=== PATIENT | male | born 1960 | race Caucasian/White ===

== ENCOUNTER 2017-09-08 21:47 | Observation (INO) | payer SELFPAY ==
[2017-09-08] VITALS (8 sets, daily range): BP systolic 134–162; BP diastolic 78–105; PULSE 106–124; RESP 16–23; TEMP 36.8; O2SAT 94–98; BMI 39.9
--- NOTE | 2017-09-08 21:49 | NURSING ---
CALLED FOR EKG PER RN REQUEST, PULLED OLD EKG'S FOR
--- NOTE | 2017-09-08 21:54 | RAD_ITS ---
STUDY: X-RAY CHEST REASON FOR EXAM: Male, 56 years old. Chest pain TECHNIQUE: Frontal view of the chest COMPARISON: 11/24/2016 FINDINGS: The lungs are clear. There are no pleural effusions. There is no pneumothorax. The heart is normal in size. The visualized osseous structures are within normal limits. RAD/Chest 1 View (Portable) IMPRESSION: No acute thoracic pathology. Electronically Signed: Daniel Lauren, at 22:28 EST Tel , Service support ,
--- NOTE | 2017-09-08 21:54 | EKG12_ITS ---
Test Reason : CP Blood Pressure : / mmHG Vent. Rate : 107 BPM Atrial Rate : 107 BPM P-R Int : 182 ms QRS Dur : 092 ms QT Int : 334 ms P-R-T Axes : 032 -37 061 degrees QTc Int : 445 ms Sinus tachycardia Left axis deviation Abnormal ECG Confirmed by CAMRYN DWYER, GÉNESIS ([id number]), makeup editor JULIUS ADAMS ([id number] on 09/11/2017 1:47:52 PM Referred By: BEKAH LEIJA Confirmed By:GÉNESIS COWAN MD
--- NOTE | 2017-09-08 21:57 | ED.DCSUM_ITS ---
- ER Visit Summary Date of Service: 09/08/17 Chief Complaint: Chest pain History of Present Illness: The patient is a 56 M with history of diabetes, hypertension, hypercholesterolemia who presents for chest pain onset 30 minutes prior to presentation. Patient was in bed and suddenly felt like someone was sitting on his chest. He has associated shortness of breath. states he has been having some flulike symptoms for 2 days, including a fever and a cough with headache, which resolved last night. Patient denies any cardiac history. He took 2 baby aspirin at home. Physical Examination: Vital signs: afebrile, hemodynamically stable, no hypoxia on room air General: well nourished, well developed, obese, nontoxic appearing but appears uncomfortable Skin: warm, dry, no rash, no pallor, no diaphoresis HEENT: normocephalic and atraumatic; PERRL, EOMI, moist mucous membranes Cardiovascular: Tachycardic rate and rhythm without murmurs, no peripheral edema , 2+ pulses all distal extremities Respiratory: No increased work of breathing, lungs are clear to auscultation bilaterally, no rales, rhonchi or wheezing Abdominal: Abdomen is soft, nontender with normoactive bowel sounds, no guarding or rebound, no masses MSK: Moves all extremities, no deformities, normal strength Neuro: Awake and alert, oriented ?4. No facial droop, sensation and motor function intact and symmetric Test Results: Abnormal Lab Results 09/08/17 09/08/17 09/08/17 21:50 21:50 21:50 WBC 4.3 L RBC 5.39 Hgb 16.5 Hct 48.6 MCV 90.2 MCH 30.6 MCHC 34.0 RDW 14.9 H RDW Differential 48.6 H Plt Count 148 L MPV 10.1 Immature Gran % (Auto) 0.200 Neut % (Auto) 61.7 Lymph % (Auto) 25.8 [place] % (Auto) 9.3 Eos % (Auto) 2.8 Baso % (Auto) 0.2 Absolute Neuts (auto) 2.7 Absolute Lymphs (auto) 1.11 Total Counted Not Reportable PT 13.5 INR 1.1 APTT 29.6 Sodium Potassium Chloride Carbon Dioxide Anion Gap BUN Creatinine Estim Creat Clear Calc Est GFR (MDRD) Af Amer Est GFR (MDRD) Non-Af BUN/Creatinine Ratio Glucose Calcium Total Bilirubin AST ALT Alkaline Phosphatase Troponin I < 0.02 B-Natriuretic Peptide Total Protein Albumin Globulin Albumin/Globulin Ratio Lipase TSH 1.06 09/08/17 09/08/17 21:50 21:50 WBC RBC Hgb Hct MCV MCH MCHC RDW RDW Differential Plt Count MPV Immature Gran % (Auto) Neut % (Auto) Lymph % (Auto) [place] % (Auto) Eos % (Auto) Baso % (Auto) Absolute Neuts (auto) Absolute Lymphs (auto) Total Counted PT INR APTT Sodium 134 L Potassium 3.8 Chloride 99 Carbon Dioxide 26.0 Anion Gap 9 BUN 16 Creatinine 1.17 Estim Creat Clear Calc 66.58 Est GFR (MDRD) Af Amer 82 Est GFR (MDRD) Non-Af 68 BUN/Creatinine Ratio 13.7 Glucose 322 H Calcium 8.9 Total Bilirubin 1.00 AST 35 ALT 107 H Alkaline Phosphatase 92 Troponin I B-Natriuretic Peptide 8.6 Total Protein 7.5 Albumin 3.8 Globulin 3.7 Albumin/Globulin Ratio 1.0 Lipase 241 TSH Emergency Department Course and Treatment: Patient was given an additional 2x81 mg aspirins and nitroglycerin. No improvement in his chest pain after 3 nitro. Patient was complaining of the chest tightness and an indigestion-like sensation and this was given a GI cocktail. He had mild improvement. EKG showed a sinus tachycardia with no ischemic changes. Chest x-ray showed no infiltrate. No leukocytosis on CBC. Glucose elevated but otherwise BMP unremarkable. Hepatic function unremarkable. BNP within normal limits. Troponin negative. Thyroid function normal. Flu negative. Because patient is persistently tachycardic and looks mildly short of breath and other causes have been ruled out, a CTA was performed to evaluate for possible pulmonary embolism. Patient was offered and declined any further pain medication, although I told him I wanted him to be pain-free. Repeat EKG was performed since patient is still having chest heaviness and was unchanged from prior, except improvement in rate now to 90. Pt remains 92% on 2lpm NC. He was ordered morphine 3 doses of nitro did not cause improvement. The CTA was inconclusive due to a suboptimal bolus, thus patient was given a treatment dose of Lovenox. Will require admission for further workup of his persistent chest heaviness with significant medical comorbidities and concern for possible pulmonary embolism after nondiagnostic CTA. Pt discussed with Dr. Wiggins. Treatment Plan: [] Disposition: [] Impression: Chest heaviness history of diabetes, hypertension and hypercholesterolemia This note was generated with [employer] dictation software. It may contain incorrect words, spelling, and punctuation that were not noted in review of the chart prior to signing ED Disposition - Plan for ED Patient: Chief Complaint: Chest Pain Referrals: Awais Browning III, MD [Primary Care Provider] -
[2017-09-08] MEDS: Aspirin 81 MG TAB.CHEW 162 MG PO (22:01)
[2017-09-08] MEDS: 0.9% Normal Saline 1,000 ML 1000 ML IV (22:06)
[2017-09-08 22:21] LABS: Absolute Lymphocyte Count 1.11 X10^3/ul (0.83-4.51); Absolute Neutrophil Count 2.7 X10^3/uL (2.0-7.7); Basophil# 0.01 X10^3/uL; Basophil% 0.2 % (0-1); Eosinophil# 0.12 X10^3/uL; Eosinophils% 2.8 % (0-5); Hematocrit 48.6 % (40-54); Hemoglobin 16.5 g/dl (13.0-16.5); Lymphocyte # 1.11 X10^3/ul (4.0); Lymphocyte % 25.8 % (19-41); Mean Corpuscular Hgb 30.6 pg (27.0-32.0); Mean Corpuscular Volume 90.2 fL (80-94); Mean Platelet Vol. 10.1 fl (6.2-12.0); Monocyte% 9.3 % (0-10); Neutrophil # 2.66 X10^3/uL (2.7-7.7); Neutrophil % 61.7 % (47-70); POSITIVE COUNT NO; POSITIVE DIFFERENTIAL NO; POSITIVE MORPHOLOGY NO; Platelet Count 148 K/mm3 (150-450); RBC Distribution Width CV 14.9 % (11.6-14.6); RBC Distribution Width SD 48.6 fl (35.1-43.9); Red Blood Count 5.39 M/mm3 (4.6-6.2); White Blood Count 4.3 K/mm3 (4.4-11.0)
[2017-09-08 22:25] LABS: International Normalized Ratio 1.1; Prothrombin Time (Protime)PT. 13.5 SECONDS (11.7-14.9)
[2017-09-08 22:26] LABS: Partial Thromboplast Time 29.6 Seconds (24.1-36.2)
[2017-09-08] MEDS: Ondansetron 4 MG/2 ML Vial IV (22:39)
[2017-09-08 22:48] LABS: BNP,B-Type NATRIURETIC PEPTIDE 8.6 pg/mL (0-100)
[2017-09-08 22:51] LABS: Thyroid Stim Hormone (TSH) 1.06 uIU/mL (0.358-3.74)
[2017-09-08 23:05] LABS: AST(SGOT) 35 U/L (15-37); Alanine Aminotransfer ALT/SGPT 107 U/L (16-61); Albumin, Serum 3.8 g/dL (3.2-5.0); Alkaline Phosphatase 92 U/L (45-117); Anion Gap 9 (5-15); BUN 16 mg/dL (7-18); BUN/Creat Ratio 13.7 RATIO (10-20); Calcium,Total 8.9 mg/dL (8.5-10.1); Chloride 99 mmol/L (98-107); Creatinine, Serum 1.17 mg/dL (0.70-1.30); EST Glomerular Filtration Rate 68 mL/min (>60); Est Glom Filt Rate - Afr Amer 82 mL/min (>60); Estimated Creatinine Clearance 66.58 ml/min; Globulin 3.7 g/dL (2.2-4.2); Glucose 322 mg/dL (74-106); Lipase 241 U/L (73-393); Potassium 3.8 mmol/L (3.5-5.1); Protein, Total 7.5 g/dL (6.4-8.2); Sodium Level 134 mmol/L (136-145)
--- NOTE | 2017-09-08 23:09 | CT_ITS ---
STUDY: CTA CHEST REASON FOR EXAM: Male, 56 years old. Sternal chest pain and shortness of breath. RADIATION DOSAGE (If Supplied By Facility): CTDIvol = ( 16.73 ) mGy, DLP = ( 1577.89 ) mGycm TECHNIQUE: The examination was performed with the intravenous administration of 200ml ml of Isovue 370 contrast material. Post-processing of the angiographic images was performed, with multiplanar reformation. Individualized dose optimization techniques were used for this CT. COMPARISON: None. FINDINGS: There is limited enhancement of the main pulmonary artery and right and left pulmonary arteries. There is limited enhancement of the bilateral peripheral pulmonary arteries. There is no demonstrated definite central pulmonary embolism. The peripheral branches are difficult to evaluate. There is atherosclerotic tortuosity of the aortic arch and descending thoracic aorta. There is no demonstrated aortic dissection. Normal heart and pericardium. Normal mediastinum. Normal hilar regions. There is a small nondependent left lobe of the thyroid gland better evaluated by ultrasound. Normal visualized trachea and bronchi. The lungs are well expanded. There are no pulmonary infiltrates. There are no pleural effusions. Normal chest wall structures. There are degenerative changes of thoracic spine. The visualized portions of the upper abdomen demonstrate splenomegaly. CT/CTA Chest W/WO Contrast IMPRESSION: Limited examination due to suboptimal enhancement of the central and peripheral branches of pulmonary arteries. No infiltrate is seen. Splenomegaly Small nodule in the left lobe of the thyroid gland. Electronically Signed: Rivas Tsai MD at 0:27 EST Tel , Service support ,
--- NOTE | 2017-09-08 23:59 | NURSING ---
HOLD METFORMIN FOR 48 HOURS DUE TO CTA. PAPER ATTATCHED TO THE PAPER CHART FOR HE GETS ADMITTED.
[2017-09-09] VITALS (11 sets, daily range): BP systolic 123–148; BP diastolic 72–88; PULSE 77–112; RESP 15–23; TEMP 36.8–37.2; O2SAT 92–94; BMI 40.0; BMI 40.9
--- NOTE | 2017-09-09 00:41 | EKG12_ITS ---
Test Reason : REPEAT Blood Pressure : / mmHG Vent. Rate : 090 BPM Atrial Rate : 090 BPM P-R Int : 196 ms QRS Dur : 094 ms QT Int : 348 ms P-R-T Axes : 014 -29 044 degrees QTc Int : 425 ms Normal sinus rhythm Left ventricular hypertrophy Abnormal ECG Confirmed by CAMRYN DWYER, GÉNESIS ([id number]), digital editor JULIUS ADAMS ([id number]) on 09/11/2017 1:48:08 PM Referred By: BEKAH Confirmed By:GÉNESIS COWAN MD
[2017-09-09 00:50] LABS: D-Dimer Quantitative (DVT/PE) < 0.27 FEU/ug/m (0.27-0.49)
[2017-09-09] MEDS: Enoxaparin 100 MG/ML Syringe 120 MG SC (00:50)
--- NOTE | 2017-09-09 01:11 | PCM.HP.STD ---
Problem List (1) Chest pain Status: Acute (2) Morbid obesity with BMI of 40.0-44.9, adult Status: Chronic (3) Diabetes mellitus type II Status: Chronic (4) Hyperlipidemia Status: Chronic (5) Hypertension Status: Chronic History of Present Illness Date of Admission: 09/09/17 Chief Complaint: chest pain The patient is a 56 year old M experienced Left sided chest pain at 2130 on 09/08. Midsternal and migrated up his chest. Never had chest pain like this before. No SOB, no diaphoresis, no N/V. Pt had an incomplete CTA chest and rec'd 120mg Lovenox (despite a normal D-Dimer. He also rec'd ASA, morphine, nitro, zofran. Pt still with chest pain despite that cocktail. [] Past Medical History Past Medical History (Chronic Problems): Chronic Problems Morbid obesity with BMI of 40.0-44.9, adult (Chronic) Hyperlipidemia (Chronic) Hypertension (Chronic) Diabetes mellitus type II (Chronic) Allergies No Known Allergies Allergy (Verified 09/08/17 21:50) Home Medications: Ambulatory Orders Medication Instructions Recorded Lisinopril [Zestril] 40 mg PO DAILY 12/10/14 Metformin HCl [Glucophage] 1,000 mg PO BIDCM 12/10/14 Aspirin [Aspirin, Baby] 81 mg PO DAILY@0800 06/09/16 Atenolol [Tenormin (Beta Kat)] 25 mg PO DAILY 06/09/16 Atorvastatin Calcium [Lipitor] 40 mg PO QHS 06/09/16 Fluoxetine [Prozac] 40 mg PO DAILY 06/09/16 Multivitamin [Daily Multiple 1 each PO DAILY 06/09/16 Vitamin] Glimepiride [Amaryl] 4 mg PO DAILY 09/08/17 Surgical History: - - Hernia repair, tonsillectomy, bilateral arthroscopic knee surgeries Smoking Status: Never smoker Tobacco Use: Chew Alcohol: Occasional Drugs: None - *Family History Maternal History Items: Heart Disease, No pertinent history Paternal History Items: Heart Disease, - - History of congestive heart failure, history of aneurysm unsure which ones Review of Systems Constitutional: Reports: Night Sweats - chronic. Denies: Chills, Fever, Weight Change Eyes: Denies: Blurred vision, Double vision HEENT: Denies: Head Aches, Sinus Congestion, Sinus Drainage Cardiovascular: Reports: Chest Pain. Denies: Edema Respiratory: Denies: Cough, Shortness of breath at rest, Sputum production Gastrointestinal: Denies: Abdominal Pain, Nausea, Vomiting Genitourinary: Denies: Dysuria Musculoskeletal: Denies: Joint Pain, Joint Tenderness Skin: Denies: Rash, Wounds Neurological: Denies: Numbness, Tingling, Focal weakness Psychiatric: Denies: Anxiety, Depression Endocrine: Denies: Change in Body Habitus, Heat/ Cold Intolerance Hematologic/ Lymphatic: Denies: Easy Bruising, Easy Bleeding, Hx of blood clot VTE Information - Inpt Only VTE Present on Admission: No VTE Mechan Device Prophylaxis: None VTE Pharm Prophylaxis ordered?: No Reason prophylaxis not ordered:: Medical Contraindication Patient Problems: Active and Suspected Problems Chest pain (Acute) - Physical Exam General: Alert, Cooperative, No apparent distress HEENT: Atraumatic, Normocephalic Neck: No Nodes, Thyroid Normal Size and Texture Lungs: Clear to auscultation, Normal air movement, No rhonchi, No wheeze Cardiovascular: Regular rate, Regular Rhythm, Normal S1, Normal S2 Abdomen: Bowel Sounds Present, Soft, Non Tender, Non-Distended, No Hepato-splenomegaly Extremities: No edema, No Calf Tenderness Skin: No rashes, No breakdown Neurological: Neuro grossly intact, Muscle tone normal, Coordination normal Psych/Mental Status: Normal Affect, Appropriate Vital Signs Temp Pulse Resp BP Pulse Ox 36.8 C 91 23 H 145/87 H 94 09/08/17 21:48 09/09/17 00:17 09/08/17 23:12 09/09/17 00:17 09/09/17 00:17 Oxygen Flow Rate 2 Oxygen Delivery Method Nasal Cannula Weight: 119.2 kg Body Mass Index (BMI) 39.9 Microbiology Past 72 Hours 09/08/17 22:40 Influenza Types A,B Direct FA (ADRIEN) - Final Mucosa - Nose Laboratory Tests Past 24 Hrs 09/08/17 09/08/17 09/08/17 21:50 21:50 21:50 WBC 4.3 L RBC 5.39 Hgb 16.5 Hct 48.6 MCV 90.2 MCH 30.6 MCHC 34.0 RDW 14.9 H RDW Differential 48.6 H Plt Count 148 L MPV 10.1 Immature Gran % (Auto) 0.200 Neut % (Auto) 61.7 Lymph % (Auto) 25.8 [place] % (Auto) 9.3 Eos % (Auto) 2.8 Baso % (Auto) 0.2 Absolute Neuts (auto) 2.7 Absolute Lymphs (auto) 1.11 Total Counted Not Reportable PT 13.5 INR 1.1 APTT 29.6 D-Dimer Quant (PE/DVT) Sodium Potassium Chloride Carbon Dioxide Anion Gap BUN Creatinine Estim Creat Clear Calc Est GFR (MDRD) Af Amer Est GFR (MDRD) Non-Af BUN/Creatinine Ratio Glucose Calcium Total Bilirubin AST ALT Alkaline Phosphatase Troponin I < 0.02 B-Natriuretic Peptide Total Protein Albumin Globulin Albumin/Globulin Ratio Lipase TSH 1.06 09/08/17 09/08/17 09/08/17 21:50 21:50 21:50 WBC RBC Hgb Hct MCV MCH MCHC RDW RDW Differential Plt Count MPV Immature Gran % (Auto) Neut % (Auto) Lymph % (Auto) [place] % (Auto) Eos % (Auto) Baso % (Auto) Absolute Neuts (auto) Absolute Lymphs (auto) Total Counted PT INR APTT D-Dimer Quant (PE/DVT) < 0.27 L Sodium 134 L Potassium 3.8 Chloride 99 Carbon Dioxide 26.0 Anion Gap 9 BUN 16 Creatinine 1.17 Estim Creat Clear Calc 66.58 Est GFR (MDRD) Af Amer 82 Est GFR (MDRD) Non-Af 68 BUN/Creatinine Ratio 13.7 Glucose 322 H Calcium 8.9 Total Bilirubin 1.00 AST 35 ALT 107 H Alkaline Phosphatase 92 Troponin I B-Natriuretic Peptide 8.6 Total Protein 7.5 Albumin 3.8 Globulin 3.7 Albumin/Globulin Ratio 1.0 Lipase 241 TSH EKG reviewed: NSR w/o any acute changes. Assessment/Plan Active and Suspected Problems Chest pain (Acute) 1. Chest pain: PE ruled out w normal D-Dimer. R/O cardiac w stress test. If negative, discharge home. Cycle troponins 2. DM2, uncontrolled on glyburide and metformin BGT here was 322 I suspect that he is poorly controlled at home, but he doesn't check his blood sugars regularly Hold metformin until 09/13 d/t the IV contrast Pt declined SSI while he was here, stating he does not want any insulin. I told him that hospitalized patients often have elevated blood sugars, that may require coverage. he stated that he'll think about it. check A1c Code Visit OBSV E&M: 35323 Initial observation care L2
--- NOTE | 2017-09-09 01:21 | HP.PCM_ITS ---
Problem List (1) Chest pain Status: Acute (2) Morbid obesity with BMI of 40.0-44.9, adult Status: Chronic (3) Diabetes mellitus type II Status: Chronic (4) Hyperlipidemia Status: Chronic (5) Hypertension Status: Chronic History of Present Illness Date of Admission: 09/09/17 Chief Complaint: chest pain The patient is a 56 year old M experienced Left sided chest pain at 2130 on 09/08. Midsternal and migrated up his chest. Never had chest pain like this before. No SOB, no diaphoresis, no N/V. Pt had an incomplete CTA chest and rec'd 120mg Lovenox (despite a normal D-Dimer. He also rec'd ASA, morphine, nitro, zofran. Pt still with chest pain despite that cocktail. [] Past Medical History Past Medical History (Chronic Problems): Chronic Problems Morbid obesity with BMI of 40.0-44.9, adult (Chronic) Hyperlipidemia (Chronic) Hypertension (Chronic) Diabetes mellitus type II (Chronic) Allergies No Known Allergies Allergy (Verified 09/08/17 21:50) Home Medications: Ambulatory Orders Medication Instructions Recorded Lisinopril [Zestril] 40 mg PO DAILY 12/10/14 Metformin HCl [Glucophage] 1,000 mg PO BIDCM 12/10/14 Aspirin [Aspirin, Baby] 81 mg PO DAILY@0800 06/09/16 Atenolol [Tenormin (Beta Kat)] 25 mg PO DAILY 06/09/16 Atorvastatin Calcium [Lipitor] 40 mg PO QHS 06/09/16 Fluoxetine [Prozac] 40 mg PO DAILY 06/09/16 Multivitamin [Daily Multiple 1 each PO DAILY 06/09/16 Vitamin] Glimepiride [Amaryl] 4 mg PO DAILY 09/08/17 Surgical History: - - Hernia repair, tonsillectomy, bilateral arthroscopic knee surgeries Smoking Status: Never smoker Tobacco Use: Chew Alcohol: Occasional Drugs: None - *Family History Maternal History Items: Heart Disease, No pertinent history Paternal History Items: Heart Disease, - - History of congestive heart failure, history of aneurysm unsure which ones Review of Systems Constitutional: Reports: Night Sweats - chronic. Denies: Chills, Fever, Weight Change Eyes: Denies: Blurred vision, Double vision HEENT: Denies: Head Aches, Sinus Congestion, Sinus Drainage Cardiovascular: Reports: Chest Pain. Denies: Edema Respiratory: Denies: Cough, Shortness of breath at rest, Sputum production Gastrointestinal: Denies: Abdominal Pain, Nausea, Vomiting Genitourinary: Denies: Dysuria Musculoskeletal: Denies: Joint Pain, Joint Tenderness Skin: Denies: Rash, Wounds Neurological: Denies: Numbness, Tingling, Focal weakness Psychiatric: Denies: Anxiety, Depression Endocrine: Denies: Change in Body Habitus, Heat/ Cold Intolerance Hematologic/ Lymphatic: Denies: Easy Bruising, Easy Bleeding, Hx of blood clot VTE Information - Inpt Only VTE Present on Admission: No VTE Mechan Device Prophylaxis: None VTE Pharm Prophylaxis ordered?: No Reason prophylaxis not ordered:: Medical Contraindication Patient Problems: Active and Suspected Problems Chest pain (Acute) - Physical Exam General: Alert, Cooperative, No apparent distress HEENT: Atraumatic, Normocephalic Neck: No Nodes, Thyroid Normal Size and Texture Lungs: Clear to auscultation, Normal air movement, No rhonchi, No wheeze Cardiovascular: Regular rate, Regular Rhythm, Normal S1, Normal S2 Abdomen: Bowel Sounds Present, Soft, Non Tender, Non-Distended, No Hepato- splenomegaly Extremities: No edema, No Calf Tenderness Skin: No rashes, No breakdown Neurological: Neuro grossly intact, Muscle tone normal, Coordination normal Psych/Mental Status: Normal Affect, Appropriate Vital Signs Temp Pulse Resp BP Pulse Ox 36.8 C 91 23 H 145/87 H 94 09/08/17 21:48 09/09/17 00:17 09/08/17 23:12 09/09/17 00:17 09/09/17 00:17 Oxygen Flow Rate 2 Oxygen Delivery Method Nasal Cannula Weight: 119.2 kg Body Mass Index (BMI) 39.9 Microbiology Past 72 Hours 09/08/17 22:40 Influenza Types A,B Direct FA (ADRIEN) - Final Mucosa - Nose Laboratory Tests Past 24 Hrs 09/08/17 09/08/17 09/08/17 21:50 21:50 21:50 WBC 4.3 L RBC 5.39 Hgb 16.5 Hct 48.6 MCV 90.2 MCH 30.6 MCHC 34.0 RDW 14.9 H RDW Differential 48.6 H Plt Count 148 L MPV 10.1 Immature Gran % (Auto) 0.200 Neut % (Auto) 61.7 Lymph % (Auto) 25.8 [place] % (Auto) 9.3 Eos % (Auto) 2.8 Baso % (Auto) 0.2 Absolute Neuts (auto) 2.7 Absolute Lymphs (auto) 1.11 Total Counted Not Reportable PT 13.5 INR 1.1 APTT 29.6 D-Dimer Quant (PE/DVT) Sodium Potassium Chloride Carbon Dioxide Anion Gap BUN Creatinine Estim Creat Clear Calc Est GFR (MDRD) Af Amer Est GFR (MDRD) Non-Af BUN/Creatinine Ratio Glucose Calcium Total Bilirubin AST ALT Alkaline Phosphatase Troponin I < 0.02 B-Natriuretic Peptide Total Protein Albumin Globulin Albumin/Globulin Ratio Lipase TSH 1.06 09/08/17 09/08/17 09/08/17 21:50 21:50 21:50 WBC RBC Hgb Hct MCV MCH MCHC RDW RDW Differential Plt Count MPV Immature Gran % (Auto) Neut % (Auto) Lymph % (Auto) [place] % (Auto) Eos % (Auto) Baso % (Auto) Absolute Neuts (auto) Absolute Lymphs (auto) Total Counted PT INR APTT D-Dimer Quant (PE/DVT) < 0.27 L Sodium 134 L Potassium 3.8 Chloride 99 Carbon Dioxide 26.0 Anion Gap 9 BUN 16 Creatinine 1.17 Estim Creat Clear Calc 66.58 Est GFR (MDRD) Af Amer 82 Est GFR (MDRD) Non-Af 68 BUN/Creatinine Ratio 13.7 Glucose 322 H Calcium 8.9 Total Bilirubin 1.00 AST 35 ALT 107 H Alkaline Phosphatase 92 Troponin I B-Natriuretic Peptide 8.6 Total Protein 7.5 Albumin 3.8 Globulin 3.7 Albumin/Globulin Ratio 1.0 Lipase 241 TSH EKG reviewed: NSR w/o any acute changes. Assessment/Plan Active and Suspected Problems Chest pain (Acute) 1. Chest pain: * PE ruled out w normal D-Dimer. * R/O cardiac w stress test. If negative, discharge home. * Cycle troponins 2. DM2, uncontrolled * on glyburide and metformin * BGT here was 322 * I suspect that he is poorly controlled at home, but he doesn't check his blood sugars regularly * Hold metformin until 09/13 d/t the IV contrast * Pt declined SSI while he was here, stating he does not want any insulin. I told him that hospitalized patients often have elevated blood sugars, that may require coverage. he stated that he'll think about it. * check A1c Code Visit OBSV E&M: [id number] Initial observation care L2
--- NOTE | 2017-09-09 05:55 | EKG12_ITS ---
Test Reason : MORNING EKG Blood Pressure : / mmHG Vent. Rate : 098 BPM Atrial Rate : 098 BPM P-R Int : 186 ms QRS Dur : 098 ms QT Int : 362 ms P-R-T Axes : 022 -27 051 degrees QTc Int : 462 ms Normal sinus rhythm R/S >1.0 in V1: consider lead placement, normal variant, early transition, posterior CA-age undetermi gerald Confirmed by CAMRYN DWYER, GÉNESIS ([id number]), editor continuity and script JULIUS ADAMS ([id number]) on 09/14/2017 2:00:38 PM Referred By: Confirmed By:GÉNESIS COWAN MD
--- NOTE | 2017-09-09 05:55 | STEWCON_ITS ---
Reason For Study: CHEST PAIN Stress Results Protocol: Yuri Protocol Maximum Predicted HR: 162 bpm Target HR: 138 bpm% Max imum Predicted HR: 97 % DurationHeart Rate Stage (mm:ss) (bpm) BPCom ment BASELINE 88 126/88 .2 ML DEFINITY STAGE 1 3:00 12 9 162/88 STAGE 2 2:15 15 7 222/86.2 ML DEFINITY RECOVERY 113 124/7 8.2 ML DEFINITY Stress Duration: 5:15 mm:ss Maximum Stress HR: 157 bpm Baseline Echocardiogram Findings The estimated ejection fraction is 65 %. Stress Echo Wall motion Data Resting WMIntermediate WMStress WM Resting Wall Motion Wall Motion Stress No regional wall motion No regional wall motion abnormalities noted. abnormalities noted. EKG Data Normal intervals are noted. The patient exercised according to the regular Yuri protocol for a total duration of 5:16. The maximum heart rate attained was 155 beats per minute. This was 95% of maximum predicted heart rate. The patient exercised into stage 2 of the Yuri protocol. During stress, there were no ST or T wave changes noted to suggest ischemia. Interpretation Summary The estimated ejection fraction is 65 %. Normal adequate treadmill echocardiogram. Negative for ischemia by EKG and echocardiographic criteria. No anginal symptoms noted. No arrhythmias noted. Hypertensive blood pressure response to exercise. Below average exercise capacity for age. Test terminated due to dyspnea, leg discomfort and achieving a target heart rate. Final LVEF is 75%. Decreased sensitivity due to difficult echo windows requiring Definity contrast agent. Ordering Physician: Alvin Wiggins Performed By: Florina Oliveira, JAKE, RVT
[2017-09-09 06:01] LABS: Absolute Lymphocyte Count 1.22 X10^3/ul (0.83-4.51); Absolute Neutrophil Count 2.4 X10^3/uL (2.0-7.7); Basophil# 0.01 X10^3/uL; Basophil% 0.2 % (0-1); Eosinophil# 0.15 X10^3/uL; Eosinophils% 3.4 % (0-5); Hematocrit 45.6 % (40-54); Hemoglobin 15.3 g/dl (13.0-16.5); Lymphocyte # 1.22 X10^3/ul (4.0); Lymphocyte % 27.3 % (19-41); Mean Corp Hgb Conc 33.6 g/gl (32-36); Mean Corpuscular Hgb 30.1 pg (27.0-32.0); Mean Corpuscular Volume 89.6 fL (80-94); Mean Platelet Vol. 9.8 fl (6.2-12.0); Monocyte# 0.67 X10^3/uL; Neutrophil # 2.41 X10^3/uL (2.7-7.7); Neutrophil % 53.9 % (47-70); Platelet Count 137 K/mm3 (150-450); RBC Distribution Width CV 14.8 % (11.6-14.6); RBC Distribution Width SD 48.2 fl (35.1-43.9); Red Blood Count 5.09 M/mm3 (4.6-6.2); White Blood Count 4.5 K/mm3 (4.4-11.0)
[2017-09-09 06:17] LABS: International Normalized Ratio 1.2; POSITIVE COUNT NO; POSITIVE DIFFERENTIAL NO; POSITIVE MORPHOLOGY NO; Prothrombin Time (Protime)PT. 14.7 SECONDS (11.7-14.9)
[2017-09-09 06:18] LABS: Partial Thromboplast Time 35.7 Seconds (24.1-36.2)
[2017-09-09 06:25] LABS: Anion Gap 10 (5-15); BUN 14 mg/dL (7-18); BUN/Creat Ratio 16.2 RATIO (10-20); Calcium,Total 8.7 mg/dL (8.5-10.1); Chloride 103 mmol/L (98-107); Cholesterol 118 mg/dL (200); Creatinine, Serum 0.87 mg/dL (0.70-1.30); EST Glomerular Filtration Rate 96 mL/min (>60); Est Glom Filt Rate - Afr Amer 116 mL/min (>60); Estimated Creatinine Clearance 89.54 ml/min; Glucose 134 mg/dL (74-106); High Density Lipoprotein 21 mg/dL; Potassium 3.6 mmol/L (3.5-5.1); Sodium Level 134 mmol/L (136-145); Triglycerides 279 mg/dL; Very Low Density Lipoprotein 56 mg/dL (5-40)
[2017-09-09 06:51] LABS: Bedside Glucose 145 mg/dL (70-110)
[2017-09-09 08:12] LABS: Hemoglobin A1c 6.9 % (4.2-6.3)
[2017-09-09] MEDS: Lisinopril 40 MG Tablet PO (08:19)
[2017-09-09] MEDS: Aspirin E.C. 81 MG Tablet PO (08:19)
--- NOTE | 2017-09-09 08:38 | NURSING ---
taken down to stress test
[2017-09-09] MEDS: FLUoxetine 20 MG Capsule 40 MG PO (11:07)
[2017-09-09] MEDS: Atenolol 25 MG Tablet PO (11:08)
[2017-09-09] MEDS: Multivitamins,Therapeutic Tablet 1 TABLET PO (11:08)
[2017-09-09] MEDS: Glimepiride 4 MG Tablet PO (11:08)
--- NOTE | 2017-09-09 11:29 | PCM.DC ---
- Discharge Diagnoses Current Active Problems: Current Active and Chronic Problems Chest pain (Acute) You will use the following diet at home:: Calorie/Carbohydrate Controlled (specify 1200, 1400, etc), Cardiac Discharge Activity: Return to Normal Activity Call your doctor if you observe: Fever of 101 or Higher, Shortness of breath, Dizziness, Fainting spells, Chest pain, Increased palpitations (irregular heartbeat) Allergies/Adverse Reactions: Allergies No Known Allergies Allergy (Verified 09/09/17 01:40) Medications to take at Discharge Lisinopril [Zestril] 40 mg PO DAILY 12/10/14 Metformin HCl [Glucophage] 1,000 mg PO BIDCM 12/10/14 Aspirin [Aspirin, Baby] 81 mg PO DAILY@0800 06/09/16 Atenolol [Tenormin (beta althea)] 25 mg PO DAILY 06/09/16 Atorvastatin Calcium [Lipitor] 40 mg PO QHS 06/09/16 Fluoxetine [Prozac] 40 mg PO DAILY 06/09/16 Multivitamin [Daily Multiple Vitamin] 1 each PO DAILY 06/09/16 Glimepiride [Amaryl] 4 mg PO DAILY 09/08/17 Primary Care Physician: Awais Browning III, MD [Primary Care Provider] - Please follow up with your Primary Care Physician in: 1-2 Weeks Please Follow Up With: Yuri Bailey MD - Or Dr. Olmedo, May see STUDENT SERVICES REPRESENTATIVE When: 1-2 Weeks Proposed Discharge Date: 09/09/17
--- NOTE | 2017-09-09 11:32 | PCM.DC.SUM ---
<Monserrat Ramos - Last Filed: 09/09/17 14:06> Discharge Date and Diagnosis Date of Admission: 09/09/17 Date of Discharge: 09/09/17 - Primary Discharge Diagnosis Active and Suspected Problems 1. Chest pain (Acute)- ACS ruled out 2. Untreated GIULIA - Secondary Discharge Diagnosis Chronic Problems Morbid obesity with BMI of 40.0-44.9, adult (Chronic) Hyperlipidemia (Chronic) Hypertension (Chronic) Diabetes mellitus type II (Chronic) Hospital Course and Treatment Imaging Results: Diagnostic Data Chest X-Ray 09/08/17 21:54 IMPRESSION: No acute thoracic pathology. Electronically Signed: Daniel Lauren at 22:28 EST Tel , Service support , Chest CTA 09/08/17 23:09 IMPRESSION: Limited examination due to suboptimal enhancement of the central and peripheral branches of pulmonary arteries. No infiltrate is seen. Splenomegaly Small nodule in the left lobe of the thyroid gland. Electronically Signed: Rivas Tsai MD at 0:27 EST Tel , Service support , Operations: None Procedures: Stress test Summary of Care Provided: The patient is a 56 year old M admitted 09/09/17 due to chest pain. Patient states he was watching a basketball game and became angry on the chest pain occurred. No shortness of breath, diaphoresis or other associated symptoms. D-dimer normal. Chest CTA unremarkable with the exception of a small nodule in the left lobe of the thyroid gland. Chest x-ray unremarkable. No evidence of PE. Troponin negative. Patient underwent nuclear stress test which was negative for ischemia. She denies further chest discomfort. Patient underwent polysomnogram 03/18/2016 which showed obstructive sleep apnea. This was completed through Dr. Funez. Patient was recommended to be treated with positive airway pressure therapy. He did not follow-up after that time. He states he is not opposed to wearing CPAP if this is recommended. Recommend patient follow-up with pulmonary medicine of [place] for further evaluation and repeat polysomnogram with titration. Patient has a past medical history of hypertension, hyperlipidemia, morbid obesity and type 2 diabetes mellitus, history of tobacco use. Hemoglobin A1c 6.9%. Other chronic medical conditions are stable at this time. Patient was seen and examined prior to discharge. Heart rate regular rate and rhythm. Lungs clear, diminished. Abdomen soft, nontender. Neuro grossly intact. Vital signs stable. Patient is stable for discharge home with recommendations as noted above. This patient was seen by MILAD Mejia under the supervision of Dr. Rob. Discharge Diet: Low fat/ Low Cholesterol, Carb Control Diet Discharge Activity: Return to Normal Activity Call your doctor if you observe: Fever of 101 or Higher, Shortness of breath, Dizziness, Fainting spells, Chest pain, Increased palpitations (irregular heartbeat) Home Medications: Medications to take at Discharge Lisinopril [Zestril] 40 mg PO DAILY 12/10/14 Metformin HCl [Glucophage] 1,000 mg PO BIDCM 12/10/14 Aspirin [Aspirin, Baby] 81 mg PO DAILY@0800 06/09/16 Atenolol [Tenormin (beta althea)] 25 mg PO DAILY 06/09/16 Atorvastatin Calcium [Lipitor] 40 mg PO QHS 06/09/16 Fluoxetine [Prozac] 40 mg PO DAILY 06/09/16 Multivitamin [Daily Multiple Vitamin] 1 each PO DAILY 06/09/16 Glimepiride [Amaryl] 4 mg PO DAILY 09/08/17 Primary Care Physician: Awais Browning III, MD [Primary Care Provider] - Please follow up with your Primary Care Physician in: 1-2 Weeks Please Follow Up With: Yuri Bailey MD - Or Dr. Olmedo, May see CASE MANAGER When: 1-2 Weeks Disposition: Home Minutes spent on discharge:: 35 Patient Condition:: Stable Meaningful Use Info Meaningful Use Diagnoses (Choose all that apply): None applicable <Sebastien Rob - Last Filed: 09/10/17 10:58> Discharge Date and Diagnosis - Secondary Discharge Diagnosis Chronic Problems Morbid obesity with BMI of 40.0-44.9, adult (Chronic) Hyperlipidemia (Chronic) Hypertension (Chronic) Diabetes mellitus type II (Chronic) Hospital Course and Treatment Summary of Care Provided: Hospitalist note: Discharge summary above reviewed and I agree with above discharge plan. Patient was admitted because of chest pain. His workup was unremarkable and acute coronary syndrome ruled out. Chest x-ray showed no acute findings. EKG revealed no evidence of acute ischemic changes. Troponin was negative ?4. D-dimer was normal. CTA chest showed no evidence of PE or dissection, no pneumonia. It revealed small left thyroid lobe nodule. TSH was normal. Patient underwent stress echocardiogram that was negative for stress-induced myocardial ischemia. His vital signs were stable. His routine blood work was unremarkable. Patient discharged home in a stable medical condition, discharged on his same medication without any changes, recommended to follow-up with PCP in 1-2 weeks. Minutes spent on discharge:: 26 Code Visit OBSV E&M: 42293 Observ/hosp same date L1
--- NOTE | 2017-09-09 11:44 | DS.PCM_ITS ---
<Monserrat Ramos - Last Filed: 09/09/17 14:06> Discharge Date and Diagnosis Date of Admission: 09/09/17 Date of Discharge: 09/09/17 - Primary Discharge Diagnosis Active and Suspected Problems 1. Chest pain (Acute)- ACS ruled out 2. Untreated GIULIA - Secondary Discharge Diagnosis Chronic Problems Morbid obesity with BMI of 40.0-44.9, adult (Chronic) Hyperlipidemia (Chronic) Hypertension (Chronic) Diabetes mellitus type II (Chronic) Hospital Course and Treatment Imaging Results: Diagnostic Data Chest X-Ray 09/08/17 21:54 IMPRESSION: No acute thoracic pathology. Electronically Signed: Daniel Lauren at 22:28 EST Tel , Service support , Chest CTA 09/08/17 23:09 IMPRESSION: Limited examination due to suboptimal enhancement of the central and peripheral branches of pulmonary arteries. No infiltrate is seen. Splenomegaly Small nodule in the left lobe of the thyroid gland. Electronically Signed: Rivas Tsai MD at 0:27 EST Tel , Service support , Operations: None Procedures: Stress test Summary of Care Provided: The patient is a 56 year old M admitted 09/09/17 due to chest pain. Patient states he was watching a basketball game and became angry on the chest pain occurred. No shortness of breath, diaphoresis or other associated symptoms. D- dimer normal. Chest CTA unremarkable with the exception of a small nodule in the left lobe of the thyroid gland. Chest x-ray unremarkable. No evidence of PE. Troponin negative. Patient underwent nuclear stress test which was negative for ischemia. She denies further chest discomfort. Patient underwent polysomnogram 03/18/2016 which showed obstructive sleep apnea. This was completed through Dr. Funez. Patient was recommended to be treated with positive airway pressure therapy. He did not follow-up after that time. He states he is not opposed to wearing CPAP if this is recommended. Recommend patient follow-up with pulmonary medicine of [place] for further evaluation and repeat polysomnogram with titration. Patient has a past medical history of hypertension, hyperlipidemia, morbid obesity and type 2 diabetes mellitus, history of tobacco use. Hemoglobin A1c 6.9%. Other chronic medical conditions are stable at this time. Patient was seen and examined prior to discharge. Heart rate regular rate and rhythm. Lungs clear, diminished. Abdomen soft, nontender. Neuro grossly intact. Vital signs stable. Patient is stable for discharge home with recommendations as noted above. This patient was seen by MILAD Mejia under the supervision of Dr. Rob. Discharge Diet: Low fat/ Low Cholesterol, Carb Control Diet Discharge Activity: Return to Normal Activity Call your doctor if you observe: Fever of 101 or Higher, Shortness of breath, Dizziness, Fainting spells, Chest pain, Increased palpitations (irregular heartbeat) Home Medications: Medications to take at Discharge Lisinopril [Zestril] 40 mg PO DAILY 12/10/14 Metformin HCl [Glucophage] 1,000 mg PO BIDCM 12/10/14 Aspirin [Aspirin, Baby] 81 mg PO DAILY@0800 06/09/16 Atenolol [Tenormin (beta althea)] 25 mg PO DAILY 06/09/16 Atorvastatin Calcium [Lipitor] 40 mg PO QHS 06/09/16 Fluoxetine [Prozac] 40 mg PO DAILY 06/09/16 Multivitamin [Daily Multiple Vitamin] 1 each PO DAILY 06/09/16 Glimepiride [Amaryl] 4 mg PO DAILY 09/08/17 Primary Care Physician: Awais Brownnig III, MD [Primary Care Provider] - Please follow up with your Primary Care Physician in: 1-2 Weeks Please Follow Up With: Yuri Bailey MD - Or Dr. Olmedo, May see MORTGAGE LOAN ASSISTANT When: 1-2 Weeks Disposition: Home Minutes spent on discharge:: 35 Patient Condition:: Stable Meaningful Use Info Meaningful Use Diagnoses (Choose all that apply): None applicable <Sebastien Rob - Last Filed: 09/10/17 10:58> Discharge Date and Diagnosis - Secondary Discharge Diagnosis Chronic Problems Morbid obesity with BMI of 40.0-44.9, adult (Chronic) Hyperlipidemia (Chronic) Hypertension (Chronic) Diabetes mellitus type II (Chronic) Hospital Course and Treatment Summary of Care Provided: Hospitalist note: Discharge summary above reviewed and I agree with above discharge plan. Patient was admitted because of chest pain. His workup was unremarkable and acute coronary syndrome ruled out. Chest x-ray showed no acute findings. EKG revealed no evidence of acute ischemic changes. Troponin was negative ?4. D- dimer was normal. CTA chest showed no evidence of PE or dissection, no pneumonia. It revealed small left thyroid lobe nodule. TSH was normal. Patient underwent stress echocardiogram that was negative for stress-induced myocardial ischemia. His vital signs were stable. His routine blood work was unremarkable. Patient discharged home in a stable medical condition, discharged on his same medication without any changes, recommended to follow-up with PCP in 1-2 weeks. Minutes spent on discharge:: 26 Code Visit OBSV E&M: 19304 Observ/hosp same date L1
[2017-09-09 11:55] LABS: Bedside Glucose 254 mg/dL (70-110)
--- NOTE | 2017-09-09 13:59 | CASEMGMT ---
Per Pt financial services, pt states has [facility] benefits. Message left with [facility] transfer line to notify them of pt and also to notify them that pt is up for discharge at this time. Ledy DAVIDSON CM
== END 2017-09-09 16:03 | disposition home or self-care (01) ==
LOC: ED 23:06 → PCU 09-09 01:11
PROVIDERS: Emergency Provider Emergency Medicine; Family Provider Family Medicine; PCP Family Medicine; Visit Provider Hospitalist
DX: R07.89 Other chest pain (principal); G47.33 Obstructive sleep apnea (adult) (pediatric); E66.01 Morbid (severe) obesity due to excess calories; E78.5 Hyperlipidemia, unspecified; I10 Essential (primary) hypertension; E04.1 Nontoxic single thyroid nodule; F17.220 Nicotine dependence, chewing tobacco, uncomplicated; R06.02 Shortness of breath; E11.65 Type 2 diabetes mellitus with hyperglycemia; Z79.899 Other long term (current) drug therapy; Z68.41 Body mass index [BMI] 40.0-44.9, adult; Z71.3 Dietary counseling and surveillance; Z79.84 Long term (current) use of oral hypoglycemic drugs; Z79.82 Long term (current) use of aspirin
CPT/HCPCS: 36415; 71045; 71275; 80048; 80053; 80061; 82962; 83036; 83690; 83880; 84443; 84484; 85025; 85379; 85610; 85730; 87804; 93005; 93017; 93350; 96361; 96372; 96374; 99218; 99285; J7030; Q9957; Q9967; A4216; C8928; G0378; J2405

== ENCOUNTER 2018-10-20 20:28 | Emergency (ER) | payer SELFPAY ==
[2017-09-09 01:37] VITALS: BMI 40.9
[2018-10-20 20:29] VITALS: BP 121/67; PULSE 132; RESP 20; TEMP 36.6; O2SAT 92; BMI 39.1
[2018-10-20 21:06] LABS: Bedside Glucose 293 mg/dL (70-110)
[2018-10-20 21:30] VITALS: BP 124/77; PULSE 90; RESP 16; TEMP 36.6; O2SAT 98
--- NOTE | 2018-10-20 21:44 | ED.VISSUMM ---
- ER Visit Summary Date of Service: 10/20/18 Chief Complaint: Diarrhea and feels dehydrated History of Present Illness: The patient is a [address] of noncemented diabetes hypertension. Patient is have been ill last several days. He states that he has had diarrhea and subjective fever and chills but no documented temperature. No vomiting. States his has been vomiting. She says blood sugar was elevated at 302 is noticed some blurry vision. He has had this happen before in the past. He denies ever being in DKA. He denies any headache. Denies any trouble moving his arms or legs. Denies any abdominal or chest pain or shortness of breath. Physical Examination: Middle-aged male no acute distress vital signs are stable he is afebrile. His heart rate is 132. His pulse ox is 92% on room air no hypoxia. H EENT exam mild dry mucous membranes. Neck nontender. Lungs clear to auscultation bilaterally. Heart tachycardic no murmur. Abdomen soft and nontender. Normal bowel sounds no peritoneal signs. Remedies moves all 4. Calves nontender no edema. Neurologically is awake and alert with no focal motor or sensory deficits. Equal symmetrical machining engineer strength. Dorsi plantar flexion intact. Finger to nose within normal limits. Normal speech. NIH score is 0. Back nontender. Skin unremarkable. Test Results: EKG sinus tachycardia rate of 117 no acute signs of ischemia. White count of 5. Hemoglobin 17. Electrolytes sodium 131. Gap of 8 glucose 314. Creatinine 1.6 previously 0.8. I discussed that with the patient and he will have that followed up and recheck. Serum ketones negative. Emergency Department Course and Treatment: Patient treated with IV fluids. Treatment Plan: Repeat exam patient is doing well at 2358. We went over all his test results. He is currently discharged home and follow-up as an outpatient. Plenty of fluids and rest. Imodium for the diarrhea. Follow-up if the diarrhea is not improving. Disposition: Discharge Impression: Acute diarrhea secondary to viral syndrome Acute dehydration Acute hyperglycemia history of pal-[id number] diabetes This note was generated with [employer].comation software. It may contain incorrect words, spelling, and punctuation that were not noted in review of the chart prior to signing ED Disposition - Plan for ED Patient: [facility] [[facility] -
--- NOTE | 2018-10-20 21:47 | EKG12_ITS ---
Test Reason : HYPERGLYCEMIA Blood Pressure : / mmHG Vent. Rate : 117 BPM Atrial Rate : 117 BPM P-R Int : 184 ms QRS Dur : 092 ms QT Int : 314 ms P-R-T Axes : 025 -25 022 degrees QTc Int : 438 ms Sinus tachycardia Possible Left atrial enlargement Borderline ECG Confirmed by HIRAL DWYER, LION ([id number]), commercial production editor AYLIN CARBAJAL ([id number]) on 10/25/2018 11:29:50 AM Referred By: DOMINIC Confirmed By:LION BLACKMAN MD
[2018-10-20] MEDS: 0.9% Normal Saline 1,000 ML 1000 ML IV (21:49)
[2018-10-20 21:50] LABS: Absolute Lymphocyte Count 0.67 X10^3/ul (0.83-4.51); Absolute Neutrophil Count 4.5 X10^3/uL (2.0-7.7); Basophil# 0.01 X10^3/uL; Basophil% 0.2 % (0-1); Eosinophil# 0.03 X10^3/uL; Eosinophils% 0.5 % (0-5); Hematocrit 50.5 % (40-54); Hemoglobin 17.4 g/dl (13.0-16.5); Lymphocyte # 0.67 X10^3/ul (4.0); Mean Corp Hgb Conc 34.5 g/gl (32-36); Mean Corpuscular Hgb 29.6 pg (27.0-32.0); Mean Corpuscular Volume 85.9 fL (80-94); Mean Platelet Vol. 10.4 fl (6.2-12.0); Monocyte# 0.36 X10^3/uL; Monocyte% 6.4 % (0-10); Neutrophil # 4.51 X10^3/uL (2.7-7.7); Neutrophil % 80.5 % (47-70); Platelet Count 159 K/mm3 (150-450); RBC Distribution Width CV 14.8 % (11.6-14.6); RBC Distribution Width SD 45.9 fl (35.1-43.9); Red Blood Count 5.88 M/mm3 (4.6-6.2); White Blood Count 5.6 K/mm3 (4.4-11.0)
[2018-10-20 21:53] LABS: POSITIVE COUNT NO; POSITIVE DIFFERENTIAL NO; POSITIVE MORPHOLOGY NO
[2018-10-20 21:58] LABS: Anion Gap 8 (5-15); BUN 21 mg/dL (7-18); BUN/Creat Ratio 12.7 RATIO (10-20); Calcium,Total 8.3 mg/dL (8.5-10.1); Chloride 101 mmol/L (98-107); Creatinine, Serum 1.66 mg/dL (0.70-1.30); EST Glomerular Filtration Rate 45 mL/min (>60); Est Glom Filt Rate - Afr Amer 55 mL/min (>60); Estimated Creatinine Clearance 46.36 ml/min; Glucose 314 mg/dL (74-106); Potassium 3.7 mmol/L (3.5-5.1); Sodium Level 131 mmol/L (136-145)
[2018-10-20 23:49] VITALS: BP 132/80; PULSE 66; RESP 16; O2SAT 95
--- NOTE | 2018-10-20 23:59 | ED.DEP ---
ED Disposition - Plan for ED Patient: Disposition: Home or Assisted Living Instructions: ED Hyperglycemia Diabetic, ED Diarrhea Viral [facility]errals[facility] [[facility] - 1 Week Additional Instructions: Plenty of fluids and rest. Imodium for your diarrhea. If the diarrhea is not improving you need to follow-up your stool cultures. Watch blood sugars closely. Follow-up of your kidney function rechecked your creatinine today was 1.6.
--- NOTE | 2018-10-21 00:05 | DCINST.ED_ITS ---
ED Disposition - Plan for ED Patient: Disposition: Home or Assisted Living Instructions: ED Hyperglycemia Diabetic, ED Diarrhea Viral [facility]errals[facility] [[facility] - 1 Week Additional Instructions: Plenty of fluids and rest. Imodium for your diarrhea. If the diarrhea is not improving you need to follow- up your stool cultures. Watch blood sugars closely. Follow-up of your kidney function rechecked your creatinine today was 1.6.
[2018-10-21 00:12] VITALS: BP 132/80; PULSE 66; RESP 16; O2SAT 95
== END 2018-10-21 00:13 | disposition home or self-care (01) ==
PROVIDERS: Emergency Provider Emergency Medicine
DX: A08.4 Viral intestinal infection, unspecified (principal); E86.0 Dehydration; E11.65 Type 2 diabetes mellitus with hyperglycemia; Z79.84 Long term (current) use of oral hypoglycemic drugs
CPT/HCPCS: 80048; 82009; 82962; 85025; 93005; 96360; 96361; 99283; J7030

== ENCOUNTER 2019-06-18 07:47 | Emergency (ER) | payer OTHER, SELFPAY ==
[2019-06-18 07:48] VITALS: BP 131/90; PULSE 66; RESP 16; TEMP 36.6; O2SAT 96; BMI 39.6
[2019-06-18 07:51] VITALS: RESP 16
--- NOTE | 2019-06-18 07:55 | RAD_ITS ---
STUDY: X-RAY CHEST REASON FOR EXAM: Male, 58 years old. Shortness of breath. TECHNIQUE: Single AP portable view of the chest. COMPARISON: 09/08/2017. FINDINGS: The lungs are clear and expanded. There is no demonstrated pleural abnormality. Normal size heart. Normal mediastinum and flako. Normal visualized pulmonary arteries. Normal visualized aortic arch and descending thoracic aorta. The thoracic spine is obscured by the mediastinum. Normal visualized ribs, clavicles, and shoulders. There is no demonstrated abnormality of the visualized soft tissue structures of the upper abdomen. RAD/Chest 1 View (Portable) IMPRESSION: No active pulmonary disease. Electronically Signed: Rivas Tsai MD at 8:48 EST Tel , Service support ,
--- NOTE | 2019-06-18 07:55 | EKG12_ITS ---
Test Reason : DIZZINESS Blood Pressure : / mmHG Vent. Rate : 067 BPM Atrial Rate : 067 BPM P-R Int : 222 ms QRS Dur : 092 ms QT Int : 392 ms P-R-T Axes : 015 -21 032 degrees QTc Int : 414 ms Sinus rhythm with 1st degree A-V block Otherwise normal ECG Confirmed by HIRAL DWYER, LION ([id number]), social media editor JULIUS ADAMS ([id number] on 06/21/2019 11:33:19 AM Referred By: ALIDA Confirmed By:LION BLACKMAN MD
--- NOTE | 2019-06-18 07:56 | ED.VIS.GEN ---
History of Present Illness Chief Complaint: Dizziness Informant: Patient Onset: Today Context: Sudden Onset Timing: - Maximum Severity: Moderate - Currently resolved Narrative: Patient presents with dizziness and near syncope. Patient states he got up this morning and started walking to the bathroom. [place] there he started to get very lightheaded. He states that time he bit to the restroom he was very flushed and slightly diaphoretic. He thought he was going to pass out and yelled for his . He denies chest pain or palpitations during the episode. He states that this time he feels completely back to his normal baseline. He does have a history of diabetes and his checked his blood sugar. It was noted to be over 200. Patient has felt well recently has had no illness. He has been tolerating normal diet. - Past Medical History (1) Diabetes mellitus type II Status: Chronic (2) Hyperlipidemia Status: Chronic (3) Hypertension Status: Chronic Past Medical History - Allergies and Home Meds Allergies/Adverse Reactions: Allergies No Known Allergies Allergy (Verified 06/18/19 07:51) [facility] [place]] - Doctors: Dr. Browning Prior records reviewed: Yes Surgical History: - - Hernia repair, tonsillectomy, bilateral arthroscopic knee surgeries Lives: Spouse/ Significant Other Smoking Status: Former smoker - Family History Maternal Family History: Reports: Heart Disease, No pertinent history Paternal Family History: Reports: Heart Disease, - - History of congestive heart failure, history of aneurysm unsure which ones Review of Systems General: Denies: Chills, Fever Eyes: Denies: Visual changes - bilaterally ENT: Denies: Bilateral ear pain Cardiovascular: Denies: Chest pain, Palpitations Respiratory: Denies: Dyspnea, Cough Gastrointestinal: Denies: Abdominal pain, Nausea, Vomiting, Diarrhea Musculoskeletal: Denies: Neck pain, Back pain Skin: Denies: Rash Neurological: Denies: Headache, Weakness, Parasthesia Hematologic: Denies: Easy bruising Allergy: Denies: Uticaria Physical Exam Vital Signs/Narrative: Vital Signs Temp Pulse Resp BP Pulse Ox 06/18/19 07:51 16 06/18/19 07:48 98 F 66 16 131/90 H 96 Inital Vital Signs reviewed: Yes General: Well nourished, Well developed Head: Normocephalic ENT: Moist mucous membranes Neck: Supple Cardiovascular: Regular rate, Regular rhythm Respiratory: No distress, CTA bilaterally Abdomen: Soft, Nontender, Nondistended, Hypoactive bowel sounds Extremities: Nontender Skin: Normal color Neurological: Alert, Oriented x3, Normal Strength, Normal Sensation Psychological: Normal affect Diagnostic/Tx/Re-eval Impressions Chest X-Ray 06/18/19 07:55 IMPRESSION: No active pulmonary disease. Electronically Signed: Rivas Tsai MD at 8:48 EST Tel , Service support , 06/18/19 07:55 Chest 1 View (Portable) [RAD] Stat Laboratory Results 06/18/19 06/18/19 06/18/19 08:00 08:00 08:50 WBC 4.2 L RBC 5.54 Hgb 16.7 H Hct 48.8 MCV 88.1 MCH 30.1 MCHC 34.2 RDW Std Deviation 44.8 H RDW Coeff of Payam 13.9 Plt Count 163 MPV 9.6 Immature Gran % (Auto) 0.500 Neut % (Auto) 50.1 Lymph % (Auto) 35.5 Scurry % (Auto) 9.2 Eos % (Auto) 4.0 Baso % (Auto) 0.7 Absolute Neuts (auto) 2.1 Absolute Lymphs (auto) 1.50 Nucleated RBC % 0 Sodium 138 Potassium 4.0 Chloride 103 Carbon Dioxide 26.0 Anion Gap 9 BUN 19 H Creatinine 1.43 H Estim Creat Clear Calc 53.15 Est GFR (MDRD) Af Amer 65 Est GFR (MDRD) Non-Af 54 L BUN/Creatinine Ratio 13.3 Glucose 267 H Calcium 9.1 Troponin I < 0.015 Urine Color Yellow Urine Clarity Sl. Cloudy Urine pH 6.0 Ur Specific [place] 1.015 Urine Protein 100 H Urine Glucose (UA) 250 H Urine Ketones Negative Urine Occult Blood Negative Urine Nitrite Negative Urine Bilirubin Negative Urine Urobilinogen Normal Ur Leukocyte Esterase Negative Urine RBC 0 SEEN Urine WBC 0 SEEN Ur Squamous Epith Cells 0 SEEN Urine Bacteria 0 SEEN Urine Mucus 0 SEEN - EKG Initial EKG Interpretation: Sinus Rhythm - Sinus at 67 with no acute ischemia. - Medical Decision Making She was given IV fluids here. On repeat evaluation he had no further symptoms. Patient does appear to be slightly dehydrated. He will increase fluids of the next several days. He will return for any worsening symptoms. ED Disposition - Plan for ED Patient: Disposition: Home or Assisted Living Diagnosis: Near syncope Instructions: NEAR SYNCOPE, Vasovagal, DEHYDRATION (4y-Adult) [facility]errals: [facility] [Primary Care Provider] - Awais Browning III, MD [STAFF PHYSICIAN] -
[2019-06-18] MEDS: 0.9% Normal Saline 1,000 ML 150 ML IV (08:05)
[2019-06-18 08:14] LABS: Absolute Neutrophil Count 2.1 X10^3/uL (2.0-7.7); Basophil# 0.03 X10^3/uL; Basophil% 0.7 % (0-1); Eosinophil# 0.17 X10^3/uL; Hematocrit 48.8 % (40-54); Hemoglobin 16.7 g/dL (13.0-16.5); Lymphocyte % 35.5 % (19-41); Mean Corp Hgb Conc 34.2 g/dL (32-36); Mean Corpuscular Hgb 30.1 pg (27.0-32.0); Mean Corpuscular Volume 88.1 fL (80-94); Mean Platelet Vol. 9.6 fl (6.2-12.0); Monocyte# 0.39 X10^3/uL; Monocyte% 9.2 % (0-10); NRBC Flagged by Analyzer 0 % (0-5); Neutrophil # 2.11 X10^3/uL (2.7-7.7); Neutrophil % 50.1 % (47-70); Platelet Count 163 K/mm3 (150-450); RBC Distribution Width CV 13.9 % (11.6-14.6); RBC Distribution Width SD 44.8 fl (35.1-43.9); Red Blood Count 5.54 M/mm3 (4.6-6.2); White Blood Count 4.2 K/mm3 (4.4-11.0)
[2019-06-18 08:28] LABS: Anion Gap 9 (5-15); BUN 19 mg/dL (7-18); BUN/Creat Ratio 13.3 RATIO (10-20); Calcium,Total 9.1 mg/dL (8.5-10.1); Chloride 103 mmol/L (98-107); Creatinine, Serum 1.43 mg/dL (0.70-1.30); EST Glomerular Filtration Rate 54 mL/min (>60); Est Glom Filt Rate - Afr Amer 65 mL/min (>60); Estimated Creatinine Clearance 53.15 ml/min; Glucose 267 mg/dL (74-106); Sodium Level 138 mmol/L (136-145)
[2019-06-18 08:55] LABS: Bacteria 0 SEEN /hpf (None Seen); Mucous, Urine 0 SEEN /hpf (<or=2+); Red Blood Cells-Urine 0 SEEN /hpf (0-5); Squamous Epithelial Cells - UA 0 SEEN /hpf (0-5); White Blood Cells 0 SEEN /hpf (0-5)
[2019-06-18 08:59] LABS: Color, Urine Yellow (Yellow); Glucose, Dipstick 250 mg/dl (Normal); Ketone-Dipstick Negative (Negative); Leukocyte Esterase-Dipstick Negative /ul (Negative); Nitrite-Dipstick Negative (Negative); Occult Blood-Urine Negative /ul (Negative); Protein-Dipstick 100 mg/dl (Negative); Specific Gravity, Urine 1.015 (1.002-1.030); Urine Bilirubin Dipstick Negative (Negative); Urine Clarity Sl. Cloudy (Clear); Urine Urobilinogen Normal (Normal)
[2019-06-18 10:02] VITALS: BP 115/81; PULSE 68; RESP 14; O2SAT 94
== END 2019-06-18 10:03 | disposition home or self-care (01) ==
PROVIDERS: Emergency Provider Emergency Medicine
DX: R55 Syncope and collapse (principal); E11.9 Type 2 diabetes mellitus without complications; I10 Essential (primary) hypertension; Z87.891 Personal history of nicotine dependence
CPT/HCPCS: 71045; 80048; 81001; 84484; 85025; 93005; 96360; 96361; 99285; J7030; A4216

== ENCOUNTER 2019-12-25 21:17 | Emergency (ER) | payer SELFPAY ==
[2019-12-25 21:17] VITALS: BP 149/87; PULSE 81; RESP 18; TEMP 36.2; O2SAT 95; BMI 38.1
--- NOTE | 2019-12-25 22:12 | ED.DCSUM_ITS ---
- ER Visit Summary Date of Service: 12/25/19 Chief Complaint: Elevated blood sugar History of Present Illness: The patient is a 59 M 3 of [place] diabetes and prior renal cancer for which he had a partial renal resection. States he has had diarrhea for last 3 or 4 days. Not elevated blood sugars today. His blood sugars are running 3 50-400. He denies any nausea or vomiting. Denies any melena. Denies any fever. Denies any abdominal pain. Physical Examination: Older male no acute distress vital signs stable afebrile. HEENT exam unremarkable. Neck nontender. Lungs clear to auscultation bilaterally. Heart regular rhythm no murmur. Abdomen soft nontender normal bowel sounds no peritoneal signs. Patient is moving all 4 extremities. Nontender. No edema. Neurologically is awake and alert with no focal motor deficits. Test Results: Remarkable white count of 5. Hemoglobin 16. Thank you your lites unremarkable glucose of 278. BUN of 27 creatinine 1.36 which is his baseline. Gap is 6. Ketones negative. Emergency Department Course and Treatment: Patient will be evaluated for hyperglycemia. Rule out DKA which clinically I do not think he is in DKA he looks well. We treated with a liter of normal saline. Screening labs will be obtained. Treatment Plan: Repeat exam patient is doing well at 20 3:18 PM. No signs of DKA. Be discharged home. Watch his blood sugars closely. Follow-up. Disposition: Discharge Impression: Acute hyperglycemia Acute diarrhea History of leg-noujxqg-uvwgxujtd diabetes This note was generated with [employer] dictation software. It may contain incorrect words, spelling, and punctuation that were not noted in review of the chart prior to signing ED Disposition - Plan for ED Patient: [facility] -
[2019-12-25] MEDS: 0.9% Normal Saline 1,000 ML 1000 ML IV (22:31)
[2019-12-25 22:46] LABS: Absolute Lymphocyte Count 1.89 X10^3/uL (0.83-4.51); Absolute Neutrophil Count 3.3 X10^3/uL (2.0-7.7); Basophil# 0.03 X10^3/uL; Basophil% 0.5 % (0-1); Eosinophil# 0.15 X10^3/uL; Eosinophils% 2.5 % (0-5); Hematocrit 50.7 % (40-54); Hemoglobin 16.9 g/dL (13.0-16.5); Lymphocyte # 1.89 X10^3/ul (4.0); Lymphocyte % 31.8 % (19-41); Mean Corp Hgb Conc 33.3 g/dL (32-36); Mean Corpuscular Volume 90.1 fL (80-94); Mean Platelet Vol. 10.3 fl (6.2-12.0); Monocyte# 0.57 X10^3/uL; Monocyte% 9.6 % (0-10); NRBC Flagged by Analyzer 0 % (0-5); Neutrophil # 3.27 X10^3/uL (2.7-7.7); Neutrophil % 55.1 % (47-70); Platelet Count 183 K/mm3 (150-450); RBC Distribution Width CV 14.8 % (11.6-14.6); RBC Distribution Width SD 47.4 fl (35.1-43.9); Red Blood Count 5.63 M/mm3 (4.6-6.2); White Blood Count 5.9 K/mm3 (4.4-11.0)
[2019-12-25 22:55] LABS: Bedside Glucose 243 mg/dL (70-110)
[2019-12-25 22:56] LABS: Anion Gap 6 (5-15); BUN 27 mg/dL (7-18); BUN/Creat Ratio 19.9 RATIO (10-20); Calcium,Total 9.4 mg/dL (8.5-10.1); Chloride 103 mmol/L (98-107); Creatinine, Serum 1.36 mg/dL (0.70-1.30); EST Glomerular Filtration Rate 57 mL/min (>60); Est Glom Filt Rate - Afr Amer 69 mL/min (>60); Estimated Creatinine Clearance 55.18 ml/min; Glucose 278 mg/dL (74-106); Sodium Level 135 mmol/L (136-145)
--- NOTE | 2019-12-25 23:19 | ED.DEP ---
ED Disposition - Plan for ED Patient: Disposition: Home or Assisted Living Instructions: ED Diabetic Hyperglycemia [facility]errals[facility] - 1 Week Additional Instructions: Fluids and rest. Watch her blood sugars closely. Follow-up with your doctor.
[2019-12-25 23:30] VITALS: BP 135/82; PULSE 82; RESP 18; TEMP 37.1
== END 2019-12-25 23:42 | disposition home or self-care (01) ==
PROVIDERS: Emergency Provider Emergency Medicine
DX: E11.65 Type 2 diabetes mellitus with hyperglycemia (principal); R19.7 Diarrhea, unspecified; Z79.899 Other long term (current) drug therapy; Z79.84 Long term (current) use of oral hypoglycemic drugs; I10 Essential (primary) hypertension; C64.9 Malignant neoplasm of unspecified kidney, except renal pelvis; Z79.82 Long term (current) use of aspirin
CPT/HCPCS: 80048; 82009; 82962; 85025; 96360; 99283; J7030; A4216

== ENCOUNTER 2020-11-24 07:42 | Emergency (ER) | payer OTHER, SELFPAY ==
[2020-11-24 07:43] VITALS: BP 137/89; PULSE 105; RESP 14; TEMP 36.6; O2SAT 99; BMI 39.9
--- NOTE | 2020-11-24 07:51 | ED.DCSUM_ITS ---
History of Present Illness Chief Complaint: Lower Extremity Injury Informant: Patient Onset: Yesterday Context: Sudden Onset Timing: Continuous Quality: Discomfort Location: Third right toe Current Severity: - - None Maximum Severity: Severe - With height palpation Worsened by: Walking and applying pressure Relieved by: Elevation Associated Symptoms: No Narrative: Patient is an elderly male with history of diabetes who presents because of in jury to his right third fourth and possibly fifth toe due to blunt trauma. Patient states he dropped a shelf onto his foot yesterday. He presents because he believes he may have a fracture. He denies history of diabetic neuropathy. He denies paresthesia, anesthesia motors. He does not recall last tetanus booster. Prior similar symptoms: No Recent Illness/Hospitalization: No - Past Medical History (1) Diabetes mellitus type II Status: Chronic (2) Hyperlipidemia Status: Chronic (3) Hypertension Status: Chronic (4) Morbid obesity with BMI of 40.0-44.9, adult Status: Chronic Past Medical History - Allergies and Home Meds Allergies/Adverse Reactions: Allergies No Known Allergies Allergy (Verified 11/24/20 07:43) Primary Care Physician: [place] [Primary Care Provider] - Prior records reviewed: Yes Surgical History: - - Hernia repair, tonsillectomy, bilateral arthroscopic knee surgeries Lives: Spouse/ Significant Other Smoking Status: Former smoker Alcohol: None Drugs: None - Family History Maternal Family History: Reports: Heart Disease, No pertinent history Paternal Family History: Reports: Heart Disease, - - History of congestive heart failure, history of aneurysm unsure which ones Review of Systems General: Denies: Chills, Fever, Malaise, Subjective, Sweats Musculoskeletal: Reports: Swelling, Extremity Pain. Denies: Myalgias, Arthralgias, Neck pain, Back pain Skin: Reports: Wounds - Right fourth toe. Denies: Rash Neurological: Denies: Weakness, Parasthesia, Numbness Hematologic: Denies: Easy bruising, Easy bleeding Physical Exam Vital Signs/Narrative: Vital Signs Temp Pulse Resp BP Pulse Ox 11/24/20 07:43 98 F 105 H 14 137/89 H 99 Inital Vital Signs reviewed: Yes General: Well nourished, Well developed, No Acute Distress Head: Normocephalic, Atraumatic Eyes: Perrl, EOMI. Negative for: Pale conjunctiva, Scleral icterus Cardiovascular: Regular rate, Regular rhythm Respiratory: No distress Extremities: No edema, Tenderness - Exquisite pain middle phalanx right third toe and mild discomfort fourth toe, - - DP and PT pulse are palpable. There is a 0.5 cm laceration dorsal surface fourth right toe without evidence of infection. Negative for: Nontender, Edema Skin: Trauma - Right fourth toe. Negative for: Normal color, No rash Neurological: Alert, Oriented x3, Cranial nerves II-XII grossly intact, Normal Strength, Normal Sensation Psychological: Normal affect Diagnostic/Tx/Re-eval Chest X-Ray - ED: Read by ED Physician - Three-view x-ray of the right foot was obtained. There is a nondisplaced fracture of the distal phalanx right third toe. There is no foreign body noted. No fracture noted the right fourth or fifth toe. - Medical Decision Making Tetanus was updated and x-ray was obtained to evaluate for fracture. Differential is contusion versus fracture and laceration that is greater than 20 hours that will not be sutured. X-ray does reveal a fracture. Treatment is junior tape third toe to the second toe since there is a wound on the fourth toe. ED Disposition - Plan for ED Patient: Disposition: Home or Assisted Living Diagnosis: Fracture of distal phalanx of lesser toe of right foot, Laceration of fourth toe, right Instructions: ED Fracture, Toe, Closed, ED Laceration, Old: Not Sutured Referrals: [facility] [Primary Care Provider] - 2 Days for wound check Hussein Mane DO [STAFF PHYSICIAN] - 3-5 Days Additional Instructions: 1. If your fourth toe becomes red and there is drainage or red streak noted return to the emergency department or see your doctor immediately. 2. Junior tape third toe to second toe. You may retape every 1 to 2 days.
[2020-11-24] MEDS: Diphth,Pertuss(Acell),Tet Vac 0.5 ML Vial IM (07:56)
--- NOTE | 2020-11-24 08:07 | RAD_ITS ---
STUDY: X-RAY - RIGHT FOOT CLINICAL: Male, 59 years old. Injury/Pain -- Attention third, fourth and possibly fifth toe TECHNIQUE: 3 view(s) of the foot. COMPARISON: None. FINDINGS: Normal talus, calcaneus, and tarsal bones. Normal visualized subtalar, talonavicular, calcaneocuboid, tarsal and tarsometatarsal articulations. Normal metatarsi. Normal metatarsophalangeal joint of the great toe. Normal tibial and fibular sesamoid bones. Normal interphalangeal joint of the great toe. Normal phalanges of the great toe. Normal second through fifth metatarsophalangeal joints. Acute nondisplaced oblique fracture of the tuft of the third distal phalanx. The soft tissue structures are unremarkable. RAD/Foot min 3 Views IMPRESSION: Acute nondisplaced oblique fracture the tuft of the third distal phalanx. Electronically Signed: Duran Jason MD at 8:32 EDT Tel , Service support ,
[2020-11-24 08:29] VITALS: RESP 16
== END 2020-11-24 08:30 | disposition home or self-care (01) ==
LOC: ED 08:22
PROVIDERS: Emergency Provider Emergency Medicine
DX: S92.534A Nondisplaced fracture of distal phalanx of right lesser toe(s), initial encounter for closed fracture (principal); S91.114A Laceration without foreign body of right lesser toe(s) without damage to nail, initial encounter; E11.9 Type 2 diabetes mellitus without complications; E78.5 Hyperlipidemia, unspecified; I10 Essential (primary) hypertension; E66.01 Morbid (severe) obesity due to excess calories; Z68.41 Body mass index [BMI] 40.0-44.9, adult; Z87.891 Personal history of nicotine dependence; Z23 Encounter for immunization; W26.8XXA Contact with other sharp object(s), not elsewhere classified, initial encounter; Y93.89 Activity, other specified; Y92.89 Other specified places as the place of occurrence of the external cause; Y99.8 Other external cause status
CPT/HCPCS: 73630; 90471; 90715; 99282

== ENCOUNTER 2021-11-13 02:35 | Emergency (ER) | payer OTHER, SELFPAY ==
[2021-11-13 02:36] VITALS: BP 143/88; PULSE 104; RESP 16; TEMP 36.8; BMI 40.0
--- NOTE | 2021-11-13 02:49 | EDS_ITS ---
HPI History of Present Illness Chief Complaint: Chest Pain Informant: patient Onset/Context/Timing Onset: Today and Hours (1) Activity at onset: sudden Timing: Continuous Quality: Positive for Heaviness and Pressure Location: Substernal Worsened By: Nothing Relieved By: Nothing Associated Symptoms: Positive for Diaphoresis and Lightheadedness; Negative for Nausea, Vomiting, Dyspnea, Cough, Fever, Acid Reflux and Palpitations Narrative Narrative: Patient presents with chest pain that began approximate 1 hour prior to arrival. Patient states it began rather suddenly. Patient describes it as a heaviness. Patient states it is over the substernal area. Patient denies any radiation. Patient states nothing makes it worse and nothing makes it better. Patient admits to some diaphoresis with the pain. Patient also admits to some lightheadedness. Patient denies any nausea or vomiting. Patient denies any shortness of breath or cough. CVD Risk Factors: Positive for Hypertension, Diabetes and Hypercholesterolemia; Negative for Family History 1' </=55 and Smoking PE Risk Factors: Positive for Cancer; Negative for Recent Travel/Surgery, Recent Immobilization, Prior DVT or PE and OCP + Smoking + >/=35 PFSH PFSH Home Medications lisinopril 40 mg PO DAILY 12/10/14 [History Last Taken 09/08/17] metformin 500 mg PO BIDCM 12/10/14 [History Last Taken 09/08/17] aspirin 81 mg PO DAILY@0800 06/09/16 [History Last Taken 09/08/17] atenolol 25 mg PO DAILY 06/09/16 [History Last Taken 09/08/17] atorvastatin 40 mg PO QHS 06/09/16 [History Last Taken 09/08/17] fluoxetine 40 mg PO DAILY 06/09/16 [History Last Taken 09/08/17] multivitamin [Daily Multiple] 1 ea PO DAILY 06/09/16 [History Last Taken 09/08/17] glimepiride 4 mg PO DAILY 09/08/17 [History Last Taken 09/08/17] Allergy/AdvReac Type Severity Reaction Status Date / Time No Known Allergies Allergy Verified 11/24/20 07:43 Surgical History (Updated 11/13/21 @ 02:[address] Alvin Aguero DO) History of nephrectomy Hx of arthroscopic knee surgery Social History Smoking Status: Never smoker ROS ROS ED Constitutional Constitutional ED: Denies chills or fever(s) Eyes Eyes: Denies blurry vision or change in vision ENT ENT ED: Denies rhinorrhea or sore throat Cardiovascular Cardiovascular: Reports chest pain; Denies palpitations Respiratory/Chest Respiratory/Chest: Denies cough or dyspnea Gastrointestinal Gastrointestinal: Denies abdominal pain, nausea or vomiting Genitourinary Genitourinary ED: Denies dysuria or hematuria Musculoskeletal Musculoskeletal: Denies back pain or neck pain Integumentary Denies abscess or rash Neurologic Neurologic: Denies headache(s) or weakness Allergic/Immunologic Allergic/Immunologic ED: Denies mouth swelling or urticaria EXAM Physical Exam Const Vital Signs: 11/13/21 02:36 11/13/21 02:58 Temperature 98.3 F Temperature Source Oral Pulse Rate 104 H Respiratory Rate 16 Blood Pressure 143/88 H Blood Pressure Mean 106 Oxygen Delivery Method Room Air Positive well nourished, well developed and obese General Appearance ED: well developed and NAD Nutritional Appearance: obese HEENT normocephalic and atraumatic Eyes PERRL and EOMs intact bilaterally Neck supple and no JVD Chest Wall palpation of chest normal Resp normal respiratory effort and clear to auscultation bilaterally Effort and Inspection: Negative for respiratory distress Cardio regular rate, regular rhythm and no murmurs GI normal to inspection, nondistended, normoactive bowel sounds, soft to palpation, non-tender and non-distended Extremity normal to inspection General Extremety ED: Negative for edema or tenderness General Extremity: Negative for edema Neuro oriented x3, CN's II-XII intact bilaterally and no sensory deficits noted Sensorium / Orientation: awake and alert Motor Exam: strength 5/5 throughout Psych mental status grossly normal Heart Score History: Slightly/Non-Suspicious ECG: Normal Age: >45 - <65 years Risk Factors: >/= 3 Risk Factors or History of CAD Troponin: </= Normal Limit Score: 3 MDM MDM MDM Narrative Medical decision making narrative: Patient was given aspirin here. EKG was obtained. On my interpretation, it shows a sinus tachycardia with a first- degree AV block with a rate of 101. [place] interval was slightly prolonged at 212 ms. QRS interval was 144 ms. QTc interval was 464 ms. [place] was -48. There is a right bundle branch block pattern. There is left anterior fascicular block noted. There are no acute ST or T wave changes noted. CBC was within normal limits. D-dimer was normal. Basic metabolic profile showed a BUN of 24 and creatinine of 1.49. These are consistent with prior results. Glucose was slightly elevated at 193. Initial high-sensitivity troponin was normal at 9. 2-hour repeat high-sensitivity troponin was 10. Portable 1 view chest x-ray was obtained. On my interpretation, lung hudson are clear. There is normal cardiac silhouette. Bony thorax is normal. There is no acute process noted. Radiologist also interpreted the x-ray and agrees. Patient has a HEART score of 3. Patient wants to go home. Patient was advised of his findings. Patient is low risk for acute cardiac event. Patient was instructed to follow-up with his primary care physician in 3 to 5 days for further evaluation. Patient understood and was agreeable with the plan. All questions were answered. Lab Data Attestation: I reviewed the patient's lab results. Labs: Laboratory Results - last 24 hr 11/13/21 11/13/21 11/13/21 02:40 02:40 02:40 WBC 4.9 RBC 5.51 Hgb 16.4 Hct 48.7 MCV 88.4 MCH 29.8 MCHC 33.7 RDW Std Deviation 47.6 H RDW Coeff of Payam 14.6 Plt Count 168 MPV 9.7 Immature Gran % (Auto) 0.400 Neut % (Auto) 59.0 Lymph % (Auto) 29.3 [place] % (Auto) 9.3 Eos % (Auto) 1.6 Baso % (Auto) 0.4 Absolute Neuts (auto) 2.9 Absolute Lymphs (auto) 1.44 Nucleated RBC % 0 D-Dimer Quant (PE/DVT) 0.38 Sodium 138 Potassium 3.8 Chloride 105 Carbon Dioxide 28.0 Anion Gap 5 BUN 24 H Creatinine 1.49 H Estim Creat Clear Calc 49.73 Est GFR (MDRD) Af Amer 62 Est GFR (MDRD) Non-Af 51 L BUN/Creatinine Ratio 16.1 Glucose 193 H Calcium 8.9 Troponin I High Sens 9 11/13/21 05:00 WBC RBC Hgb Hct MCV MCH MCHC RDW Std Deviation RDW Coeff of Payam Plt Count MPV Immature Gran % (Auto) Neut % (Auto) Lymph % (Auto) [place] % (Auto) Eos % (Auto) Baso % (Auto) Absolute Neuts (auto) Absolute Lymphs (auto) Nucleated RBC % D-Dimer Quant (PE/DVT) Sodium Potassium Chloride Carbon Dioxide Anion Gap BUN Creatinine Estim Creat Clear Calc Est GFR (MDRD) Af Amer Est GFR (MDRD) Non-Af BUN/Creatinine Ratio Glucose Calcium Troponin I High Sens 10 Radiography Chest X-Ray - ED: 1 View, Read by ED Physician, Read by Radiologist and No Acute Disease Diagnostic Testing: Clinical Impression(s) from Imaging Studies Chest X-Ray 11/13/21 02:55 IMPRESSION: Stable exam. No significant infiltrates or effusions. Similar heart and mediastinal contours. Electronically Signed: Francine Licona MD at 4:15 EDT , EKG Initial EKG: Attestation: I personally reviewed and interpreted this EKG as follows: Interpretation: Sinus Rhythm (101), RBBB and LAFB Discharge Plan Triage Chief Complaint: Chest Pain ED Provider: Alvin Aguero Dx/Rx/DC Orders Clinical Impression: Chest pain, Diabetes mellitus type II, Hypertension, Morbid obesity with BMI of 40.0-44.9, adult Instructions: ED Chest Pain, Uncertain Cause Prescriptions: No Action metformin 1,000 MG tablet 500 mg PO BIDCM RF: 0 lisinopril 40 MG tablet 40 mg PO DAILY RF: 0 multivitamin [Daily Multiple] 1 EACH tablet 1 ea PO DAILY RF: 0 atorvastatin 40 MG tablet 40 mg PO QHS RF: 0 aspirin 81 MG tablet,chewable 81 mg PO DAILY@0800 RF: 0 fluoxetine 20 MG capsule 40 mg PO DAILY RF: 0 atenolol 50 MG tablet 25 mg PO DAILY RF: 0 glimepiride 4 MG tablet 4 mg PO DAILY RF: 0 [facility] [Primary [facility] Provider] - 3-5 Days Disposition Disposition: Home, Self Care
--- NOTE | 2021-11-13 02:55 | RAD_ITS ---
EXAM: XR CHEST, 1 VIEW CLINICAL INDICATION: CHEST PAIN TECHNIQUE: Frontal view of the chest. This report was created using [employer] report generation technology. COMPARISON: June 18, 2019. And shorer exam from chest CT September 08, 2017. FINDINGS: LUNGS AND PLEURAL SPACES: Mild increased linear markings in the medial lung bases may be due to mild bronchopulmonary cuffing. No confluent infiltrate. No consolidation or edema. No pneumothorax. No effusion. HEART: Unremarkable. Cardiac silhouette not enlarged. MEDIASTINUM: Central airways and mediastinal contour are unremarkable. Mildly prominent descending thoracic aorta margin appears similar to prior exams back to the shorer exam for the CTA chest in 2018. There was no marium aneurysm on the CTA. BONES/JOINTS: Unremarkable. SOFT TISSUES: Unremarkable. RAD/Chest 1 View (Portable) IMPRESSION: Stable exam. No significant infiltrates or effusions. Similar heart and mediastinal contours. Electronically Signed: Francine Licona MD at 4:15 EDT ,
[2021-11-13 04:50] LABS: D-Dimer Quantitative (DVT/PE) 0.38 FEU/ug/m (0.27-0.49)
[2021-11-13 04:51] LABS: Absolute Lymphocyte Count 1.44 X10^3/uL (0.83-4.51); Absolute Neutrophil Count 2.9 X10^3/uL (2.0-7.7); Basophil# 0.02 X10^3/uL; Basophil% 0.4 % (0-1); Eosinophil# 0.08 X10^3/uL; Eosinophils% 1.6 % (0-5); Hematocrit 48.7 % (40-54); Hemoglobin 16.4 g/dL (13.0-16.5); Lymphocyte # 1.44 X10^3/ul (0.83-4.51); Lymphocyte % 29.3 % (19-41); Mean Corp Hgb Conc 33.7 g/dL (32-36); Mean Corpuscular Hgb 29.8 pg (27.0-32.0); Mean Corpuscular Volume 88.4 fL (80-94); Mean Platelet Vol. 9.7 fl (6.2-12.0); Monocyte# 0.46 X10^3/uL; Monocyte% 9.3 % (0-10); NRBC Flagged by Analyzer 0 % (0-5); Platelet Count 168 K/mm3 (150-450); RBC Distribution Width CV 14.6 % (11.6-14.6); RBC Distribution Width SD 47.6 fl (35.1-43.9); Red Blood Count 5.51 M/mm3 (4.6-6.2); White Blood Count 4.9 K/mm3 (4.4-11.0)
[2021-11-13 04:52] LABS: BUN 24 mg/dL (7-18); Glucose 193 mg/dL (74-106)
[2021-11-13 04:53] LABS: Anion Gap 5 (5-15); BUN/Creat Ratio 16.1 RATIO (10-20); Calcium,Total 8.9 mg/dL (8.5-10.1); Chloride 105 mmol/L (98-107); Creatinine, Serum 1.49 mg/dL (0.70-1.30); EST Glomerular Filtration Rate 51 mL/min (>60); Est Glom Filt Rate - Afr Amer 62 mL/min (>60); Estimated Creatinine Clearance 49.73 ml/min; Potassium 3.8 mmol/L (3.5-5.1); Sodium Level 138 mmol/L (136-145); Troponin-I HS 9 pg/mL (3.0-78.0)
[2021-11-13 05:37] LABS: Troponin-I HS (w/2H Reflex) 10 pg/mL (3.0-78.0)
[2021-11-13 06:04] VITALS: BP 139/81; PULSE 98; RESP 18; O2SAT 95
[2021-11-13 07:22] LABS: Reflex Troponin-HS? (from REC) Y
== END 2021-11-13 06:08 | disposition home or self-care (01) ==
PROVIDERS: Emergency Provider Emergency Medicine; Visit Provider Emergency Medicine
DX: R07.9 Chest pain, unspecified (principal); E11.65 Type 2 diabetes mellitus with hyperglycemia; E66.01 Morbid (severe) obesity due to excess calories; Z68.41 Body mass index [BMI] 40.0-44.9, adult; I10 Essential (primary) hypertension; I44.0 Atrioventricular block, first degree; E78.00 Pure hypercholesterolemia, unspecified; I45.2 Bifascicular block; Z79.899 Other long term (current) drug therapy; Z79.84 Long term (current) use of oral hypoglycemic drugs; Z79.82 Long term (current) use of aspirin
CPT/HCPCS: 71045; 80048; 84484; 85025; 85379; 93005; 99285; A4216

== ENCOUNTER 2022-09-23 19:49 | Emergency (ER) | payer OTHER, SELFPAY ==
[2022-09-23 19:50] VITALS: BP 156/84; PULSE 85; RESP 16; TEMP 36.6; O2SAT 98; BMI 39.3
--- NOTE | 2022-09-23 20:16 | ED.VIS.GI ---
HPI HPI - GI History of Present Illness Chief Complaint: Abd Pain Narrative Narrative: 61-year-old male past medical history of hypertension, diabetes type 2, hyperlipidemia, presents with epigastric abdominal pain that has resolved. About an hour ago, he began having epigastric pain and discomfort, almost like gas. He had just eaten 2 single hamburgers from [employer]. He states that the pain in his epigastrium brought him to his knees. This lasted about 10 minutes, while his called EMS and brought him here, his symptoms have resolved. He felt nauseated but did not vomit. He is currently pain-free. However, he is concerned that maybe his pancreas is inflamed PFSH PFS Home Medications lisinopril 40 mg tablet 40 mg PO DAILY 12/10/14 [History Last Taken 09/08/17] metformin 1,000 mg tablet 500 mg PO BIDCM 12/10/14 [History Last Taken 09/08/17] aspirin 81 mg chewable tablet 81 mg PO DAILY@0800 06/09/16 [History Last Taken 09/08/17] atenolol 50 mg tablet 25 mg PO DAILY 06/09/16 [History Last Taken 09/08/17] atorvastatin 40 mg tablet 40 mg PO QHS 06/09/16 [History Last Taken 09/08/17] fluoxetine 20 mg capsule 40 mg PO DAILY 06/09/16 [History Last Taken 09/08/17] multivitamin (Daily Multiple tablet) 1 ea PO DAILY 06/09/16 [History Last Taken 09/08/17] glimepiride 4 mg tablet 4 mg PO DAILY 09/08/17 [History Last Taken 09/08/17] Allergy/AdvReac Type Severity Reaction Status Date / Time No Known Allergies Allergy Verified 09/23/22 19:53 Surgical History History of nephrectomy Hx of arthroscopic knee surgery Social History Smoking Status: Never smoker ROS ROS ED ROS Narrative Constitutional: No fever, no chills. HEENT: No sore throat. No neck pain. No loss of vision. No rhinorrhea. Cardiovascular: No chest pain. No palpitations. No pedal edema. Respiratory: No cough, no shortness of breath. Abdominal: Positive epigastric abdominal pain-resolved. Mild nausea. No vomiting. Genitourinary: No dysuria. No hematuria. Musculoskeletal: No myalgias. No arthralgias. Neurologic: No headaches. No dizziness. No lightheadedness. Skin: No rash. No change in color. Psychiatric: No depression. No anxiety. EXAM Physical Exam Narrative Exam Narrative: Afebrile. Vital signs noted. HEENT: Normocephalic. Atraumatic. PERRL, EOMI. Neck soft and supple. No point tenderness or step off. Cardiovascular: Regular rate and rhythm. No murmurs, rubs, or gallops appreciated. Respiratory: No tachypnea. Lungs clear to auscultation bilaterally. Gastrointestinal: Abdomen soft, obese, nontender, with normoactive bowel sounds. No rebound or guarding. Neurological: Awake. Alert. Nonfocal, nonlateralizing. Skin: No rash. Normal color. No pallor. Musculoskeletal: No pedal edema. Full range of motion extremities. Const Vital Signs: 09/23/22 19:50 Temperature 97.8 F Temperature Source Temporal Pulse Rate 85 Respiratory Rate 16 Blood Pressure 156/84 H Blood Pressure Mean 108 Pulse Ox 98 Oxygen Delivery Method Room Air MDM MDM MDM Narrative Medical decision making narrative: In the differential diagnosis is pancreatitis versus indigestion versus transient gastric distention. Laboratory work will be obtained to rule out pancreatitis including CBC, CMP, and lipase. X-rays of the abdomen were obtained to rule out obstruction. X-rays interpreted by myself showed nonspecific gas pattern, and a large amount of stool retained in the colon, but no evidence of obstruction. I reviewed the radiology report which confirms my interpretation. I reviewed his laboratory work he has a normal white count of 5.3, platelet count normal at 182, hemoglobin normal at 15.5. CMP does show creatinine slightly elevated at 1.57 with a BUN of 25, there was slight delay secondary to the patient's blood reported to be life hemic by laboratory. His AST is slightly elevated at 47 with an ALT of 59, normal alk phos of 65. Lipase is elevated at 7692. Upon repeat examination, he states he remains free of pain and would like to go home. However, given his elevated lipase, I did discuss with him the need to admit him for acute pancreatitis. He would like to sign out AGAINST MEDICAL ADVICE. I do feel he has capacity to make this decision. He was warned of the risk of sudden , permanent disability, intra-abdominal sepsis, pseudocyst of the pancreas, among other digestive problems. He acknowledges an understanding and would still like to sign out AGAINST MEDICAL ADVICE. He will follow-up with his primary care physician/provider. Return instructions to the emergency department were reviewed. He was told if he changes his mind at any time that he should return. Disposition is signed out AGAINST MEDICAL ADVICE. Patient is in stable condition. Lab Data Attestation: I reviewed the patient's lab results. Labs: Laboratory Results - last 24 hr 09/23/22 09/23/22 20:20 20:20 WBC 5.3 RBC 5.05 Hgb 15.5 Hct 44.7 MCV 88.5 MCH 30.7 MCHC 34.7 RDW Std Deviation 47.4 H RDW Coeff of Payam 14.6 Plt Count 182 MPV 9.3 Immature Gran % (Auto) 0.600 Neut % (Auto) 66.9 Lymph % (Auto) 22.4 [place] % (Auto) 7.0 Eos % (Auto) 2.5 Baso % (Auto) 0.6 Absolute Neuts (auto) 3.5 Absolute Lymphs (auto) 1.18 Nucleated RBC % 0 Sodium 137 Potassium 4.0 Chloride 102 Carbon Dioxide 25.0 Anion Gap 10 BUN 25 H Creatinine 1.57 H Estim Creat Clear Calc 46.59 Est GFR (MDRD) Af Amer 58 L Est GFR (MDRD) Non-Af 48 L BUN/Creatinine Ratio 15.9 Glucose 394 H Calcium 9.3 Total Bilirubin 0.70 AST 47 H ALT 59 Alkaline Phosphatase 65 Total Protein 6.9 Albumin 3.4 Globulin 3.5 Albumin/Globulin Ratio 1.0 Lipase 7692 H Radiography Diagnostic Testing: Clinical Impression(s) from Imaging Studies Acute Abdomen Series 09/23/22 20:40 IMPRESSION: No acute abnormalities. Large amount retained stool in the colon. Electronically Signed: Luan Walter MD at 21:25 EST , Discharge Plan Triage Chief Complaint: Abd Pain ED Provider: [facility] Turcios Dx/Rx/DC Orders Clinical Impression: Epigastric abdominal pain, Indigestion, Pancreatitis, Left against medical advice Instructions: ED Pancreatitis Prescriptions: No Action metformin 1,000 MG tablet 500 mg PO BIDCM lisinopril 40 MG tablet 40 mg PO DAILY multivitamin [Daily Multiple] 1 EACH tablet 1 ea PO DAILY atorvastatin 40 MG tablet 40 mg PO QHS aspirin 81 MG tablet,chewable 81 mg PO DAILY@0800 fluoxetine 20 MG capsule 40 mg PO DAILY atenolol 50 MG tablet 25 mg PO DAILY glimepiride 4 MG tablet 4 mg PO DAILY Label Comments: Take 1 tablet by mouth daily with breakfast. Primary Care Provider: YASMINE RAIN Referrals: YASMINE RAIN CRNP [Primary Care Provider] - 1-2 Days if not improving Activity Restrictions/Additional Instructions: You have signed out AGAINST MEDICAL ADVICE. Your lipase is elevated above 7000 indicating that you have acute pancreatitis. Should you change your mind, return to the emergency department for admission. Return with increasing pain, nausea, vomiting, new or worsening symptoms. Start a clear liquid diet. Disposition Disposition: Against Medical Advice Discharge Date/Time: 09/23/22 22:47 Capacity Capacity Assessment Tool Can the patient make a choice & communicate that choice?: Yes Can the patient understand benefits, risks and alternatives?: Yes Can the patient make a logical, rational choice?: Yes Is the choice the patient makes consistent w/ their values?: Yes Is there an impending, emergent risk to the patient?: No Does the patient have an Advance Directive?: No Is there a Surrogate Available?: No i.e. HCPOA: No i.e. close relative (spouse, child, parent, sibling)?: Comment (Aunt and cousin)
--- NOTE | 2022-09-23 20:40 | RAD_ITS ---
INDICATION: Pain EXAMINATION/TECHNIQUE: X-RAY - XR Abdomen Series W/ Chest 1 View COMPARISON: 11/13/2021 FINDINGS: --Chest: LINES/DEVICES: None. LUNGS: No consolidation, edema or effusion. No pneumothorax. MEDIASTINUM AND CARDIOVASCULAR STRUCTURES: Cardiac silhouette not enlarged. Central airways and mediastinal contour are unremarkable. BONES AND SOFT TISSUES: No acute findings. --Abdomen: BOWEL GAS PATTERN: Non-obstructive. No bowel or stomach distention. Large amount retained stool in the colon. FREE AIR: None visualized. ORGANOMEGALY: Not seen. CALCIFICATIONS: No abnormal calcifications observed. BONES AND SOFT TISSUES: No acute findings. RAD/Acute Abdomen Inc Chest IMPRESSION: No acute abnormalities. Large amount retained stool in the colon. Electronically Signed: Luan Walter MD at 21:25 EST ,
[2022-09-23 20:41] LABS: Absolute Lymphocyte Count 1.18 X10^3/uL (0.83-4.51); Absolute Neutrophil Count 3.5 X10^3/uL (2.0-7.7); Basophil# 0.03 X10^3/uL; Basophil% 0.6 % (0-1); Eosinophil# 0.13 X10^3/uL; Eosinophils% 2.5 % (0-5); Hematocrit 44.7 % (40-54); Hemoglobin 15.5 g/dL (13.0-16.5); Lymphocyte # 1.18 X10^3/ul (0.83-4.51); Lymphocyte % 22.4 % (19-41); Mean Corp Hgb Conc 34.7 g/dL (32-36); Mean Corpuscular Hgb 30.7 pg (27.0-32.0); Mean Corpuscular Volume 88.5 fL (80-94); Mean Platelet Vol. 9.3 fl (6.2-12.0); Monocyte# 0.37 X10^3/uL; NRBC Flagged by Analyzer 0 % (0-5); Neutrophil # 3.53 X10^3/uL (2.7-7.7); Neutrophil % 66.9 % (47-70); Platelet Count 182 K/mm3 (150-450); RBC Distribution Width CV 14.6 % (11.6-14.6); RBC Distribution Width SD 47.4 fl (35.1-43.9); Red Blood Count 5.05 M/mm3 (4.6-6.2); White Blood Count 5.3 K/mm3 (4.4-11.0)
[2022-09-23 22:06] LABS: BUN 25 mg/dL (7-18); Glucose 394 mg/dL (74-106)
[2022-09-23 22:07] LABS: BUN/Creat Ratio 15.9 RATIO (10-20); Creatinine, Serum 1.57 mg/dL (0.70-1.30); Estimated Creatinine Clearance 46.59 ml/min; Protein, Total 6.9 g/dL (6.4-8.2)
[2022-09-23 22:08] LABS: Albumin, Serum 3.4 g/dL (3.2-5.0); Calcium,Total 9.3 mg/dL (8.5-10.1); Globulin 3.5 g/dL (2.2-4.2)
[2022-09-23 22:09] LABS: AST(SGOT) 47 U/L (15-37); Anion Gap 10 (5-15); Chloride 102 mmol/L (98-107); Sodium Level 137 mmol/L (136-145)
[2022-09-23 22:20] LABS: Alkaline Phosphatase 65 U/L (45-117)
[2022-09-23 22:24] LABS: Lipase 7692 U/L (73-393)
[2022-09-24 01:12] LABS: Alanine Aminotransfer ALT/SGPT 60 U/L (16-61)
[2022-10-01 00:10] LABS: EST Glomerular Filtration Rate 48 mL/min (>60); Est Glom Filt Rate - Afr Amer 58 mL/min (>60)
== END 2022-09-23 22:47 | disposition left against medical advice (07) ==
PROVIDERS: Emergency Provider Emergency Medicine; PCP Nurse Practitioner Family; Visit Provider Emergency Medicine
DX: K85.90 Acute pancreatitis without necrosis or infection, unspecified (principal); E11.9 Type 2 diabetes mellitus without complications; Z53.29 Procedure and treatment not carried out because of patient's decision for other reasons; I10 Essential (primary) hypertension; E78.5 Hyperlipidemia, unspecified
CPT/HCPCS: 74022; 80053; 83690; 85025; 99285; A4216

== ENCOUNTER 2023-12-29 15:00 | Outpatient (RCR) | payer OTHER, SELFPAY ==
--- NOTE | 2023-10-26 17:06 | HP.PTEVAL_ITS ---
Patient's Visit Information Visit Information Visit Information: GUTIERREZ WILKINSON is a 62 year old M referred to Physical Therapy by PATTI LARA with a diagnosis of PAIN IN UNSPECIFIED KNEE. Date of Evaluation: 10/26/23 Physical Therapist: Endy Ware PT, Cert MDT, OCS Visit Plan Frequency: 2x /Week Duration: 7WEEKS Plan: PT INTERVENTIONS AQUATIC PT ROM ,FLEXABILITY ,STRENGTHENING QUADS/HAMS/HIP AND FUNCTIONAL STRENGTHENING Subjective Subjective: This 62 y/o male presents to physical therapy with bilateral knee pain . 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 Patient has had knee surgery both knee in paat and states has bone on bone. Seen Dr wants to try Aquatic therapy. Patient located global > medial knee. Described as constant ache. Aggravating walking/standing 15 mins ,unable to squat or kneeling. Stairs one step at time. Alleviating factors rest. Sleeping okay at night. Denies paresthesia/tingling-. Patient condition affects QOL and function and housework tasks. Patient goals to decrease pain. 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 Pain Right Knee: Pain Intensity (Out of 10): 8 Pain Intensity Range: 10 Left Knee: Pain Intensity (Out of 10): 8 Pain Intensity Range: 10 Objective Objective: POSTURE: mild forward posture NEURO: denies paresthesia/tingling EDEMA: absent PALAPTION: medial/lateral joint line GAIT: ambulates with reciprocal pattern AROM: supine knee flexion 0-130 degrees bilateral MMT: ( peak force) quads right 19.2 ,left 33.7 ,hamstrings right 18.4 ,left 27.5 ,hip flexion right 13.5 ,left 25.9 ,hip abduction right 14.7 , left 17.8 ankle DF STAIRS: one step at time one step at time Special Tests R Knee Valgus - MCL: Negative R Knee Varus - LCL: Negative R Knee Patellar Apprehension - PFS: Negative R Knee Patellar Grind - PFS: Negative L Knee Valgus - MCL: Negative L Knee Varus - LCL: Negative L Knee Patellar Apprehension - PFS: Negative L Knee Patellar Grind - PFS: Negative Balance/Special Test Scores Lower Extremity Functional Score: 15 Goals Goal 1:: Patient to be I with HEP with Bilateral knees Goal Time Frame: 4-6 Weeks Goal 2:: Patient to demonstrate 50% improvement with improved function and less pain Goal Time Frame: 6-8 Weeks Goal 3:: Patient to improve peak force quads/ham/hip by 10# strength to improve function Goal Time Frame: 4-6 Weeks Goal 4:: Patient to improve LFES score by 5 points or> to improve QOL and function Goal Time Frame: 4-6 Weeks Goal 5:: Patient be able to walk and stand > 20mins to enhance ADLS and housework tasks Goal Time Frame: 4-6 Weeks Rehabilitation Potential Physical Therapy Diagnosis: This patient has bilateral knee pain due to DJD worse right > left with decrease ROM ,weakness impairs function walking/standing /stairs affect housework and ADLS thus benefit from skilled PT Rehabilitation Potential: Good Anticipated Interventions Patient/Client Instruction: Educate patient on: Condition and Plan of Care For the Purpose of:: To decrease pain, To increase ROM, To improve muscle performance and motor function, To improve ability to perform ADL's, To increase tolerance to activity/condition/position, To improve ability of physical actions for home/community/work/leisure, To improve health of tissue, To decrease soft tissue restriction, To increase flexibility/ROM and To improve endurance Therapeutic Exercise to Include: Strength training, Flexibilty training, In an aquatic setting and Active ROM Comment: QUADS/HAMS/HIP For the Purpose of:: To decrease pain, To increase ROM, To improve muscle performance and motor function, To improve ability to perform ADL's, To increase tolerance to activity/condition/position, To improve ability of physical actions for home/community/work/leisure, To improve gait and locomotor functions, To decrease soft tissue restriction, To increase flexibility/ROM, To improve endurance and To improve balance Text: Thank you for the opportunity to evaluate your patient. For Medicare and Medicare HMO plans, please review the plan of care and approve it. It will need to be FAXED BACK to us at [phone] for Medicare purposes. For Medicare only, by signing this I certify the plan of care. Please let me know if there are questions or concerns regarding this plan of care. Physician Signat ure: Date:
--- NOTE | 2023-12-29 15:26 | HP.PTDCSUM ---
Discharge Summary D/C summary: It has been my pleasure to treat GUTIERREZ WILKINSON referred by PATTI LARA, with the diagnosis of PAIN IN UNSPECIFIED KNEE for a total of 12 visit(s). Discharge Date: Please see the following information for a summary of their discharge status. Subjective Subjective: Doing great no pain Pain Right Knee: Pain Intensity (Out of 10): 0 Left Knee: Pain Intensity (Out of 10): 0 Overall Improvement % Improvement: 100 Objective Objective/Function: POSTURE: mild forward posture NEURO: denies paresthesia/tingling EDEMA: absent PALAPTION: ABSENT GAIT: ambulates with reciprocal pattern AROM: supine knee flexion 0-130 degrees bilateral MMT: ( peak force) quads right 52.1 ,left 59.7 ,hamstrings right 62.5,left 59.6 ,hip flexion right 33.5 ,left 28.9 ,hip abduction right 24.7 , left 27.8 ankle DF Goals Goal 1:: Patient to be I with HEP with Bilateral knees Goal Progress: Goal Met Goal 2:: Patient to demonstrate 50% improvement with improved function and less pain Goal Progress: Goal Met Goal 3:: Patient to improve peak force quads/ham/hip by 10# strength to improve function Goal Progress: Goal Met Goal 4:: Patient to improve LFES score by 5 points or> to improve QOL and function Goal Progress: Goal Met Goal 5:: Patient be able to walk and stand > 20mins to enhance ADLS and housework tasks Goal Progress: Goal Met Plan Plan: D/C D/C Information d/c sentence: If there are questions or concerns regarding this patient's physical therapy, please feel free to call me at [phone]. Thank you for the referral of this patient. Sincerely, Endy Ware, PT, Cert MDT, OCS Balance/Gait/Functional tests Balance/Special Test Scores Lower Extremity Functional Score: 65 Improvement % Improvement: 100
== END 2023-12-29 19:00 | disposition home or self-care (01) ==
LOC: PT 15:00
PROVIDERS: Referring Provider Nurse Practitioner Family; Visit Provider Nurse Practitioner Family
DX: M25.561 Pain in right knee (principal); M25.562 Pain in left knee; I10 Essential (primary) hypertension; E11.9 Type 2 diabetes mellitus without complications; E78.5 Hyperlipidemia, unspecified
CPT/HCPCS: 97110; 97113; 97162; 97530

== ENCOUNTER 2025-01-12 02:06 | Emergency (ER) | payer OTHER, SELFPAY ==
[2025-01-12 02:07] VITALS: BP 128/68; PULSE 89; RESP 19; TEMP 36.6; O2SAT 98; BMI 36.6
--- NOTE | 2025-01-12 02:15 | EX.ED.DYSGE1 ---
HPI History of Present Illness Chief Complaint: Nosebleed Narrative Narrative: 64-year-old male presents with nosebleed out of his left nares that started about 30 minutes ago. He states he was watching TV and had spontaneous epistaxis out of his left nares only. He denies any chest pain, shortness of breath or lightheadedness. No other bleeding diathesis. He had a recent knee surgery at [facility] in [facility] by Dr. Carlos. He was told to take baby aspirin but has been taking 325 mg daily for the last 5 days. He denies any black stool. He presents because he has been unable to get the bleeding to stop. PFSH PFS Home Medications ?Medication ?Instructions ?Recorded ?Last Taken ?Type lisinopril 40 mg tablet 40 mg PO DAILY 12/10/14 09/08/17 History metformin 1,000 mg tablet 500 mg PO BIDCM 12/10/14 09/08/17 History aspirin 81 mg chewable tablet 81 mg PO DAILY@0800 06/09/16 09/08/17 History atenolol 50 mg tablet 25 mg PO DAILY 06/09/16 09/08/17 History atorvastatin 40 mg tablet 40 mg PO QHS 06/09/16 09/08/17 History fluoxetine 20 mg capsule 40 mg PO DAILY 06/09/16 09/08/17 History multivitamin (Daily Multiple 1 ea PO DAILY 06/09/16 09/08/17 History tablet) glimepiride 4 mg tablet 4 mg PO DAILY 09/08/17 09/08/17 History Allergy/AdvReac Type Severity Reaction Status Date / Time No Known Allergies Allergy Verified 01/12/25 02:11 Surgical History History of nephrectomy Hx of arthroscopic knee surgery Social History Smoking Status: Never smoker ROS ROS ED ROS Narrative Review of systems positive for epistaxis from the left nares only. No swallowing of blood, denies other bleeding diathesis. No chest pain, shortness of breath, or lightheadedness. No exacerbating or alleviating factors. EXAM Physical Exam Narrative Exam Narrative: Afebrile. Vital signs noted. Nontoxic-appearing. Cardiovascular examination reveals a regular rate and rhythm. Lungs are clear to auscultation bilaterally. Abdomen is soft nontender with positive bowel sounds. Inspection of the left nares shows that there is a Kleenex hanging out but is not saturated no active bleeding. No posterior pharynx bleeding. Const Vital Signs: 01/12/25 02:07 Temperature 97.9 F Temperature Source Oral Pulse Rate 89 Respiratory Rate 19 H Blood Pressure 128/68 H Blood Pressure Mean 88 Pulse Ox 98 Oxygen Delivery Method Room Air MDM MDM MDM Narrative Medical decision making narrative: Differential diagnosis includes but not limited to anterior epistaxis versus posterior epistaxis of the left nares. The Kleenex will be removed and nasal clamp applied. Afterwards, on visual inspection, there is no area anteriorly that can be cauterized. The left nares was packed with a cotton ball saturated in Afrin and lidocaine 4%. After 15 minutes, this was removed. There is no evidence of posterior pharynx bleeding or epistaxis. In discussion with the patient, he was warned of the risk of rebleed, and I discussed the possibility of packing with him, but he declined. He ambulated around the ED and there was no evidence of rebleed. At this point in time, he does not want nasal packing. He will decrease his aspirin to a baby aspirin and follow-up with ENT. He was given the nasal clamp to apply pressure should he experience a rebleed at home. Return instructions to the emergency department were reviewed. Disposition is discharged home in stable condition. History & Record Review Discussion w/independent historian: Patient and Family Discharge Plan Triage Chief Complaint: Nosebleed ED Provider: [facility]ios Dx/Rx/DC Orders Prescriptions: No Action metformin 1,000 MG tablet 500 mg PO BIDCM lisinopril 40 MG tablet 40 mg PO DAILY multivitamin [Daily Multiple] 1 EACH tablet 1 ea PO DAILY atorvastatin 40 MG tablet 40 mg PO QHS aspirin 81 MG tablet,chewable 81 mg PO DAILY@0800 fluoxetine 20 MG capsule 40 mg PO DAILY atenolol 50 MG tablet 25 mg PO DAILY glimepiride 4 MG tablet 4 mg PO DAILY Patient Comments: Take 1 tablet by mouth daily with breakfast. [facility]errals: [facility] [Primary Care Provider] - Print Language: Indonesian
[2025-01-12] MEDS: Lidocaine 4% 50 ML Bottle TOPICAL (02:21)
[2025-01-12] MEDS: Oxymetazoline 0.05% 1 SPRAY SPRAY.BTL 2 SPRAY NASAL (02:21)
--- OUTSIDE RECORDS SUMMARY | 2025-01-12 02:47 | XMS RPT_ITS | CCD ---
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 Name Role Phone Unavailable Primary Care Provider UnavailYobani Patel MD Primary Care Provider Haagen DRUM WORKER.Katlyn HEATH Unavailable [phone] Miguel Angel DRUM WORKER.Loly HEATH Unavailable Supptyler DRUM WORKER.Loly HEATH Unavailable Graham Gamez PA-C Unavailable Law Robin Unavailable Unavailable PROVIDER, UNKNOWN Admitting Unavailable PROVIDER, UNKNOWN Attending Unavailable YOBANI CHAMPAGNE Primary Care Unavailable JUAN J BARROW Consulting Unavailable PROVIDER, UNKNOWN Referring Unavailable YOBANI CHAMPAGNE Primary Care Unavailable KACIE MONTELONGO Referring Unavailable MAHI, YOBANI Barnhart Primary Care Unavailable YOBANI CHAMPAGNE Attending Unavailable MAHI, YOBANI Barnhart Primary Care Unavailable KACIE MONTELONGO Referring Unavailable MAHI, YOBANI Barnhart Primary Care Unavailable KACIE MONTELONGO Referring Unavailable MAHI, YOBANI Barnhart Primary Care Unavailable ROBERT EDGAR Referring Unavailable MAHI, YOBANI Barnhart Primary Care Unavailable ROBERT EDGAR Referring Unavailable MAHI, YOBANI Barnhart Primary Care Unavailable YOBANI CHAMPAGNE Primary Care Unavailable ROBERT EDGAR Attending Unavailable MAHI, YOBANI Barnhart Primary Care Unavailable KACIE MONTELONGO Referring Unavailable MAHI, YOBANI Barnhart Primary Care Unavailable ROBERT EDGAR Attending Unavailable ROBERT EDGAR Referring Unavailable MAHI, YOBANI Barnhart Primary Care Unavailable ROBERT EDGAR Referring Unavailable YOBANI CHAMPAGNE Primary Care Unavailable [place] Primary Care Unavailable Robert Edgar Referring Unavailable Robert Edgar Attending Unavailable Medications Current Medications Medication Drug Class(es) Dates Sig (Normalized) Sig (Original) acetaminophen 500 mg oral tablet (3 sources) Start: 12-24-2024 End: 03-24-2025 take 2 tablets by mouth every six hours as needed acetaminophen (TYLENOL EXTRA STRENGTH) 500 mg tablet Take 2 tablets by mouth every 6 hours as needed for pain. 90 tablet 12/24/2024 03/24/2025 Active aspirin 81 mg chewable tablet (9 sources) Platelet Aggregation Inhibitor, Nonsteroidal Anti-inflammatory Drug Start: 12-24-2024 End: 02-04-2025 take 1 tablet by mouth twice daily aspirin 81 mg chewable tablet Take 1 tablet by mouth two times a day. 60 tablet 1 12/24/2024 02/04/2025 Active Start: 06-09-2016 take 81 mg by mouth once daily Aspirin Active 81 MG PO DAILY@0800 June 09, 2016 12:00am Start: 06-25-2005 End: 08-19-2024 ASPIRIN 81 MG TAB Take one(1 ) tablet daily. 0 06/25/2005 08/19/2024 Discontinued Comment on above: Take one(1) tablet d aily. atenolol 50 mg oral tablet (1 source) beta-Adrenergic Kat Start: 06-09-2016 take 25 mg by mouth once daily Atenolol Active 25 MG PO DAILY June 09, 2016 12:00am carvedilol 25 mg oral tablet (18 sources) alpha-Adrenergic Kat, beta-Adrenergic Kat Start: 08-24-2024 End: 08-24-2025 take 2 tablets by mouth twice daily carvedilol (COREG) 25 mg tablet Take 2 tablets by mouth two times a day. 360 tablet 3 08/24/2024 08/24/2025 Active Start: 08-23-2024 End: 08-23-2025 take 1 tablet by mouth twice daily carvedilol (COREG) 25 mg tablet Take 1 tablet by mouth two times a day. 08/23/2024 08/24/2024 Discontinued docusate sodium 100 mg oral capsule (3 sources) Start: 12-24-2024 take 1 capsule by mouth twice daily docusate sodium (COLACE) 100 mg capsule Take 1 capsule by mouth two times a day. 60 capsule 12/24/2024 Active doxycycline hyclate 100 mg oral tablet (1 source) Tetracycline-class Drug Start: 06-07-2024 End: 06-12-2024 take 1 tablet by mouth twice daily doxycycline (VIBRA-TABS) 100 mg tablet Take 1 tablet by mouth two times a day for 5 days. 10 tablet 06/07/2024 06/12/2024 Active empagliflozin 25 mg oral tablet (19 sources) Sodium-Glucose Cotransporter 2 Inhibitor Start: 08-09-2024 take 1 tablet by mouth once daily empagliflozin (JARDIANCE) 25 mg tablet Take 1 tablet by mouth once daily. 08/09/2024 Active End: 08-23-2024 take 1 tablet by mouth once daily at breakfast empagliflozin (JARDIANCE) 10 mg tablet Take 10 mg by mouth daily with breakfast. 08/23/2024 Discontinued Comment on above: Take 10 mg by mouth daily with breakfast. ergocalciferol 1.25 mg oral capsule (20 sources) Provitamin D2 Compound Start: 08-23-19 End: 08-24-19 take 1 capsule by mouth every other week ergocalciferol 50,000 unit capsule (VITAMIN D2, DRISDOL) Take 1 capsule by mouth every 2 weeks. Use as directed. 6 capsule 3 08/24/2024 Active Start: 08-19-2024 End: 08-23-2024 take 1 capsule by mouth every week ergocalciferol 50,000 unit capsule (VITAMIN D2, DRISDOL) Take 1 capsule by mouth one time a week. Use as directed. 08/19/2024 08/23/2024 Discontinued famotidine 20 mg oral tablet (18 sources) Histamine-2 Receptor Antagonist Start: 08-23-2024 End: 08-24-2025 take 1 tablet by mouth once daily famotidine (PEPCID) 20 mg tablet Take 1 tablet by mouth once daily. 90 tablet 3 08/24/2024 08/24/2025 Active fluticasone propionate 0.05 mg/actuat metered dose nasal spray (1 source) Corticosteroid Start: 06-07-2024 End: 07-07-2024 take 2 spray(s) by mouth once daily fluticasone (FLONASE) 50 mcg/actuation nasal spray Use 2 Sprays in each nostril once daily. Rinse mouth after use. 11.1 mL 06/07/2024 07/07/2024 Active lisinopril 20 mg oral tablet (20 sources) Angiotensin Converting Enzyme Inhibitor Start: 08-23-2024 End: 08-24-2024 take 1 tablet by mouth once daily lisinopril (ZESTRIL) 20 mg tablet Take 1 tablet by mouth once daily. 30 tablet 5 08/24/2024 Active Start: 12-10-2014 End: 08-23-2024 take 1 tablet by mouth once daily lisinopril (ZESTRIL, PRINIVIL) 40 mg tablet Take 1 tablet by mouth once daily. 90 tablet 3 09/04/2017 08/23/2024 Discontinued Comment on above: Take 1 tablet by mitchell th once daily. meloxicam 15 mg oral tablet (3 sources) Nonsteroidal Anti-inflammatory Drug Start: 5 take 1 tablet by mouth once daily meloxicam (MOBIC) 15 mg tablet Take 1 tablet by mouth once daily. 15 tablet 12/24/2024 Active metFORMIN hydrochloride 1000 mg oral tablet (20 sources) Biguanide Start: End: take 1 tablet by mouth twice daily metFORMIN (GLUCOPHAGE) 1,000 mg tablet Take 1 tablet by mouth two times a day. 180 tablet 3 08/24/2024 Active Start: 07-31-2017 take 1 tablet by mitchell th twice daily metFORMIN (GLUCOPHAGE) 1,000 mg tablet Take 1 tablet by mouth twice daily. 180 tablet 3 07/31/2017 Active Start: 12-10-2014 take 500 mg by mouth twice daily at mealtime Metformin Active 500 MG PO TWICE DAILY WITH MEALS December 09, 2014 11:00pm Comment on above: Take 1 tablet by mitchell th twice daily. mirtazapine 15 mg oral tablet (18 sources) Start: End: take 1 tablet by mouth once daily at bedtime mirtazapine (REMERON) 15 mg tablet Take 1 tablet by mouth daily at bedtime. 90 tablet 3 08/24/2024 08/24/2025 Active Multivitamin (Daily Multiple) 1 EACH tablet (1 source) Start: 016 take 1 tablet by mouth once daily Multivitamin (Daily Multiple) 1 EACH tablet Active 1 EACH PO DAILY June 09, 2016 12:00am mupirocin 0.02 mg/mg topical ointment (6 sources) RNA Synthetase Inhibitor Antibacterial Start: 025 End: mupirocin (BACTROBAN) 2 % ointment Apply 0.5 inch with cotton swab (Q-tip) to each nostril in the morning and evening for 5 days prior to and including day of surgery. 22 g 12/01/2024 12/17/2024 Active naloxone 4 mg/actuation nasal spray (NARCAN) (3 sources) Start: naloxone 4 mg/actuation nasal spray (NARCAN) Use 1 spray in one nostril as needed for overdose. May repeat every 2 to 3 min in alternating nostrils until medical assistance is available 1 each 12/24/2024 Active oxyCODONE hydrochloride 5 mg oral tablet (2 sources) Opioid Agonist Start: End: take 1 tablet by mouth every four hours as needed oxyCODONE IR (ROXICODONE) 5 mg immediate release tablet Indications: Primary osteoarthritis of right knee Take 1-2 tablets by mouth every 4 hours as needed for pain for up to 7 days. 42 tablet 12/24/2024 12/31/2024 Active rosuvastatin calcium 40 mg oral tablet (18 sources) HMG-CoA Reductase Inhibitor Start: End: take 1 tablet by mouth once daily at bedtime rosuvastatin (CRESTOR) 40 mg tablet Take 1 tablet by mouth daily at bedtime. 90 tablet 3 08/24/2024 08/24/2025 Active semaglutide (OZEMPIC) 1 mg/dose (4 mg/3 mL) pen (18 sources) Start: End: inject 1 mg by subcutaneous injection every week semaglutide (OZEMPIC) 1 mg/dose (4 mg/3 mL) pen Inject 1 mg subcutaneously one time a week. 9 mL 3 08/24/2024 08/24/2025 Active Start: 08-23-2024 End: 08-24-2024 inject 1 mg by subcutaneous injection every week semaglutide (OZEMPIC) 1 mg/dose (4 mg/3 mL) pen Inject 1 mg subcutaneously one time a week. 9 mL 3 08/23/2024 08/24/2024 Discontinued Start: 08-23-2024 End: 08-23-2025 inject 1 mg by subcutaneous injection every week semaglutide (OZEMPIC) 1 mg/dose (4 mg/3 mL) pen Inject 1 mg subcutaneously one time a week. 9 mL 3 08/23/2024 08/23/2025 Active tamsulosin hydrochloride 0.4 mg oral capsule (18 sources) alpha-Adrenergic Kat Start: 08-23-2024 End: 08-24-2025 take 2 capsules by mouth once daily tamsulosin (FLOMAX) 0.4 mg Take 2 capsules by mouth once daily. 180 capsule 3 08/24/2024 08/24/2025 Active Completed/Discontinued Medications Medication Drug Class(es) Dates Sig (Normalized) Sig (Original) alogliptin 25 mg oral tablet (5 sources) Start: 05-13-2017 End: 08-19-2024 take 1 tablet by mouth once daily alogliptin (NESINA) 25 mg tab Indications: Type 2 diabetes mellitus with microalbuminuria, without long-term current use of insulin (HCC) Take 25 mg by mouth once daily. 30 tablet 11 05/13/2017 08/19/2024 Discontinued Comment on above: Take 25 mg by mouth once daily. amLODIPine 5 mg oral tablet (5 sources) Dihydropyridine Calcium Channel Kat Start: 05-24-2016 End: 08-19-2024 take 1 tablet by mouth once daily amLODIPine (NORVASC) 5 mg tablet Take 1 tablet by mouth once daily. 90 tablet 3 05/24/2016 08/19/2024 Discontinued Comment on above: Take 1 tablet by mitchell th once daily. atorvastatin 40 mg oral tablet (7 sources) HMG-CoA Reductase Inhibitor Start: 06-09-2016 End: 08-23-2024 take 1 tablet by mouth once daily at bedtime for hyperlipidemia atorvastatin (LIPITOR) 40 mg tablet Take 1 tablet by mouth daily at bedtime. For cholesterol. 90 tablet 3 12/12/2016 08/23/2024 Discontinued Comment on above: Take 1 tablet by mitchell th daily at bedtime. For cholesterol. Blood-Glucose Meter (FREESTYLE LITE METER) monitoring kit (5 sources) Start: 03-28-2016 End: 08-19-2024 Blood-Glucose Meter (FREESTYLE LITE METER) monitoring kit 1 Each as needed. 1 Each 0 03/28/2016 08/19/2024 Discontinued Start: 03-28-2016 Blood-Glucose Meter (FREESTYLE LITE METER) monitoring kit 1 Each as needed. 1 Each 0 03/28/2016 Active Comment on above: 1 Each as needed. FISH OIL CAP (6 sources) Start: 06-25-2005 End: 08-23-2024 FISH OIL CAP Take one(1) tablet daily. 0 06/25/2005 08/23/2024 Discontinued Start: 06-25-2005 FISH OIL CAP T joe one(1) tablet daily. 0 06/25/2005 Active Comment on above: Take one(1) tablet d aily. FLUoxetine 40 mg oral capsule (6 sources) Serotonin Reuptake Inhibitor Start: 7 End: take 1 capsule by mouth once daily FLUoxetine HCl (PROZAC) 40 mg capsule Take 1 capsule by mouth once daily. 90 capsule 3 12/15/2016 08/19/2024 Discontinued Start: 06-09-2016 take 40 mg by mouth once daily Fluoxetine Active 40 MG PO DAILY June 09, 2016 12:00am Comment on above: Take 1 capsule by mo uth once daily. glimepiride 4 mg oral tablet (7 sources) Sulfonylurea Start : 07-31 End: 08-23 take 1 tablet by mouth once daily at breakfast glimepiride (AMARYL) 4 mg tablet Indications: Uncontrolled type 2 diabetes mellitus without complication, without long-term current use of insulin Take 1 tablet by mouth daily with breakfast. 30 tablet 11 07/31/2017 08/23/2024 Discontinued Comment on above: Take 1 tablet by mitchell th daily with breakfast. hydroCHLOROthiazide 12.5 mg oral capsule (5 sources) Thiazide Diuretic Start : 07-31 End: 08-19 take 1 capsule by mouth once daily Hydrochlorothiazide 12.5 mg capsule Take 1 capsule by mouth once daily. 30 capsule 12 07/31/2017 08/19/2024 Discontinued Comment on above: Take 1 capsule by mo uth once daily. Insulin Lispro (5 sources) Insulin Analog End: 08-19 insulin lispro (HUMALOG U-100 INSULIN SUBCUTANEOUS) Inject subcutaneously. 08/19/2024 Discontinued insulin lispro ( HUMALOG U-100 INSULIN SUBCUTANEOUS) Inject subcutaneously. Active insulin lispro ( HUMALOG U-100 INSULIN SUBCUTANEOUS) Inject subcutaneously. 0 Active Comment on above: Inject subcutaneousl y. metoprolol tartrate 25 mg oral tablet (5 sources) beta-Adrenergic Kat Start: 019 End: take 2 tablets by mouth twice daily metoprolol tartrate, short acting, (LOPRESSOR) 25 mg tablet Take 2 tablets by mouth twice daily. 360 tablet 3 10/15/2018 08/19/2024 Discontinued Comment on above: Take 2 tablets by mo uth twice daily. naproxen 500 mg oral tablet (5 sources) Nonsteroidal Anti-inflammatory Drug Start: 014 End: take 1 tablet by mouth every twelve hours as needed naproxen (NAPROSYN) 500 mg tablet Take 1 tablet by mouth twice daily as needed. 90 tablet 3 08/18/2013 08/19/2024 Discontinued Comment on above: Take 1 tablet by mitchell twice daily as needed. omeprazole 20 mg delayed release oral capsule (5 sources) Proton Pump Inhibitor Start: 017 End: take 1 capsule by mouth once daily before breakfast omeprazole (PRILOSEC) 20 mg capsule Indications: Gastroesophageal reflux disease, esophagitis presence not specified Take 1 capsule by mouth daily before breakfast. 1/2 hr before meal. 30 capsule 11 12/10/2016 08/19/2024 Discontinued Comment on above: Take 1 capsule by mo [facility] daily before breakfast. 1/2 hr before meal. therapeutic multivitamin (THERA VITAMIN) tablet (6 sources) Start: 017 End: take 1 tablet by mouth once daily therapeutic multivitamin (THERA VITAMIN) tablet Take 1 tablet by mouth once daily. 100 tablet 3 03/17/2017 08/23/2024 Discontinued Start: 03-17-2017 take 1 tablet by mitchell th once daily therapeutic multivitamin (THERA VITAMIN) tablet Take 1 tablet by mouth once daily. 100 tablet 3 03/17/2017 Active Comment on above: Take 1 tablet by mitchell once daily. Problems Active Problems Problem Classification Problem Date Documented Date Episodic/Chronic Abdominal pain (1 source) Epigastric pain; Translations: [Epigastric pain] 09-23-2022 Episodic Adjustment disorders (20 sources) Reactive depression (situational); Translations: [Adjustment disorder with depressed mood] Onset: 11-09-2015 11-09-2015 Chronic Asthma (1 source) Asthmatic bronchitis; Translations: [Unspecified asthma, uncomplicated] 09-09-2017 Chronic Cancer of kidney and renal pelvis (9 sources) History of malignant neoplasm of retroperitoneum; Translations: [Personal history of other malignant neoplasm of kidney] Onset: 12-06-2024 12-06-2024 Episodic Chronic kidney disease (9 sources) Chronic kidney disease; Translations: [Chronic kidney disease, unspecified] Onset: 12-06-2024 12-06-2024 Chronic Conduction disorders (9 sources) First degree atrioventricular block; Translations: [Atrioventricular block, first degree] Onset: 12-06-2024 12-06-2024 Chronic Diabetes mellitus with complications (20 sources) Type 2 diabetes mellitus; Translations: [Type 2 diabetes mellitus with other diabetic kidney complication] Onset: 10-03-2016 10-03-2016 Chronic Disorders of lipid metabolism (20 sources) Hyperlipidemia; Translations: [Hyperlipidemia, unspecified] Onset: 07-10-2006 08-24-2015 Chronic Esophageal disorders (9 sources) Gastroesophageal reflux disease; Translations: [Gastro-esophageal reflux disease without esophagitis] Onset: 12-06-2024 12-06-2024 Chronic Essential hypertension (20 sources) Essential hypertension; Translations: [Essential (primary) hypertension] Onset: 03-13-2008 08-24-2015 Chronic Fracture of lower limb (1 source) Fracture of phalanx of foot; Translations: [Displaced fracture of distal phalanx of right lesser toe(s), initial encounter for closed fracture] 11-25-2020 Episodic Headache; including migraine (20 sources) Muscular headache ; Translations: [Tension-type headache, unspecified, not intractable] Onset: 10-23-2015 10-23-2015 Chronic Headache; including migraine (1 source) Headache; including migraine; Translations: [Chronic nonintractable headache, unspecified headache type] Onset: 03-24-2017 Hyperplasia of prostate (9 sources) Benign prostatic hyperplasia; Translations: [Benign prostatic hyperplasia with lower urinary tract symptoms] Onset: 12-06-2024 12-06-2024 Chronic Nonspecific chest pain (2 sources) Chest pain; Translations: [Chest pain, unspecified] 09-09-2017 Episodic Open wounds of extremities (1 source) Laceration of toe of right foot; Translations: [Laceration without foreign body of right lesser toe(s) without damage to nail, initial encounter] 11-25-2020 Episodic Osteoarthritis (20 sources) Bilateral arthritis of knees; Translations: [Bilateral primary osteoarthritis of knee] Onset: 08-24-2015 08-24-2015 Chronic Other connective tissue disease (3 sources) History of total knee arthroplasty; Translations: [Presence of right artificial knee joint] 12-27-2024 Chronic Other connective tissue disease (1 source) Presence of right artificial knee joint; Translations: [Status post total right knee replacement] Onset: 01-02-2025 Chronic Other diseases of bladder and urethra (20 sources) Neurogenic bladder; Translations: [Neuromuscular dysfunction of bladder, unspecified] Onset: 12-10-2016 12-10-2016 Chronic Other diseases of bladder and urethra (1 source) Neuromuscular dysfunction of bladder, unspecified; Translations: [Neurogenic bladder] Onset: 12-10-2016 Chronic Other diseases of kidney and ureters (9 sources) Cyst of kidney; Translations: [Cyst of kidney, acquired] Onset: 12-06-2024 12-06-2024 Episodic Other disorders of stomach and duodenum (1 source) Indigestion; Translations: [Functional dyspepsia] 09-23-2022 Episodic Other hereditary and degenerative nervous system conditions (20 sources) Intention tremor; Translations: [Other specified forms of tremor] Onset: 03-24-2017 03-24-2017 Chronic Other male genital disorders (20 sources) Male erectile dysfunction, unspecified; Translations: [Impotence of organic origin] Onset: 01-12-2012 01-12-2012 Chronic Other nervous system disorders (2 sources) Other chronic pain; Translations: [Chronic pain of right knee] Onset: 03-24-2017 Chronic Other non-traumatic joint disorders (6 sources) Pain in right knee; Translations: [Pain in joint, lower leg] Onset: 11-28-2024 11-10-2024 Episodic Other nutritional; endocrine; and metabolic disorders (16 sources) Morbid obesity; Translations: [Morbid (severe) obesity due to excess calories] Onset: 08-24-2015 08-24-2015 Chronic Other nutritional; endocrine; and metabolic disorders (1 source) Body mass index 40+ - severely obese; Translations: [Morbid (severe) obesity due to excess calories] 11-13-2021 Chronic Other nutritional; endocrine; and metabolic disorders (9 sources) Body mass index 30+ - obesity; Translations: [Body mass index (BMI) 36.0-36.9, adult] Onset: 08-24-2015 12-06-2024 Chronic Other nutritional; endocrine; and metabolic disorders (1 source) Morbid (severe) obesity due to excess calories; Translations: [Morbid obesity due to excess calories (HCC)] Onset: 08-24-2015 Chronic Other upper respiratory infections (1 source) Sinusitis; Translations: [Chronic sinusitis, unspecified] 06-07-2024 Chronic Other upper respiratory infections (1 source) Acute upper respiratory infection; Translations: [Acute upper respiratory infection, unspecified] Episodic Pancreatic disorders (not diabetes) (1 source) Pancreatitis; Translations: [Acute pancreatitis without necrosis or infection, unspecified] 09-23-2022 Episodic Residual codes; unclassified (20 sources) Obstructive sleep apnea syndrome; Translations: [Obstructive sleep apnea (adult) (pediatric)] Onset: 06-19-2016 06-19-2016 Chronic Residual codes; unclassified (1 source) Obstructive sleep apnea (adult) (pediatric); Translations: [Obstructive sleep apnea] Onset: 08-19-2024 Chronic Residual codes; unclassified (1 source) Other specified personal risk factors, not elsewhere classified; Translations: [Other specified personal history presenting hazards to health] Episodic Residual codes; unclassified (1 source) Left against medical advice; Translations: [Procedure and treatment not carried out because of patient's decision for other reasons] 09-23-2022 Episodic Spondylosis; intervertebral disc disorders; other back problems (20 sources) Degeneration of lumbar intervertebral disc; Translations: [Other intervertebral disc degeneration, lumbar region] Onset: 08-24-2015 08-24-2015 Chronic Syncope (1 source) Near syncope; Translations: [Syncope and collapse] 06-19-2019 Episodic Unclassified (1 source) Right knee pain, unspecified chronicity 11-10-2024 Unclassified (2 sources) Chronic pain of right knee 11-28-2024 Unclassified (11 sources) 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 Onset: 11-30-2024 11-30-2024 Unclassified (3 sources) Preprocedural examination done 12-06-2024 Unclassified (1 source) New Onset: 11-28-2024 Unclassified (1 source) Degeneration of intervertebral disc of lumbar region, unspecified whether pain present; Translations: [Degeneration of intervertebral disc of lumbar region, unspecified whether pain present] Onset: 08-24-2015 Past or Other Problems Problem Classification Problem Date Documented Date Episodic/Chronic Diverticulosis and diverticulitis (20 sources) Diverticulitis of large intestine without perforation or abscess without bleeding; Translations: [Diverticulitis of colon (without mention of hemorrhage)] Onset: 03-13-2008 Resolved: 10-23-2015 10-23-2015 Chronic Genitourinary symptoms and ill-defined conditions (1 source) Proteinuria, unspecified; Translations: [Type 2 diabetes mellitus with microalbuminuria, without long-term current use of insulin (HCC)] Onset: 10-03-2016 Episodic Headache; including migraine (20 sources) Headache; Translations: [Chronic nonintractable headache] Onset: 03-24-2017 03-24-2017 Episodic Immunizations and screening for infectious disease (3 sources) Suspected disease caused by 2019-nCoV; Translations: [Suspected COVID-19 virus infection] Onset: 08-19-2024 Episodic Other injuries and conditions due to external causes (9 sources) Injury of lower leg; Translations: [Other injury of other muscle(s) and tendon(s) at lower leg level, unspecified leg, initial encounter] Onset: 06-19-2016 06-19-2016 Episodic Other injuries and conditions due to external causes (14 sources) Other injury of other muscle(s) and tendon(s) at lower leg level, unspecified leg, initial encounter; Translations: [Sprains and strains of unspecified site of knee and leg] Onset: 06-19-2016 06-19-2016 Episodic Other screening for suspected conditions (not mental disorders or infectious disease) (20 sources) Other specified abnormal findings of blood chemistry; Translations: [Other abnormal blood chemistry] Onset: 04-21-2017 04-21-2017 Episodic Other skin disorders (20 sources) Ingrowing nail; Translations: [Ingrowing nail] Onset: 01-15-2009 Resolved: 10-23-2015 10-23-2015 Episodic Screening and history of mental health and substance abuse codes (12 sources) Patient encounter status; Translations: [Encounter for screening examination for other mental health and behavioral disorders] Onset: 08-19-2024 08-18-2024 Episodic Skin and subcutaneous tissue infections (20 sources) Cellulitis and abscess of toe; Translations: [Cellulitis of unspecified toe] Onset: 01-15-2009 Resolved: 10-23-2015 10-23-2015 Episodic Spondylosis; intervertebral disc disorders; other back problems (20 sources) Spinal stenosis of lumbar region; Translations: [Spinal stenosis, lumbar region without neurogenic claudication] Onset: 12-10-2016 12-10-2016 Episodic Results Test Name Value Interpretation Reference Range Facility Inital Evaluation (1) - PTon 01-02-2025 Inital Evaluation (1) - PT [facility] [address] [place] [address] / REHABILITATION SERVICES INITIAL EVALUATION MR#: [id number] Acct: [id number] Name: GUTIERREZ DE JESUS Rep #: [id number] : 1960 64 From: Daisy Beard DPT Referring Dr.: Dr. Robert Edgar MD Status: R EG RCR Insurance: [place] do [place] schedule wout auth SELF PAY INSURANCE Patient's Visit Information Visit Information Visit Information: GUTIERREZ DE JESUS is a 64 year old M referred to Physical Therapy by Dr. Robert Edgar MD with a diagnosis of Right TKR. Date of Evaluation: 01/02/25 Physical Therapist: Daisy Beard DPT Visit Plan Frequency: 2x /Week Duration: 4 Weeks Plan: Right TKR- 12/23/2024- Focus on ROM, edema control, functional mobility HEP Given IE: step stretch, bolster extn stretch, quad set, TKE, SLR Subjective Subjective: Right TKR december [address] Edgar. He stayed overnight- single story with - with 2 stairs to enter- no problems getting in/out. Fully I prior to surgery including driving. He is retired- he wants to be able to drive- likes to fish with his grandchildren. Worst: 8/10 Agg: too much walking, something running into it. Eases: ice, elevation. He reports that its pretty swollen. Best: 0/10. The pain is in the quad around the tourniquet and then down in the calf. He describes the pain as dull an achy. He has N/T in the side of the knee but none in the toes. He saw the MD- who took x-rays and was happy with everything. Has been doing some exercises with it. He did not use an AD prior to surgery. He is using Tylenol currently as his pain medication. Sleep: not real good- achy- in the bed. PMHx/Meds: see chart. Goals: get back to all of his normal activities. Objective Objective: Posture: forward head, rounded shoulders Gait: antalgic- FWW- decreased stance on the right LE with poor heel/toe pattern HR/TR: able with UE A SLS: weight shift with no pain- SLS with UE A increased pain Palpation: tender along medial and lateral joint line Observation: bruising along posterior thigh Strength: Core: fair minus, Hip: 4/5 throughout, Knee: Extn: 11 Flexion: 12, Ankle: 5/5 Girth: 6 below:36 cm 6 above: 57 cm Patella: 46 cm ROM: 10 degrees from neutral extn and 85 degrees of flexion without overpressure Balance/Special Test Scores Lower Extremity Functional Score: 14 Goals Goal 1:: Patient will be I with HEP and progression Goal Time Frame: 4-6 Weeks Goal 2:: Patient will ambulate >150 feet with normalized gait pattern and no AD Goal Time Frame: 4-6 Weeks Goal 3:: Patient will asc/desc 8 stairs recip with 1 HR Goal Time Frame: 4-6 Weeks Goal 4:: Patient will perform sit to stands with out UE A Goal Time Frame: 4-6 Weeks Goal 5:: Patient will demo 0-115 degrees of ROM in the right knee Goal Time Frame: 4-6 Weeks Goal 6:: Patient will report 80% improvement Goal Time Frame: 4-6 Weeks Rehabilitation Potential Physical Therapy Diagnosis: Patient presents with hypomobility- he has decreased LE and core strength/stabilization, ROM, flex, proprioception and muscular endurance leading to abnormal gait and decreased ability to perform ADL's Rehabilitation Potential: Good Anticipated Interventions Therapeutic Exercise to Include: Strength training, Power training, Endurance training, Balance training, Coordination, Agility training, Body mechanics, Postural training, Flexibilty training, Gait and locomotor training, Neuromotor development, Passive ROM, Active ROM and Dynamic Lumbar Stabilization For the Purpose of:: To improve muscle performance and motor function and To improve performance and independence with ADL's Manual Therapy Techniques to Include: Mobilization and Soft tissue mobilization For the Purpose of:: To increase ROM TENS: Yes Cryotherapy (ice pack, ice massage): Yes Thermo therapy (hot pack): Yes Ultrasound (thermal/non thermal): No (TKR) For the Purpose of:: To decrease pain and To decrease swelling/inflammation Text: Thank you for the opportunity to evaluate your patient. For Medicare and Medicare HMO plans, please review the plan of care and approve it. It will need to be FAXED BACK to us at [phone] for Medicare purposes. For Medicare only, by signing this I certify the plan of care. Please let me know if there are questions or concerns regarding this plan of care. Physician Signature: Date: 01/02/25 1558 CC: Dr. Robert Edgar MD; [facility] ELR Signed Normal [facility] XR KNEE 3V AP/LAT/MERCHANT R Ton 01-02-2025 XR KNEE 3V AP/LAT/MERCHANT RT * * *Final Report* * * DATE OF EXAM: Jan 02 2025 12:52PM WRX 5209 - XR KNEE 3V AP/LAT/MERCHANT RT / PROCEDURE REASON: multiple diagnoses * * * * Physician Interpretation * * * * PROCEDURE: Right knee INDICATION: Primary osteoarthritis of right knee Status post total right knee replacement .post op right knee replacement. TECHNIQUE: XR KNEE 3V AP/LAT/MERCHANT RT COMPARISON: 11/28/2024 FINDINGS: There is a new total knee arthroplasty in satisfactory position with associated postoperative soft tissue swelling and joint effusion. No periprosthetic lucency or fracture. Mild lateral patellar tilt IMPRESSION: Postop TKA without radiographic complication Supervisor Forming Department: JORDAN Transcribe Date/Time: Jan 04 2025 5:54A Dictated by : SHYANN CASTANEDA MD This examination was interpreted and the report reviewed and electronically signed by: SHYANN CASTANEDA MD on Jan 04 2025 5:55AM EST [id number] Normal [facility] CNPNon 12-27-2024 [facility] Telephone (CRISTINAWS) GUTIERREZ DE JESUS ([id number]) 1960 M Date Time Provider Department 12/27/24 ROBERT EDGAR During your visit today, we recorded the following information about you: Gail John MA 12/27/2024 11:47 AM Signed , Nazia calling and states he is staying with her here in [place] and not in [place]. They are requesting an order for therapy to go to [facility] instead of doing the home care PT. Ivon Saunders PA-C 12/28/2024 1:23 PM Signed PT order in [place]. Gail John MA 12/28/2024 2:53 PM Signed Order faxed to [facility]. Allergies As of Date: 12/27/2024 (No Known Allergies) Date Reviewed: 12/24/2024 Reviewed by: Maggie Valente, RN - Fully Assessed Reason for Visit: Order for PT at [facility] [Other] Primary Visit Diagnosis:Primary osteoarthritis of right knee [M17.11] Order(s):CONSULT TO PHYSICAL THERAPY [9032] Order #: [id number]: 1 FUTURE Prescriptions as of 12/28/2024 - acetaminophen (TYLENOL EXTRA STRENGTH) 500 mg tablet Take 2 tablets by mouth every 6 hours as needed for pain. - meloxicam (MOBIC) 15 mg tablet Take 1 tablet by mouth once daily. - docusate sodium (COLACE) 100 mg capsule Take 1 capsule by mouth two times a day. - oxyCODONE IR (ROXICODONE) 5 mg immediate release tablet Take 1-2 tablets by mouth every 4 hours as needed for pain for up to 7 days. - aspirin 81 mg chewable tablet Take 1 tablet by mouth two times a day. - naloxone 4 mg/actuation nasal spray (NARCAN) Use 1 spray in one nostril as needed for overdose. May repeat every 2 to 3 min in alternating nostrils until medical assistance is available - empagliflozin (JARDIANCE) 25 mg tablet Take 1 tablet by mouth once daily. - lisinopril (ZESTRIL) 20 mg tablet Take 1 tablet by mouth once daily. - carvedilol (COREG) 25 mg tablet Take 2 tablets by mouth two times a day. - ergocalciferol 50,000 unit capsule (VITAMIN D2, DRISDOL) Take 1 capsule by mouth every 2 weeks. Use as directed. - famotidine (PEPCID) 20 mg tablet Take 1 tablet by mouth once daily. - metFORMIN (GLUCOPHAGE) 1,000 mg tablet Take 1 tablet by mouth two times a day. - mirtazapine (REMERON) 15 mg tablet Take 1 tablet by mouth daily at bedtime. - rosuvastatin (CRESTOR) 40 mg tablet Take 1 tablet by mouth daily at bedtime. - semaglutide (OZEMPIC) 1 mg/dose (4 mg/3 mL) pen Inject 1 mg subcutaneously one time a week. - tamsulosin (FLOMAX) 0.4 mg Take 2 capsules by mouth once daily. Problem List As Of Date 12/27/2024 Noted Resolved Hyperlipidemia LDL goal <100 [E78.5] 07/10/2006 Essential hypertension [I10] 03/13/2008 Diverticulitis of colon (without mention of hem*03/13/2008 10/23/2015 Cellulitis and abscess of toe, unspecified [L03*01/15/2009 10/23/2015 Ingrowing nail [L60.0] 01/15/2009 10/23/2015 Erectile dysfunction [N52.9] 01/12/2012 BMI 36.0-36.9,adult [Z68.36] 08/24/2015 Arthritis of right knee [M17.11] 08/24/2015 Lumbar degenerative disc disease [M51.369] 08/24/2015 Muscle contraction headache [G44.209] 10/23/2015 Situational depression [F43.21] 11/09/2015 Obstructive sleep apnea [G47.33] 06/19/2016 Torrez splint [S86.899A] 06/19/2016 Type 2 diabetes mellitus with microalbuminuria,*10/03 Spinal stenosis of lumbar region with radiculop*12/10/2016 Neurogenic bladder [N31.9] 12/10/2016 Intention tremor [G25.2] 03/24/2017 Chronic nonintractable headache [R51.9, G89.29] 03/24/2017 Elevated liver function tests [R79.89] 04/21/2017 Former smoker [Z87.891] 12/06/2024 Renal cyst [N28.1] 12/06/2024 CKD (chronic kidney disease) [N18.9] 12/06/2024 1st degree AV block [I44.0] 12/06/2024 GERD (gastroesophageal reflux disease) [K21.9] 12/06/2024 Benign prostatic hyperplasia with lower urinary*12/06/2024 History of renal cell cancer [Z85.528] 12/06/2024 Encounter Status:Closed by GAIL JOHN on 12/28/24 Normal [facility] Basic metabolic 2000 panelon 12-24-2024 Anion gap [Moles/Vol] 11 mmol/L Normal 8-15 [facility] Comment on above: Order Comment: Speci men Type: BLOOD SPECIMENOrdering Facility: [facility] Address: [address] [place] [address] Performed By: #### 2 4321-2 ####[facility] LABORATORYCLIA [id number] [place] [address] [place] Calcium [Mass/Vol] 9.0 mg/dL Normal 8.5-10.2 [facility] Comment on above: Order Comment: Speci men Type: BLOOD SPECIMENOrdering Facility: [facility] Address: [address] [place] [address] Performed By: #### 2 4321-2 ####T[facility] LABORATORYCLIA [id number] [place] [address] [place] Chloride [Moles/Vol] 101 mmol/L Normal 98-107 [facility] Comment on above: Order Comment: Speci men Type: BLOOD SPECIMENOrdering Facility: [facility] Address: [address] [place] [address] Performed By: #### 2 4321-2 ####TAP[facility] LABORATORYCLIA [id number] [place] [address] [place] CO2 [Moles/Vol] 23 mmol/L Normal 22-30 [facility] Comment on above: Order Comment: Speci men Type: BLOOD SPECIMENOrdering Facility: [facility] Address: [address] [place] [address] Performed By: #### 2 4321-2 ####TAP[facility] LABORATORYCLIA [id number] [place] [address] [place] Creatinine [Mass/Vol] 1.47 mg/dL High 0.73-1.22 [facility] Comment on above: Order Comment: Speci men Type: BLOOD SPECIMENOrdering Facility: [facility] Address: [address] [place] [address] Performed By: #### 2 4321-2 ####TAP[facility] LABORATORYCLIA [id number] [address] Creatinine and Glomerular filtration rate.predicted panel (S/P/Bld) 52 mL/min/1.73m??? Low >=60 [facility] Comment on above: Order Comment: Speci men Type: BLOOD SPECIMENOrdering Facility: [facility] Address: [address] [place] [address] Result Comment: Kaylee mated Glomerular Filtration Rate (eGFR) is calculated using the 2020 CKD-EPI creatinine equation. This equation utilizes serum creatinine, sex, and age as parameters. The creatinine assay has traceable calibration to isotope dilution-mass spectrometry. Refer to KDIGO guidelines for clinical interpretation. In patients with unstable renal function, e.g. those with acute kidney injury, the eGFR may not accurately reflect actual GFR. Performed By: #### 2 4321-2 ####TAPIA LABORATORYCLIA [id number] [place] [id number] [place] Glucose [Mass/Vol] 279 mg/dL High 74-99 [facility] Comment on above: Order Comment: Andres elia Type: BLOOD SPECIMENOrdering Facility: [facility] Address: [address] [place] [address] Result Comment: The [place] Diabetes Association (ADA) provides guidance for cutoff values for fasting glucose and random glucose. The ADA defines fasting as no caloric intake for at least 8 hours. Fasting plasma glucose results between 100 to 125 mg/dL indicate increased risk for diabetes (prediabetes). Fasting plasma glucose results greater than or equal to 126 mg/dL meet the criteria for diagnosis of diabetes. In the absence of unequivocal hyperglycemia, results should be confirmed by repeat testing. In a patient with classic symptoms of hyperglycemia or hyperglycemic crisis, random plasma glucose results greater than or equal to 200 mg/dL meet the criteria for diagnosis of diabetes. Reference: Standards of Medical Care in Diabetes 2016, [place] [employer] Association. Diabetes Care. 2016.39(Suppl 1). Performed By: #### 2 4321-2 ####TAPIA LABORATORYCLIA [id number] [place] [address] [place] Potassium [Moles/Vol] 4.4 mmol/L Normal 3.7-5.1 [facility] Comment on above: Order Comment: Andres rodrigez Type: BLOOD SPECIMENOrdering Facility: [facility] Address: [address] [place] [address] Performed By: #### 2 4321-2 ####TAPIA LABORATORYCLIA [id number] [place] [address] [place] Sodium [Moles/Vol] 135 mmol/L Low 136-144 [facility] Comment on above: Order Comment: Andres rodrigez Type: BLOOD SPECIMENOrdering Facility: [facility] Address: [address] [place] [address] Performed By: #### 2 4321-2 ####TAPIA LABORATORYCLIA [id number] [place] [address] [place] Urea nitrogen [Mass/Vol] 32 mg/dL High 9-24 [facility] Comment on above: Order Comment: Andres rodrigez Type: BLOOD SPECIMENOrdering Facility: [facility] Address: [address] [place] [address] Performed By: #### 2 4321-2 ####TAPIA LABORATORYCLIA [id number] [place] [address] [place] CBC panel Auto (Bld)on 12-24 Erythrocyte distribution width (RBC) [Ratio] 15.5 % High 11.5-15.0 [facility] Comment on above: Order Comment: Speci men Type: BLOOD SPECIMENOrdering Facility: [facility] Address: [address] [place] [address] Performed By: #### 5 8410-2 ####TAPIA LABORATORYCLIA [id number] [address] [facility] Hematocrit (Bld) [Volume fraction] 38.6 % Low 39.0-51.0 [facility] Comment on above: Order Comment: Speci men Type: BLOOD SPECIMENOrdering Facility: [facility] Address: [address] [place] [address] Performed By: #### 5 8410-2 ####TAPIA LABORATORYCLIA [id number] [address] [place] Hemoglobin (Bld) [Mass/Vol] 13.1 g/dL Normal 13.0-17.0 [facility] Comment on above: Order Comment: Speci men Type: BLOOD SPECIMENOrdering Facility: [facility] Address: [address] [place] [address] Performed By: #### 5 8410-2 ####TAP[facility] LABORATORYCLIA [id number] [address] MCH (RBC) [Entitic mass] 30.1 pg Normal 26.0-34.0 [facility] Comment on above: Order Comment: Speci men Type: BLOOD SPECIMENOrdering Facility: [facility] Address: [address] [place] [address] Performed By: #### 5 8410-2 ####TAPIA LABORATORYCLIA [id number] [address] MCHC (RBC) [Mass/Vol] 33.9 g/dL Normal 30.5-36.0 [facility] Comment on above: Order Comment: Speci men Type: BLOOD SPECIMENOrdering Facility: [facility] Address: [address] [place] [address] Performed By: #### 5 8410-2 ####TAP[facility] LABORATORYCLIA [id number] [address] MCV (RBC) [Entitic vol] 88.7 fL Normal 80.0-100.0 [facility] Comment on above: Order Comment: Speci men Type: BLOOD SPECIMENOrdering Facility: [facility] Address: [address] [place] [address] Performed By: #### 5 8410-2 ####TAPIA LABORATORYCLIA [id number] [place] [address] [place] Nucleated RBC (Bld) [#/Vol] 10*3/uL Normal <0.01 [facility] Comment on above: Order Comment: Speci men Type: BLOOD SPECIMENOrdering Facility: [facility] Address: [address] [place] [address] Performed By: #### 5 8410-2 ####TAP[facility] LABORATORYCLIA [id number] [place] [address] [place] Platelet mean volume (Bld) [Entitic vol] 9.7 fL Normal 9.0-12.7 [facility] Comment on above: Order Comment: Speci men Type: BLOOD SPECIMENOrdering Facility: [facility] Address: [address] [place] [address] Performed By: #### 5 8410-2 ####TAP[facility] LABORATORYCLIA [id number] [place] [address] [place] Platelets (Bld) [#/Vol] 126 10*3/uL Low 150-400 [facility] Comment on above: Order Comment: Speci men Type: BLOOD SPECIMENOrdering Facility: [facility] Address: [address] [address] Performed By: #### 5 8410-2 ####TAP[facility] LABORATORYCLIA [id number] [place] [address] [place] RBC (Bld) [#/Vol] 4.35 10*6/uL Normal 4.20-6.00 [facility] Comment on above: Order Comment: Speci men Type: BLOOD SPECIMENOrdering Facility: [facility] Address: [address] [place] [address] Performed By: #### 5 8410-2 ####TAP[facility] LABORATORYCLIA [id number] [place] [address] [place] WBC (Bld) [#/Vol] 8.20 10*3/uL Normal 3.70-11.00 [facility] Comment on above: Order Comment: Speci men Type: BLOOD SPECIMENOrdering Facility: [facility] Address: [address] [place] [address] Performed By: #### 5 8410-2 ####TAPIA LABORATORYCLIA [id number] [place] [address] [facility] [place] CNDSon 12-24-2024 CNDS HNO ID: [id number] Author: GANESH ARGUELLO MD Service: Orthopaedic Surgery Author Type: Physician Type: Discharge Summary Filed: 12/24/2024 07:59 Note Text: DISCHARGE SUMMARY PATIENT NAME: Gutierrez De Jesus ADMISSION DATE: 12/23/2024 DISCHARGE DATE: 12/24/2024 Attending Physician: Robert Edgar MD Code Status: Not on file Highest Readmission Risk Score: 4 The 30 day readmissions risk score is derived from an internally validated risk model which evaluates patient level characteristics, utilization history, medication orders and lab results up until the day of discharge. Patients with a score of 39 or above are considered highest risk for readmission. Specific patient level drivers will be listed at the bottom of the summary. Reason for Hospitalization: Active Problems: Essential hypertension (POA: Yes) Arthritis of right knee (POA: Yes) Type 2 diabetes mellitus with microalbuminuria, without long-term current use of insulin (HCC) (POA: Yes) Resolved Problems: * No resolved hospital problems. * Admitting Diagnosis: Knee Advanced Degenerative Joint Disease Final Diagnosis: Same as admitting Active Hospital Problems Diagnosis POA Type 2 diabetes mellitus with microalbuminuria, without long-term current use of insulin (HCC) Yes Arthritis of right knee Yes Essential hypertension Yes Resolved Hospital Problems No resolved problems to display. Operations During Hospitalization: Right Total Knee Arthroplasty Procedures During Hospitalization: Same as above Consultations: Physical Therapy Case Management Treatment Team: Attending Provider: Robert Edgar MD Hospital Course: The patient is a 64 year old individual who has been followed in clinic for arthritis. It was determined that they would benefit from surgery. The procedure, its risks, benefits, and potential complications were discussed in detail with the patient prior to surgery. Understanding of all topics was conveyed by the patient, and consent was given for surgery. The patient was electively admitted on 12/23/2024 for the above procedure. The procedure was tolerated well and they were sent to the post operative recovery room in stable condition, where they also did well. They were subsequently sent to their hospital room for postoperative management. Once on the floor her postoperative course was unremarkable. Their diet was advanced which was tolerated. Pain was well controlled on IV meds this was eventually transitioned to oral medication alone prior to discharge. They worked with Physical and Occupational Therapy starting on POD#0 who recommended they be discharged home with . They remained afebrile with stable vital signs throughout their stay. They was stable for discharge to Home with Home Health on POD#1. Complete and comprehensive discharge instructions were provided to the patient as well as necessary prescriptions. The patient had no further questions and was advised to call with any questions, concerns, or problems. Relevant labs included: NA Patient Condition @ Discharge: Stable Discharge Disposition: Home with Home Health PHYSICAL EXAM (CHOOSE FIRST BLANK IF NOT LAST DAY PROGRESS NOTE): Discharge Physical Exam: VITAL SIGNS: BP 130/55 Pulse 60 Temp 36.4 ?C (97.5 ?F) (Temporal Artery) Resp 16 SpO2 100% GENERAL: Alert, no distress, cooperative Information Provided to Patient: Please see DC instructions Activity: Full Weight Bearing Diet: Resume pre-hospital diet Wound/Surgical Site Care: ALLERGIES No Known Allergies Discharge Medications: Medication List START taking these medications acetaminophen 500 mg tablet Commonly known as: TYLENOL EXTRA STRENGTH Take 2 tablets by mouth every 6 hours as needed for pain. aspirin 81 mg chewable tablet Take 1 tablet by mouth two times a day. docusate sodium 100 mg capsule Commonly known as: COLACE Take 1 capsule by mouth two times a day. meloxicam 15 mg tablet Commonly known as: MOBIC Take 1 tablet by mouth once daily. naloxone 4 mg/actuation nasal spray Use 1 spray in one nostril as needed for overdose. May repeat every 2 to 3 min in alternating nostrils until medical assistance is available oxyCODONE IR 5 mg immediate release tablet Commonly known as: ROXICODONE Take 1-2 tablets by mouth every 4 hours as needed for pain for up to 7 days. CONTINUE taking these medications carvedilol 25 mg tablet Commonly known as: COREG Take 2 tablets by mouth two times a day. empagliflozin 25 mg tablet Commonly known as: JARDIANCE ergocalciferol (vitamin D2) 50,000 unit capsule Commonly known as: VITAMIN D2 Take 1 capsule by mouth every 2 weeks. Use as directed. famotidine 20 mg tablet Commonly known as: PEPCID Take 1 tablet by mouth once daily. lisinopril 20 mg tablet Commonly known as: ZESTRIL Take 1 tablet by mouth once daily. metFORMIN 1,000 mg tablet Commonly known as: GLUCOPHAGE T (more content not included)... Normal [facility] 12-24-[address] [facility] Telephone (HCSIND) GUTIERREZ DE JESUS ([id number]) 1960 M Date Time Provider Department 12/24/24 JACK MEDEIROS HCSIND During your visit today, we recorded the following information about you: Jack Medeiros PSS 12/24/2024 12:30 PM Signed Home care order was initially declined for out of service area. We received [facility] referral after this indicating patient will discharge to [place] in our service area. fund development manager Srikanth from [facility] called and discussed options for [facility] to accept vs other home care agency. Per Srikanth, the patient ended up choosing outpatient therapy, he declined home care. Referral canceled for [facility]. ESTEPHANIA Patel 12/24/2024 12:30 PM Allergies As of Date: 12/24/2024 (No Known Allergies) Date Reviewed: 12/24/2024 Reviewed by: Maggie Valente, STUART - Fully Assessed Reason for Visit: Home Care [4073] Prescriptions as of 12/24/2024 - acetaminophen (TYLENOL EXTRA STRENGTH) 500 mg tablet Take 2 tablets by mouth every 6 hours as needed for pain. - meloxicam (MOBIC) 15 mg tablet Take 1 tablet by mouth once daily. - docusate sodium (COLACE) 100 mg capsule Take 1 capsule by mouth two times a day. - oxyCODONE IR (ROXICODONE) 5 mg immediate release tablet Take 1-2 tablets by mouth every 4 hours as needed for pain for up to 7 days. - aspirin 81 mg chewable tablet Take 1 tablet by mouth two times a day. - naloxone 4 mg/actuation nasal spray (NARCAN) Use 1 spray in one nostril as needed for overdose. May repeat every 2 to 3 min in alternating nostrils until medical assistance is available - empagliflozin (JARDIANCE) 25 mg tablet Take 1 tablet by mouth once daily. - lisinopril (ZESTRIL) 20 mg tablet Take 1 tablet by mouth once daily. - carvedilol (COREG) 25 mg tablet Take 2 tablets by mouth two times a day. - ergocalciferol 50,000 unit capsule (VITAMIN D2, DRISDOL) Take 1 capsule by mouth every 2 weeks. Use as directed. - famotidine (PEPCID) 20 mg tablet Take 1 tablet by mouth once daily. - metFORMIN (GLUCOPHAGE) 1,000 mg tablet Take 1 tablet by mouth two times a day. - mirtazapine (REMERON) 15 mg tablet Take 1 tablet by mouth daily at bedtime. - rosuvastatin (CRESTOR) 40 mg tablet Take 1 tablet by mouth daily at bedtime. - semaglutide (OZEMPIC) 1 mg/dose (4 mg/3 mL) pen Inject 1 mg subcutaneously one time a week. - tamsulosin (FLOMAX) 0.4 mg Take 2 capsules by mouth once daily. Facility-Administered Medications as of 12/24/2024 - carvedilol 50 mg tab(s) (COREG) - lisinopril 20 mg tab(s) (ZESTRIL) - rosuvastatin 40 mg tab(s) (CRESTOR) - famotidine 20 mg tab(s) (PEPCID) - mirtazapine 15 mg (REMERON) - tamsulosin 0.8 mg cap(s) (FLOMAX) - ergocalciferol (vitamin D2) 50,000 Units cap(s) (DRISDOL) - morphine 2 mg injection - acetaminophen 1,000 mg tab(s) (TYLENOL) - ondansetron orally disintegrating 4 mg tab(s) (ZOFRAN ODT) - ondansetron (PF) 4 mg injection (ZOFRAN) - magnesium hydroxide 400 mg/5 mL 30 mL (MOM) - bisacodyl EC 10 mg tab(s) (DULCOLAX) - aluminum-magnesium hydroxide-simethicone 200-200-20 mg/5 mL 30 mL - ascorbic acid (vitamin C) 500 mg tab(s) (VITAMIN C) - docusate sodium 100 mg cap(s) (COLACE) - senna 17.2 mg tab(s) (SENOKOT) - aspirin, enteric coated 81 mg tab(s) - acetaminophen 325-650 mg tab(s) (TYLENOL) - keTORolac 15 mg injection (Toradol) - lactated ringers iv infusion - oxyCODONE IR 5-10 mg tab(s) (ROXICODONE) Problem List As Of Date 12/24/2024 Noted Resolved Hyperlipidemia LDL goal <100 [E78.5] 07/10/2006 Essential hypertension [I10] 03/13/2008 Diverticulitis of colon (without mention of hem*03/13/2008 10/23/2015 Cellulitis and abscess of toe, unspecified [L03*01/15/2009 10/23/2015 Ingrowing nail [L60.0] 01/15/2009 10/23/2015 Erectile dysfunction [N52.9] 01/12/2012 BMI 36.0-36.9,adult [Z68.36] 08/24/2015 Arthritis of right knee [M17.11] 08/24/2015 Lumbar degenerative disc disease [M51.369] 08/24/2015 Muscle contraction headache [G44.209] 10/23/2015 Situational depression [F43.21] 11/09/2015 Obstructive sleep apnea [G47.33] 06/19/2016 Torrez splint [S86.899A] 06/19/2016 Type 2 diabetes mellitus with microalbuminuria,*10/03 Spinal stenosis of lumbar region with radiculop*12/10/2016 Neurogenic bladder [N31.9] 12/10/2016 Intention tremor [G25.2] 03/24/2017 Chronic nonintractable headache [R51.9, G89.29] 03/24/2017 Elevated liver function tests [R79.89] 04/21/2017 Former smoker [Z87.891] 12/06/2024 Renal cyst [N28.1] 12/06/2024 CKD (chronic kidney disease) [N18.9] 12/06/2024 1st degree AV block [I44.0] 12/06/2024 GERD (gastroesophageal reflux disease) [K21.9] 12/06/2024 Benign prostatic hyperplasia with lower urinary*12/06/2024 History of renal cell cancer [Z85.528] 12/06/2024 Encounter Status:Closed by JACK MEDEIROS on 12/24/24 [facility] CNPN Telephone (HCSIND) GUTIERREZ DE JESUS ([id number]) 1960 M Date Time Provider Department 12/24/24 JACK MEDEIROS HCSIND During your visit today, we recorded the following information about you: Jack Medeiros PSS 12/24/2024 10:06 AM Signed Thank you for the referral of your patient to [facility]. We are unable to accept your patient. The patient lives outside of our service area I see chart notes indicate [facility] The referral to [facility] is canceled. Thank you, ESTEPHANIA Patel 12/24/2024 10:04 AM Allergies As of Date: 12/24/2024 (No Known Allergies) Date Reviewed: 12/24/2024 Reviewed by: Maggie Valente, RN - Fully Assessed Reason for Visit: Home Care [4073] Cmt: Outside of service area Prescriptions as of 12/24/2024 - acetaminophen (TYLENOL EXTRA STRENGTH) 500 mg tablet Take 2 tablets by mouth every 6 hours as needed for pain. - meloxicam (MOBIC) 15 mg tablet Take 1 tablet by mouth once daily. - docusate sodium (COLACE) 100 mg capsule Take 1 capsule by mouth two times a day. - oxyCODONE IR (ROXICODONE) 5 mg immediate release tablet Take 1-2 tablets by mouth every 4 hours as needed for pain for up to 7 days. - aspirin 81 mg chewable tablet Take 1 tablet by mouth two times a day. - naloxone 4 mg/actuation nasal spray (NARCAN) Use 1 spray in one nostril as needed for overdose. May repeat every 2 to 3 min in alternating nostrils until medical assistance is available - empagliflozin (JARDIANCE) 25 mg tablet Take 1 tablet by mouth once daily. - lisinopril (ZESTRIL) 20 mg tablet Take 1 tablet by mouth once daily. - carvedilol (COREG) 25 mg tablet Take 2 tablets by mouth two times a day. - ergocalciferol 50,000 unit capsule (VITAMIN D2, DRISDOL) Take 1 capsule by mouth every 2 weeks. Use as directed. - famotidine (PEPCID) 20 mg tablet Take 1 tablet by mouth once daily. - metFORMIN (GLUCOPHAGE) 1,000 mg tablet Take 1 tablet by mouth two times a day. - mirtazapine (REMERON) 15 mg tablet Take 1 tablet by mouth daily at bedtime. - rosuvastatin (CRESTOR) 40 mg tablet Take 1 tablet by mouth daily at bedtime. - semaglutide (OZEMPIC) 1 mg/dose (4 mg/3 mL) pen Inject 1 mg subcutaneously one time a week. - tamsulosin (FLOMAX) 0.4 mg Take 2 capsules by mouth once daily. Facility-Administered Medications as of 12/24/2024 - carvedilol 50 mg tab(s) (COREG) - lisinopril 20 mg tab(s) (ZESTRIL) - rosuvastatin 40 mg tab(s) (CRESTOR) - famotidine 20 mg tab(s) (PEPCID) - mirtazapine 15 mg (REMERON) - tamsulosin 0.8 mg cap(s) (FLOMAX) - ergocalciferol (vitamin D2) 50,000 Units cap(s) (DRISDOL) - morphine 2 mg injection - acetaminophen 1,000 mg tab(s) (TYLENOL) - ondansetron orally disintegrating 4 mg tab(s) (ZOFRAN ODT) - ondansetron (PF) 4 mg injection (ZOFRAN) - magnesium hydroxide 400 mg/5 mL 30 mL (MOM) - bisacodyl EC 10 mg tab(s) (DULCOLAX) - aluminum-magnesium hydroxide-simethicone 200-200-20 mg/5 mL 30 mL - ascorbic acid (vitamin C) 500 mg tab(s) (VITAMIN C) - docusate sodium 100 mg cap(s) (COLACE) - senna 17.2 mg tab(s) (SENOKOT) - aspirin, enteric coated 81 mg tab(s) - acetaminophen 325-650 mg tab(s) (TYLENOL) - keTORolac 15 mg injection (Toradol) - lactated ringers iv infusion - oxyCODONE IR 5-10 mg tab(s) (ROXICODONE) Problem List As Of Date 12/24/2024 Noted Resolved Hyperlipidemia LDL goal <100 [E78.5] 07/10/2006 Essential hypertension [I10] 03/13/2008 Diverticulitis of colon (without mention of hem*03/13/2008 10/23/2015 Cellulitis and abscess of toe, unspecified [L03*01/15/2009 10/23/2015 Ingrowing nail [L60.0] 01/15/2009 10/23/2015 Erectile dysfunction [N52.9] 01/12/2012 BMI 36.0-36.9,adult [Z68.36] 08/24/2015 Arthritis of right knee [M17.11] 08/24/2015 Lumbar degenerative disc disease [M51.369] 08/24/2015 Muscle contraction headache [G44.209] 10/23/2015 Situational depression [F43.21] 11/09/2015 Obstructive sleep apnea [G47.33] 06/19/2016 Torrez splint [S86.899A] 06/19/2016 Type 2 diabetes mellitus with microalbuminuria,*10/03 Spinal stenosis of lumbar region with radiculop*12/10/2016 Neurogenic bladder [N31.9] 12/10/2016 Intention tremor [G25.2] 03/24/2017 Chronic nonintractable headache [R51.9, G89.29] 03/24/2017 Elevated liver function tests [R79.89] 04/21/2017 Former smoker [Z87.891] 12/06/2024 Renal cyst [N28.1] 12/06/2024 CKD (chronic kidney disease) [N18.9] 12/06/2024 1st degree AV block [I44.0] 12/06/2024 GERD (gastroesophageal reflux disease) [K21.9] 12/06/2024 Benign prostatic hyperplasia with lower urinary*12/06/2024 History of renal cell cancer [Z85.528] 12/06/2024 Encounter Status:Closed by JACK MEDEIROS on 12/24/24 Normal [facility] THERAPY NTon 12-24-2024 THERAPY NT HNO ID: [id number] Author: FELICIANO HEATH, OTR/L Service: Occupational Therapy Author Type: Occupational Therapist Type: Therapy (PT/OT/Speech/Resp) Filed: 12/24/2024 09:49 Note Text: Summary: OT Eval Occupational Therapy Evaluation Summary SERVICE DATE: 12/24/2024 SERVICE TIME: 918 ROOM: [id number] OT 6 Clicks Score: 20 Total Joint Replacement Discharge Readiness: Cleared from Occupational Therapy DISCHARGE RECOMMENDATIONS Home Anticipated Discharge Needs: Physical Assist at Home, Supervision at Home Physical Assist at Home for: Transportation, Shopping, Safety, Medication Management, Meals, Laundry, Cleaning Supervision at Home due to: Decreased safety awareness ASSESSMENT Response to Therapy Interventions: Good Participation in Activities, On-Track to Achieve Discharge Goals Pt typically indep for ADLs, IADLs, functional transfers presents with balance deficits slightly below baseline affecting self care and functional transfer skills. Following skilled tx session, including home going instructions, pt is safe to go home with no further OT needs. PRECAUTIONS Fall Risk, Lines/Tubes/Drains, Impulsive with Activity, Total Knee Replacement, Weight Bearing Restrictions impulsive Right Lower Extremity Weight Bearing Status: WBAT CURRENT HOSPITAL COURSE s/p R TKR Relevant Past Medical History: HTN, hyperlipedemia, neurogenic bladder, CKD, DM, renal cell CA HOME LIVING Patient Lives With: Spouse Assistance Available: 24-Hour Entry To Home: Ramp Number Of Stairs To Bed/Bath: 0 Tub/Shower Type: combo Laundry: spouse and self, main floor Equipment Owned: Commode- 3 in 1, Grab Bars- Shower, Hand Held Shower, Shower Chair, Walker- Wheeled PRIOR FUNCTIONAL LEVEL Within Functional Limits indep with self care and shared IADLs, no AD used prior to surgery, sleeps in flat bed, no falls in past 6 mos Baseline Cognition: Oriented to self, Oriented to place, Oriented to time, Oriented to situation SUBJECTIVE Agreeable to tx COGNITION Responsiveness: Alert, Awake Follows Commands: 3-step Commands THERAPY DIAGNOSIS Reduced mobility-other, Decreased activities of daily living (ADL), Muscle Weakness (generalized), Unsteadiness on feet, General symptoms and signs-other TREATMENT INTERVENTIONS Evaluation Skilled Treatment Time (minutes): 18 TRAINING AND EDUCATION PROVIDED Assistive Device Use, Bed Mobility, Benefits of In-Hospital Mobility, Command Following, Discharge Planning, Energy Conservation, Expected Functional Level, Functional Mobility Involving ADLs, Health Literacy, Grooming Tasks, Insight into Deficits, Identification of Systems of Support, Lower Extremity Bathing, Lower Extremity Dressing, Positioning, Precautions/Restriction s, Role of Occupational Therapy, Safety/Judgment, Self-Efficacy, Sitting Balance to [place] with ADLs/Self-Care, Standing Balance to Improve [place] with ADLs/Self-Care, Transfer - Sit to Stand, Treatment Protocol THERAPEUTIC SKILLS USED Activity Dosing, Assessment of Tolerance Including Vitals Response to Activity, Cues for Sequencing/Proper Technique for Activity, Cuing Tactile, Cuing Verbal, Cuing Visual, Management of Critical Lines, Tubes and/or Drains, Movement Facilitation, Physical Assist, Task Analysis Learning, Teach-Back for Education, Therapeutic Use of Self FUNCTIONAL STATUS Activities of Daily Living Assist Level Additional Information Feeding Independent Grooming Contact Guard Assistance Bathing Upper Body Set Up Bathing Lower Body Minimal Assistance Dressing Upper Body Set Up Dressing Lower Body Set Up Toileting Verbal Cues Only Mobility Assist Level Additional Information Bed Mobility Sit to Stand Contact Guard Assistance, Additional Information cues for proper use of RW Stand to Sit Stand By Assistance Bed to Chair Toilet/Commode Shower Functional Mobility Contact Guard Assistance Functional Mobility Device: Wheeled Walker GOALS Patient will demonstrate understanding of importance of mobility during hospital stay and resolve all self-care, cognitive and/or coping needs identified. Progress Toward Goals: Progressing as expected ACUTE CARE TREATMENT PLAN OT Frequency: Per Next Session Date Treatment Interventions: Education, Self Care/Home Management, Energy Conservation Training, Joint Mobility, Strengthening, Functional Mobility Training Plan for Next Visit: Continue per POC SIGNATURE: EZIO Lucas/Bryn PATIENT NAME: Gutierrez De Jesus DATE: December 24, 2024 TIME: 9:48 AM [facility] THERAPY NT HNO ID: [id number] Author: MERCEDES ULRICH, PT, DPT Service: Physical Therapy Author Type: Physical Therapist Type: Therapy (PT/OT/Speech/Resp) Filed: 12/24/2024 09:27 Note Text: Summary: PT tx Physical Therapy Treatment Summary SERVICE DATE: 12/24/2024 SERVICE TIME: 843 to 921 ROOM: [id number] PT 6 Clicks Score: 23 Total Joint Replacement Discharge Readiness: Cleared from Physical Therapy DISCHARGE RECOMMENDATIONS Home PT Recommended Discharge Disposition Comments: s/p R TKR Anticipated Discharge Needs: Physical Assist at Home, Supervision at Home Physical Assist at Home for: Transportation, Shopping, Safety, Medication Management, Meals, Laundry, Cleaning Supervision at Home due to: Decreased safety awareness Recommended Discharge Equipment: No equipment needs anticipated ASSESSMENT Response to Therapy Interventions: Good Participation in Activities Pt tolerated mobility well, does need cues for slowing down and may need more pain medication than tylenol for drive home and sleeping at night or when the block wears off PRECAUTIONS Fall Risk, Lines/Tubes/Drains, Impulsive with Activity, Total Knee Replacement, Weight Bearing Restrictions impulsive Right Lower Extremity Weight Bearing Status: WBAT CURRENT HOSPITAL COURSE s/p R TKR Relevant Past Medical History: HTN, hyperlipedemia, neurogenic bladder, CKD, DM, renal cell [place] HOME LIVING Patient Lives With: Spouse Assistance Available: 24-Hour Entry To Home: Ramp Number Of Stairs To Bed/Bath: 0 Tub/Shower Type: combo Laundry: spouse and self, main floor Equipment Owned: Commode- 3 in 1, Grab Bars- Shower, Hand Held Shower, Shower Chair, Walker- Wheeled PRIOR FUNCTIONAL LEVEL Within Functional Limits indep with self care and shared IADLs, no AD used prior to surgery, sleeps in flat bed, no falls in past 6 mos SUBJECTIVE Pt agrees to PT. Ready to go home. THERAPY DIAGNOSIS No Skilled Need TREATMENT INTERVENTIONS Therapeutic Exercise (88539), Therapeutic Activity (90291), Gait Training (66060) Timed Code Treatment (minutes): 38 Skilled Treatment Time (minutes): 38 Therapeutic Exercise (74577) Treatment Minutes: 15 $ Therapeutic Exercise (30895) Billed Units: 1 unit Exercise Anti-Embolics (number of reps): 10 Heel Slides (number of reps): (in chair x 3) SAQ (number of reps): 10 LAQ (number of reps): (in chair x 3) SLR (number of reps): 3 Exercise: gave written instructions and pictures of HEP for TKR Therapeutic Activity (15397) Treatment Minutes: 8 $ Therapeutic Activity (37705) Billed Units: 1 unit Gait Training (40938) Treatment Minutes: 15 $ Gait Training (28111) Billed Units: 1 unit TRAINING AND EDUCATION PROVIDED Assistive Device Use, Bed Mobility, Benefits of In-Hospital Mobility, Anatomy and Impact on Deficits, Discharge Planning, Equipment, Exercise Program, Expected Functional Level, Gait Pattern, Reduction of Deviations, Modalities, Positioning, Precautions/Restriction s, Pre-gait Activities, Role of Physical Therapy, Sitting Balance, Transfers, Treatment Protocol, Standing Balance, Handout Issued, Home Safety, Edema Management, Car Transfers THERAPEUTIC SKILLS USED Activity Dosing, Cues for Sequencing/Proper Technique for Activity, Cuing Verbal, Management of Critical Lines, Tubes and/or Drains, Movement Facilitation, Physical Assist, Teach-Back for Education FUNCTIONAL STATUS Bed Mobility Supine To Sit: Additional Information, Modified Independent with HOB elevated Sit to Supine: Additional Information left sitting in chair Scooting: Independent Transfers Sit To Stand: Supervision, Additional Information cues for hand placement, does need cues to avoid staning until walker is in front of him Stand To Sit: Supervision, Additional Information cues for hand placement Bed to Chair Gait Stand By Assistance Gait Device: Wheeled Walker General Deviations/Observations : Antalgic gait (step through pattern demonstrated) Gait Distance (feet): 76 x 2 Stairs (NA) GOALS Patient will demonstrate understanding of importance of mobility during hospital stay and resolve all functional needs identified. Able to Perform HEP with: Independent Transfer Supine to/from Sit with: Supervision Transfer Sit to/from Stand with: Stand By Assistance Ambulate with: Stand By Assistance Distance: 50+ Device: Wheeled Walker Rehab Potential: Excellent Progress Toward Goals: Progressing as expected ACUTE CARE TREATMENT PLAN PT Frequency: Twice Daily Treatment Interventions: Education, Energy Conservation Training, Strengthening, Joint Mobility, Functional Mobility Training, Balance Training, Neuromuscular Re-education, Modalities, Pain Management Plan for Next Visit: Bed Mobility, Standing To (more content not included)... [facility] POST[facility] EVAL HNO ID: [id number] Author: JESSU LUCAS MD Service: ? Author Type: Anesthesiologist Type: Anesthesia Postprocedure Evaluation Filed: 12/23/2024 13:28 Note Text: POST ANESTHESIA EVALUATION NOTE : 1960 Procedure Summary Date: 12/23/24 Room / Location: [facility]06 [facility] [place] Anesthesia Start: 730 Anesthesia Stop: 100 Procedure: ROBOTIC ASSISTED TOTAL KNEE ARTHROPLASTY (Right: Knee) Diagnosis: Primary osteoarthritis of right knee (Primary osteoarthritis of right knee [M17.11]) Surgeons: Robert Edgar MD Responsible Provider: Jesus Lucas MD Anesthesia Type: general ASA Status: 3 Anesthesia Type: general Airway Type: LMA Last Vitals Vitals Value Taken Time BP 120/74 12/23/24 1230 Temp 36.9 ?C (98.4 ?F) 12/23/24 1202 HR SpO2 65 05/23/25 1100 Resp 16 12/23/24 1230 SpO2 91 % 12/23/24 1230 Post Anesthesia Patient Status Patient Evaluation: bedside. Anticipated Disposition: inpatient floor planned admission. Neurological Status: sleepy but arousable. Pulmonary Status: breathing comfortably on supplemental oxygen Airway Control: returned to baseline unsupported. Cardiovascular Status: stable. Pain Management: clinically adequate Postoperative Hydration: acceptable. Intraoperative Events: no significant anesthesia events Post Operative Nausea/Vomiting Status: no significant post operative nausea or vomiting Recommendation: continue current plan of care and pain control. Anesthesia Observations No Documentation SIGNATURE: Jesus Lucas MD PATIENT NAME: Gutierrez De Jesus DATE: December 23, 2024 TIME: 1:27 PM CSN: [id number] [facility] ANES PRE-OPon 12-23-2024 ANES PRE-OP HNO ID: [id number] Author: JESUS LUCAS MD Service: ? Author Type: Anesthesiologist Type: Anesthesia Preprocedure Evaluation Filed: 12/23/2024 07:29 Note Text: ANESTHESIOLOGY DAY OF SURGERY NOTE : 1960 Procedure Information Date/Time: 12/23/24729 Procedure: ROBOTIC ASSISTED TOTAL KNEE ARTHROPLASTY (Right: Knee) [place]: [facility] [place] Surgeons: Robert Edgar MD Estimated body mass index is 37.02 kg/m? as calculated from the following: Height as of 12/09/24: 172.9 cm (5' 8.07). Weight as of 12/09/24: 110.7 kg (244 lb). Most recent hematocrit and potassium results: Hematocrit 46.0 12/01/2024 Potassium 4.4 12/01/2024 Relevant Problems ANESTHESIA (+) Obstructive sleep apnea CARDIO (+) 1st degree AV block (+) Essential hypertension ENDO (+) Type 2 diabetes mellitus with microalbuminuria, without long-term current use of insulin (HCC) GI (+) GERD (gastroesophageal reflux disease) -RENAL (+) CKD (chronic kidney disease) (+) Renal cyst NEURO-PSYCH (+) Chronic nonintractable headache (+) History of renal cell cancer (+) Muscle contraction headache PULMONARY (+) Obstructive sleep apnea Other (+) Arthritis of both knees I - PHYSICAL EVALUATION AIRWAY Patient intubated: No. Tracheostomy tube not present Mallampati: II. TM distance: >3 FB. Neck ROM: full ROM without neurological symptoms. Mouth opening: adequate. Short neck: no. Thick neck: no DENTAL Dental findings: edentulous. II - ANESTHESIA PLAN ASA Score: 3 Anesthetic Plan: general Airway type: LMA The patient is not a current smoker. NPO Status: adequate Beta Kat Monitoring Plan Monitoring plan: standard ASA. Post Procedure Analgesic Plan Postoperative analgesic plan: multimodal analgesia and peripheral nerve block. Informed Consent Anesthetic risks, benefits, alternatives, personnel and consent discussed: yes. Patient / Responsible [employer] Party agrees to proceed: yes Patient / Surrogate agrees to blood products: Yes DNR status not reviewed with patient and/or family prior to surgery. Significant changes in the patient condition since the History and Physical, not otherwise documented in primary service progress note: no. Potential Anesthesia issues that may suggest increased risk of complications or contraindication to planned procedure: none. Vitals Value Taken Time BP 146/92 12/23/24 0725 Pulse 71 12/23/24 0726 Resp 19 12/23/24 0726 Temp 36.1 ?C (97 ?F) 12/23/24 0644 SpO2 98 % 12/23/24 0726 Vitals shown include unfiled device data. Facility-Administered Medications as of 12/23/2024 Medication Dose Route Frequency lidocaine (PF) 10 mg/mL (1 %) 1-2 mg injection (XYLOCAINE) 0.1-0.2 mL INTRADERMAL PRN lactated ringers iv infusion 5-30 mL/hr INTRAVENOUS CONTINUOUS NaCl 0.9% iv flush bag 20 mL INTRAVENOUS PRN ceFAZolin iv piggyback 2 g in D5W (iso-osmotic) 100 mL (ANCEF) 2 g INTRAVENOUS Pre-Op Once [COMPLETED] acetaminophen 1,000 mg tab(s) (TYLENOL) 1,000 mg ORAL Pre-Op Once [COMPLETED] celecoxib 200 mg cap(s) (CeleBREX) 200 mg ORAL Pre-Op Once [COMPLETED] oxyCODONE ER 10 mg tab(s) (OxyCONTIN) 10 mg ORAL Pre-Op Once scopolamine (delivers 1 mg over 3 days) 1 patch (TRANSDERM-SCOP) 1 patch TRANSDERMAL ONCE scopolamine - VERIFY patch OTHER q 8 H [START ON 12/24/2024] scopolamine - REMOVE PATCH OTHER ONCE [COMPLETED] midazolam (PF) 2 mg injection (VERSED) 2 mg INTRAVENOUS ONCE [COMPLETED] metoclopramide HCl 10 mg injection (REGLAN) 10 mg INTRAVENOUS ONCE [COMPLETED] famotidine 20 mg injection (PEPCID) 20 mg INTRAVENOUS ONCE Outpatient Medications as of 12/23/2024 Medication Sig lisinopril (ZESTRIL) 20 mg tablet Take 1 tablet by mouth once daily. carvedilol (COREG) 25 mg tablet Take 2 tablets by mouth two times a day. famotidine (PEPCID) 20 mg tablet Take 1 tablet by mouth once daily. metFORMIN (GLUCOPHAGE) 1,000 mg tablet Take 1 tablet by mouth two times a day. rosuvastatin (CRESTOR) 40 mg tablet Take 1 tablet by mouth daily at bedtime. tamsulosin (FLOMAX) 0.4 mg Take 2 capsules by mouth once daily. empagliflozin (JARDIANCE) 25 mg tablet Take 1 tablet by mouth once daily. ergocalciferol 50,000 unit capsule (VITAMIN D2, DRISDOL) Take 1 capsule by mouth every 2 weeks. Use as directed. mirtazapine (REMERON) 15 mg tablet Take 1 tablet by mouth daily at bedtime. semaglutide (OZEMPIC) 1 mg/dose (4 mg/3 mL) pen Inject 1 mg subcutaneously one time a week. I have interviewed and examined the patient. I have reviewed the medical record and/or the pre-anesthesia evaluation, pertinent labs, and test results. This contains updated information obtained within 48 hours of Surgery/Procedure. SIGNATURE: Jesus Lucas MD PATIENT NAME: Gutierrez De Jesus DATE: December 23, 2024 TIME: 7:29 AM CSN: [id number] Normal [facility] CONSULTon 12-23-2024 CONSULT HNO ID: [id number] Author: JUAN J BARROW MD Service: General Internal Medicine Author Type: Physician Type: Consults Filed: 01/03/2025 21:17 Note Text: [facility]- Consultation GUTIERREZ DE JESUS : 1960 AGE: 64 SEX: M ACCTNUM: [id number] [facility]: [facility] LOCATION: [facility] [place] [facility] [place] ATTEND[place] PHYSICIAN: ROBERT EDGAR DATE OF SERVICE: 12/23/2024 TIME OF SERVICE: 12:50 PM REASON FOR CONSULTATION: Postop medical. HISTORY: This is a 64-year-old young gentleman, whose significant medical history includes osteoarthritis; hypertension; hyperlipidemia; situational depression; obstructive sleep apnea, nonadherent with the CPAP; elevated LFTs; neurogenic bladder, currently being followed by the urologist; CKD, his last creatinine was 1.652, suspect stage III; DM type 2; essential tremor; GERD; BPH; and history of renal cell cancer, status post right partial nephrectomy. Patient underwent elective right total knee arthroplasty. Patient had uneventful intraoperative course. Estimated blood loss minimal. During initial evaluation, alert, oriented. No nausea, lightheadedness, dizziness, shortness of breath, or palpitation. Continued to have some numbness of the lower extremities. PAST MEDICAL HISTORY: As mentioned above. PAST SURGICAL HISTORY: As mentioned above, plus history of endoscopy. FAMILY HISTORY: Positive for prostate cancer, diabetes. SOCIAL HISTORY: He smoked 3 packs for past 30 years and he quit smoking in 1999. Does not drink alcohol. MEDICATIONS: His current home medication list reviewed. ALLERGIES: He has no known drug allergies. REVIEW OF SYSTEMS: No history of TIA, CVA, or seizure disorder. No history of glaucoma. No history of coronary artery disease, congestive heart failure, or cardiac arrhythmia. No history of syncope. No history of asthma or COPD. Does have obstructive sleep apnea, nonadherent with the CPAP. No history of bleeding peptic ulcer disease, hepatitis, colitis. Claims good appetite. Regular bowel movement. No melenic stool. He has several night micturition. No history of recent urinary tract infection. History of CKD. No history of DVTs. PHYSICAL EXAM: General: Young gentleman. Patient is alert and oriented. HEENT: Sclerae anicteric. Neck: No thyromegaly appreciated. No carotid bruit heard. No lymphadenopathy of the neck. Lungs: Clear to auscultation bilaterally. No wheezing, rales present. Cardiovascular: S1, S2. Regular rhythm. No murmur, gallop, rub appreciated. Abdomen: Soft, nontender, nondistended. No mass felt. Lower Extremities: No ankle edema noted. IMPRESSION: 1. Osteoarthritis, status post right total knee arthroplasty. Deep venous thrombosis prophylaxis with aspirin 81 mg twice a day. 2. Hypertension. Continue Coreg and Zestril. 3. Hyperlipidemia. Continue statins. 4. BPH. Continue Flomax. 5. Obstructive sleep apnea, nonadherent with the CPAP. 6. Chronic kidney disease, suspect chronic kidney disease stage 3. Avoid nephrotoxic drugs. 7. Hold other medications for now. Thank you very much for kind referral. Continue to follow him while he is in the hospital. Juan J Barrow M.D. Internal Medicine SKJ:[id number] /[id number] [facility] NURSING PROGon 12-23-2024 NURSING PROG HNO ID: [id number] Author: JAYLYN BUSTAMANTE, STUART Service: Nursing Author Type: Registered Nurse Type: Nursing Progress Note Filed: 12/23/2024 07:28 Note Text: Dr. Lucas at bedside for Right adductor nerve block. RN at bedside, pt monitored throughout, BP 143/91 Pulse 73 Temp 36.1 ?C (97 ?F) (Temporal Artery) Resp 21 SpO2 93% .Pt tolerated procedure without difficulty. [facility] OPERATIVE NOon 12-23-2024 OPERATIVE NO HNO ID: [id number] Author: ROBERT EDGAR MD Service: Orthopaedic Surgery Author Type: Physician Type: Operative Report Filed: 12/23/2024 15:15 Note Text: Operative Report PATIENT NAME: Gutierrez De Jesus CSN: [id number] LOG ID: [id number] Surgery Date: 12/23/2024 Surgeon(s) and Best Worker(s): WILLIAM Castano - Scrap Kettle Tender Surgeons and Role: * Robert Edgar MD - Primary 22 modifier: Modifier was used due to elevated BMI of greater than 35. This resulted in more difficult visualization from soft tissues, greater effort with retraction, longer tourniquet time, and overall higher level of surgical acumen. No qualified orthopedic resident available BMI: Estimated body mass index is 37.02 kg/m? as calculated from the following: Height as of 12/09/24: 172.9 cm (5' 8.07). Weight as of 12/09/24: 110.7 kg (244 lb). Procedure(s): Procedure(s) (LRB): ROBOTIC ASSISTED TOTAL KNEE ARTHROPLASTY (Right) Anesthesia: Choice - Anesthesia Consult Incision Start: 8:01 AM Incision Stop: 9:50 AM Attestation: I was present for and performed all critical portions of the case. assistant manager trainee was necessary for safe patient positioning, sterile prepping and draping, assistance, positioning and protection, soft tissue retraction, protection of vital structures and suture management during the case, and superficial wound closure. Also critical for safe transit to the recovery room in stable condition. Preop Diagnosis: Pre-Op Diagnosis Codes: * Primary osteoarthritis of right knee [M17.11] Postop Diagnosis: Same as Pre-Op Diagnosis Codes: * Primary osteoarthritis of right knee [M17.11] Implants: Implant Name Type Inv. Item Serial No. Wire Worker Lot No. LRB No. Used Action INSERT TRIATHLON 5 9MM TIBIAL BEARING CONDYLAR STABILIZE STERILE KNEE - [id number] Joint - Knee INSERT TRIATHLON 5 9MM TIBIAL BEARING CONDYLAR STABILIZE STERILE KNEE [facility] [id number] Right 1 Implanted COMPONENT TRIATHLON 5 PA FEMORAL CRUCIATE RETAIN BEAD KNEE RIGHT - [id number] Joint - Knee COMPONENT TRIATHLON 5 PA FEMORAL CRUCIATE RETAIN BEAD KNEE RIGHT [facility] [id number] Right 1 Implanted COMPONENT TRITANIUM 35MM METAL 10MM PATELLAR ASYMMETRIC KNEE - [id number] Joint - Knee COMPONENT TRITANIUM 35MM METAL 10MM PATELLAR ASYMMETRIC KNEE [facility] [id number] Right 1 Implanted BASEPLATE TRIATHLON TRITANIUM 5 TIBIAL KNEE - [id number] Joint - Knee BASEPLATE TRIATHLON TRITANIUM 5 TIBIAL KNEE [facility] [id number] Right 1 Implanted Problem List: ACTIVE PROBLEM LIST Hyperlipidemia Ldl Goal <100 Essential Hypertension Erectile Dysfunction Bmi 36.0-36.9,Adult Arthritis of Both Knees Lumbar Degenerative Disc Disease Muscle Contraction Headache Situational Depression Obstructive Sleep Apnea Torrez Splint Type 2 Diabetes Mellitus With Microalbuminuria, Without Long-Term Current Use of Insulin (Hcc) Spinal Stenosis of Lumbar Region With Radiculopathy Neurogenic Bladder Intention Tremor Chronic Nonintractable Headache Elevated Liver Function Tests Former Smoker Renal Cyst Ckd (Chronic Kidney Disease) 1st Degree Av Block Gerd (Gastroesophageal Reflux Disease) Benign Prostatic Hyperplasia With Lower Urinary Tract Symptoms History of Renal Cell Cancer OPERATIVE INDICATIONS: The patient has a long history of progressive right knee pain, arthritis, and degeneration. Non-operative treatment has been attempted but has not improved or controlled the symptoms and pain that occurs during normal daily activities. Knee motion has also become limited and is restricting the patient. Total knee arthroplasty was recommended. The risks, benefits and potential complications of the arthroplasty surgery were discussed with the patient in detail. Specific details of the surgical procedure, hospitalization, recovery, rehabilitation, and long-term precautions were also presented. Pre-operative teaching was provided. Implant/prosthesis selection wasoutlined, and the many options available were explained; the final choice will be made at the time of the procedure to match the anatomy and condition of the bone, ligaments, tendons, and muscles. The patient was evaluated medically for pre-operative optimization, and risk assessment. Tracee-operative blood management and the potential for blood transfusion were discussed with risks and options clearly outlined. Understanding of all topics was conveyed to me by the patient pre-operatively, and patient consent was given to proceed with the right total knee replacement, robotically assisted. OPERATIVE PROCEDURE: The patient was identified and brought into the Operating Room by the anesthesia and nursing teams. Anesthesia was successfully performed. The patient was then positioned supine on the operating room table, and all bony prominences were padded. Intravenous antibiotic prophylaxis dosing was confirmed. A tourniquet w (more content not included)... [facility] THERAPY [facility] 12-23-2024 THERAPY [facility] ID: [id number] Author: MERCEDES ULRICH, PT, DPT Service: Physical Therapy Author Type: Physical Therapist Type: Therapy (PT/OT/Speech/Resp) Filed: 12/23/2024 16:02 Note Text: Summary: PT radha Physical Therapy Evaluation Summary SERVICE DATE: 12/23/2024 SERVICE TIME: 1517 to 1549 ROOM: [place] [address] PT 6 Clicks Score: 22 Total Joint Replacement Discharge Readiness: Pending Physical Therapy Clearance DISCHARGE RECOMMENDATIONS Home PT Recommended Discharge Disposition Comments: s/p R TKR Anticipated Discharge Needs: Physical Assist at Home, Supervision at Home Physical Assist at Home for: Transportation, Shopping, Safety, Medication Management, Meals, Laundry, Cleaning Supervision at Home due to: Decreased safety awareness Recommended Discharge Equipment: No equipment needs anticipated ASSESSMENT Response to Therapy Interventions: Good Participation in Activities Pt tolerated mobility well, is impulsive and needs cues to slow down more for pain control and safety. Will be ready for d/c tomorrow. PRECAUTIONS Fall Risk, Lines/Tubes/Drains, Impulsive with Activity, Total Knee Replacement, Weight Bearing Restrictions impulsive Right Lower Extremity Weight Bearing Status: WBAT CURRENT HOSPITAL COURSE s/p R TKR Relevant Past Medical History: HTN, hyperlipedemia, neurogenic bladder, CKD, DM, renal cell CA HOME LIVING Patient Lives With: Spouse (ranch style home) Assistance Available: 24-Hour Entry To Home: Ramp (does have 2 stairs without HR, but will do ramp to enter) Tub/Shower Type: tub with chair and gb with HHS Laundry: on main floor Equipment Owned: Commode- 3 in 1, Grab Bars- Shower, Hand Held Shower, Shower Chair, Walker- Wheeled PRIOR FUNCTIONAL LEVEL Within Functional Limits indep with self care and IADL's excpet for yardwork, no AD used prior to surgery, + driving SUBJECTIVE Pt reports that he is tired, drove to and from [facility] yesterday into this morning. Did not eat yet. THERAPY DIAGNOSIS Reduced mobility-other TREATMENT INTERVENTIONS Evaluation, Therapeutic Exercise (42575), Gait Training (70051), Therapeutic Activity (77402) Timed Code Treatment (minutes): 17 Skilled Treatment Time (minutes): 17 $ Evaluation-Low (63430) Billed Units: 1 unit Therapeutic Exercise (93483) Treatment Minutes: 5 Exercise Anti-Embolics (number of reps): 10 $ Therapeutic Exercise (74801) Billed Units: 0 units Therapeutic Activity (72060) Treatment Minutes: 3 $ Therapeutic Activity (19316) Billed Units: 0 units Gait Training (51494) Treatment Minutes: 9 $ Gait Training (86867) Billed Units: 1 unit TRAINING AND EDUCATION PROVIDED Assistive Device Use, Bed Mobility, Benefits of In-Hospital Mobility, Anatomy and Impact on Deficits, Discharge Planning, Equipment, Exercise Program, Expected Functional Level, Gait Pattern, Reduction of Deviations, Modalities, Positioning, Precautions/Restriction s, Pre-gait Activities, Role of Physical Therapy, Sitting Balance, Transfers, Treatment Protocol, Standing Balance THERAPEUTIC SKILLS USED Activity Dosing, Assessment of Tolerance Including Vitals Response to Activity, Cues for Sequencing/Proper Technique for Activity, Cuing Verbal, Management of Critical Lines, Tubes and/or Drains, Movement Facilitation, Physical Assist FUNCTIONAL STATUS Bed Mobility Supine To Sit: Modified Independent, Additional Information to EOB, is impulsive Sit to Supine: Additional Information pt left sitting in chair Scooting: Independent Transfers Sit To Stand: Stand By Assistance, Additional Information pt is impulsive and needed cues to slow down for therapist to move walker in front of him, performed x 3 reps throughout session, cued for hand placement for safety and demo with right LE extended for once block wears off for pain control Stand To Sit: Stand By Assistance, Additional Information cues to reach back to bed or arm rests, performed x 3 reps, therapist also demo (after performance) technigue for once block wears off Bed to Chair Gait Contact Guard Assistance, Additional Information cues for sequence, IV in tow, pt is impulsive and needs cues for slowing down, was a little shakey (most likely from not eating) Gait Device: Wheeled Walker General Deviations/Observations : Antalgic gait Gait Distance (feet): 20 x 2 Stairs Additional Information not performed today RANGE OF MOTION WFL Except, ROM Limitation Comments ROM Limitation Comments: knee flexion 90 degrees seated, demo close to 0 degrees of extension when supine STRENGTH Strength Limitation Comments: did not formally MMT right LE secondary to recent surgery, but pt able to perform AP, QS, GS, transfer OOB with hip flexion and adduction, and WB while standing suggesting WFL BA (more content not included)... Normal [facility] CT KNEE WO IVCON RTon 2024 CT KNEE WO IVCON RT * * *Final Report* * * DATE OF EXAM: Dec 19 2024 4:09PM [facility] [address] - CT KNEE WO IVCON RT / PROCEDURE REASON: multiple diagnoses * * * * Physician Interpretation * * * * EXAMINATION: CT KNEE WO IVCON RT CLINICAL HISTORY: 64 years old Male with Chronic pain of right knee Chronic pain of right knee Primary osteoarthritis of right knee . Preoperative planning . TECHNIQUE: CT RIGHT knee without contrast Nayan protocol, knee 0.62 mm axial slices, hip and ankle 2.5 mm axial slices obtained for the purposes of presurgical planning CT Radiation dose: Integrated Dose-length product (DLP) for this visit = 893 mGy*cm. CT Dose Reduction Employed: Automated exposure control(AEC) and iterative recon COMPARISON: Radiographs 11/28/2024 RESULT: Limited CT images for the purposes of presurgical planning. Right knee: Tricompartment osteoarthritis, advanced in the medial joint compartment. Small joint effusion. Right hip: Significant prostatomegaly. Small bilateral fat-containing inguinal hernias. Mild hip osteoarthrosis Right ankle and imaged foot: No significant finding Pug Mill Operator Helper: No significant finding. IMPRESSION: Limited CT images for the purposes of presurgical planning. Supervisor Forming Department: JORDAN Transcribe Date/Time: Dec 19 2024 4:44P Dictated by : SHYANN CASTANEDA MD This examination was interpreted and the report reviewed and electronically signed by: SHYANN CASTANEDA MD on Dec 19 2024 4:45PM EST [id number] [facility] CT Knee - right WO contrasto n 12-19-2024 IMPRESSION: Limited CT images for the purposes of presurgical planning. Supervisor Forming Department: JORDAN Transcribe Date/Time: Dec 19 2024 4:44P Dictated by : SHYANN CASTANEDA MD This examination was interpreted and the report reviewed and electronically signed by: SHYANN CASTANEDA MD on Dec 19 2024 4:45PM [facility] * * *Final Report* * * DATE OF EXAM: Dec 19 2024 4:09PM [facility] [address] - [place] KNEE WO IVCON RT / PROCEDURE REASON: multiple diagnoses * * * * Physician Interpretation * * * * EXAMINATION: CT KNEE WO IVCON RT CLINICAL HISTORY: 64 years old Male with Chronic pain of right knee Chronic pain of right knee Primary osteoarthritis of right knee . Preoperative planning . TECHNIQUE: CT RIGHT knee without contrast Nayan protocol, knee 0.62 mm axial slices, hip and ankle 2.5 mm axial slices obtained for the purposes of presurgical planning CT Radiation dose: Integrated Dose-length product (DLP) for this visit = 893 mGy*cm. CT Dose Reduction Employed: Automated exposure control(AEC) and iterative recon COMPARISON: Radiographs 11/28/2024 RESULT: Limited CT images for the purposes of presurgical planning. Right knee: Tricompartment osteoarthritis, advanced in the medial joint compartment. Small joint effusion. Right hip: Significant prostatomegaly. Small bilateral fat-containing inguinal hernias. Mild hip osteoarthrosis Right ankle and imaged foot: No significant finding Pug Mill Operator Helper: No significant finding. [facility] Provider, [facility] - 12/19/2024 * * *Final Report* * * DATE OF EXAM: Dec 19 2024 4:09PM [facility] [address] - CT KNEE WO IVCON RT / PROCEDURE REASON: multiple diagnoses * * * * Physician Interpretation * * * * EXAMINATION: CT KNEE WO IVCON RT CLINICAL HISTORY: 64 years old Male with Chronic pain of right knee Chronic pain of right knee Primary osteoarthritis of right knee . Preoperative planning . TECHNIQUE: CT RIGHT knee without contrast Nayan protocol, knee 0.62 mm axial slices, hip and ankle 2.5 mm axial slices obtained for the purposes of presurgical planning CT Radiation dose: Integrated Dose-length product (DLP) for this visit = 893 mGy*cm. CT Dose Reduction Employed: Automated exposure control(AEC) and iterative recon COMPARISON: Radiographs 11/28/2024 RESULT: Limited CT images for the purposes of presurgical planning. Right knee: Tricompartment osteoarthritis, advanced in the medial joint compartment. Small joint effusion. Right hip: Significant prostatomegaly. Small bilateral fat-containing inguinal hernias. Mild hip osteoarthrosis Right ankle and imaged foot: No significant finding Pug Mill Operator Helper: No significant finding. IMPRESSION IMPRESSION: Limited CT images for the purposes of presurgical planning. Supervisor Forming Department: PSCB Transcribe Date/Time: Dec 19 2024 4:44P Dictated by : SHYANN CASTANEDA MD This examination was interpreted and the report reviewed and electronically signed by: SHYANN CASTANEDA MD on Dec 19 2024 4:45PM EST [facility] Radiology Study observation (narrative) [facility] CT Knee - right WO contrastO rdered By: [facility] Provider on 12-19-2024 [facility] PT EDon 12-13-2024 PT ED HNO ID: [id number] Author: FELICITA GIPSON PA-C Service: General Surgery Author Type: Physician Best Worker Type: Patient Education Filed: 12/13/2024 14:14 Note Text: Gutierrez De Jesus's medication list was reviewed and patient was noted to be taking Jardiance and Ozempic per patient chart. PAT instructions from 12/01/24 and PAT note from 12/13/24 discussed instructions that the patient hold their medication 3 day(s) prior (Jardiance) and 7 days prior (Ozempic) to their date of surgery. SIGNATURE: Felicita Gipson PA-C PATIENT NAME: Gutierrez De Jesus DATE: December 13, 2024 [facility] LUNG DIFFUSION CAPACITY (YVAN O)on 12-09-2024 LUNG DIFFUSION CAPACITY (DLCO) [facility] [address] [address] Test Date: 2024-12-09 Pat Name: GUTIERREZ DE JESUS Department: Room: Gender: Male Supervisor Fleshing: : 1960 Requested By: Order Number: [id number] Reading MD: Dianne Olmedo MD Interpretive Statements Current ATS/ERS acceptability and repeatability standards for spirometry met. Start of test and EOFE criteria met. Current ATS/ERS acceptability and repeatability standards for DLCO met with 2 acceptable maneuvers. IMPRESSION: Spirometry is normal. The diffusion capacity (uncorrected for hemoglobin) is normal. Electronically Signed On 12-12-2024 13:46:14 EDT by Dianne Olmedo MD ID: [id number] Name: GUTIERREZ DE JESUS Race: White Ht: 68.07 in Wt: 244.00 lbs Age: 64 Gender: Male : 1960 Dx: Preoperative testing_ Smoking Hx: Non-smoker Doctor: KACIE MONTELONGO Test Date: 12/09/2024 Site: WO Tech: Isabel Segal PRE-BRONCH POST-BRONCH Junaid LLN Pred ULN %Pred ZScore Junaid %Pred %Chg ZScore SPIROMETRY FVC 4.36 2.89 3.86 4.86 112 0.83 FEV1 3.19 2.19 2.98 3.72 107 0.46 FEV1/FVC 0.73 0.65 0.78 0.88 94 -0.64 FEFMax 8.39 6.11 8.31 10.50 101 0.07 FEF50 2.93 1.74 3.87 5.99 75 -0.73 FIF50 4.43 FEF50/FIF50 0.66 90-100 FIVC 3.94 XLT63-61 2.04 1.16 2.53 4.43 80 -0.52 ExpiredTime 13.10 TimeToFEFMax 0.14 COLLIN 0.17 VolExtrap% 4 LUNG DIFFUSION DLCOunc 21.98 16.31 26.25 36.18 83 -0.71 DLCOStdPB 21.51 16.31 26.25 36.18 81 -0.78 VA 5.68 5.08 6.45 7.81 88 -0.92 Kco 3.78 3.12 4.17 5.32 90 -0.59 Comments: Current ATS/ERS acceptability and repeatability standards for spirometry met. Start of test and EOFE criteria met. Current ATS/ERS acceptability and repeatability standards for DLCO met with 2 acceptable maneuvers. Normal [facility] SPIROMETRY WITH DILATOR IF O BSTRUCTEDon 12-09-2024 SPIROMETRY WITH DILATOR IF OBSTRUCTED [facility] [address] [address] Test Date: 2024-12-09 Pat Name: GUTIERREZ DE JESUS Department: Room: Gender: Male Supervisor Fleshing: : 1960 Requested By: Order Number: [id number] Reading MD: Dianne Olmedo MD Interpretive Statements Current ATS/ERS acceptability and repeatability standards for spirometry met. Start of test and EOFE criteria met. Current ATS/ERS acceptability and repeatability standards for DLCO met with 2 acceptable maneuvers. IMPRESSION: Spirometry is normal. The diffusion capacity (uncorrected for hemoglobin) is normal. Electronically Signed On 12-12-2024 13:46:14 EDT by Dianne Olmedo MD ID: [id number] Name: GUTIERREZ DE JESUS Race: White Ht: 68.07 in Wt: 244.00 lbs Age: 64 Gender: Male : 1960 Dx: Preoperative testing_ Smoking Hx: Non-smoker Doctor: KACIE MONTELONGO Test Date: 12/09/2024 Site: Tech: Isabel Segal PRE-BRONCH POST-BRONCH Junaid LLN Pred ULN %Pred ZScore Junaid %Pred %Chg ZScore SPIROMETRY FVC 4.36 2.89 3.86 4.86 112 0.83 FEV1 3.19 2.19 2.98 3.72 107 0.46 FEV1/FVC 0.73 0.65 0.78 0.88 94 -0.64 FEFMax 8.39 6.11 8.31 10.50 101 0.07 FEF50 2.93 1.74 3.87 5.99 75 -0.73 FIF50 4.43 FEF50/FIF50 0.66 90-100 FIVC 3.94 ZWX43-72 2.04 1.16 2.53 4.43 80 -0.52 ExpiredTime 13.10 TimeToFEFMax 0.14 COLLIN 0.17 VolExtrap% 4 LUNG DIFFUSION DLCOunc 21.98 16.31 26.25 36.18 83 -0.71 DLCOStdPB 21.51 16.31 26.25 36.18 81 -0.78 VA 5.68 5.08 6.45 7.81 88 -0.92 Kco 3.78 3.12 4.17 5.32 90 -0.59 Comments: Current ATS/ERS acceptability and repeatability standards for spirometry met. Start of test and EOFE criteria met. Current ATS/ERS acceptability and repeatability standards for DLCO met with 2 acceptable maneuvers. FVC_PRE (L) : 4.36 L FVC_PRED (L) : 3.86 L FVC_LLN (L) : 2.89 L FVC_ULN (L) : 4.86 L FEV1_PRE (L) : 3.19 L FEV1_PRED (L) : 2.98 L FEV1_LLN (L) : 2.19 L FEV1_ULN (L) : 3.72 L FEV1/FVC_PRE (%) : 73 % FEV1/FVC_PRED (%) : 78 % FEV1/FVC_LLN (%) : 65 % RSC32_RFP (L/S) : 7.87 L/S DGK34_HDP (L/S) : 0.60 L/S KCW72_DJSL (L/S) : 0.71 L/S UQC83_CTR (L/S) : 0.27 L/S UIQ18_IUH (L/S) : 1.76 L/S MAG42-53%_PRE (L/S) : 2.04 L/S DIR20-00%_PRED (L/S) : 2.53 L/S JWZ01-94%_LLN (L/S) : 1.16 L/S PEF_PRE (L/S) : 8.39 L/S PEFMAX_LLN (L/S) : 6.11 L/S PEFMAX_ULN (L/S) : 10.50 L/S SVC_PRED (L) : 3.86 L/S SVC_LLN (L) : 2.89 L/S SVC_ULN (L/S) : 4.86 L/S IC_PRED (L) : 2.58 L/S ERV_PREDICTED (L) : 1.29 L/S DLCO (ML/MIN/MMHG) : 21.98 ml/min/mmHg DLCO_PRED (ML/MIN/MMHG) : 26.25 ml/min/mmHg DLCO_LLN(ML/MIN/MMHG) : 16.31 ml/min/mmHg DLCO_ULN (ML/MIN/MMHG) : 36.18 ml/min/mmHg FET_PRE (S) : 13.10 S VA (L) : 5.68 L VA_PRD (L) : 6.45 L DLCO/VA (ML/MIN/MMHG/L) : 0.04 ml/min/mmHg/L DLCO_VA_PRED (L) : 0.04 ml/min/mmHg/L DLCOCOR (ML/MIN/MMHG) : 21.51 ml/min/mmHg DLCOCOR_PRED (ML/MIN/MMHG) : 26.25 ml/min/mmHg DLCO/VACOR (ML/MIN/MMHG/L) : 0.04 ml/min/mmHg/L [facility] CNPNon 12-06-2024 CNPN Telephone (PANEWO) JAJAGUTIERREZ Frank ([id number]) 1960 Date Time Provider Department 12/06/24 KACIE MONTELONGO During your visit today, we recorded the following information about you: Kacie Montelongo APRN.OFFICE RECEPTIONIST 12/06/2024 1:05 PM Signed Please request any cardiac testing (echo/stress test/carotid US) from [place]. Please also request any nephrology OV and renal imaging. DOS 12/23/2024 Ebony Conklin LPN 12/06/2024 2:15 PM Signed Phoned patient and he stated that his kidney doctor is at [facility]. He also sees the [facility] [place] sent to [facility] and [facility]. [facility] fax#[phone] [place] fax# [phone] Awaiting records RACHELL Weber Kim E, LPN 12/06/2024 3:00 PM Signed Medical records received via onbase and sent to scanned documents of kidney CT. Awaiting other faxes from [facility] [place] for cardiac testing. Please review RACHELL Weber Kim E, LPN 12/08/2024 3:09 PM Signed Refaxed medical records request to [facility] for cardiac testing records. Ebony Conklin LPN Phoned patient and he stated that the cardiac testing was done at [facility]. Medical request faxed to [facility] for medical records. [facility] [phone] fax# [phone] RACHELL Weber Kim E, LPN 12/15/2024 2:46 PM Signed fax request has been refaxed to [facility] [place] for cardiac testing results. Awaiting results. RACHELL Weber Kim E, LPN 12/15/2024 3:15 PM Signed Received fax back from [facility] [place] with [facility] [place] phone number. Phoned [facility] and leave message with medical records for any cardiac testing results to fax to our office. Awaiting results. RACHELL Weber Kim E, LPN 12/20/2024 4:17 PM Signed Phoned patient and he stated that he did not have any stress tests or ECHOs [place] the [place] now that he [place]. The last stress test was done here at [facility] in 2018. Ebony Conklin LPN Allergies As of Date: 12/06/2024 (No Known Allergies) Date Reviewed: 12/06/2024 Reviewed by: Kacie Montelongo APRN.OFFICE RECEPTIONIST - Fully Assessed Reason for Visit: Request Outside Medical Records [3572] Prescriptions as of 12/21/2024 - empagliflozin (JARDIANCE) 25 mg tablet Take 1 tablet by mouth once daily. - lisinopril (ZESTRIL) 20 mg tablet Take 1 tablet by mouth once daily. - carvedilol (COREG) 25 mg tablet Take 2 tablets by mouth two times a day. - ergocalciferol 50,000 unit capsule (VITAMIN D2, DRISDOL) Take 1 capsule by mouth every 2 weeks. Use as directed. - famotidine (PEPCID) 20 mg tablet Take 1 tablet by mouth once daily. - metFORMIN (GLUCOPHAGE) 1,000 mg tablet Take 1 tablet by mouth two times a day. - mirtazapine (REMERON) 15 mg tablet Take 1 tablet by mouth daily at bedtime. - rosuvastatin (CRESTOR) 40 mg tablet Take 1 tablet by mouth daily at bedtime. - semaglutide (OZEMPIC) 1 mg/dose (4 mg/3 mL) pen Inject 1 mg subcutaneously one time a week. - tamsulosin (FLOMAX) 0.4 mg Take 2 capsules by mouth once daily. Problem List As Of Date 12/06/2024 Noted Resolved Hyperlipidemia LDL goal <100 [E78.5] 07/10/2006 Essential hypertension [I10] 03/13/2008 Diverticulitis of colon (without mention of hem*03/13/2008 10/23/2015 Cellulitis and abscess of toe, unspecified [L03*01/15/2009 10/23/2015 Ingrowing nail [L60.0] 01/15/2009 10/23/2015 Erectile dysfunction [N52.9] 01/12/2012 BMI 36.0-36.9,adult [Z68.36] 08/24/2015 Arthritis of both knees [M17.0] 08/24/2015 Lumbar degenerative disc disease [M51.369] 08/24/2015 Muscle contraction headache [G44.209] 10/23/2015 Situational depression [F43.21] 11/09/2015 Obstructive sleep apnea [G47.33] 06/19/2016 Torrez splint [S86.899A] 06/19/2016 Type 2 diabetes mellitus with microalbuminuria,*10/03 Spinal stenosis of lumbar region with radiculop*12/10/2016 Neurogenic bladder [N31.9] 12/10/2016 Intention tremor [G25.2] 03/24/2017 Chronic nonintractable headache [R51.9, G89.29] 03/24/2017 Elevated liver function tests [R79.89] 04/21/2017 Former smoker [Z87.891] 12/06/2024 Renal cyst [N28.1] 12/06/2024 CKD (chronic kidney disease) [N18.9] 12/06/2024 1st degree AV block [I44.0] 12/06/2024 GERD (gastroesophageal reflux disease) [K21.9] 12/06/2024 Benign prostatic hyperplasia with lower urinary*12/06/2024 History of renal cell cancer [Z85.528] 12/06/2024 Encounter Status:Closed by MONSERRAT CLEMENTS on 12/21/24 [facility] Edel 12-05-2024 KUMARN Telephone (PANMaps InDeedO) GUTIERREZ DE JESUS ([id number]) 1960 Za Date Time Provider Department 12/05/24 KACIE MONTELONGO During your visit today, we recorded the following information about you: IonaKelli MA 12/05/2024 2:55 PM Signed Patients called in. States they saw lab results on Mychart and are wondering if they should be concerned with any of the abnormal results? Please contact Karissa clinton at [phone]. Kacie Montelongo APRN.KUMAR 12/05/2024 3:19 PM Signed Notify pt labs show some abnormalities, but nothing that is urgent, just keep his follow up with Dr. Champagne in January. Platelets were mildly decreased and this does appear chronic on previous labs I found outside our system in [facility], he has been down to 137-150's range mostly. He does have some mild CKD, continue to avoid NSAIDs and again follow up with Dr. Champagne, but these are all stable for surgery. Monserrat Clements LPN 12/05/2024 3:24 PM Signed Called and spoke with patient. He is aware and agreeable of results and recommendations. Monserrat Clements LPN Allergies As of Date: 12/05/2024 (No Known Allergies) Date Reviewed: 12/01/2024 Reviewed by: Kacie Montelongo APRN.OFFICE RECEPTIONIST - Fully Assessed Reason for Visit: Patient Question [0447] Prescriptions as of 12/05/2024 - mupirocin (BACTROBAN) 2 % ointment Apply 0.5 inch with cotton swab (Q-tip) to each nostril in the morning and evening for 5 days prior to and including day of surgery. - empagliflozin (JARDIANCE) 25 mg tablet Take 1 tablet by mouth once daily. - lisinopril (ZESTRIL) 20 mg tablet Take 1 tablet by mouth once daily. - carvedilol (COREG) 25 mg tablet Take 2 tablets by mouth two times a day. - ergocalciferol 50,000 unit capsule (VITAMIN D2, DRISDOL) Take 1 capsule by mouth every 2 weeks. Use as directed. - famotidine (PEPCID) 20 mg tablet Take 1 tablet by mouth once daily. - metFORMIN (GLUCOPHAGE) 1,000 mg tablet Take 1 tablet by mouth two times a day. - mirtazapine (REMERON) 15 mg tablet Take 1 tablet by mouth daily at bedtime. - rosuvastatin (CRESTOR) 40 mg tablet Take 1 tablet by mouth daily at bedtime. - semaglutide (OZEMPIC) 1 mg/dose (4 mg/3 mL) pen Inject 1 mg subcutaneously one time a week. - tamsulosin (FLOMAX) 0.4 mg Take 2 capsules by mouth once daily. Problem List As Of Date 12/05/2024 Noted Resolved Hyperlipidemia LDL goal <100 [E78.5] 07/10/2006 Essential hypertension [I10] 03/13/2008 Diverticulitis of colon (without mention of hem*03/13/2008 10/23/2015 Cellulitis and abscess of toe, unspecified [L03*01/15/2009 10/23/2015 Ingrowing nail [L60.0] 01/15/2009 10/23/2015 Erectile dysfunction [N52.9] 01/12/2012 Morbid obesity due to excess calories (HCC) [E6*08/24/2015 Arthritis of both knees [M17.0] 08/24/2015 Lumbar degenerative disc disease [M51.369] 08/24/2015 Muscle contraction headache [G44.209] 10/23/2015 Situational depression [F43.21] 11/09/2015 Obstructive sleep apnea [G47.33] 06/19/2016 Torrez splint [S86.899A] 06/19/2016 Type 2 diabetes mellitus with microalbuminuria,*10/03 Spinal stenosis of lumbar region with radiculop*12/10/2016 Neurogenic bladder [N31.9] 12/10/2016 Intention tremor [G25.2] 03/24/2017 Chronic nonintractable headache [R51.9, G89.29] 03/24/2017 Elevated liver function tests [R79.89] 04/21/2017 Encounter Status:Closed by MONSERRAT CLEMENTS on 12/05/24 Normal [facility] Comprehensive metabolic 2000 panelon 12-02-2024 Albumin [Mass/Vol] 4.6 g/dL 3.9 - 4.9 g/dL [facility] ALP [Catalytic activity/Vol] 62 U/L 38 - 113 U/L [facility] ALT [Catalytic activity/Vol] 34 U/L 10 - 54 U/L [facility] Anion gap [Moles/Vol] 10 mmol/L 8 - 15 mmol/L [facility] AST [Catalytic activity/Vol] 29 U/L 14 - 40 U/L [facility] Bilirubin [Mass/Vol] 1.1 mg/dL 0.2 - 1 .3 mg/dL [facility] Calcium [Mass/Vol] 9.8 mg/dL 8.5 - 10. 2 mg/dL [facility] Chloride [Moles/Vol] 102 mmol/L 98 - 10 7 mmol/L [facility] CO2 [Moles/Vol] 25 mmol/L 22 - 30 mmol/L [facility] Creatinine [Mass/Vol] 1.52 mg/dL High 0.73 - 1.22 mg/dL [facility] GFR/1.73 sq M.predicted among non-blacks MDRD (S/P/Bld) [Vol rate/Area] 51 mL/min/{1.73_m2} Low - PINF [facility] Comment on above: Estimated Glomerular Filtration Rate (eGFR) is calculated using the 2020 CKD-EPI creatinine equation. This equation utilizes serum creatinine, sex, and age as parameters. The creatinine assay has traceable calibration to isotope dilution-mass spectrometry. Refer to KDIGO guidelines for clinical interpretation. In patients with unstable renal function, e.g. those with acute kidney injury, the eGFR may not accurately reflect actual GFR. Glucose [Mass/Vol] 123 mg/dL High 74 - 99 mg/dL [facility] Comment on above: The [place] Diab[employer] s Association (ADA) provides guidance for cutoff values for fasting glucose and random glucose. The ADA defines fasting as no caloric intake for at least 8 hours. Fasting plasma glucose results between 100 to 125 mg/dL indicate increased risk for diabetes (prediabetes). Fasting plasma glucose results greater than or equal to 126 mg/dL meet the criteria for diagnosis of diabetes. In the absence of unequivocal hyperglycemia, results should be confirmed by repeat testing. In a patient with classic symptoms of hyperglycemia or hyperglycemic crisis, random plasma glucose results greater than or equal to 200 mg/dL meet the criteria for diagnosis of diabetes. Reference: Standards of Medical Care in Diabetes 2016, [place] Diabetes Association. Diabetes Care. 2016.39(Suppl 1). Interpretation and review of laboratory results Abnormal [facility] Potassium [Moles/Vol] 4.4 mmol/L 3.7 - 5.1 mmol/L [facility] Protein [Mass/Vol] 7.3 g/dL 6.3 - 8.0 g/dL [facility] Sodium [Moles/Vol] 137 mmol/L 136 - 144 mmol/L [facility] Urea nitrogen [Mass/Vol] 18 mg/dL 9 - 24 mg/dL [facility] HbA1c (Bld)on 12-02-2024 Average glucose Estimated from glycated hemoglobin (Bld) [Mass/Vol] 148 mg/dL [facility] Comment on above: eAG: (Estimated aver age glucose) is a calculated value from HgbA1c and is cash posting representative of the average blood glucose level in the last 2-3 month period. HbA1c (Bld) [Mass fraction] 6.8 % High 4.3 - 5.6 % [facility] Comment on above: [place] Diabetes As sociation guidelines indicate that patients with HgbA1c in the range 5.7-6.4% are at increased risk for development of diabetes, and intervention by lifestyle modification may be beneficial. HgbA1c greater or equal to 6.5% is considered diagnostic of diabetes. Interpretation and review of laboratory results Abnormal [facility] CBC W Auto Differential pane l (Bld)on 12-01-2024 Basophils (Bld) [#/Vol] 0.03 10*3/uL [facility] Basophils/100 WBC (Bld) 0.4 % [facility] Differential cell count method Nom (Bld) Auto [facility] Eosinophils (Bld) [#/Vol] 0.44 10*3/uL [facility] Eosinophils/100 WBC (Bld) 6.3 % [facility] Erythrocyte distribution width (RBC) [Ratio] 15.2 % High 11.5 - 15.0 % [facility] Hematocrit (Bld) [Volume fraction] 46 % 39.0 - 51.0 % [facility] Hemoglobin (Bld) [Mass/Vol] 15.4 g/dL 13.0 - 17.0 g/dL [facility] Immature granulocytes (Bld) [#/Vol] [facility] Immature granulocytes/100 WBC (Bld) 0.1 % [facility] Interpretation and review of laboratory results Abnormal [facility] Lymphocytes (Bld) [#/Vol] 1.79 10*3/uL [facility] Lymphocytes/100 WBC (Bld) 25.6 % [facility] MCH (RBC) [Entitic mass] 29.3 pg 26.0 - 34.0 pg [facility] MCHC (RBC) [Mass/Vol] 33.5 g/dL 30.5 - 36.0 g/dL [facility] MCV (RBC) [Entitic vol] 87.6 fL 80.0 - 100.0 fL [facility] Monocytes (Bld) [#/Vol] 0.56 10*3/uL [facility] Monocytes/100 WBC (Bld) 8 % [facility] Neutrophils (Bld) [#/Vol] 4.15 10*3/uL [facility] Neutrophils/100 WBC (Bld) 59.6 % [facility] Nucleated RBC (Bld) [#/Vol] [facility] Nucleated RBC/100 WBC (Bld) [Ratio] 0 % /100 WBC [facility] Platelet mean volume (Bld) [Entitic vol] 9.2 fL 9.0 - 12.7 fL [facility] Platelets (Bld) [#/Vol] 141 10*3/uL Low [facility] RBC (Bld) [#/Vol] 5.25 10*6/uL 4.20 - 6.0 0 m/uL [facility] WBC (Bld) [#/Vol] 6.98 10*3/uL [facility] Basophils (Bld) [#/Vol] 0.03 10*3/uL Normal <0.11 [facility] Comment on above: Order Comment: Speci men Type: BLOOD SPECIMENOrdering Facility: [facility] Address: [address] [place] [address] Performed By: #### 5 7021-8 ####[facility] [id number] [address] [facility] Basophils/100 WBC (Bld) 0.4 % Normal [facility] Comment on above: Order Comment: Speci men Type: BLOOD SPECIMENOrdering Facility: [facility] Address: [address] [place] [address] Performed By: #### 5 7021-8 ####[facility] [id number] [place] [address] [place] Differential cell count method Nom (Bld) Auto Normal [facility] Comment on above: Order Comment: Speci men Type: BLOOD SPECIMENOrdering Facility: [facility] Address: [address] [place] [address] Performed By: #### 5 7021-8 ####[facility] [id number] [place] [address] [place] Eosinophils (Bld) [#/Vol] 0.44 10*3/uL Normal <0.46 [facility] Comment on above: Order Comment: Speci men Type: BLOOD SPECIMENOrdering Facility: [facility] Address: [address] [place] [address] Performed By: #### 5 7021-8 ####[facility] [id number] [place] [address] [place] Eosinophils/100 WBC (Bld) 6.3 % Normal [facility] Comment on above: Order Comment: Speci men Type: BLOOD SPECIMENOrdering Facility: [facility] Address: [address] [place] [address] Performed By: #### 5 7021-8 ####[facility] [id number] [place] [address] [place] Erythrocyte distribution width (RBC) [Ratio] 15.2 % High 11.5-15.0 [facility] Comment on above: Order Comment: Speci men Type: BLOOD SPECIMENOrdering Facility: [facility] Address: [address] [place] [address] Performed By: #### 5 7021-8 ####[facility] [id number] [place] [address] [place] Hematocrit (Bld) [Volume fraction] 46.0 % Normal 39.0-51.0 [facility] Comment on above: Order Comment: Speci men Type: BLOOD SPECIMENOrdering Facility: [facility] Address: [address] [place] [address] Performed By: #### 5 7021-8 ####[facility] SHANELEdouardNCBRAD [id number] [place] [address] [place] Hemoglobin (Bld) [Mass/Vol] 15.4 g/dL Normal 13.0-17.0 [facility] Comment on above: Order Comment: Speci men Type: BLOOD SPECIMENOrdering Facility: [facility] Address: [address] [place] [address] Performed By: #### 5 7021-8 ####[facility] [id number] [place] [address] [place] Immature granulocytes (Bld) [#/Vol] 10*3/uL Normal <0.10 [facility] Comment on above: Order Comment: Speci men Type: BLOOD SPECIMENOrdering Facility: [facility] Address: [address] [place] [address] Performed By: #### 5 7021-8 ####[facility] [id number] [place] [address] [place] Immature granulocytes/100 WBC (Bld) 0.1 % Normal [facility] Comment on above: Order Comment: Speci men Type: BLOOD SPECIMENOrdering Facility: [facility] Address: [address] [place] [address] Performed By: #### 5 7021-8 ####[facility]ITAL[facility] [id number] [place] [address] [place] Lymphocytes (Bld) [#/Vol] 1.79 10*3/uL Normal 1.00-4.00 [facility] Comment on above: Order Comment: Speci men Type: BLOOD SPECIMENOrdering Facility: [facility] Address: [address] [place] [address] Performed By: #### 5 7021-8 ####[facility] [id number] [place] [address] [place] Lymphocytes/100 WBC (Bld) 25.6 % Normal [facility] Comment on above: Order Comment: Speci men Type: BLOOD SPECIMENOrdering Facility: [facility] Address: [address] [place] [address] Performed By: #### 5 7021-8 ####[facility] [id number] [place] [address] [place] MCH (RBC) [Entitic mass] 29.3 pg Normal 26.0-34.0 [facility] Comment on above: Order Comment: Speci men Type: BLOOD SPECIMENOrdering Facility: [facility] Address: [address] [place] [address] Performed By: #### 5 7021-8 ####[facility] [id number] [place] [address] [place] MCHC (RBC) [Mass/Vol] 33.5 g/dL Normal 30.5-36.0 [facility] Comment on above: Order Comment: Speci men Type: BLOOD SPECIMENOrdering Facility: [facility] Address: [address] [place] [address] Performed By: #### 5 7021-8 ####[facility] [id number] [place] [address] [place] MCV (RBC) [Entitic vol] 87.6 fL Normal 80.0-100.0 [facility] Comment on above: Order Comment: Speci men Type: BLOOD SPECIMENOrdering Facility: [facility] Address: [address] [place], [place] [address] Performed By: #### 5 7021-8 ####[facility] [id number] [place] [address] [place] Monocytes (Bld) [#/Vol] 0.56 10*3/uL Normal <0.87 [facility] Comment on above: Order Comment: Speci men Type: BLOOD SPECIMENOrdering Facility: [facility] Address: [address] [place] [address] Performed By: #### 5 7021-8 ####[facility] [id number] [place] [address] [place] Monocytes/100 WBC (Bld) 8.0 % Normal [facility] Comment on above: Order Comment: Speci men Type: BLOOD SPECIMENOrdering Facility: [facility] Address: [address] [place] [address] Performed By: #### 5 7021-8 ####[facility] [id number] [place] [address] [place] Neutrophils (Bld) [#/Vol] 4.15 10*3/uL Normal 1.45-7.50 [facility] Comment on above: Order Comment: Speci men Type: BLOOD SPECIMENOrdering Facility: [facility] Address: [address] [place] [address] Performed By: #### 5 7021-8 ####[facility] [id number] [place] [address] [place] Neutrophils/100 WBC (Bld) 59.6 % Normal [facility] Comment on above: Order Comment: Speci men Type: BLOOD SPECIMENOrdering Facility: [facility] Address: [address] [place] [address] Performed By: #### 5 7021-8 ####[facility] [id number] [place] [address] [place] Nucleated RBC (Bld) [#/Vol] 10*3/uL Normal <0.01 [facility] Comment on above: Order Comment: Speci men Type: BLOOD SPECIMENOrdering Facility: [facility] Address: [address] [place] [address] Performed By: #### 5 7021-8 ####[facility] JULES [id number] [place] [address] [place] Nucleated RBC/100 WBC (Bld) [Ratio] 0.0 /100 WBC Normal [facility] Comment on above: Order Comment: Speci men Type: BLOOD SPECIMENOrdering Facility: [facility] Address: [address] [place] [address] Performed By: #### 5 7021-8 ####[facility] SHANELPERDUE HILLNCBRAD [id number] [place] [address] [place] Platelet mean volume (Bld) [Entitic vol] 9.2 fL Normal 9.0-12.7 [facility] Comment on above: Order Comment: Speci men Type: BLOOD SPECIMENOrdering Facility: [facility] Address: [address] [place] [address] Performed By: #### 5 7021-8 ####[facility] SHANELPERDUE HILLDAVEA [id number] [place] [address] [place] Platelets (Bld) [#/Vol] 141 10*3/uL Low 150-400 [facility] Comment on above: Order Comment: Speci men Type: BLOOD SPECIMENOrdering Facility: [facility] Address: [address] [place] [address] Performed By: #### 5 7021-8 ####[facility] [id number] [place] [address] [place] RBC (Bld) [#/Vol] 5.25 10*6/uL Normal 4.20-6.00 [facility] Comment on above: Order Comment: Speci men Type: BLOOD SPECIMENOrdering Facility: [facility] Address: [address] [place] [address] Performed By: #### 5 7021-8 ####[facility] SHANELTOWNCLIA [id number] [place] [address] [place] WBC (Bld) [#/Vol] 6.98 10*3/uL Normal 3.70-11.00 [facility] Comment on above: Order Comment: Speci men Type: BLOOD SPECIMENOrdering Facility: [facility] Address: [address] [place] [address] Performed By: #### 5 7021-8 ####[facility] SHANELTOWNCLIA [id number] [address] [place] CNPNon 12-01-2024 CNPN Telephone (ME2E) GUTIERREZ DE JESUS ([id number]) 1960 Date Time Provider Department 12/01/24 ROBERT EDGAR During your visit today, we recorded the following information about you: Law Garcia PSS 12/05/2024 11:34 AM Signed TOTAL JOINT COMPLETE CARE PROGRAM PRE-OPERATIVE TEACHING Service Date: 12/05/2024 Service Time: 11:21 AM Date of : 1960 Gender: male Date of Surgery: 12/23/24 Procedure: Right Total Knee Replacement Complete Care Program was discussed with the patient: Insurance Adviser Identification: Patient identified a career services director to help when discharged to home: Home Environment: Home Layout: double wide trailor, Entry Steps: 2, with rail, Bedroom Location: 1st floor, Bathroom Location: 1st floor, and tub shower. Pt owns cane, shower chair. Access to walker he believes. Discussed with patient importance of attending joint education class and provided date and times of class: YES declined Patient received Joint Education Binder: Yes [facility] SIGNATURE: ESTEPHANIA Jacobson PATIENT NAME: Gutierrez De Jesus DATE: December 01, 2024 TIME: 6:57 AM Law Garcia PSS 12/05/2024 11:36 AM Signed Patient states he was called about his lab results and was supposed to call back to discuss with someone but didn't know who. Please advise or call patient to discuss. Thanks. Allergies As of Date: 12/01/2024 (No Known Allergies) Date Reviewed: 12/01/2024 Reviewed by: Kacie Montelongo APRN.OFFICE RECEPTIONIST - Fully Assessed Reason for Visit: Pre-Op Teaching [134] Prescriptions as of 12/06/2024 - mupirocin (BACTROBAN) 2 % ointment Apply 0.5 inch with cotton swab (Q-tip) to each nostril in the morning and evening for 5 days prior to and including day of surgery. - empagliflozin (JARDIANCE) 25 mg tablet Take 1 tablet by mouth once daily. - lisinopril (ZESTRIL) 20 mg tablet Take 1 tablet by mouth once daily. - carvedilol (COREG) 25 mg tablet Take 2 tablets by mouth two times a day. - ergocalciferol 50,000 unit capsule (VITAMIN D2, DRISDOL) Take 1 capsule by mouth every 2 weeks. Use as directed. - famotidine (PEPCID) 20 mg tablet Take 1 tablet by mouth once daily. - metFORMIN (GLUCOPHAGE) 1,000 mg tablet Take 1 tablet by mouth two times a day. - mirtazapine (REMERON) 15 mg tablet Take 1 tablet by mouth daily at bedtime. - rosuvastatin (CRESTOR) 40 mg tablet Take 1 tablet by mouth daily at bedtime. - semaglutide (OZEMPIC) 1 mg/dose (4 mg/3 mL) pen Inject 1 mg subcutaneously one time a week. - tamsulosin (FLOMAX) 0.4 mg Take 2 capsules by mouth once daily. Problem List As Of Date 12/01/2024 Noted Resolved Hyperlipidemia LDL goal <100 [E78.5] 07/10/2006 Essential hypertension [I10] 03/13/2008 Diverticulitis of colon (without mention of hem*03/13/2008 10/23/2015 Cellulitis and abscess of toe, unspecified [L03*01/15/2009 10/23/2015 Ingrowing nail [L60.0] 01/15/2009 10/23/2015 Erectile dysfunction [N52.9] 01/12/2012 Morbid obesity due to excess calories (HCC) [E6*08/24/2015 Arthritis of both knees [M17.0] 08/24/2015 Lumbar degenerative disc disease [M51.369] 08/24/2015 Muscle contraction headache [G44.209] 10/23/2015 Situational depression [F43.21] 11/09/2015 Obstructive sleep apnea [G47.33] 06/19/2016 Torrez splint [S86.899A] 06/19/2016 Type 2 diabetes mellitus with microalbuminuria,*10/03 Spinal stenosis of lumbar region with radiculop*12/10/2016 Neurogenic bladder [N31.9] 12/10/2016 Intention tremor [G25.2] 03/24/2017 Chronic nonintractable headache [R51.9, G89.29] 03/24/2017 Elevated liver function tests [R79.89] 04/21/2017 Encounter Status:Closed by LAW GARCIA on 12/06/24 Normal [facility] Comprehensive metabolic 2000 panelon 12-01-2024 Albumin [Mass/Vol] 4.6 g/dL Normal 3.9-4.9 [facility] Comment on above: Order Comment: Speci men Type: BLOOD SPECIMENOrdering Facility: [facility] Address: [address] [place] [address] Performed By: #### 2 4323-8 ####[facility] LABIA [id number] [place] [address] [place] ALP [Catalytic activity/Vol] 62 U/L Normal 38-113 [facility] Comment on above: Order Comment: Speci men Type: BLOOD SPECIMENOrdering Facility: [facility] Address: [address] [place] [address] Performed By: #### 2 4323-8 ####[facility] [id number] [place] [id number] [place] ALT [Catalytic activity/Vol] 34 U/L Normal 10-54 [facility] Comment on above: Order Comment: Speci men Type: BLOOD SPECIMENOrdering Facility: [facility] Address: [address] [place] [address] Performed By: #### 2 4323-8 ####[facility] LABCLIA [id number] [place] [id number] [place] Anion gap [Moles/Vol] 10 mmol/L Normal 8-15 [facility] Comment on above: Order Comment: Speci men Type: BLOOD SPECIMENOrdering Facility: [facility] Address: [address] [place] [address] Performed By: #### 2 4323-8 ####[facility] LABCLIA [id number] [place] [address] [place] AST [Catalytic activity/Vol] 29 U/L Normal 14-40 [facility] Comment on above: Order Comment: Speci men Type: BLOOD SPECIMENOrdering Facility: [facility] Address: [address] [place], [place] [id number] Performed By: #### 2 4323-8 ####[facility] LABCLIA [id number] [place] [id number] [place] Bilirubin [Mass/Vol] 1.1 mg/dL Normal 0.2-1.3 [facility] Comment on above: Order Comment: Speci men Type: BLOOD SPECIMENOrdering Facility: [facility] Address: [address] [place] [id number] Performed By: #### 2 4323-8 ####[facility] LABCLIA [id number] [place] [id number] [place] Calcium [Mass/Vol] 9.8 mg/dL Normal 8.5-10.2 [facility] Comment on above: Order Comment: Speci men Type: BLOOD SPECIMENOrdering Facility: [facility] Address: [address] [place] [address] Performed By: #### 2 4323-8 ####[facility] LABCLIA [id number] [place] [address] [place] Chloride [Moles/Vol] 102 mmol/L Normal 98-107 [facility] Comment on above: Order Comment: Speci men Type: BLOOD SPECIMENOrdering Facility: [facility] Address: [address] [place] [address] Performed By: #### 2 4323-8 ####[facility] LABCLIA [id number] [place] [address] [place] CO2 [Moles/Vol] 25 mmol/L Normal 22-30 [facility] Comment on above: Order Comment: Speci men Type: BLOOD SPECIMENOrdering Facility: [facility] Address: [address] [place] [address] Performed By: #### 2 4323-8 ####[facility] LABCLIA [id number] [place] [address] [place] Creatinine [Mass/Vol] 1.52 mg/dL High 0.73-1.22 [facility] Comment on above: Order Comment: Speci men Type: BLOOD SPECIMENOrdering Facility: [facility] Address: [address] [place] [address] Performed By: #### 2 4323-8 ####[facility] LABIA [id number] [place] [address] [place] Creatinine and Glomerular filtration rate.predicted panel (S/P/Bld) 51 mL/min/1.73m??? Low >=60 [facility] Comment on above: Order Comment: Speci men Type: BLOOD SPECIMENOrdering Facility: [facility] Address: [address] [place] [address] Result Comment: Kaylee mated Glomerular Filtration Rate (eGFR) is calculated using the 2020 CKD-EPI creatinine equation. This equation utilizes serum creatinine, sex, and age as parameters. The creatinine assay has traceable calibration to isotope dilution-mass spectrometry. Refer to KDIGO guidelines for clinical interpretation. In patients with unstable renal function, e.g. those with acute kidney injury, the eGFR may not accurately reflect actual GFR. Performed By: #### 2 4323-8 ####[facility] LABCLIA [id number] [facility] [id number] [address] [place] Glucose [Mass/Vol] 123 mg/dL High 74-99 [facility] Comment on above: Order Comment: Speci men Type: BLOOD SPECIMENOrdering Facility: [facility] Address: [address] [place] [address] Result Comment: The [place] Diabetes Association (ADA) provides guidance for cutoff values for fasting glucose and random glucose. The ADA defines fasting as no caloric intake for at least 8 hours. Fasting plasma glucose results between 100 to 125 mg/dL indicate increased risk for diabetes (prediabetes). Fasting plasma glucose results greater than or equal to 126 mg/dL meet the criteria for diagnosis of diabetes. In the absence of unequivocal hyperglycemia, results should be confirmed by repeat testing. In a patient with classic symptoms of hyperglycemia or hyperglycemic crisis, random plasma glucose results greater than or equal to 200 mg/dL meet the criteria for diagnosis of diabetes. Reference: Standards of Medical Care in Diabetes 2016, [place] Diabetes Association. Diabetes Care. 2016.39(Suppl 1). Performed By: #### 2 4323-8 ####[facility] LABCLIA [id number] [employer] [address] [id number], [place] [address] [place] Potassium [Moles/Vol] 4.4 mmol/L Normal 3.7-5.1 [facility] Comment on above: Order Comment: Andres rodrigez Type: BLOOD SPECIMENOrdering Facility: [facility] Address: [address] [place] [id number] Performed By: #### 2 4323-8 ####[facility] LABCLIA [id number] [id number], [place] [address] [place] Protein [Mass/Vol] 7.3 g/dL Normal 6.3-8.0 [facility] Comment on above: Order Comment: Speci men Type: BLOOD SPECIMENOrdering Facility: [facility] Address: [address] [place], [place] [id number] Performed By: #### 2 4323-8 ####[facility] LABCLIA [id number] [address] [address] [place] Sodium [Moles/Vol] 137 mmol/L Normal 136-144 [facility] Comment on above: Order Comment: Speci men Type: BLOOD SPECIMENOrdering Facility: [facility] Address: [address] [place] [address] Performed By: #### 2 4323-8 ####[facility] LABCLIA [id number] [place] [id number] [place] Urea nitrogen [Mass/Vol] 18 mg/dL Normal 9-24 [facility] Comment on above: Order Comment: Speci men Type: BLOOD SPECIMENOrdering Facility: [facility] Address: [address] [place] [address] Performed By: #### 2 4323-8 ####[facility] LABCLIA [id number] [place] [id number] [place] [id number] 12-01-2024 ECG01 Ventricular Rate : 7 4 BPM Atrial Rate : 74 BPM P-R Interval : 254 ms QRS Duration : 92 ms Q-T Interval : 366 ms QTC Calculation(Bazett) : 406 ms Calculated P [place] : 33 degrees Calculated R [place] : -27 degrees Calculated T [place] : 46 degrees SINUS RHYTHM WITH 1ST DEGREE AV BLOCK OTHERWISE NORMAL ECG Confirmed by GANESH PIHLLIPS MD ([id number]) on 12/02/2024 5:14:37 PM NAME : GUTIERREZ DE JESUS PID : [id number] : 1960 Gender : Male Race : ORD : Procedure Date : Dec 01 2024 15:51:39 Edit Date : Dec 02 2024 17:14:41 Diagnosis: SINUS RHYTHM WITH 1ST DEGREE AV BLOCK OTHERWISE NORMAL ECG Confirmed by GANESH PHILLIPS MD ([id number]) on 12/02/2024 5:14:37 PM Test Reason : Location : 636 : [facility] Overread By : GANESH PHILLIPS MD Edited By : GANESH PHILLIPS MD Referred By : , Acquired by : Jayro bailey [facility] HISTORY PHYSICALon HISTORY PHYSICAL HNO ID: [id number] Author: KACIE MONTELONGO APRN.CNP Service: ? Author Type: Nurse Practitioner Type: H&P Filed: 12/13/2024 14:10 Note Text: [facility] HISTORY AND PHYSICAL EXAMINATION SERVICE DATE: 12/01/2024 SERVICE TIME: 2:10 PM PRIMARY CARE PHYSICIAN: Yobani Champagne MD Assessment Patient has the following medical conditions which may affect tracee-operative course: Situational depression Assessment: stable on rx per pt Obstructive sleep apnea Assessment: non-compliant with CPAP Former smoker Assessment: 3ppd/30 years, CXR pre-op normal, PFT's pending 12/09/2024, no dx of asthma and/or COPD Pre-op PFT's below-normal View Pulmonary Function Testing [ID [id number]] Essential hypertension Assessment: controlled on rx Last 14 BP Last 14 Encounter BP Readings: Date: BP: 12/01/2024 122/62 08/19/2024 134/80 06/07/2024 110/78 04/15/2022 158/92 03/11/2022 138/86 12/04/2021 142/96 06/04/2021 144/88 06/29/2017 115/74 03/24/2017 128/70 12/10/2016 120/76 09/30/2016 118/94 06/19/2016 108/74 02/21/2016 124/88 01/30/2016 118/80 Hyperlipidemia LDL goal <100 Assessment: c/w statin Elevated liver function tests Assessment: hx Albumin (g/dL) Date Value 12/01/2024 4.6 Bilirubin, Total (mg/dL) Date Value 12/01/2024 1.1 Alkaline Phosphatase (U/L) Date Value 12/01/2024 62 AST (U/L) Date Value 12/01/2024 29 ALT (U/L) Date Value 12/01/2024 34 Protein, Total (g/dL) Date Value 12/01/2024 7.3 Neurogenic bladder Assessment: hx[facility], pt gave vague hx Renal cyst Assessment: small mildly complex bilateral renal cysts per US in [facility] 2006, no follow up imaging noted, records requested from [place] CKD (chronic kidney disease) Assessment: Creatinine Date Value Ref Range Status 12/01/2024 1.52 (H) 0.73 - 1.22 mg/dL Final 06/29/2017 0.99 0.73 - 1.22 mg/dL Final 04/10/2017 1.01 0.73 - 1.22 mg/dL Final 10/02/2016 0.96 0.73 - 1.22 mg/dL Final Type 2 diabetes mellitus with microalbuminuria, without long-term current use of insulin (HCC) Assessment: controlled with weekly injectable and oral agent. Reviewed to hold injectable 7 FULL days prior to surgery, pt verbalized understanding. Hemoglobin A1C (%) Date Value 12/01/2024 6.8 06/29/2017 7.5 HGBA1C (%) Date Value 10/27/2018 9.0 1st degree AV block Assessment: per pre-op EKG, asymptomatic Intention tremor Assessment: controlled on rx GERD (gastroesophageal reflux disease) Assessment: controlled on rx Benign prostatic hyperplasia with lower urinary tract symptoms Assessment: controlled on rx BMI 36.0-36.9,adult Assessment: Body mass index is 36.86 kg/m?. History of renal cell cancer Assessment: s/p right partial nephrectomy ANESTHESIA FINDINGS: Intubation History: No history of difficult intubation Significant Anesthesia Considerations: none Airway History: No history of difficult airway Beck Activity Status Index: METS: Climb a flight of stairs or walk up a hill (5.50 METs) DASI Score: 5.5 Patient denies any chest pain or undue shortness of breath with the above physical activity. Clinical Frailty Scale: 3. Well, with treated comorbid disease STOP-Bang Score: Snores loudly Has been observed to stop breathing or choking/gasping during sleep Has or is being treated for high blood pressure BMI greater than 35 kg/m2 Patient over 50 years old Has a large neck Male patient Denies feeling tired, fatigued, or sleepy during the daytime STOP-Bang Score: 7 [id number] Score: Age: 65-74 Sex: male CHF history: No Hypertension history: Yes Stroke/TIA/thromboembol ism history: No Vascular disease history: No Diabetes history: Yes [id number] Score: 3 ARISCAT Score: Age: 51-80 Preoperative SpO2: 91-95% Respiratory infection in the last month: No Preoperative anemia: No Surgical incision: peripheral Duration of surgery: 2-3 hrs Emergency procedure: No ARISCAT Score: 27 I - PHYSICAL EVALUATION AIRWAY Patient intubated: No. Tracheostomy tube not present Mallampati: II. TM distance: >3 FB. Neck ROM: full ROM without neurological symptoms. Mouth opening: adequate. Short neck: no. Thick neck: yes Prado present: yes Lip Bite Test: I Microretrognathia/Micro nagthia/Recessed Chin: No DENTAL Dentures, upper: complete. Dentures, lower: complete. II - ANESTHESIA PLAN Anesthetic Plan: other Beta Kat Monitoring Plan Post Procedure Analgesic Plan Prepared for Surgery: optimally prepared for surgery. Labs, EKG, CXR-reviewed, okay to proceed-JL PFT-pending 12/09/2024-reviewed, okay to proceed- CONSULTS: Patient does not require consults for optimization at this time Planned Anesthetic: other anesthesia choice The Following Tests/Procedures Have Been Initiated: Orders Placed This Encounter XR CHEST 2V FRONTAL/LAT (more content not included)... Normal [facility] HbA1c (Bld)on 12-01-2024 Average glucose Estimated from glycated hemoglobin (Bld) [Mass/Vol] 148 mg/dL Normal [facility] Comment on above: Order Comment: Andres rodrigez Type: BLOOD SPECIMENOrdering Facility: [facility] Address: [address] [place] [address] Result Comment: eAG: (Estimated average glucose) is a calculated value from HgbA1c and is cash posting representative of the average blood glucose level in the last 2-3 month period. Performed By: #### 5 5454-3 ####[facility] LABCLIA [id number] [place] [address] [place] HbA1c (Bld) [Mass fraction] 6.8 % High 4.3-5.6 [facility] Comment on above: Order Comment: Andres rodrigez Type: BLOOD SPECIMENOrdering Facility: [facility] Address: [address] [place] [address] Result Comment: [place] Diabetes Association guidelines indicate that patients with HgbA1c in the range 5.7-6.4% are at increased risk for development of diabetes, and intervention by lifestyle modification may be beneficial. HgbA1c greater or equal to 6.5% is considered diagnostic of diabetes. Performed By: #### 5 5454-3 ####[facility] LABCLIA [id number] [address] XR CHEST 2V FRONTAL/LATon XR CHEST 2V FRONTAL/LAT * * *Final Report* * * DATE OF EXAM: Dec 01 2024 4:44PM [id number] - XR CHEST 2V FRONTAL/LAT / PROCEDURE REASON: Pre-operative examination * * * * Physician Interpretation * * * * EXAMINATION: CHEST RADIOGRAPH (2 VIEW FRONTAL and LATERAL) CLINICAL HISTORY: Pre-operative examination MQ: XC2_6 EXAM DATE/TIME: 12/01/2024 4:44 PM COMPARISON: No relevant prior studies available. RESULT: Lines, tubes, and devices: None. Lungs and pleura: No consolidation. No lung mass. No pleural effusion. No pneumothorax. Cardiomediastinal silhouette: Normal cardiomediastinal silhouette. Bones and soft tissues: Unremarkable. IMPRESSION: No acute radiographic abnormality. Supervisor Forming Department: JORDAN Transcribe Date/Time: Dec 01 2024 4:45P Dictated by : KAREN BLACKWOOD MD This examination was interpreted and the report reviewed and electronically signed by: KAREN BLACKWOOD MD on Dec 01 2024 4:45PM EST [id number] Normal [facility] XR Chest PA and Lateralon IMPRESSION: No acute radiographic abnormality. Supervisor Forming Department: PSCB Transcribe Date/Time: Dec 01 2024 4:45P Dictated by : KAREN BLACKWOOD MD This examination was interpreted and the report reviewed and electronically signed by: KAREN BLACKWOOD MD on Dec 01 2024 4:45PM EST DIVISION OF RADIOLOGY * * *Final Report* * * DATE OF EXAM: Dec 01 2024 4:44PM [id number] - XR CHEST 2V FRONTAL/LAT / PROCEDURE REASON: Pre-operative examination * * * * Physician Interpretation * * * * EXAMINATION: CHEST RADIOGRAPH (2 VIEW FRONTAL & LATERAL) CLINICAL HISTORY: Pre-operative examination MQ: XC2_6 EXAM DATE/TIME: 12/01/2024 4:44 PM COMPARISON: No relevant prior studies available. RESULT: Lines, tubes, and devices: None. Lungs and pleura: No consolidation. No lung mass. No pleural effusion. No pneumothorax. Cardiomediastinal silhouette: Normal cardiomediastinal silhouette. Bones and soft tissues: Unremarkable. DIVISION OF RADIOLOGY Provider, Laura West Patricia - 12/01/2024 * * *Final Report* * * DATE OF EXAM: Dec 01 2024 4:44PM [id number] - XR CHEST 2V FRONTAL/LAT / PROCEDURE REASON: Pre-operative examination * * * * Physician Interpretation * * * * EXAMINATION: CHEST RADIOGRAPH (2 VIEW FRONTAL & LATERAL) CLINICAL HISTORY: Pre-operative examination MQ: XC2_6 EXAM DATE/TIME: 12/01/2024 4:44 PM COMPARISON: No relevant prior studies available. RESULT: Lines, tubes, and devices: None. Lungs and pleura: No consolidation. No lung mass. No pleural effusion. No pneumothorax. Cardiomediastinal silhouette: Normal cardiomediastinal silhouette. Bones and soft tissues: Unremarkable. IMPRESSION IMPRESSION: No acute radiographic abnormality. Supervisor Forming Department: JORDAN Transcribe Date/Time: Dec 01 2024 4:45P Dictated by : KAREN BLACKWOOD MD This examination was interpreted and the report reviewed and electronically signed by: KAREN BLACKWOOD MD on Dec 01 2024 4:45PM EST [facility] Radiology Study observation (narrative) [facility] XR Chest PA and LateralOrder ed By: Cc Provider on 12-01-2024 [facility] CNCOon 11-30-2024 CNCO Letter Text Normal [facility] CNPNon 11-30-2024 CNPN Telephone (ORTHWS) GUTIERREZ DE JESUS ([id number]) 1960 M Date Time Provider Department 11/30/24 ROBERT EDGAR During your visit today, we recorded the following information about you: Kelli Monson MA 11/30/2024 2:17 PM Signed Surgical request completed for robotic assisted right TKA at [facility] on 12/23/2024. CT scan scheduled for 12/23/2024. Post op appointments have been scheduled and mailed to the patient. Email sent to [employer] [facility]. Kelli Monson MA 11/30/2024 2:28 PM Signed Surgery has been scheduled as requested. Allergies As of Date: 11/30/2024 (No Known Allergies) Date Reviewed: 11/28/2024 Reviewed by: Robert Edgar MD - Fully Assessed Reason for Visit: Schedule Surgery [1330] Primary Visit Diagnosis:Primary osteoarthritis of right knee [M17.11] Order(s):SURGICAL REQUEST - ELECTIVE (03/2020) [[id number]] Order #: [id number]: 1 Prescriptions as of 11/30/2024 - empagliflozin (JARDIANCE) 25 mg tablet Take 1 tablet by mouth once daily. - lisinopril (ZESTRIL) 20 mg tablet Take 1 tablet by mouth once daily. - carvedilol (COREG) 25 mg tablet Take 2 tablets by mouth two times a day. - ergocalciferol 50,000 unit capsule (VITAMIN D2, DRISDOL) Take 1 capsule by mouth every 2 weeks. Use as directed. - famotidine (PEPCID) 20 mg tablet Take 1 tablet by mouth once daily. - metFORMIN (GLUCOPHAGE) 1,000 mg tablet Take 1 tablet by mouth two times a day. - mirtazapine (REMERON) 15 mg tablet Take 1 tablet by mouth daily at bedtime. - rosuvastatin (CRESTOR) 40 mg tablet Take 1 tablet by mouth daily at bedtime. - semaglutide (OZEMPIC) 1 mg/dose (4 mg/3 mL) pen Inject 1 mg subcutaneously one time a week. - tamsulosin (FLOMAX) 0.4 mg Take 2 capsules by mouth once daily. Problem List As Of Date 11/30/2024 Noted Resolved Hyperlipidemia LDL goal <100 [E78.5] 07/10/2006 Essential hypertension [I10] 03/13/2008 Diverticulitis of colon (without mention of hem*03/13/2008 10/23/2015 Cellulitis and abscess of toe, unspecified [L03*01/15/2009 10/23/2015 Ingrowing nail [L60.0] 01/15/2009 10/23/2015 Erectile dysfunction [N52.9] 01/12/2012 Morbid obesity due to excess calories (HCC) [E6*08/24/2015 Arthritis of both knees [M17.0] 08/24/2015 Lumbar degenerative disc disease [M51.369] 08/24/2015 Muscle contraction headache [G44.209] 10/23/2015 Situational depression [F43.21] 11/09/2015 Obstructive sleep apnea [G47.33] 06/19/2016 Torrez splint [S86.899A] 06/19/2016 Type 2 diabetes mellitus with microalbuminuria,*10/03 Spinal stenosis of lumbar region with radiculop*12/10/2016 Neurogenic bladder [N31.9] 12/10/2016 Intention tremor [G25.2] 03/24/2017 Chronic nonintractable headache [R51.9, G89.29] 03/24/2017 Elevated liver function tests [R79.89] 04/21/2017 Encounter Status:Closed by KELLI MONSON on 11/30/24 [facility] CNOVon 11-28-2024 CNOV Office Visit (ALIS ) GUTIERREZ DE JESUS ([id number]) 1960 Za Date Time Provider Department 11/28/24 9:00 AM ROBERT EDGAR During your visit today, we recorded the following information about you: Robert Edgar MD 11/28/2024 2:04 PM Signed CONSULT ORTHOPAEDIC: KNEE PRIMARY CARE PHYSICIAN: Yobani Champagne MD REFERRING PROVIDER: No referring provider defined for this encounter. ASSESSMENT AND PLAN Impression: Right Knee Severe Degenerative Osteoarthritis, Primary Diagnoses: (M25.561, G89.29) Chronic pain of right knee (primary encounter diagnosis) (M17.11) Primary osteoarthritis of right knee Based upon the evaluation today and after discussions with Gutierrez De Jesus, Gutierrez De Jesus has significant, worsening pain at the knee. This pain is increased with activity and weight bearing, and interferes with activities of daily living. These symptoms have continued despite a number of non-surgical measures, including a trial of oral pain medication and attempted physical therapy/ structured exercise program and/or use of an assistive device/ bracing (for at least 12 weeks unless the patient was unable to tolerate these measures as discussed above). At this point, the patient will not benefit from further PT due to the severity of their condition. The patient's physical examination is consistent with limitations in range of motion, pain with passive range of motion, crepitus, and effusion/ synovitis. These examination findings are corroborated by imaging findings of joint space narrowing, periarticular osteophyte formation, and subchondral sclerosis. The patient has been treated by the practice and all reasonable treatments have failed to control the disease, which causes significant pain and limits activities of daily living. The patient has failed conservative treatment and joint replacement surgery was discussed and agreed upon by both provider and patient. We will proceed with surgical management to improve function and relieve pain refractory to non-surgical measures. Right Primary Total Knee Arthroplasty as evidenced by six months of unsuccessful non-operative treatment as outlined in the HPI below and progressive symptoms. Progressive Symptoms Include: Pain worsened by weight bearing Pain effecting living situation Unable to ambulate 2 blocks without significant pain and dysfunction . Surgery Details Date and Location: At [place] Implants: [place] Robotic: Yes Predicted LOS: 2 days (Inpatient candidate) Informed consent obtained in the office today. The risks and benefits of surgery were discussed at length including but not limited to the risks of infection, bleeding, nerve or blood vessel injury, deep venous thrombosis, pulmonary embolism, arthrofibrosis, reflex sympathetic dystrophy, , paralysis, knee or patellar dislocation, extensor mechanism injury, bone fracture, component loosening or failure requiring re-operation or amputation. Informed consent was obtained and the patient was scheduled for surgery. We also discussed fixation strategies including cement and cementless fixation and advantages and disadvantages of each. We discussed the details of the surgery as well as rehabilitation. All questions were answered, and the patient wishes to proceed with surgery.. The patient has been ordered: Office Visit on 11/28/24 empagliflozin (JARDIANCE) [address] Gutierrez De Jesus meets the following criteria for CT: Nayan protocols CONSULTS: Patient does not require consults for optimization at this time. Total Joint Arthroplasty: Risk Calculator Gutierrez De Jesus has a 9.55% chance of NOT returning home at discharge for a Primary total Knee replacement. Gutierrez's estimated Length of Stay is 2 days (Inpatient candidate). Gutierrez's 30 day chance of readmission is 1.93%. Readmission Probability 1.93 % (within 30 days following surgery) Estimated LOS 2 days Discharge Disposition Probability D/C to Home 90.45 % D/C to SNF 9.55 % These calculations are based on the following factors: - 63 years of age - sex is male - BMI of 37 kg/m2 - NarxCare score of 20 - 0 hospitalizations in the last 12 months - no history of heart disease - history of diabetes - no history of COPD - no history of anemia - preoperative ambulation: impaired community distances - 2 step(s) to enter home - bed location is on the first floor - bath location is on the first floor - caregiver is consistent - home is not more than 150 miles away - PROMIS-10 Mental Health T score 50+ - Marital status: Risk Factors for Total Knee Arthroplasty (TKA) Major Risk Factors Obesity Moderate Risk High: BMI > 40 Moderate: BMI 30-40 Normal: BMI < 30 Diabetes High Risk High: A1C > 8 Moderate: A1C 7-8 Normal: A1C < 7 Hx of DVT / PE normal High: dx of DVT / PE Normal (more content not included)... [facility] XR KNEE 4V AP/PA BOTH+LAT/ME R RTon 11-28-2024 XR KNEE 4V AP/PA BOTH+LAT/DAVID RT * * *Final Report* * * DATE OF EXAM: Nov 28 2024 9:22AM [id number] - XR KNEE 4V AP/PA BOTH+LAT/DAVID RT / PROCEDURE REASON: Right knee pain, unspecified chronicity * * * * Physician Interpretation * * * * EXAMINATION / TECHNIQUE: XR KNEE 4V AP/PA BOTH+LAT/DAVID RT HISTORY: PT STATES HISTORY OF RIGHT KNEE INJURY BACK IN THE 80'S SURGERY CONSULT TODAY Right knee pain, unspecified chronicity COMPARISON: 05/27/2013. RESULT: No acute fracture or dislocation. Severe medial compartment osteoarthritis. No significant joint effusion. IMPRESSION: Severe osteoarthritis. Supervisor Forming Department: JORDAN Transcribe Date/Time: Dec 02 2024 6:10A Dictated by : BI LEIGH MD This examination was interpreted and the report reviewed and electronically signed by: BI LEIGH MD on Dec 02 2024 6:10AM EST [id number] [facility] CNPNon 09-09-2024 CNPN Telephone (ORMDNA) GUTIERREZ DE JESUS ([id number]) 1960 Date Time Provider Department 09/09/24 [facility] PROVIDER [facility]MD[facility] During your visit today, we recorded the following information about you: Marisa Shah 09/09/2024 1:35 PM Signed [facility] schedule with one of the providers for an appointment for OA of the right knee. First available. No one specific provider. Referral # [id number] Let me know when he schedules. The cover sheet needs to be faxed back with the appointment day/time and physician so the information can be updated. Thank you. Tamara Sherwood 09/12/2024 8:33 AM Signed Attempted to lvm inbox was full will send a mychart and follow up with another call. Tamara Johnson 09/13/2024 8:58 AM Signed Attempted to call all contacts on patients chart and leave voicemail's unable too sent a my chart in order for patient to be seen by one our providers. Allergies As of Date: 09/09/2024 (No Known Allergies) Date Reviewed: 08/19/2024 Reviewed by: bEony Conklin LPN - Fully Assessed Reason for Visit: Appointment [[id number]] Prescriptions as of 10/11/2024 - lisinopril (ZESTRIL) 20 mg tablet Take 1 tablet by mouth once daily. - carvedilol (COREG) 25 mg tablet Take 2 tablets by mouth two times a day. - ergocalciferol 50,000 unit capsule (VITAMIN D2, DRISDOL) Take 1 capsule by mouth every 2 weeks. Use as directed. - famotidine (PEPCID) 20 mg tablet Take 1 tablet by mouth once daily. - metFORMIN (GLUCOPHAGE) 1,000 mg tablet Take 1 tablet by mouth two times a day. - mirtazapine (REMERON) 15 mg tablet Take 1 tablet by mouth daily at bedtime. - rosuvastatin (CRESTOR) 40 mg tablet Take 1 tablet by mouth daily at bedtime. - semaglutide (OZEMPIC) 1 mg/dose (4 mg/3 mL) pen Inject 1 mg subcutaneously one time a week. - tamsulosin (FLOMAX) 0.4 mg Take 2 capsules by mouth once daily. Problem List As Of Date 09/09/2024 Noted Resolved Hyperlipidemia LDL goal <100 [E78.5] 07/10/2006 Essential hypertension [I10] 03/13/2008 Diverticulitis of colon (without mention of hem*03/13/2008 10/23/2015 Cellulitis and abscess of toe, unspecified [L03*01/15/2009 10/23/2015 Ingrowing nail [L60.0] 01/15/2009 10/23/2015 Erectile dysfunction [N52.9] 01/12/2012 Morbid obesity due to excess calories (HCC) [E6*08/24/2015 Arthritis of both knees [M17.0] 08/24/2015 Lumbar degenerative disc disease [M51.369] 08/24/2015 Muscle contraction headache [G44.209] 10/23/2015 Situational depression [F43.21] 11/09/2015 Obstructive sleep apnea [G47.33] 06/19/2016 Torrez splint [S86.899A] 06/19/2016 Type 2 diabetes mellitus with microalbuminuria,*10/03 Spinal stenosis of lumbar region with radiculop*12/10/2016 Neurogenic bladder [N31.9] 12/10/2016 Intention tremor [G25.2] 03/24/2017 Chronic nonintractable headache [R51.9, G89.29] 03/24/2017 Elevated liver function tests [R79.89] 04/21/2017 Encounter Status:Closed by MARISA SHAH on 10/11/24 [facility] CNPNon 08-24-2024 CNPN Telephone (FAMPWS) JAJAGUTIERREZ R ([id number]) 1960 Date Time Provider Department 08/24/24 Y[facility]AMPAG[facility] During your visit today, we recorded the following information about you: Dilcia Grover, STUART 08/24/2024 12:14 PM Signed Natasha from [facility] called and reports she received a fax from providers office. She states she doesn't know what provider wants faxed. She states it just says medical records. She said if provider is wanting medical records the fax # for medical records is [phone]. She said radiology can put images on a disc and to request that you would send to fax # [phone]. She states they can push images since we a [facility], but we would have to call the file room and have them uploaded.Please refax what information you need and be more specific for them. I didn't see where the [facility] was fax[facility] by providers office and what they needed. Yobani Champagne MD 08/24/2024 12:19 PM Signed I need last six months of office notes and labs. Dilcia Grover, STUART 08/25/2024 11:47 AM Signed Sent fax to [facility] at # [phone] to send last 6 month of office visit notes and labs to providers office. Taisha Stanley MA 08/29/2024 4:10 PM Signed Received disc with images AND OV notes. Forwarding to MR Aleksey Dubon. Taisha Stanley MA Allergies As of Date: 08/24/2024 (No Known Allergies) Date Reviewed: 08/19/2024 Reviewed by: Ebony Conklin LPN - Fully Assessed Reason for Visit: Fax Requesting Medical Records [Other] Prescriptions as of 08/29/2024 - lisinopril (ZESTRIL) 20 mg tablet Take 1 tablet by mouth once daily. - carvedilol (COREG) 25 mg tablet Take 2 tablets by mouth two times a day. - ergocalciferol 50,000 unit capsule (VITAMIN D2, DRISDOL) Take 1 capsule by mouth every 2 weeks. Use as directed. - famotidine (PEPCID) 20 mg tablet Take 1 tablet by mouth once daily. - metFORMIN (GLUCOPHAGE) 1,000 mg tablet Take 1 tablet by mouth two times a day. - mirtazapine (REMERON) 15 mg tablet Take 1 tablet by mouth daily at bedtime. - rosuvastatin (CRESTOR) 40 mg tablet Take 1 tablet by mouth daily at bedtime. - semaglutide (OZEMPIC) 1 mg/dose (4 mg/3 mL) pen Inject 1 mg subcutaneously one time a week. - tamsulosin (FLOMAX) 0.4 mg Take 2 capsules by mouth once daily. Problem List As Of Date 08/24/2024 Noted Resolved Hyperlipidemia LDL goal <100 [E78.5] 07/10/2006 Essential hypertension [I10] 03/13/2008 Diverticulitis of colon (without mention of hem*03/13/2008 10/23/2015 Cellulitis and abscess of toe, unspecified [L03*01/15/2009 10/23/2015 Ingrowing nail [L60.0] 01/15/2009 10/23/2015 Erectile dysfunction [N52.9] 01/12/2012 Morbid obesity due to excess calories (HCC) [E6*08/24/2015 Arthritis of both knees [M17.0] 08/24/2015 Lumbar degenerative disc disease [M51.369] 08/24/2015 Muscle contraction headache [G44.209] 10/23/2015 Situational depression [F43.21] 11/09/2015 Obstructive sleep apnea [G47.33] 06/19/2016 Torrez splint [S86.899A] 06/19/2016 Type 2 diabetes mellitus with microalbuminuria,*10/03 Spinal stenosis of lumbar region with radiculop*12/10/2016 Neurogenic bladder [N31.9] 12/10/2016 Intention tremor [G25.2] 03/24/2017 Chronic nonintractable headache [R51.9, G89.29] 03/24/2017 Elevated liver function tests [R79.89] 04/21/2017 Encounter Status:Closed by DILCIA GROVER on 08/25/24 [facility] CNOVon 08-19-2024 CNOV Office Visit (FAMPWS ) GUTIERREZ DE JESUS ([id number]) 1960 Date Time Provider Department 08/19/24 8:00 [facility] your visit today, we recorded the following information about you: Temperature Pulse Respiration Blood pressure 98.9 degrees 105/minute 16/minute 134/80 Weight Height 110.6 kg 1.727 m Yobani Champagne MD 08/19/2024 3:05 PM Signed Patient presents with: Establish Care: sees [facility] in [place], last seen eye doctor in February 2024 HPI: Patient presents today for office visit to establish care. Has not been seen at [facility] since 2016, Previous patient of Dr. Browning. Sees the [place]. DM: Is unsure of current meds. Will call with them. Checking sugars - on and off. Have overall been ok. Hypoglycemic spells:none. Vision changes:none Last eye exam: January Foot lesions, numbness or pain: none Unexpected weight loss:none No polyuria or polydipsia. [facility]. Just recently had labs done. HTN: Monitors BP: does not Chest pain or shortness of breath:no Headaches or dizziness:no Palpitations or syncope:no Edema:none HLD: Currently taking Atorvastatin 40 mg daily. -he thinks he takes it No myalgias Will get copy of labs. GIULIA: not treating. [facility] working with [facility]. MEDICATIONS: Current Outpatient Medications Medication Sig empagliflozin (JARDIANCE) 10 mg tablet Take 10 mg by mouth daily with breakfast. metFORMIN (GLUCOPHAGE) 1,000 mg tablet Take 1 tablet by mouth twice daily. glimepiride (AMARYL) 4 mg tablet Take 1 tablet by mouth daily with breakfast. therapeutic multivitamin (THERA VITAMIN) tablet Take 1 tablet by mouth once daily. atorvastatin (LIPITOR) 40 mg tablet Take 1 tablet by mouth daily at bedtime. For cholesterol. FISH OIL CAP Take one(1) tablet daily. lisinopril (ZESTRIL, PRINIVIL) 40 mg tablet Take 1 tablet by mouth once daily. lancets (UNILET LANCETS) 30 gauge misc Use as directed to test blood sugars 2-3 times daily Lancets lancets Use as instructed to test blood sugar 2-3 x daily blood sugar diagnostic (FREESTYLE LITE STRIPS) test strip Use as instructed to test blood sugar 2-3 x daily No current facility-administered medications for this visit. 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 PAST SURGICAL HISTORY Procedure Laterality Date ARTHROSCOPY KNEE DIAGNOSTIC W/WO SYNOVIAL BX SPX Arthroscopy, knee right: medial and lateral meniscal repair COLONOSCOPY FLX DX W/COLLJ SPEC WHEN PFRMD 06/17/2013 Colonoscopy CYSTO W/INSERT URETERAL STENT REPAIR FIRST ABDOMINAL WALL HERNIA Hernia repair, incisional age 5 TONSILLECTOMY PRIMARY/SECONDARY Tonsillectomy alone FAMILY HISTORY Problem Relation Age of Onset Prostate Cancer Paternal Grandfather Diabetes Paternal Grandmother Diabetes Sister other (CHF [Other]) Father other (lung cancer [Other]) Father other (TB [Other]) Mother Social History Tobacco Use Smoking status: Former Current packs/day: 3.00 Average packs/day: 3.0 packs/day for 30.0 years (90.0 ttl pk-yrs) Types: Cigarettes Smokeless tobacco: Current Types: Snuff Tobacco comments: quit smoking in 1999. does snuff currently. 3 cans a week Substance Use Topics Alcohol use: No Drug use: No Comment: caffeine Reviewed current medications, allergies, past medical history, surgical history, family history and social history today. REVIEW OF SYSTEMS No gi or gu issues. All other reviewed and negative other than HPI. HEALTH MAINTENANCE: Reviewed health maintenance issues today and recommended the following in detail. Abdominal Aortic Aneurysm Screening -thinks was done via [facility] Annual PCP Team Chronic Disease Visit Never done Anxiety Screening Never done Prostate Cancer Screening -per [facility] Dilated Retinal Exam due on 10/22/2017 Diabetic Foot Exam -per [facility] in Apr Colorectal Cancer Screening -[facility] through the [facility] RSV Vaccine(1 - Risk 60-74 years 1-dose series) Never done Influenza Vaccine(1) due on 04/03/2024 Covid-19 Vaccine(2023- season) due on 04/03/2024 Advance Directive Discussion Never done Just [facility] VITALS: BP 134/80 (BP Site: Left Arm, BP Position: Sitting, BP Cuff Size: Large Adult) Pulse 105 Temp 37.2 ?C (98.9 ?F) (Tempora (more content not included)... Normal [facility] CNOVon 06-07-2024 CNOV Office Visit (UCWSTR ) GUTIERREZ DE JESUS ([id number]) 1960 M Date Time Provider Department 06/07/24 9:45 AM [facility] During your visit today, we recorded the following information about you: Temperature Pulse Respiration Blood pressure 97.6 degrees 84/minute 16/minute 110/78 Weight 108.2 kg Marcelino Santa APRN.OFFICE RECEPTIONIST 06/07/2024 10:01 AM Signed Subjective HPI Nontoxic-appearing male presents urgent care chief complaint possible sinus affection. Duration of symptom 1 week. Associated symptoms sinus pressure headache. Does have cough. Believes it is related to postnasal drip. OTC medications none recently. Did try sinus rinses helped a little. Denies any fever. No history of sinus surgery. History of sinus infections. Past medical history prescription medications allergies reviewed.. 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 MEDICATIONS insulin lispro (HUMALOG U-100 INSULIN SUBCUTANEOUS) Inject subcutaneously. empagliflozin (JARDIANCE) 10 mg tablet Take 10 mg by mouth daily with breakfast. metoprolol tartrate, short acting, (LOPRESSOR) 25 mg tablet Take 2 tablets by mouth twice daily. lisinopril (ZESTRIL, PRINIVIL) 40 mg tablet Take 1 tablet by mouth once daily. metFORMIN (GLUCOPHAGE) 1,000 mg tablet Take 1 tablet by mouth twice daily. glimepiride (AMARYL) 4 mg tablet Take 1 tablet by mouth daily with breakfast. lancets (UNILET LANCETS) 30 gauge [facility] Use as directed to test blood sugars 2-3 times daily therapeutic multivitamin (THERA VITAMIN) tablet Take 1 tablet by mouth once daily. atorvastatin (LIPITOR) 40 mg tablet Take 1 tablet by mouth daily at bedtime. For cholesterol. omeprazole (PRILOSEC) 20 mg capsule Take 1 capsule by mouth daily before breakfast. 1/2 hr before meal. Lancets lancets Use as instructed to test blood sugar 2-3 x daily blood sugar diagnostic (FREESTYLE LITE STRIPS) test strip Use as instructed to test blood sugar 2-3 x daily ASPIRIN 81 MG TAB Take one(1) tablet daily. FISH OIL CAP Take one(1) tablet daily. Hydrochlorothiazide 12.5 mg capsule Take 1 capsule by mouth once daily. (Patient not taking: Reported on 06/04/2021 ) alogliptin (NESINA) 25 mg tab Take 25 mg by mouth once daily. (Patient not taking: Reported on 06/04/2021 ) FLUoxetine HCl (PROZAC) 40 mg capsule Take 1 capsule by mouth once daily. (Patient not taking: Reported on 06/04/2021 ) amLODIPine (NORVASC) 5 mg tablet Take 1 tablet by mouth once daily. (Patient not taking: Reported on 06/04/2021 ) Blood-Glucose Meter (FREESTYLE LITE METER) monitoring kit 1 Each as needed. (Patient not taking: Reported on 04/15/2022) naproxen (NAPROSYN) 500 mg tablet Take 1 tablet by mouth twice daily as needed. (Patient not taking: Reported on 06/04/2021 ) FAMILY HISTORY Problem Relation Age of Onset Prostate Cancer Paternal Grandfather Diabetes Paternal Grandmother Diabetes Sister other (CHF [Other]) Father other (lung cancer [Other]) Father other (TB [Other]) Mother Social History Tobacco Use Smoking status: Former Current packs/day: 3.00 Average packs/day: 3.0 packs/day for 30.0 years (90.0 ttl pk-yrs) Types: Cigarettes Smokeless tobacco: Current Types: Snuff Tobacco comments: quit smoking in 1999. does snuff currently. 3 cans a week Substance Use Topics Alcohol use: No Drug use: No Comment: caffeine BP 110/78 Pulse 84 Temp 36.4 ?C (97.6 ?F) (Tympanic) Resp 16 Wt 108.2 kg (238 lb 8.6 oz) SpO2 97% BMI 36.27 kg/m? Review of Systems Constitutional: Negative for chills, fever and malaise/fatigue. HENT: Positive for congestion and sinus pain. Negative for ear discharge, ear pain and sore throat. Eyes: Negative for blurred vision, pain, discharge and redness. Respiratory: Positive for cough. Negative f (more content not included)... [facility] GUTIERREZ DE JESUS ([id number]) 1960 [place] Date Time Provider Department 06/06/24 YOBANI CHAMPAGNE [facility] During your visit today, we recorded the following information about you: Gail Paredes LPN 06/06/2024 2:32 PM Signed Pt 's calls asking if Dr. Champagne will take him as a pt. This nurse explains he is not taking new pts. She says just ask him I am sure he will our whole family sees him. Please advise. Marina Ansari LPN 06/09/2024 2:28 PM Signed Will need scheduled for a [address] Champagne only. Kathrine Beavers 06/09/2024 7:03 PM Signed Patient contacted and scheduled with Dr. Champagne, Mailed appointment reminder Allergies As of Date: 06/06/2024 (No Known Allergies) Date Reviewed: 03/11/2022 Reviewed by: Bi Lucas APRN.OFFICE RECEPTIONIST - Fully Assessed Prescriptions as of 06/09/2024 - doxycycline (VIBRA-TABS) 100 mg tablet Take 1 tablet by mouth two times a day for 5 days. - fluticasone (FLONASE) 50 mcg/actuation nasal spray Use 2 Sprays in each nostril once daily. Rinse mouth after use. - insulin lispro (HUMALOG U-100 INSULIN SUBCUTANEOUS) Inject subcutaneously. - empagliflozin (JARDIANCE) 10 mg tablet Take 10 mg by mouth daily with breakfast. - metoprolol tartrate, short acting, (LOPRESSOR) 25 mg tablet Take 2 tablets by mouth twice daily. - lisinopril (ZESTRIL, PRINIVIL) 40 mg tablet Take 1 tablet by mouth once daily. - metFORMIN (GLUCOPHAGE) 1,000 mg tablet Take 1 tablet by mouth twice daily. - glimepiride (AMARYL) 4 mg tablet Take 1 tablet by mouth daily with breakfast. - Hydrochlorothiazide 12.5 mg capsule Take 1 capsule by mouth once daily. - lancets (UNILET LANCETS) 30 gauge misc Use as directed to test blood sugars 2-3 times daily - alogliptin (NESINA) 25 mg tab Take 25 mg by mouth once daily. - therapeutic multivitamin (THERA VITAMIN) tablet Take 1 tablet by mouth once daily. - FLUoxetine HCl (PROZAC) 40 mg capsule Take 1 capsule by mouth once daily. - atorvastatin (LIPITOR) 40 mg tablet Take 1 tablet by mouth daily at bedtime. For cholesterol. - omeprazole (PRILOSEC) 20 mg capsule Take 1 capsule by mouth daily before breakfast. 1/2 hr before meal. - Lancets lancets Use as instructed to test blood sugar 2-3 x daily - blood sugar diagnostic (FREESTYLE LITE STRIPS) test strip Use as instructed to test blood sugar 2-3 x daily - amLODIPine (NORVASC) 5 mg tablet Take 1 tablet by mouth once daily. - Blood-Glucose Meter (FREESTYLE LITE METER) monitoring kit 1 Each as needed. - naproxen (NAPROSYN) 500 mg tablet Take 1 tablet by mouth twice daily as needed. - ASPIRIN 81 MG TAB Take one(1) tablet daily. - FISH OIL CAP Take one(1) tablet daily. Problem List As Of Date 06/06/2024 Noted Resolved Hyperlipidemia LDL goal <100 [E78.5] 07/10/2006 Essential hypertension [I10] 03/13/2008 Diverticulitis of colon (without mention of hem*03/13/2008 10/23/2015 Cellulitis and abscess of toe, unspecified [L03*01/15/2009 10/23/2015 Ingrowing nail [L60.0] 01/15/2009 10/23/2015 Erectile dysfunction [N52.9] 01/12/2012 Morbid obesity due to excess calories (HCC) [E6*08/24/2015 Arthritis of both knees [M17.0] 08/24/2015 Lumbar degenerative disc disease [M51.369] 08/24/2015 Muscle contraction headache [G44.209] 10/23/2015 Situational depression [F43.21] 11/09/2015 Obstructive sleep apnea [G47.33] 06/19/2016 Torrez splint [S86.899A] 06/19/2016 Type 2 diabetes mellitus with microalbuminuria,*10/03 Spinal stenosis of lumbar region with radiculop*12/10/2016 Neurogenic bladder [N31.9] 12/10/2016 Intention tremor [G25.2] 03/24/2017 Chronic nonintractable headache [R51.9, G89.29] 03/24/2017 Elevated liver function tests [R79.89] 04/21/2017 Encounter Status:Closed by KATHRINE BEAVERS on 06/09/24 [facility] Absolute lymphocyte countOrd ered By: Dr. Turcios on 09-23-2022 Lymphocytes Auto (Unsp spec) [#/Vol] 1.18 10*3/uL 0.83-4.51 [facility] Basophil percentageOrdered B y: Dr. Turcios on 09-23-2022 Basophils/100 WBC (Bld) 0.6 % 0-1 [facility] Bilirubin [Mass/Vol] 0.70 mg/dL 0.20-1.00 [facility] Comment on above: For patients on eltr ombopag therapy, use of Dimension [place] TBIL is not recommended. Chloride [Moles/Vol] 102 mmol/L 98-107 [facility] Eosinophils/100 WBC (Bld) 2.5 % 0-5 [facility] Glucose [Mass/Vol] 394 mg/dL 74-106 [facility] Comment on above: Glucose result great er than or equal to 200 mg/dLsuggests DIABETES MELLITUS per A.D.A. criteria. Neutrophils (Bld) [#/Vol] 3.5 10*3/uL 2.0-7.7 [facility] [facility] Neutrophils/100 WBC (Bld) 66.9 % 47-70 [facility] Potassium [Moles/Vol] 4.0 mmol/L 3.5-5.1 [facility] Protein [Mass/Vol] 6.9 g/dL 6.4-8.2 [facility] Sodium [Moles/Vol] 137 mmol/L 136-145 [facility] WBC (Bld) [#/Vol] 5.3 10*3/uL 4.4-11.0 [facility] Blood erythrocytes count (nu mber/volume)Ordered By: Dr. Turcios on 09-23-2022 RBC (Bld) [#/Vol] 5.05 10*6/uL 4.6-6.2 [facility] Blood hemoglobin measurement (mass/volume)Ordered By: Dr. Turcios on 09-23-2022 Hemoglobin (Bld) [Mass/Vol] 15.5 g/dL 13.0-16.5 [facility] Blood lymphocytes/100 leukoc ytesOrdered By: Dr. Turcios on 09-23-2022 Lymphocytes/100 WBC (Bld) 22.4 % 19-41 [facility] Blood monocytes/100 leukocyt esOrdered By: Dr. Turcios on 09-23-2022 Monocytes/100 WBC (Bld) 7.0 % 0-10 [facility] Blood platelet mean volumeOr dered By: Dr. Turcios on 09-23-2022 Platelet mean volume (Bld) [Entitic vol] 9.3 fL 6.2-12.0 [facility] Determination of erythrocyte mean corpuscular volume (MCV)Ordered By: Dr. Turcios on 09-23-2022 MCV (RBC) [Entitic vol] 88.5 fL 80-94 [facility] Hematocrit Auto (Bld) [Volum e fraction]Ordered By: Dr. Turcios on 09-23-2022 Hematocrit (Bld) [Volume fraction] 44.7 % 40-54 [facility] Laboratory - Chemistry and C hemistry - challengeOrdered By: Dr. Turcios on 09-23-2022 ALP [Catalytic activity/Vol] 65 U/L 45-117 [facility] ALT [Catalytic activity/Vol] 59 U/L 16-61 [facility] CO2 [Moles/Vol] 25.0 mmol/L 21.0-32.0 [facility] Globulin (S) [Mass/Vol] 3.5 g/dL 2.2-4.2 [facility] Lipase [Catalytic activity/Vol] 7692 U/L 73-393 [facility] Urea nitrogen/Creatinine [Mass ratio] 15.9 mg/mg 10-20 [facility] Laboratory - Hematology and Cell countsOrdered By: Dr. Turcios on 09-23-2022 Erythrocyte distribution width (RBC) [Entitic vol] 47.4 fL 35.1-43.9 [facility] Erythrocyte distribution width (RBC) [Ratio] 14.6 % 11.6-14.6 [facility] Immature granulocytes/100 WBC (Bld) 0.600 % 0.0-0.9 [facility] Comment on above: IG% - Immature Granu locytes (promyelocytes, myelocytes and metamyelocytes) > 1% indicates that a LEFT SHIFT is Present. MCH (RBC) [Entitic mass] 30.7 pg 27.0-32.0 [facility] Nucleated RBC/100 WBC (Bld) [Ratio] 0 % 0-5 [facility] MCHC Auto (RBC) [Mass/Vol]Or dered By: Dr. Turcios on 09-23-2022 MCHC (RBC) [Mass/Vol] 34.7 g/dL 32-36 [facility] No Panel InformationOrdered By: Dr. Turcios on 09-23-2022 Estimated Creatinine Clearance Calc 46.59 ml/min [facility] Estimated GFR (MDRD) Amer 58 mL/min >60 [facility] Estimated GFR (MDRD) Non-Af Amer 48 mL/min >60 [facility] Platelets bldOrdered By: Dr. Turcios on 09-23-2022 Platelets (Bld) [#/Vol] 182 10*3/uL 150-450 [facility] Serum or plasma albumin junaid urement (mass/volume)Ordered By: Dr. Turcios on 09-23-2022 Albumin [Mass/Vol] 3.4 g/dL 3.2-5.0 [facility] Serum or plasma albumin/glob ulin mass ratioOrdered By: Dr. Turcios on 09-23-2022 Albumin/Globulin [Mass ratio] 1.0 {ratio} 0.9-2.4 [facility] Serum or plasma calcium junaid urement (mass/volume)Ordered By: Dr. Turcios on 09-23-2022 Calcium [Mass/Vol] 9.3 mg/dL 8.5-10.1 [facility] Serum or plasma creatinine m easurement (mass/volume)Ordered By: Dr. Turcios on 09-23-2022 Creatinine [Mass/Vol] 1.57 mg/dL 0.70-1.30 [facility] Comment on above: The validity of the calculated GFR & GFRAA in patients over 70 years has not been determined. Clinical correlation is essential. Serum or plasma urea nitroge n measurement (mass/volume)Ordered By: Dr. Turcios on 09-23-2022 Urea nitrogen [Mass/Vol] 25 mg/dL 7-18 [facility] Thin prep Papanicolaou smear with manual screeningOrdered By: Dr. Turcios on 09-23-2022 Thin prep Papanicolaou smear with manual screening 47 U/L 15-37 [facility] Thin prep Papanicolaou smear with manual screening 10 5-15 [facility] Vital Signs Date Time Vital Sign Value Performing Clinician Facility 12-09-2024 14:48-0400 Body height 172.9 cm Pulm Wstr Work Phone: [facility] 12-09-2024 14:48-0400 Body mass index (BMI) [Ratio] 37.02 kg/m2 Pulm Wstr Work Phone: [facility] 12-09-2024 14:48-0400 Body weight 110.68 kg Pulm Wstr Work Phone: [facility] 12-01-2024 15:20-0400 Body height 172.7 cm Pacc 1 Work Phone: [facility] 12-01-2024 15:20-0400 Body mass index (BMI) [Ratio] 36.86 kg/m2 Pac 1 Work Phone: [facility] 12-01-2024 15:20-0400 Body temperature 98.8 [degF] Pacc 1 Work Phone: [facility] 12-01-2024 15:20-0400 Body weight 109.95 kg Pacc 1 Work Phone: [facility] 12-01-2024 15:20-0400 Diastolic blood pressure 62 mm[Hg] Pacc 1 Work Phone: [facility] 12-01-2024 15:20-0400 Heart rate 78 /min Pacc 1 Work Phone: [facility] 12-01-2024 15:20-0400 Respiratory rate 14 /min Pacc 1 Work Phone: [facility] 12-01-2024 15:20-0400 SaO2% (BldA) [Mass fraction] 94 % Pacc 1 Work Phone: [facility] 12-01-2024 15:20-0400 Systolic blood pressure 122 mm[Hg] Pacc 1 Work Phone: [facility] 08-19-2024 07:56-0500 Body height 172.7 cm Yobani Champagne MD Work Phone: [facility] 08-19-2024 07:56-0500 Body mass index (BMI) [Ratio] 37.07 kg/m2 Yobani Champagne MD Work Phone: [facility] 08-19-2024 07:56-0500 Body temperature 98.91 [degF] Yobani Champagne MD Work Phone: [facility] 08-19-2024 07:56-0500 Body weight 110.6 kg Yobani Champagne MD Work Phone: [facility] 08-19-2024 07:56-0500 Diastolic blood pressure 80 mm[Hg] Yobani Champagne MD Work Phone: [facility] 08-19-2024 07:56-0500 Heart rate 105 /min Yobani Champagne MD Work Phone: [facility] 08-19-2024 07:56-0500 Respiratory rate 16 /min Yobani Champagne MD Work Phone: [facility] 08-19-2024 07:56-0500 SaO2% (BldA) [Mass fraction] 94 % Yobani Champagne MD Work Phone: [facility] 08-19-2024 07:56-0500 Systolic blood pressure 134 mm[Hg] Yobani Champagne MD Work Phone: [facility] 06-07-2024 09:38-0500 Body mass index (BMI) [Ratio] 36.27 kg/m2 Marcelino Santa DRUM WORKER.OFFICE RECEPTIONIST Work Phone: [facility] 06-07-2024 09:38-0500 Body temperature 97.59 [degF] Marcelino Santa DRUM WORKER.OFFICE RECEPTIONIST Work Phone: [facility] 06-07-2024 09:38-0500 Body weight 108.2 kg Marcelino Santa DRUM WORKER.OFFICE RECEPTIONIST Work Phone: [facility] 06-07-2024 09:38-0500 Diastolic blood pressure 78 mm[Hg] Marcelino Santa DRUM WORKER.OFFICE RECEPTIONIST Work Phone: [facility] 06-07-2024 09:38-0500 Heart rate 84 /min Marcelino Santa DRUM WORKER.OFFICE RECEPTIONIST Work Phone: [facility] 06-07-2024 09:38-0500 Respiratory rate 16 /min Marcelino Santa DRUM WORKER.OFFICE RECEPTIONIST Work Phone: [facility] 06-07-2024 09:38-0500 SaO2% (BldA) [Mass fraction] 97 % Marcelino Santa DRUM WORKER.OFFICE RECEPTIONIST Work Phone: [facility] 06-07-2024 09:38-0500 Systolic blood pressure 110 mm[Hg] Marcelino Santa DRUM WORKER.OFFICE RECEPTIONIST Work Phone: [facility] 09-23-2022 19:50-0500 Body height 172.72 cm [facility] 09-23-2022 19:50-0500 Body mass index (BMI) [Ratio] 39.3 kg/m2 [facility] 09-23-2022 19:50-0500 Body temperature 97.8 [degF] [facility] 09-23-2022 19:50-0500 Body weight 117.38 kg [facility] 09-23-2022 19:50-0500 Diastolic blood pressure 84 mm[Hg] [facility] 09-23-2022 19:50-0500 Heart rate 85 /min [facility] 09-23-2022 19:50-0500 Respiratory rate 16 /min [facility] 09-23-2022 19:50-0500 SaO2% (BldA) [Mass fraction] 98 % [facility] 09-23-2022 19:50-0500 Systolic blood pressure 156 mm[Hg] [facility] 04-15-2022 09:31-0400 Body temperature 97.81 [degF] Nichole Schumacher APRN.OFFICE RECEPTIONIST Work Phone: [facility] 04-15-2022 09:31-0400 Body weight 119.39 kg Nichole Schumacher APRN.OFFICE RECEPTIONIST Work Phone: [facility] 04-15-2022 09:31-0400 Diastolic blood pressure 92 mm[Hg] Nichole Schumacher APRN.OFFICE RECEPTIONIST Work Phone: [facility] 04-15-2022 09:31-0400 Heart rate 99 /min Nichole Schumacher APRN.OFFICE RECEPTIONIST Work Phone: [facility] 04-15-2022 09:31-0400 Respiratory rate 18 /min Nichole Schumacher APRN.OFFICE RECEPTIONIST Work Phone: [facility] 04-15-2022 09:31-0400 SaO2% (BldA) [Mass fraction] 97 % Nichole Schumacher APRN.OFFICE RECEPTIONIST Work Phone: [facility] 04-15-2022 09:31-0400 Systolic blood pressure 158 mm[Hg] Nichole Schumacher APRN.OFFICE RECEPTIONIST Work Phone: [facility] 03-11-2022 18:28-0400 Body temperature 98.8 [degF] Bi Lucas APRN.OFFICE RECEPTIONIST Work Phone: [facility] 03-11-2022 18:28-0400 Body weight 118.39 kg Bi Lucas APRN.OFFICE RECEPTIONIST Work Phone: [facility] 03-11-2022 18:28-0400 Diastolic blood pressure 86 mm[Hg] Bi Lucas DRUM WORKER.OFFICE RECEPTIONIST Work Phone: [facility] 03-11-2022 18:28-0400 Heart rate 99 /min Bi Lucas DRUM WORKER.OFFICE RECEPTIONIST Work Phone: [facility] 03-11-2022 18:28-0400 Respiratory rate 18 /min Bi Lucas DRUM WORKER.OFFICE RECEPTIONIST Work Phone: [facility] 03-11-2022 18:28-0400 SaO2% (BldA) [Mass fraction] 97 % Bi Lucas DRUM WORKER.OFFICE RECEPTIONIST Work Phone: [facility] 03-11-2022 18:28-0400 Systolic blood pressure 138 mm[Hg] Bi Lucas DRUM WORKER.OFFICE RECEPTIONIST Work Phone: [facility] Encounters Encounter Date Encounter Type Care Provider Facility Start: 01-09-2025 ambulatory [facility] Facility[facility] Start: 01-02-2025 End: 01-02-2025 ambulatory ROBERT EDGAR Facility:[facility] Start: 01-02-2025 End: 01-02-2025 Subsequent hospital visit by physician Xr [facility] Work Phone: Radiology Comment on above: Primary osteoarthrit is of right knee [M17.11] Start: 12-27-2024 End: 12-28-2024 Orders Only Robert Edgar MD Work Phone: Orthopaedics Comment on above: Primary osteoarthrit is of right knee (Primary Dx); Status post total right knee replacement Order for PT at [facility] Start: 12-23-2024 End: 12-24-2024 ambulatory UNKNOWN PROVIDER Facility:[facility] Start: 12-19-2024 ambulatory UNKNOWN PROVIDER Facili ty:[facility] Start: 12-19-2024 End: 12-19-2024 Subsequent hospital visit by physician Ct [facility] Radiology Comment on above: Chronic pain of righ t knee [M25.561, G89.29] Start: 12-09-2024 End: 12-09-2024 Patient encounter procedure Pulm [facility] Work Phone: [facility] Start: 12-09-2024 End: 12-09-2024 Preprocedural examination done [facility] Work Phone: [facility] Start: 12-09-2024 End: 12-09-2024 ambulatory [facility] Work Phone: [facility] Comment on above: Spirometry Start: 12-05-2024 End: 12-05-2024 Telephone encounter Kacie Montelongo DRUM WORKER.OFFICE RECEPTIONIST Work Phone: Pre Anesthesia Comment on above: Patient Question Start: 12-01-2024 Encounter for other preprocedural examination KACIE MONTELONGO [facility] Start: 12-01-2024 End: 12-01-2024 Subsequent hospital visit by physician Paddy [facility] Mob Work Phone: Radiology Comment on above: Pre-operative examin ation [Z01.818] Start: 12-01-2024 End: 12-01-2024 ambulatory KACIE MONTELONGO Facility:[facility] Start: 12-01-2024 End: 12-01-2024 Admission to establishment [facility] Work Phone: Pre Anesthesia Start: 12-01-2024 End: 12-01-2024 Anesthesia consultation [facility] 1 Work Phone: Pre Anesthesia Comment on above: Pre-operative examin ation (Primary Dx); Situational depression; Obstructive sleep apnea; Former smoker; Essential hypertension; Hyperlipidemia LDL goal <100; Elevated liver function tests; Neurogenic bladder; Renal cyst; Chronic kidney disease, unspecified CKD stage; Type 2 diabetes mellitus with microalbuminuria, without long-term current use of insulin (HCC); 1st degree AV block; Intention tremor; Gastroesophageal reflux disease, unspecified whether esophagitis present; Benign prostatic hyperplasia with lower urinary tract symptoms, symptom details unspecified; BMI 36.0-36.9,adult; History of renal cell cancer Start: 12-01-2024 End: 12-01-2024 Preprocedural examination done [facility] 1 Work Phone: [facility] Start: 12-01-2024 End: 12-01-2024 ambulatory ROBERT EDGAR Facility:[facility] Start: 12-01-2024 End: 12-06-2024 Telephone encounter Robert Edgar MD Work Phone: [address] Comment on above: Pre-Op Teaching Start: 11-30-2024 End: 11-30-2024 Telephone encounter Robert Edgar MD Work Phone: Orthopaedics Comment on above: Schedule Surgery Start: 11-28-2024 End: 11-28-2024 Patient encounter procedure Robert Edgar MD Work Phone: Orthopaedics Comment on above: Chronic pain of righ t knee (Primary Dx); Primary osteoarthritis of right knee; Encounter for tobacco use cessation counseling Start: 11-28-2024 End: 11-28-2024 Subsequent hospital visit by physician Paddy Douglas Work Phone: Radiology Comment on above: Right knee pain, uns pecified chronicity [M25.561] Start: 11-28-2024 End: 11-28-2024 ambulatory ROBERT EDGAR Facility:[facility] Start: 11-10-2024 End: 11-10-2024 Orders Only Robert Edgar MD Work Phone: Orthopaedics Comment on above: Right knee pain, uns pecified chronicity (Primary Dx) Start: 09-09-2024 End: 10-11-2024 Telephone encounter [facility] Provider [place] Work Phone: Orthopaedics Comment on above: Appointment Start: 08-24-2024 End: 08-25-2024 Refill Yobani Champagne MD Work Phone: Family [facility] Comment on above: Refill Request Fax Requesting Medic al Records Start: 08-22-2024 End: 08-23-2024 ambulatory Yobani Champagne MD Work Phone: [facility] Comment on above: Medications Start: 08-19-2024 End: 08-19-2024 Patient encounter procedure Yobani Champagne MD Work Phone: [facility] Comment on above: Chronic nonintractab le headache, unspecified headache type (Primary Dx); Type 2 diabetes mellitus with microalbuminuria, without long-term current use of insulin (HCC); Encounter for screening examination for other mental health and behavioral disorders; Hyperlipidemia LDL goal <100; Essential hypertension; Obstructive sleep apnea; Neurogenic bladder; Degeneration of intervertebral disc of lumbar region, unspecified whether pain present; Morbid obesity due to excess calories (HCC); Need for vaccination Start: 08-19-2024 End: 08-19-2024 ambulatory [facility] Facility:[facility] Start: 06-07-2024 End: 06-07-2024 ambulatory [facility] Facility:[facility] Start: 06-07-2024 End: 06-07-2024 Office outpatient visit 25 minutes Marcelino Santa APRN.OFFICE RECEPTIONIST Work Phone: [facility] Comment on above: Sinusitis, unspecifi ed chronicity, unspecified location (Primary Dx) Start: 06-06-2024 End: 06-09-2024 Telephone encounter Yobani Champagne MD Work Phone: [facility] Start: 09-23-2022 End: 09-23-2022 Emergency department patient visit [facility]gency [facility] Start: 04-15-2022 End: 04-15-2022 Patient encounter procedure Nichole Schumacher APRN.[facility] Work Phone: [facility] Comment on above: At increased risk of exposure to COVID-19 virus (Primary Dx); Acute upper respiratory infection, unspecified Start: 03-11-2022 End: 03-11-2022 Patient encounter procedure Bi Lucas APRN.OFFICE RECEPTIONIST Work Phone: [facility] Comment on above: Suspected COVID-19 v irus infection (Primary Dx) Procedures Date Procedure Procedure Detail Performing Clinician Start: 12-19-2024 Ct lower extremity w /o contrast material Robert Edgar MD Work Phone: Start: 12-09-2024 Co diffusing capacity Bronwyn Montelongo APRN.OFFICE RECEPTIONIST Work Phone: Start: 12-01-2024 Radiologic exam ches t 2 views Kacie Montelongo APRN.OFFICE RECEPTIONIST Work Phone: Start: 08-19-2024 [id number] COVI D-19 VACCINE AGE 12+ YR (COMIRNATY) Yobani Champagne MD Work Phone: Start: 09-23-2022 Diagnostic radiograp hy of abdomen Start: 06-17-2013 Colonoscopy Bi ewing APRN.OFFICE RECEPTIONIST Work Phone: Plan of Treatment Date Care Activity Detail Author Start: 09-02-2032 Urine microalbumin profile DTaP,Tdap,Td Vaccine (6 - Td or Tdap) [facility] Start: 06-29-2027 Urine microalbumin profile DTAP,TDAP,TD (3 - Td or Tdap) [facility] Start: 12-24-2025 [facility] blood [facility] Start: 12-24-2025 Creatinine measurement Serum Creatin ine [facility] Start: 12-01-2025 BP Controlled (<130/80) BP Controlle d (<130/80) [facility] Start: 12-01-2025 Complete blood count [facility] Start: 12-01-2025 Creatinine measurement Serum Creatin ine [facility] Start: 08-19-2025 Annual PCP Team [employer] Cutter stuart Disease Visit Annual PCP Team Chronic Disease Visit [facility] Start: 08-19-2025 Anxiety Screening Anxiety Screening [facility] Start: 08-19-2025 RSV Vaccine (1 - Ris k 60-74 years 1-dose series) RSV Vaccine (1 - Risk 60-74 years 1-dose series) [facility] Comment on above: Postponed from 12/03 (Declined at this time) Start: 06-07-2025 BP Controlled (<130/80) BP Controlle d (<130/80) [facility] Start: 06-03-2025 Hemoglobin A1c measurement HbA1C [facility] Start: 04-04-2025 Diabetic foot examination Diabetic Foot Exam [facility] Start: 03-13-2025 End: 03-13-2025 Patient encounter procedure 03/13/2025 1:00 PM EDT Office Visit Orthopaedics [address] [place] [address] Robert Edgar MD [address] [place] [address] Post op robotic assisted right [facility] Comment on above: Post op robotic assi sted right [facility]KA Start: 03-06-2025 End: 03-06-2025 Patient encounter procedure 03/06/2025 2:15 PM EDT Office Visit Orthopaedics [address] [place] [address] Robert Edgar MD [address] [facility] [address] Post op robotic assisted right [facility] Comment on above: Post op robotic assi sted right TKA Start: 02-17-2025 End: 02-17-2025 Patient encounter procedure 02/17/2025 2:40 PM EDT Office Visit Family [facility] [address] [place] [address] Yobani Champagne MD [address] [facility] [place] [address] 6 month follow up [facility] Comment on above: 6 month follow up Start: 02-16-2025 Covid-19 Vaccine ( season) Covid-19 Vaccine ( season) [facility] Start: 02-06-2025 End: 02-06-2025 Patient encounter procedure 02/06/2025 12:45 PM EDT Office Visit Orthopaedics [address] [place] [address] Robert Edgar MD [address] [facility] [place] [address] Post op robotic assisted right [facility] Comment on above: Post op robotic assi sted right TKA Start: 01-02-2025 End: 01-02-2025 Patient encounter procedure 01/02/2025 12:45 PM EDT Office Visit Orthopaedics [address] [place] [address] Robert Edgar MD [address] [place] [address] Post op robotic assisted right [facility] Comment on above: Post op robotic christianei sted right TKA Start: 12-23-2024 End: 12-23-2024 Admission to same day surgery center 12/23/2024 8:40 AM EDT - 12/23/2024 11:38 AM EDT Surgery [facility] Surgery [address] [place] [id number] Robert Edgar MD [address] [place] [address] ROBOTIC ASSISTED TOTAL KNEE ARTHROPLASTY [facility] Surgery Comment on above: ROBOTIC ASSISTED TOT AL KNEE ARTHROPLASTY Start: 12-23-2024 End: 12-23-2024 Arthrp kne condyle&platu medial&lat compartments ROBOTIC ASSISTED TOTAL KNEE ARTHROPLASTY Primary osteoarthritis of right knee 12/23/2024 8:40 AM EDT ME OR Start: 12-23-2024 Subsequent hospital visit by physician 12/23/2024 8:40 AM EDT Hospital Encounter [facility] Surgery [address] [place] [address] Robert Edgar MD [address] [place] [address] Primary osteoarthritis of right knee [M17.11] [facility] Surgery Comment on above: Primary osteoarthrit is of right knee [M17.11] Start: 12-23-2024 End: 12-23-2024 Admission to same day surgery center 12/23/2024 7:30 AM EDT - 12/23/2024 10:18 AM EDT Surgery [facility] Surgery [address] [place] [address] Robert Edgar MD [address] [place] [address] ROBOTIC ASSISTED TOTAL KNEE ARTHROPLASTY [facility] Surgery Comment on above: ROBOTIC ASSISTED TOT AL KNEE ARTHROPLASTY Start: 12-23-2024 End: 12-23-2024 Arthrp kne condyle&platu medial&lat compartments ROBOTIC ASSISTED TOTAL KNEE ARTHROPLASTY Primary osteoarthritis of right knee 12/23/2024 7:30 AM EDT ME OR Start: 12-23-2024 Subsequent hospital visit by physician 12/23/2024 7:30 AM EDT Hospital Encounter [facility] Surgery [address] [place] [address] Robert Edgar MD [address] [place] [address] Primary osteoarthritis of right knee [M17.11] [facility] Surgery Comment on above: Primary osteoarthrit is of right knee [M17.11] Start: 12-19-2024 End: 12-19-2024 Patient encounter procedure 12/19/2024 4:30 PM EDT Appointment Radiology [address] [place] [address] x: Chronic pain of right knee [M25.561, G89.29]; Primary osteoarthritis of right knee [M17.11] Radiology Comment on above: x: Chronic pain of r ight knee [M25.561, G89.29]; Primary osteoarthritis of right knee [M17.11] Start: 12-09-2024 End: 12-09-2024 ambulatory [facility] Comment on above: Pre-operative examin ation [Z01.818] Pre-operative examination [Z01.818] Start: 12-01-2024 End: 12-31-2025 SPIROMETRY WITH DILATOR IF OBSTRUCTED SPIROMETRY WITH DILATOR IF OBSTRUCTED PFT Routine Pre-operative examination Expected: 12/01/2024, Expires: 12/31/2025 [facility] Comment on above: Expected: 12/01/2024 , Expires: 12/31/2025 Start: 11-28-2024 End: 11-28-2024 Patient encounter procedure 11/28/2024 9:00 AM EDT Office Visit Orthopaedics [address] [place] [address] Robert Edgar MD [address] [place] [address] OA of the right knee Orthopaedics Comment on above: OA of the right knee Start: 08-19-2024 End: 08-19-2024 Patient encounter procedure 08/19/2024 8:00 AM EST Office Visit [facility] [place] [address] [place] [address] Yobani Champagne MD [address] [place], [place] [address] est care / est wellness ok per [facility] Comment on above: est care / est welln ess ok per [place] Start: 08-03-2024 Advance Directive Discussion Advance Directive Discussion [facility] Start: 04-03-2024 Covid-19 Vaccine ( season) Covid-19 Vaccine ( season) [facility] Start: 04-03-2024 Influenza vaccination Influenza Vacc ine (#1) [facility] Start: 12-04-2023 Advance Directive Discussion Advance Directive Discussion [facility] Start: 04-15-2022 End: 04-29-2022 Influenza virus A and B RNA and SARS-CoV-2 (COVID-19) N gene panel - Respiratory specimen by DOLLY with probe detection COVID WITH FLUA+B, ROUTINE Microbiology Routine At increased risk of exposure to COVID-19 virus Acute upper respiratory infection, unspecified Expected: 04/15/2022, Expires: 04/29/2022 [facility] Work Phone: Comment on above: Expected: 04/15/2022 , Expires: 04/29/2022 Start: 04-03-2022 Influenza vaccination INFLUENZA (#1) [facility] Start: 10-28-2019 Hepatitis B surface antibody level LDL CHOLESTEROL [facility] Start: 01-27-2019 Hemoglobin A1c measurement HbA1C [facility] Start: 01-27-2019 Hemoglobin A1c/Hemoglobin.total in Blood HBA1C [facility] Start: 2018 RSV Vaccine (1 - Ris k 60-74 years 1-dose series) RSV Vaccine (1 - Risk 60-74 years 1-dose series) [facility] Start: 06-29-2018 ANNUAL PCP TEAM TAPER PRINTED CIRCUIT LAYOUT STUART DISEASE VISIT ANNUAL PCP TEAM CHRONIC DISEASE VISIT [facility] Start: 06-29-2018 Hepatitis B screening URINE ALBUMIN:CREATININE RATIO [facility] Start: 06-17-2018 Colonoscopy COLONOSCOPY [facility] Start: 06-17-2018 COLORECTAL CANCER SCREENING COLORECTAL CANCER SCREENING [facility] Start: 06-17-2018 Screening for malign ant neoplasm of colon [facility] Start: 03-24-2018 3 comp foot exam completed DIABETIC FOOT EXAM [facility] Start: 03-24-2018 Diabetic foot examination Diabetic Foot Exam [facility] Start: 10-22-2017 Glaucoma screening Dilated Retinal E xam [facility] Start: 10-22-2017 Hepatitis C antibody , confirmatory test DILATED RETINAL EXAM [facility] Start: 09-08-2014 SHINGRIX VACCINE (2 of 3) SHINGRIX VACCINE (2 of 3) [facility] Start: 04-06-2014 PROSTATE CANCER SCREENING DISCUSSION PROSTATE CANCER SCREENING DISCUSSION [facility] Start: 04-06-2014 Prostate specific antigen measurement Prostate Cancer Screening Discussion [facility] Start: 07-10-2007 PNEUMOCOCCAL (2 - PCV) PNEUMOCOCCAL (2 - PCV) [facility] Start: 12-04-2003 COLOGUARD (FIT-DNA) COLOGUARD (FIT-D NA) [facility] Start: 12-04-[address] COLONOGRAPHY [facility] Start: 12-04-2003 FECAL OCCULT BLOOD FECAL OCCULT BLOO D [facility] Start: 12-04-2003 Screening for malign ant neoplasm of colon [facility] Start: 12-04-2003 SIGMOIDOSCOPY SIGMOIDOSCOPY [facility] Start: 1976 Annual PCP Team Arc Cutter stuart Disease Visit Annual PCP Team Chronic Disease Visit [facility] Start: 1976 Anxiety Screening Anxiety Screening [facility] Start: 1976 BP CONTROLLED (<130/80) BP CONTROLLE D (<130/80) [facility] Start: 1976 HIV SCREENING HIV SCREENING [facility] Start: 1976 HIV screening HIV Screening [facility] Start: 06-05-1961 COVID-19 VACCINE (#1) COVID-19 VACCI NE (#1) [facility] Start: 1960 Abdominal aortic aneurysm screening Abdominal Aortic Aneurysm Screening [facility] End: 12-28-2025 CT Knee - right WO contrast CT KNEE WO IVCON RIGHT Radiology Routine Chronic pain of right knee Primary osteoarthritis of right knee 1 Occurrences starting 11/28/2024 until 12/28/2025 [facility] Work Phone: Comment on above: 1 Occurrences starti ng 11/28/2024 until 12/28/2025 End: 12-01-2025 ECG COMPLETE ECG COMPLETE ECG Routine Pre-operative examination 1 Occurrences starting 12/01/2024 until 12/01/2025 [facility] Work Phone: Comment on above: 1 Occurrences starti ng 12/01/2024 until 12/01/2025 End: 12-31-2025 LUNG DIFFUSION CAPACITY (DLCO) LUNG DIFFUSION CAPACITY (DLCO) PFT Routine Pre-operative examination 1 Occurrences starting 12/01/2024 until 12/31/2025 [facility] Comment on above: 1 Occurrences starti ng 12/01/2024 until 12/31/2025 LUNG DIFFUSION CAPAC ITY (DLCO) LUNG DIFFUSION CAPACITY (DLCO) PFT Routine Pre-operative examination 12/09/2024 2:31 PM EDT [facility] Work Phone: Patient Education ED [facility] Work Phone: Patient referral [facility] Work Phone: SARS-CoV-2 (COVID-19 ) RNA [Presence] in Respiratory specimen by DOLLY with probe detection 2019 CORONAVIRUS Microbiology Routine Suspected COVID-19 virus infection Ordered: 03/11/2022 [facility] Work Phone: Comment on above: Ordered: 03/11/2022 SPIROMETRY WITH DILA TOR IF OBSTRUCTED SPIROMETRY WITH DILATOR IF OBSTRUCTED PFT Routine Pre-operative examination 12/09/2024 2:31 PM EDT [facility] Work Phone: End: 12-10-2025 XR Knee - right 4 Views XR KNEE GENERAL 4V AP BOTH/PA BOTH/LAT/MERC RIGHT Radiology Routine Right knee pain, unspecified chronicity 1 Occurrences starting 11/10/2024 until 12/10/2025 [facility] Work Phone: Comment on above: 1 Occurrences starti ng 11/10/2024 until 12/10/2025 XR Knee - right 4 Views XR KNEE GENERAL 4V AP BOTH/PA BOTH/LAT/MERC RIGHT Radiology Routine Right knee pain, unspecified chronicity 11/28/2024 9:22 AM EDT [facility] Work Phone: End: 01-26-2026 XR Knee AP and Lateral and Merchants XR KNEE POST OP 3V AP/LAT/MERCHANT RIGHT Radiology Routine Primary osteoarthritis of right knee Status post total right knee replacement 1 Occurrences starting 12/27/2024 until 01/26/2026 [facility] Work Phone: Comment on above: 1 Occurrences starti ng 12/27/2024 until 01/26/2026 XR Knee AP and Later al and Merchants XR KNEE POST OP 3V AP/LAT/MERCHANT RIGHT Radiology Routine Primary osteoarthritis of right knee Status post total right knee replacement 01/02/2025 12:52 PM EDT [facility] Work Phone: Immunizations Immunization Date Immunization Notes Care Provider [facility] 08-19-2024 COVID-19 vaccine, ag e 12+ yr (motify COMIRNATY) Yobani Champagne MD Work Phone: [facility] 08-19-2024 influenza, high dose seasonal, preservative-free Yobani Champagne MD Work Phone: [facility] 06-02-2023 influenza, injectabl e, quadrivalent, preservative free Yobani Champagne MD Work Phone: [facility] 06-02-2023 influenza virus vacc ine, unspecified formulation Marcelino Santa APRN.OFFICE RECEPTIONIST Work Phone: [facility] 09-02-2022 tetanus toxoid, redu alba diphtheria toxoid, and acellular pertussis vaccine, adsorbed Yobani Champagne MD Work Phone: [facility] 06-18-2022 influenza, injectabl e, quadrivalent, preservative free Yobani Champagne MD Work Phone: [facility] 11-18-2021 pneumococcal conjuga te (PCV20) vaccine, 20 valent (PREVNAR 20) Yobani Champagne MD Work Phone: [facility] 05-31-2021 COVID-19 original vaccine, age 12+ yr, monovalent (Breath of LifeNTECH - PURPLE TOP) Yobani Champagne MD Work Phone: [facility] 04-24-2021 TD(adult) unspecifie d formulation Yobani Champagne MD Work Phone: [facility] 11-24-2020 tetanus toxoid, redu alba diphtheria toxoid, and acellular pertussis vaccine, adsorbed [facility] 10-11-2020 COVID-19 original vaccine, age 12+ yr, monovalent (PFIZER-BIONTECH - PURPLE TOP) Yobani Champagne MD Work Phone: [facility] 09-23-2020 COVID-19 original vaccine, age 12+ yr, monovalent (PFIZER-BIONTECH - PURPLE TOP) Yobani Champagne MD Work Phone: [facility] 05-29-2020 influenza, injectabl e, quadrivalent, preservative free Yobani Champagne MD Work Phone: [facility] 07-29-2018 zoster vaccine recombinant Yobani Champagne MD Work Phone: [facility] 05-13-2018 influenza, injectabl e, quadrivalent, preservative free Yobani Champagne MD Work Phone: [facility] 05-13-2018 zoster vaccine recombinant Yobani Champagne MD Work Phone: [facility] 06-29-2017 tetanus toxoid, redu alba diphtheria toxoid, and acellular pertussis vaccine, adsorbed Bi Lance DRUM WORKER.OFFICE RECEPTIONIST Work Phone: [facility] 05-29-2017 Influenza virus vaccine [facility] 05-29-2017 influenza, seasonal, injectable, preservative free Yobani Champagne MD Work Phone: [facility] 05-14-2017 influenza, injectabl e, quadrivalent, contains preservative Bi Lance DRUM WORKER.OFFICE RECEPTIONIST Work Phone: [facility] 05-03-2017 influenza virus vacc ine, unspecified formulation Yobani Champagne MD Work Phone: [facility] 04-18-2016 influenza, injectabl e, quadrivalent, contains preservative Bi Lance DRUM WORKER.OFFICE RECEPTIONIST Work Phone: [facility] 10-02-2015 pneumococcal polysaccharide vaccine, 23 valent Yobani Champagne MD Work Phone: [facility] 06-16-2015 influenza, injectabl e, quadrivalent, contains preservative Bi Lance DRUM WORKER.OFFICE RECEPTIONIST Work Phone: [facility] Work Phone: 07-14-2014 zoster vaccine, live Shannan renteria Lance DRUM WORKER.OFFICE RECEPTIONIST Work Phone: [facility] 06-09-2014 influenza, seasonal, injectable Bi Lance DRUM WORKER.OFFICE RECEPTIONIST Work Phone: [facility] 05-20-2013 influenza virus vacc ine, unspecified formulation Bi Lance DRUM WORKER.OFFICE RECEPTIONIST Work Phone: [facility] 05-13-2012 influenza virus vacc ine, unspecified formulation Bi Lance DRUM WORKER.OFFICE RECEPTIONIST Work Phone: [facility] 05-10-2011 influenza virus vacc ine, unspecified formulation Bi Lance DRUM WORKER.OFFICE RECEPTIONIST Work Phone: [facility] Work Phone: 06-12-2009 novel influenza-H1N1 -09, all formulations Bi Lance DRUM WORKER.OFFICE RECEPTIONIST Work Phone: [facility] Work Phone: 04-26-2009 influenza virus vacc ine, unspecified formulation Bi Lance DRUM WORKER.OFFICE RECEPTIONIST Work Phone: [facility] Work Phone: 06-09-2008 influenza virus vacc ine, unspecified formulation Bi Lance DRUM WORKER.OFFICE RECEPTIONIST Work Phone: [facility] 06-10-2007 influenza virus vacc ine, whole virus Yobani Champagne MD Work Phone: [facility] 07-10-2006 influenza virus vacc ine, unspecified formulation Bi Lance DRUM WORKER.OFFICE RECEPTIONIST Work Phone: [facility] 07-10-2006 pneumococcal polysaccharide vaccine, 23 valent Bi Lucas DRUM WORKER.OFFICE RECEPTIONIST Work Phone: [facility] 07-10-2006 tetanus toxoid, redu alba diphtheria toxoid, and acellular pertussis vaccine, adsorbed Bi Lucas DRUM WORKER.OFFICE RECEPTIONIST Work Phone: [facility] Payers Date Payer Category Payer Self-pay [id number] 2024 Unknown [id number] 2024 Medicare DEVOTED MEDICARE [facility] [id number] 2024-Present [phone] [address] [place] JENSEN [address] [facility] [id number] 2024 Private Health Insurance [employer] [facility] [id number] 2024 Unknown [id number] 2014 Unknown [employer] [id number] Medicare MEDICARE A ONLY [id number] Unknown [id number] Social History Date Type Detail Facility Start: 01-12-2012 End: 06-07-2024 Tobacco smoking status NHIS Ex-smoker [facility] History of tobacco use Current smoker [facility] History of tobacco use Cigarette Smoker C [facility] Start: 01-12-2012 End: 01-02-2025 Cigarettes smoked current (pack per day) - Reported 3 [facility] Start: 01-12-2012 End: 06-07-2024 Tobacco use and exposure User of smokeless tobacco [facility] History of tobacco use Snuff User [facility] Start: 03-11-2022 End: 01-02-2025 Alcohol intake Current non-drinker of alcohol (finding) [facility] Start: 03-13-2008 End: 04-15-2022 Tobacco Comment quit smoking in 1999. does snuff currently. 3 cans a week [facility] Start: 1960 Sex Assigned At Not on file C [facility] Start: 03-01-2022 End: 03-11-2022 Exposure to SARS-CoV-2 (event) Yes [facility] Start: 04-05-2022 End: 04-15-2022 Exposure to SARS-CoV-2 (event) Not sure [facility] Start: 09-23-2022 Tobacco smoking stat [facility] Unknown if ever smoked [facility] Start: 11-24-2020 None [facility] Start: 11-24-2020 Spouse/ Signif icant Other [facility] Start: 09-09-2017 Chew [facility] Start: 1960 Sex Assigned At Male W [facility] Start: 06-07-2024 End: 01-02-2025 Tobacco use panel [facility] National Score (1-10 0), lower number is lower risk Not on file [facility] Has the Handseeing Information, Game Blisters, or thrdPlace threatened to shut off services in your home in past 12Mo No [facility] Are you now , , , , never or living with a partner? [facility] How often to you hav e a drink containing alcohol? Never [facility] Do you feel stress - tense, restless, nervous, or anxious, or unable to sleep at night because your mind is troubled all the time - these days [OSQ] Not at all [facility] (I/We) worried wheth er (my/our) food would run out before (I/we) got money to buy more. Never true [facility] Medical Equipment Procedure Code Equipment Code Equipment Origin al Text Equipment Identifier Dates [id number], [id number], [id number] Start: 07-23-2016 End: 08-23-2024 Comment on above: Use as instructed to test blood sugar 2-3 x daily Use as directed to t est blood sugars 2-3 times daily Insert Triathlon 5 9mm Tibial Bearing Condylar Stabilize Sterile Knee - [id number] Start: 12-23-2024 Component Triathlon 5 Pa Femoral Cruciate Retain Bead Knee Right - [id number] Start: 12-23-2024 Component Tritanium 35mm Metal 10mm Patellar Asymmetric Knee - [id number] Start: 12-23-2024 Baseplate Triathlon Tritanium 5 Tibial Knee - [id number] Start: 12-23-2024 Goals Date Patient Goal Desired Activity /State Personal health goal Functional Status Date Assessment Result Facility 12-24-2024 Are you deaf, or do you have serious difficulty hearing No 12/24/2024 11:42 AM Maggie Storm RN No [facility] 12-24-2024 Are you blind, or do you have serious difficulty seeing, even when wearing glasses No 12/24/2024 11:42 AM Maggie Storm RN No [facility] 12-24-2024 Do you have serious difficulty walking or climbing stairs Yes 12/24/2024 11:42 AM Maggie Storm RN Yes [facility] 12-24-2024 Do you have difficul ty dressing or bathing No 12/24/2024 11:42 AM Maggie Storm RN No [facility] 12-24-2024 Because of a physica l, mental, or emotional condition, do you have difficulty doing errands alone such as visiting a physician's office or shopping No 12/24/2024 11:42 AM Maggie Storm RN No [facility] 12-15-2014 Are you deaf, or do you have serious difficulty hearing No 12/15/2014 4:04 PM Marti Camacho MA No [facility] 12-15-2014 Are you blind, or do you have serious difficulty seeing, even when wearing glasses No 12/15/2014 4:04 PM Marti Camacho MA No [facility] 12-15-2014 Do you have serious difficulty walking or climbing stairs No 12/15/2014 4:04 PM EDT Marti Schumacher MA No [facility] 12-15-2014 Do you have difficul ty dressing or bathing No 12/15/2014 4:04 PM EDT Marti Schumacher MA No [facility] 12-15-2014 Because of a physica l, mental, or emotional condition, do you have difficulty doing errands alone such as visiting a physician's office or shopping No 12/15/2014 4:04 PM EDT Marti Schumacher MA No [facility] Mental Status Date Assessment Result Facility 12-24-2024 Because of a physica l, mental, or emotional condition, do you have serious difficulty concentrating, remembering, or making decisions No 12/24/2024 11:42 AM EDT Maggie Valente RN No [facility] 12-15-2014 Because of a physica l, mental, or emotional condition, do you have serious difficulty concentrating, remembering, or making decisions No 12/15/2014 4:04 PM EDT Marti Schumacher MA [facility] Clinical Notes 01-15-2009 to 01-02-2025 Patrizia Plascencia Tech - 01/02/2025 12:20 PM EDTTelephone Encounter - Gail John MA - 12/28/2024 2:53 PM EDTTelephone Encounter - Gail John MA - 12/28/2024 2:53 PM EDTPatient Instructions Note Date & Type Note Facility 01-02-2025 History of Present illness Narrative Radiology Service Progress Note PATIENT NAME: Gutierrez De Jesus DATE OF SERVICE: January 02, 2025 TIME: 12:35 PM PATIENT IDENTITY VERIFICATION COMPLETED USING TWO (2) IDENTIFIERS: Name and Date of confirmed by patient verbally. FALL SCREENING: Has the patient had 2 falls in the last year or 1 fall with injury or currently using an Ambulatory Assistive Device (Walker, Cane, Wheelchair, Crutches, etc.)? No PATIENT GENDER DATA: Assigned male at PATIENT RELEVANT IMPLANT DATA REVIEWED: Not Applicable PATIENT PRESENTS WITH AN IMPLANTABLE OR ATTACHED FOREST NURSERY SUPERVISOR: No RADIOLOGY DEPARTMENT: General X-ray: Exam(s) Completed: Lower Extremity X-Ray(s): Knee, AP / Lat / Merchant Right PERIPHERAL IV DATA: Not applicable SIGNED BY: Yoselin Luevano January 02, 2025 12:35 PM documented in this encounter [facility] 01-02-2025 Note HNO ID: [id number] Author: PATRIZIA PLASCENCIA Tech Service: ? Author Type: Technologist Type: Progress Notes Filed: 01/02/2025 12:52 Note Text: Radiology Service Progress Note PATIENT NAME: Gutierrez De Jesus DATE OF SERVICE: January 02, 2025 TIME: 12:35 PM PATIENT IDENTITY VERIFICATION COMPLETED USING TWO (2) IDENTIFIERS: Name and Date of confirmed by patient verbally. FALL SCREENING: Has the patient had 2 falls in the last year or 1 fall with injury or currently using an Ambulatory Assistive Device (Walker, Cane, Wheelchair, Crutches, etc.)? No PATIENT GENDER DATA: Assigned male at PATIENT RELEVANT IMPLANT DATA REVIEWED: Not Applicable PATIENT PRESENTS WITH AN IMPLANTABLE OR ATTACHED FOREST NURSERY SUPERVISOR: No RADIOLOGY DEPARTMENT: General X-ray: Exam(s) Completed: Lower Extremity X-Ray(s): Knee, AP / Lat / Merchant Right PERIPHERAL IV DATA: Not applicable SIGNED BY: Yoselin Luevano January 02, 2025 12:35 PM [facility] 12-28-2024 Telephone encounter Note Order faxed to [facility]. [facility] 12-28-2024 Miscellaneous Notes Order faxed to [facility]. PT order in [place]. , Nazia calling and states he is staying with her here in [place] and not in [place]. They are requesting an order for therapy to go to [facility] instead of doing the home care PT. documented in this encounter [facility] 12-28-2024 Telephone encounter Note PT order in Epic. [facility] 12-27-2024 Telephone encounter Note , Nazia calling and states he is staying with her here in [place] and not in [place]. They are requesting an order for therapy to go to [facility] instead of doing the home care PT. [facility] 12-24-2024 Note HNO ID: [id number] Author: SRIKANTH SZYMANSKI LSW Service: Care Management Author Type: Mental Health Specialist Type: Care Mgt Progress Note Filed: 12/24/2024 12:21 Note Text: CARE MANAGEMENT DISCHARGE NOTE SERVICE DATE: December 24, 2024 SERVICE TIME: 11:39 AM Admission Date: 12/23/2024 LOS: 0 days Discharge Arrangement Discharge Arrangement: Home with Home Health Services Arranged Medical Services: Skilled Home Health Care Type: Home Health Agency, Physical Therapy Provider Name: [facility], [email or web address]. Caregiver Assessment Caregiver is ready, willing and able to meet the patient's needs as recommended by the inter-professional team: Yes Name of Caregiver: [facility], [email or web address]. Transportation Arrangements Transportation Arrangements: Car Date of Trip: 12/24/24 Destination: Home Handoff Communication: Handoff to: Primary Care Physician Primary Care Physician Name/Phone: Yobani Champagne MD/[phone] Discharge order placed. Patient is discharging home with home health care and has transportation home. [facility] is able to accept and state that patient is good to discharge, Kiki is the PT that will be following up with the patient. Rounded with RN. Patient is aware and agreeable to discharge plan. No additional CM needs. Updated 12:19 pm: CMSW spoke to Jack with [facility] who advised that they can accept the patient since he will be staying at his home in [place]. CMSW met with the patient again at bedside who now advises that he does not want any in home skilled services and does not want home health care stating that he would like to do outpatient PT instead. CMSW notified [facility] and [facility]. Patient is now declining in home skilled services; medical team advised. Discharge Information Row Name Admission (Current) from 12/23/[address] [facility] Start of Care -- 24-48 hours after discharge SIGNATURE: MATILDE Pina PATIENT NAME: Gutierrez De Jesus DATE: December 24, 2024 TIME: 11:39 AM [facility] 12-24-2024 Note HNO ID: [id number] Author: SRIKANTH SZYMANSKI LSW Service: Care Management Author Type: Mental Health Specialist Type: Care Mgt Initial Assessment Filed: 12/24/2024 11:15 Note Text: CARE MANAGEMENT: ASSESSMENT AND DISCHARGE PLAN SERVICE DATE: December 24, 2024 SERVICE TIME: 11:07 AM PCP: Yobani Champagne MD Primary Contact: Extended Emergency Contact Information Primary Emergency Contact: Karissa De Jesus Address: [address] [place] [address] Mobile Relation: Spouse Admission Status: Extended Recovery Insurance Provider: [employer] Discharge Planning requested by: Per Department Practice Potential Transition Plans Home, Home Care, Home OT/PT Advance Directives Current Advance Directive: Health Care Power of Stock And Station Agent, Living Will In Chart: No Shipping Room Helper Attempted to Assist with AD Completion: Yes Action: Education Provided Current Living Arrangements and Support Lives with: Spouse/significant other Type of Residence: Mobile Home Does the patient have to climb stairs at home?: Yes, stairs outside the home (Ramp) Support: Spouse/significant other, Children How do you manage to accomplish the following: Independent: Ambulation, Bathe/Shower, Dress, Meals/Meal Prep, Going to the bathroom, Medication Management, Transportation to appointments/community Current Services/Equipment Current Post-Acute Service(s): DME Current DME Type: Walker, Rollator Scooter, Shower seat Discharge Planning Patient Goal(s): General wellness [place] Explained: [place] Given: Yes Level of Care Discussed: Home Care Are you interested in bedside delivery of your medications? No Discharge Planning Participant(s): Patient Patient/Family Comments: Caregiver Assessment: Caregiver is ready, willing and able to meet the patient's needs as recommended by the inter-professional team: Other: See Comment (TBD) Transport at Discharge: Transportation Arrangements: Car Destination: Home Needs Prior to Discharge: Needs Prior to Discharge: To Be Determined, Discharge Transportation, Other: See Comment (medical clearance) Post-Acute Discharge Plan: CMSW met with the patient at bedside; introduced self/role. Patient is a 64 year old male who presents with S/P robotic assisted total knee arthroplasty. Patient states that he has a walker and rollator for ambulation and states that he is discharging to his home in [place], located at [address] [place] [address] and states that his spouse or son will transport him home. Patient states that he is I-SENIOR SQL SERVER DBA with ADLs and drove SENIOR SQL SERVER DBA, not active with any skilled services SENIOR SQL SERVER DBA. CMSW and patient discussed PT recommendation of Home PT; patient is agreeable to C being set up; multiple referrals sent;[facility] state they are able to accept but advise that due to the patient's payer a referral also needs to be faxed to [facility]. CMSW called andspoke to Francine at [facility] who advised that they have to authorize for home health care and need F2F, HANDP, progress notes, facesheet, MAR and DC orders faxed to them at [phone]; CMSW faxed requested documents to [facility]; Francine states her contact number is [phone]. CM assigned will continue to follow for discharge needs. SIGNATURE: MATILDE Pina PATIENT NAME: Gutierrez De Jesus DATE: December 24, 2024 TIME: 11:07 AM [facility] 12-24-2024 Note HNO ID: [id number] Author: CHALINO BOGGS MD Service: Family Practice Author Type: Physician Type: Progress Notes Filed: 12/24/2024 07:52 Note Text: INPATIENT PROGRESS NOTES Patient Name: Gutierrez De Jesus DATE of SERVICE: 12/24/2024 TIME of SERVICE: 7:48 AM PRIMARY SERVICE: Family Practice INTERVAL HPI: covering for Dr Barrow ASSESSMENT AND PLAN: Pod#1 s/p right knee replace Hx for htn, hyperlipid, BPH, CKD, DM MEDICATIONS: Current Facility-Administered Medications Medication Dose Route Frequency carvedilol 50 mg tab(s) (COREG) 50 mg ORAL BID lisinopril 20 mg tab(s) (ZESTRIL) 20 mg ORAL DAILY rosuvastatin 40 mg tab(s) (CRESTOR) 40 mg ORAL AT BEDTIME famotidine 20 mg tab(s) (PEPCID) 20 mg ORAL DAILY mirtazapine 15 mg (REMERON) 15 mg ORAL AT BEDTIME tamsulosin 0.8 mg cap(s) (FLOMAX) 0.8 mg ORAL DAILY ergocalciferol (vitamin D2) 50,000 Units cap(s) (DRISDOL) 50,000 Units ORAL q 2 WEEKS morphine 2 mg injection 2 mg INTRAVENOUS q 2 H PRN acetaminophen 1,000 mg tab(s) (TYLENOL) 1,000 mg ORAL q 8 H ondansetron orally disintegrating 4 mg tab(s) (ZOFRAN ODT) 4 mg ORAL q 6 H PRN Or ondansetron (PF) 4 mg injection (ZOFRAN) 4 mg INTRAVENOUS q 6 H PRN magnesium hydroxide 400 mg/5 mL 30 mL (MOM) 30 mL ORAL DAILY PRN [START ON 12/25/2024] bisacodyl EC 10 mg tab(s) (DULCOLAX) 10 mg ORAL DAILY aluminum-magnesium hydroxide-simethicone 200-200-20 mg/5 mL 30 mL 30 mL ORAL q 2 H PRN ascorbic acid (vitamin C) 500 mg tab(s) (VITAMIN C) 500 mg ORAL BID w MEALS docusate sodium 100 mg cap(s) (COLACE) 100 mg ORAL BID senna 17.2 mg tab(s) (SENOKOT) 17.2 mg ORAL AT BEDTIME aspirin, enteric coated 81 mg tab(s) 81 mg ORAL BID acetaminophen 325-650 mg tab(s) (TYLENOL) 325-650 mg ORAL q 4 H PRN keTORolac 15 mg injection (Toradol) 15 mg INTRAVENOUS q 6 H PRN lactated ringers iv infusion 75 mL/hr INTRAVENOUS CONTINUOUS oxyCODONE IR 5-10 mg tab(s) (ROXICODONE) 5-10 mg ORAL q 3 H PRN Patient Vitals for the past 48 hrs: BP Temp Temp src Pulse Resp SpO2 12/24/24 0729 132/68 36.3 ?C (97.3 ?F) Oral 74 16 96 % 12/24/24 0510 148/79 36.5 ?C (97.7 ?F) Oral 68 16 95 % 12/23/24 2336 149/63 36.7 ?C (98.1 ?F) Oral 83 16 96 % 12/23/242051 134/79 -- Oral 84 18 94 % 12/23/249 134/79 -- -- 84 -- -- 12/23/24 1924 153/77 36.7 ?C (98.1 ?F) Oral 88 16 91 % 12/23/24 1230 120/74 36.8 ?C (98.2 ?F) Oral 74 16 91 % 12/23/24 1202 115/72 36.9 ?C (98.4 ?F) Oral 73 16 91 % 12/23/24 1131 120/73 36.4 ?C (97.5 ?F) Oral 65 16 95 % 12/23/24 1100 123/79 -- -- -- -- 95 % 12/23/24 1045 126/77 -- -- -- -- 93 % 12/23/24 1030 125/74 -- -- -- -- 94 % 12/23/24 1010 127/77 -- -- -- -- 96 % 12/23/24 0720 143/91 -- -- 73 21 93 % 12/23/24 0715 155/96 -- -- 68 22 96 % 12/23/24 0644 144/91 36.1 ?C (97 ?F) Temporal Art 69 18 96 % PHYSICAL EXAM: GENERAL: alert, no distress, cooperative SKIN: No rashes or lesions. OROPHARYNX: Oropharynx normal. NECK: no jugulovenous distention, supple LUNGS: Lungs clear to auscultation. CARDIAC: normal S1 and S2; no rubs, murmurs, or gallops ABDOMEN: Abdomen soft, non-tender. BS normal. No masses or organomegaly. EXTREMETIES: No deformities, cyanosis, edema, clubbing or skin discoloration. NEURO: Alert, oriented X 3, Motor and Sensation grossly intact., DATA: CBC: Recent Labs 12/24/24 0456 WBC 8.20 RBC 4.35 HB 13.1 HCT 38.6* PLT 126* MCV 88.7 MCH 30.1 MPV 9.7 Coags: No results for input(s): PT, INR, APTT in the last 24 hours. CMP: Recent Labs 12/24/24 0456 NA 135* K 4.4 CHLOR 101 CO2 23 BUN 32* CREAT 1.47* GLUC 279* CA 9.0 ANION 11 Cardiac Enzymes: No results for input(s): CK, MB, CKMB, TROPT in the last 24 hours. Liver Function, Amylase, Lipase: No results for input(s): TPROT, ALB, ALT, AST, ALKPHOS, TBILI, AMYLASE, LIPASE, LACTATE in the last 24 hours. ABG's: No results for input(s): PH, PCO2, PO2, BE, HCO3, CO2CT, O2HB, COHB, MHGB, TEMP, PHTC, PCO2T, PO2T, O2AD in the last 24 hours. MG/PHOS: No results for input(s): MG, P in the last 24 hours. Plan of care discussed with: . SIGNATURE: Chalino Boggs MD DATE: December 24, 2024 TIME: 7:48 AM [facility] 12-24-2024 Note HNO ID: [id number] Author: GANESH ARGUELLO MD Service: Orthopaedic Surgery Author Type: Physician Type: Progress Notes Filed: 12/24/2024 07:55 Note Text: Inpatient Progress Note Orthopaedic Surgery If urgent AND unable to reach myself OR if 5p-7a/Wknd: page 2BONE Assessment Gutierrez De Jesus underwent Procedure(s) (LRB): ROBOTIC ASSISTED TOTAL KNEE ARTHROPLASTY (Right) by Robert Mckeon MD on 12/23/2024 Post Op Plan - Weightbearing: WBAT - Range of Motion: ROMAT - Dressing: Silver-impregnated - Drains: None - Tristan: None/Per nursing protocol - Diet: Advance as tolerated - HLIV when tolerating adequate PO - DVT Prophylaxis: ASA 81mg BID, SCDs - Antibiotics: 24h ancef periop - Cultures: None - Consults: PT/OT, care management, appreciate recs Dispo: Pending PT/OT reccs, anticipated discharge today- home Rounding Subjective No o/n issues. Pain well controlled. Denies nausea, vomiting, chest pain, shortness of breath. Objective Blood pressure 148/79, pulse 68, temperature 36.5 ?C (97.7 ?F), temperature source Oral, resp. rate 16, SpO2 95%. Physical Exam AAOx3, NAD Breathing comfortably at rest RRR to peripheral palpation RIGHT Lower Extremity Inspection: Dressing c/d/i. Palpation: Appropriate TTP to incision site Compartments: Soft, compressible Sensory: SILT to SP/DP/T/S/S distributions Motor: Intact DF/PF/EHL (no footdrop) Vascular: DP 2+ to palp; CR < 2 sec; foot warm AND well-perfused Lab Review Creatinine (mg/dL) Date Value 12/01/2024 1.52 (H) 06/29/2017 0.99 04/10/2017 1.01 10/02/2016 0.96 Sodium (mmol/L) Date Value 12/01/2024 137 06/29/2017 137 04/10/2017 135 (L) 10/02/2016 139 Potassium (mmol/L) Date Value 12/01/2024 4.4 06/29/2017 3.9 04/10/2017 4.0 10/02/2016 3.9 Hemoglobin (g/dL) Date Value 12/24/2024 13.1 12/01/2024 15.4 02/23/2013 15.5 Hematocrit (%) Date Value 12/24/2024 38.6 (L) 12/01/2024 46.0 02/23/2013 44.9 WBC (k/uL) Date Value 12/24/2024 8.20 12/01/2024 6.98 02/23/2013 4.18 No results found for: INR Glucose, Point of Care (mg/dL) Date Value 12/23/2024 227 (A) 12/23/2024 166 (A) Please scroll above for Assessment AND Plan. Ganesh Arguello MD Adult Reconstruction Fellow Orthopaedic Surgery Please page [phone]) from 5p-6a and on weekends for any issues, or directly IHIS Ganesh Arguello. [facility] 12-23-2024 Note HNO ID: [id number] Author: HOLLIE CARUSO PA-C Service: General Surgery Author Type: Physician Best Worker Type: Progress Notes Filed: 12/23/2024 18:01 Note Text: POSTOP PROGRESS NOTE SERVICE DATE: 12/23/2024 SERVICE TIME: 6:01 PM Subjective CHIEF COMPLAINT: Primary osteoarthritis of right knee INTERVAL HISTORY OF PRESENT ILLNESS: This is a 64 year old male postop ROBOTIC ASSISTED TOTAL KNEE ARTHROPLASTY (Right: Knee). Patient rates their pain 1/10 at this time. Objective PHYSICAL EXAM: BP 120/74 Pulse 74 Temp (Src) 98.4 (Oral) Resp 16 SpO2 91% O2 Therapy: Room Air, Liters (Numeric Only): 4.00 Physical Exam: Right Leg: Sensation intact to light touch. Patient is able to dorsiflex and plantarflex the Right ankle. Patient is able to wiggle toes. Patric Wrap dressings and Ice Man dry and in place. Assessment AND Plan POSTOP PLANS: As indicated per Orthopedic services Proceed with Surgeon's post operative plan. Advised patient to reach out to nurse if issues occur. SIGNATURE: Hollie Caruso PA-C PATIENT NAME: Gutierrez De Jesus DATE: December 23, 2024 TIME: 6:01 PM [facility] 12-23-2024 Note HNO ID: [id number] Author: MERCEDES OVERTON APRN.GATE SUPERVISOR Service: Anesthesiology Author Type: Nurse Rn Utilization Management Um Type: Anesthesia Procedure Notes Filed: 12/23/2024 07:51 Note Text: ANESTHESIOLOGY PROCEDURE NOTE Airway General Information Procedure Start Time/Medication Administration: 12/23/2024 7:39 AM Procedure End Time: 12/23/2024 7:39 AM Patient location during procedure: OR Timeout Performed Pre-procedure: timeout performed Consent Obtained: Yes Patient identity confirmed: arm band and patient Staffing GATE SUPERVISOR: Mercedes Overton APRN.GATE SUPERVISOR Performed by: GATE SUPERVISOR Indications and Patient Condition Indications for airway management: anesthesia Preoxygenated: yes anesthesia circuit Patient position: sniffing Method: asleep Final Airway Details Final airway type: supraglottic airway Number of attempts at approach: 1 Final Supraglottic Airway: i-gel Size 5 Seal Adequate: yes Airway not difficult SIGNATURE: Mercedes Overton APRN.CRNA PATIENT NAME: Gutierrez De Jesus DATE: December 23, 2024 TIME: 7:50 AM CSN: [id number] [facility] 12-23-2024 Note HNO ID: [id number] Author: JESUS LUCAS MD Service: ? Author Type: Anesthesiologist Type: Anesthesia Procedure Notes Filed: 12/23/2024 07:31 Note Text: ANESTHESIOLOGY PROCEDURE NOTE Peripheral Nerve Block General Information Procedure Start Time/Medication Administration: 12/23/2024 7:18 AM Procedure End time: 12/23/2024 7:20 AM Patient location during procedure: pre-op Timeout Performed Pre-procedure: timeout performed Consent Obtained: Yes Patient identity confirmed: arm band Reason for block: post-op pain management/at surgeon's request Staffing Anesthesiologist: Jesus Lucas MD Performed by: anesthesiologist Preparation Sterility Preparation: hand hygiene performed prior to procedure, sterile gloves, drapes, and procedure tray, surgical cap used, mask used, sterile drape used during line insertion, skin prep agent completely dried prior to procedure Sterility Technique Not Completely Performed Due to Extreme Emergency: No Site Prep: Chloraprep Pre-Procedure Neuro Exam Location: RLE Sensory: intact Motor: intact Procedure Details Patient Position: supine Monitoring: Pulse OX, EKG and NIBP Block Type Lower Extremity: distal femoral (adductor canal) Laterality: right Injection Technique: single-shot Ultrasound Guided: Yes Image in Chart: Yes Local Infiltration: Yes Needle Needle Type: echogenic Needle Gauge: 20 G Needle Length: 100 mm Needle Localization: ultrasound Assessment Injection assessment: negative aspiration, no paresthesia on injection, incremental injection and local visualized surrounding nerve on ultrasound Paresthesia: immediately resolved Post-Procedure Neuro Exam Expected Regional Anesthesia: Yes Medications Administered ropivacaine (PF) 5 mg/mL (0.5 %) injection (NAROPIN) - peripheral nerve block 20 mL - 12/23/2024 7:18:00 AM dexamethasone sodium phosphate injection (DECADRON) - peripheral nerve block 4 mg - 12/23/2024 7:18:00 AM SIGNATURE: Jesus Lucas MD PATIENT NAME: Gutierrez De Jesus DATE: December 23, 2024 TIME: 7:29 AM CSN: [id number] [facility] 12-19-2024 History of Present illness Narrative Radiology Service Progress Note PATIENT NAME: Gutierrez De Jesus DATE OF SERVICE: December 19, 2024 TIME: 4:04 PM PATIENT IDENTITY VERIFICATION COMPLETED USING TWO (2) IDENTIFIERS: Name and Date of confirmed by patient verbally and Name and Date of confirmed by identification band. FALL SCREENING: Has the patient had 2 falls in the last year or 1 fall with injury or currently using an Ambulatory Assistive Device (Walker, Cane, Wheelchair, Crutches, etc.)? No PATIENT GENDER DATA: Assigned male at PATIENT RELEVANT IMPLANT DATA REVIEWED: Not Applicable PATIENT PRESENTS WITH AN IMPLANTABLE OR ATTACHED FOREST NURSERY SUPERVISOR: No RADIOLOGY DEPARTMENT: CT; Exam(s) Completed: Lower extremity PERIPHERAL IV DATA: Not applicable SIGNED BY: CAM Mayen) December 19, 2024 4:04 PM documented in this encounter [facility] 12-19-2024 Note HNO ID: [id number] Author: DEISY UP RT(R) Service: Radiology Author Type: Technologist Type: Progress Notes Filed: 12/19/2024 16:05 Note Text: Radiology Service Progress Note PATIENT NAME: Gutierrez De Jesus DATE OF SERVICE: December 19, 2024 TIME: 4:04 PM PATIENT IDENTITY VERIFICATION COMPLETED USING TWO (2) IDENTIFIERS: Name and Date of confirmed by patient verbally and Name and Date of confirmed by identification band. FALL SCREENING: Has the patient had 2 falls in the last year or 1 fall with injury or currently using an Ambulatory Assistive Device (Walker, Cane, Wheelchair, Crutches, etc.)? No PATIENT GENDER DATA: Assigned male at PATIENT RELEVANT IMPLANT DATA REVIEWED: Not Applicable PATIENT PRESENTS WITH AN IMPLANTABLE OR ATTACHED FOREST NURSERY SUPERVISOR: No RADIOLOGY DEPARTMENT: CT; Exam(s) Completed: Lower extremity PERIPHERAL IV DATA: Not applicable SIGNED BY: RT Faheem(R) December 19, 2024 4:04 PM [facility] 12-05-2024 Telephone encounter Note Called and spoke with patient. He is aware and agreeable of results and recommendations. Monserrat Clements LPN [facility] 12-05-2024 Miscellaneous Notes Called and spoke with patient. He is aware and agreeable of results and recommendations. Monserrat Clements LPN Notify pt labs show some abnormalities, but nothing that is urgent, just keep his follow up with Dr. Champagne in January. Platelets were mildly decreased and this does appear chronic on previous labs I found outside our system in [facility], he has been down to 137-150's range mostly. He does have some mild CKD, continue to avoid NSAIDs and again follow up with Dr. Champagne, but these are all stable for surgery. Patients called in. States they saw lab results on Mychart and are wondering if they should be concerned with any of the abnormal results? Please contact Karissa mary beth at [phone]. documented in this encounter [facility] 12-05-2024 Telephone encounter Note Notify pt labs show some abnormalities, but nothing that is urgent, just keep his follow up with Dr. Champagne in January. Platelets were mildly decreased and this does appear chronic on previous labs I found outside our system in [facility], he has been down to 137-150's range mostly. He does have some mild CKD, continue to avoid NSAIDs and again follow up with Dr. Champagne, but these are all stable for surgery. [facility] 12-05-2024 Telephone encounter Note Patients called in. States they saw lab results on Mychart and are wondering if they should be concerned with any of the abnormal results? Please contact Karissa clinton at [phone]. [facility] 12-05-2024 Telephone encounter Note Patient states he was called about his lab results and was supposed to call back to discuss with someone but didn't know who. Please advise or call patient to discuss. Thanks. [facility] 12-05-2024 Miscellaneous Notes Patient states he was called about his lab results and was supposed to call back to discuss with someone but didn't know who. Please advise or call patient to discuss. Thanks. TOTAL JOINT COMPLETE CARE PROGRAM PRE-OPERATIVE TEACHING Service Date: 12/05/2024 Service Time: 11:21 AM Date of : 1960 Gender: male Date of Surgery: 12/23/24 Procedure: Right Total Knee Replacement Complete Care Program was discussed with the patient: Insurance Adviser Identification: Patient identified a career services director to help when discharged to home: Home Environment: Home Layout: double wide trailor, Entry Steps: 2, with rail, Bedroom Location: 1st floor, Bathroom Location: 1st floor, and tub shower. Pt owns cane, shower chair. Access to walker he believes. Discussed with patient importance of attending joint education class and provided date and times of class: YES declined Patient received Joint Education Binder: Yes Patient plans discharge home with [facility]. SIGNATURE: ESTEPHANIA Jacobson PATIENT NAME: Gutierrez De Jesus DATE: December 01, 2024 TIME: 6:57 AM documented in this encounter [facility] 12-01-2024 History of Present illness Narrative Radiology Service Progress Note PATIENT NAME: Gutierrez De Jesus DATE OF SERVICE: December 01, 2024 TIME: 4:39 PM PATIENT IDENTITY VERIFICATION COMPLETED USING TWO (2) IDENTIFIERS: Name and Date of confirmed by patient verbally. FALL SCREENING: Has the patient had 2 falls in the last year or 1 fall with injury or currently using an Ambulatory Assistive Device (Walker, Cane, Wheelchair, Crutches, etc.)? No PATIENT GENDER DATA: Assigned male at PATIENT RELEVANT IMPLANT DATA REVIEWED: Not Applicable PATIENT PRESENTS WITH AN IMPLANTABLE OR ATTACHED FOREST NURSERY SUPERVISOR: No RADIOLOGY DEPARTMENT: General X-ray: Exam(s) Completed: Chest X-Ray PERIPHERAL IV DATA: Not applicable SIGNED BY: RT Silvana(Frank) December 01, 2024 4:39 PM documented in this encounter [facility] 12-01-2024 Note HNO ID: [id number] Author: TRINA GUERRERO RT (R) Service: Radiology Author Type: Technologist Type: Progress Notes Filed: 12/01/2024 16:45 Note Text: Radiology Service Progress Note PATIENT NAME: Gutierrez De Jesus DATE OF SERVICE: December 01, 2024 TIME: 4:39 PM PATIENT IDENTITY VERIFICATION COMPLETED USING TWO (2) IDENTIFIERS: Name and Date of confirmed by patient verbally. FALL SCREENING: Has the patient had 2 falls in the last year or 1 fall with injury or currently using an Ambulatory Assistive Device (Walker, Cane, Wheelchair, Crutches, etc.)? No PATIENT GENDER DATA: Assigned male at PATIENT RELEVANT IMPLANT DATA REVIEWED: Not Applicable PATIENT PRESENTS WITH AN IMPLANTABLE OR ATTACHED FOREST NURSERY SUPERVISOR: No RADIOLOGY DEPARTMENT: General X-ray: Exam(s) Completed: Chest X-Ray PERIPHERAL IV DATA: Not applicable SIGNED BY: RT Silvana(Frank) December 01, 2024 4:39 PM [facility] 12-01-2024 History and physical note Images from the original note were not included. [facility] HISTORY AND PHYSICAL EXAMINATION SERVICE DATE: 12/01/2024 SERVICE TIME: 1:09 PM PRIMARY CARE PHYSICIAN: Yobani Champagne MD Assessment Patient has the following medical conditions which may affect tracee-operative course: Situational depression Assessment: stable on rx per pt Obstructive sleep apnea Assessment: non-compliant with CPAP Former smoker Assessment: 3ppd/30 years, CXR pre-op normal, PFT's pending 12/09/2024, no dx of asthma and/or COPD Essential hypertension Assessment: controlled on rx Last 14 BP Last 14 Encounter BP Readings: Date: BP: 12/01/2024 122/62 08/19/2024 134/80 06/07/2024 110/78 04/15/2022 158/92 03/11/2022 138/86 12/04/2021 142/96 06/04/2021 144/88 06/29/2017 115/74 03/24/2017 128/70 12/10/2016 120/76 09/30/2016 118/94 06/19/2016 108/74 02/21/2016 124/88 01/30/2016 118/80 Hyperlipidemia LDL goal <100 Assessment: c/w statin Elevated liver function tests Assessment: hx Albumin (g/dL) Date Value 12/01/2024 4.6 Bilirubin, Total (mg/dL) Date Value 12/01/2024 1.1 Alkaline Phosphatase (U/L) Date Value 12/01/2024 62 AST (U/L) Date Value 12/01/2024 29 ALT (U/L) Date Value 12/01/2024 34 Protein, Total (g/dL) Date Value 12/01/2024 7.3 Neurogenic bladder Assessment: hx[facility], pt gave vague hx Renal cyst Assessment: small mildly complex bilateral renal cysts per US in [facility] 2006, no follow up imaging noted, records requested from [place] CKD (chronic kidney disease) Assessment: Creatinine Date Value Ref Range Status 12/01/2024 1.52 (H) 0.73 - 1.22 mg/dL Final 06/29/2017 0.99 0.73 - 1.22 mg/dL Final 04/10/2017 1.01 0.73 - 1.22 mg/dL Final 10/02/2016 0.96 0.73 - 1.22 mg/dL Final Type 2 diabetes mellitus with microalbuminuria, without long-term current use of insulin (HCC) Assessment: controlled with weekly injectable and oral agent. Reviewed to hold injectable 7 FULL days prior to surgery, pt verbalized understanding. Hemoglobin A1C (%) Date Value 12/01/2024 6.8 06/29/2017 7.5 HGBA1C (%) Date Value 10/27/2018 9.0 1st degree AV block Assessment: per pre-op EKG, asymptomatic Intention tremor Assessment: controlled on rx GERD (gastroesophageal reflux disease) Assessment: controlled on rx Benign prostatic hyperplasia with lower urinary tract symptoms Assessment: controlled on rx BMI 36.0-36.9,adult Assessment: Body mass index is 36.86 kg/m . History of renal cell cancer Assessment: s/p right partial nephrectomy ANESTHESIA FINDINGS: Intubation History: No history of difficult intubation Significant Anesthesia Considerations: none Airway History: No history of difficult airway Beck Activity Status Index: METS: Climb a flight of stairs or walk up a hill (5.50 METs) DASI Score: 5.5 Patient denies any chest pain or undue shortness of breath with the above physical activity. Clinical Frailty Scale: 3. Well, with treated comorbid disease STOP-Bang Score: Snores loudly Has been observed to stop breathing or choking/gasping during sleep Has or is being treated for high blood pressure BMI greater than 35 kg/m^2 Patient over 50 years old Has a large neck Male patient Denies feeling tired, fatigued, or sleepy during the daytime STOP-Bang Score: 7 [id number] Score: Age: 65-74 Sex: male CHF history: No Hypertension history: Yes Stroke/TIA/thromboembolism history: No Vascular disease history: No Diabetes history: Yes [id number] Score: 3 ARISCAT Score: Age: 51-80 Preoperative SpO2: 91-95% Respiratory infection in the last month: No Preoperative anemia: No Surgical incision: peripheral Duration of surgery: 2-3 hrs Emergency procedure: No ARISCAT Score: 27 I - PHYSICAL EVALUATION AIRWAY Patient intubated: No. Tracheostomy tube not present Mallampati: II. TM distance: >3 FB. Neck ROM: full ROM without neurological symptoms. Mouth opening: adequate. Short neck: no. Thick neck: yes Prado present: yes Lip Bite Test: I Microretrognathia/Micronagthia/Rec essed Chin: No DENTAL Dentures, upper: complete. Dentures, lower: complete. II - ANESTHESIA PLAN Anesthetic Plan: other Beta Kat Monitoring Plan Post Procedure Analgesic Plan Prepared for Surgery: optimally prepared for surgery, pending [see comment]. Labs, EKG, CXR-reviewed, okay to proceed-JL PFT-pending 12/09/2024 CONSULTS: Patient does not require consults for optimization at this time Planned Anesthetic: other anesthesia choice The Following Tests/Procedures Have Been Initiated: Orders Placed This Encounter XR CHEST 2V FRONTAL/LAT Standing Status: Future Number of Occurrences: 1 Expected Date: 12/01/2024 Expiration Date: 12/31/2025 >CBC + AUTO DIFF Standing Status: Future Number of Occurrences: 1 Expected Date: 12/01/2024 Expiration Date: 03/02/2025 >CMP Standing Status: Future Number of Occurrences: 1 Expected Date: 12/01/2024 Expiration Date: 03/02/2025 >HGB A1c (Today or soon) Standing Status: Future Number of Occurrences: 1 Expected Date: 12/01/2024 Expiration Date: 03/02/2025 ADULT - SPIROMETRY WITH DILATOR IF OBSTRUCTED Standing Status: Future Expected Date: 12/01/2024 Expiration Date: 12/31/2025 Scheduling Instructions: Please call to schedule, cancel, or change an appointment. Adults [phone] Pediatrics [phone] Should this patient be seen in a Pediatric Lab?: No ADULT - LUNG DIFFUSION CAPACITY (DLCO) Standing Status: Future Expiration Date: 12/31/2025 Should this patient be seen in a Pediatric Lab?: No mupirocin (BACTROBAN) 2 % ointment Sig: Apply 0.5 inch with cotton swab (Q-tip) to each nostril in the morning and evening for 5 days prior to and including day of surgery. Dispense: 22 g Refill: 0 ECG COMPLETE Standing Status: Future Expiration Date: 12/01/2025 REASON FOR VISIT: Gutierrez De Jesus is a 64 year old male who is scheduled for Procedure(s): ROBOTIC ASSISTED TOTAL KNEE ARTHROPLASTY (Right) at the request of Dr. Robert Edgar for consultation. My final recommendation will be communicated back to the requesting physician by way of shared medical record or letter. Subjective The patient has the following: COVID-19 Immunization Status Upcoming Covid-19 Vaccine ( season) Next due on 02/16/2025 08/19/2024 Imm Admin: COVID-19 vaccine, age 12+ yr (PFIZER-BIONTECH COMIRNATY) 06/02/2023 Imm Admin: COVID-19 vaccine, age 12+ yr (PFIZER-BIONTECH COMIRNATY) 06/18/2022 Imm Admin: COVID-19 vaccine, age 12+ yr, bivalent (PFIZER-BIONTECH) Only the first 3 history entries have been loaded, but more history exists. CHIEF COMPLAINT: Pre-op exam HPI: Gutierrez De Jesus is a 63 year old seen for PAC due to scheduled above surgery because of OA right knee. 11/28/2024, Dr. Robert Edgar Gutierrez De Jesus is a 63 year old patient with the presenting complaint of New and Pain of the Right Knee. 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 The problem began limiting activities 1-3 years ago. Gutierrez reports a current pain level of 4 (Knee-Right). He describes the pain as Throbbing, Pressure, Stabbing, Shooting. The pain is Continuous, and has lasted for 30 Years. Interventions tried include Medication. FALL RISK: Gutierrez is not currently at risk for falls. Patient here today for OA right knee. States this has been hurting since 1987 when he fell off a truck about 13 feet. Does not work outside the home. X-ray completed today. PROMIS Physical Function Score No data to display FUNCTIONAL STATUS: Do moderate work around the house such as vacuuming, sweeping floors, or carrying in groceries (3.50 METs) Do yardwork, such as raking leaves, weeding,or pushing a power mower (4.50 METs) PREVIOUS TREATMENTS: Past anti-inflammatory medications (not necessarily for this reason for visit): naproxen Attempted Weight Loss Medical Treatments: RX NSAIDS for 3 Months or Greater (meloxicam (Mobic) and naproxen (Naprosyn)), Viscosupplementation Left Knee, Viscosupplementation Right Knee Previous Surgery: Knee Arthroscopy REVIEW OF SYSTEMS: General: No weight loss, malaise or fevers. Neurological: No history of TIA's, stroke, HOOP ROLLS OPERATOR tumor, impaired sensorium, hemiplegia, paraplegia or quadraplegia. No neurological symptoms or problems. Respiratory: +former smoker 2-3ppd/30 years Positive for: obstructive sleep apnea and CPAP/BiPAP noncompliant. Negative for: asthma, COPD, current cough, dyspnea, pneumonia within 6 weeks, tobacco use and URI < 2 weeks. Cardiovascular: Positive for: arrhythmia, hyperlipidemia and hypertension Negative for: abdominal aortic aneurysm, AICD/PPM, angina, anticoagulation therapy, atrial fibrillation, CAD, chest pain, CHF, congenital heart defect, DVT/PE, recent AK, murmur/valvular heart disease, PTCA, PVD, open heart surgery and valve surgery. GI: Positive for: GERD Negative for: abdominal pain, dysphagia, hepatitis, irritable bowel syndrome, inflammatory bowel disease, liver disease, nausea, pancreatitis, vomiting and ETOH >2 drinks/day. : Hx mildly complex renal cyst US 2006, no repeating imaging found Positive for: BPH and nephrolithiasis (remote). Negative for: renal failure and urinary tract infection. Endocrine: Positive for: diabetes mellitus. Patient's diabetes mellitus is controlled by oral agents and weekly injectable. Negative for: hypothyroidism. Hematology: No history of bleeding or clotting disorder. Patient is not taking anti-coagulation or platelet medications. No history of hematological symptoms or problems. Oncology: Renal cancer, right Psych: Positive for: depression (on rx). Negative for: Marijuana Use. Musculoskeletal: See HPI. Skin: Negative for lesions, rash and itching. Implanted Devices: No implanted devices. 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 PAST SURGICAL HISTORY Procedure Laterality Date ARTHROSCOPY KNEE DIAGNOSTIC W/WO SYNOVIAL BX SPX 04/03/1989 Arthroscopy, knee right: medial and lateral meniscal repair COLONOSCOPY FLX DX W/COLLJ SPEC WHEN PFRMD 06/17/2013 Colonoscopy CYSTO W/INSERT URETERAL STENT PARTIAL REMOVAL OF KIDNEY Right REPAIR FIRST ABDOMINAL WALL HERNIA Hernia repair, incisional age 5 TONSILLECTOMY PRIMARY/SECONDARY Tonsillectomy alone FAMILY HISTORY Problem Relation Age of Onset Prostate Cancer Paternal Grandfather Diabetes Paternal Grandmother Diabetes Sister other (CHF [Other]) Father other (lung cancer [Other]) Father other (TB [Other]) Mother Social History Tobacco Use Smoking status: Former Current packs/day: 3.00 Average packs/day: 3.0 packs/day for 30.0 years (90.0 ttl pk-yrs) Types: Cigarettes Smokeless tobacco: Current Types: Snuff Tobacco comments: quit smoking in 1999. does snuff currently. 3 cans a week Vaping Use Vaping status: Never Used Substance Use Topics Alcohol use: No Drug use: No Comment: caffeine Prior to Admission medications as of 12/06/24 1308 Medication Sig Last Dose Taking empagliflozin (JARDIANCE) 25 mg tablet Take 1 tablet by mouth once daily. Yes lisinopril (ZESTRIL) 20 mg tablet Take 1 tablet by mouth once daily. Yes carvedilol (COREG) 25 mg tablet Take 2 tablets by mouth two times a day. Yes ergocalciferol 50,000 unit capsule (VITAMIN D2, DRISDOL) Take 1 capsule by mouth every 2 weeks. Use as directed. Yes famotidine (PEPCID) 20 mg tablet Take 1 tablet by mouth once daily. Yes metFORMIN (GLUCOPHAGE) 1,000 mg tablet Take 1 tablet by mouth two times a day. Yes mirtazapine (REMERON) 15 mg tablet Take 1 tablet by mouth daily at bedtime. Yes rosuvastatin (CRESTOR) 40 mg tablet Take 1 tablet by mouth daily at bedtime. Yes semaglutide (OZEMPIC) 1 mg/dose (4 mg/3 mL) pen Inject 1 mg subcutaneously one time a week. Yes tamsulosin (FLOMAX) 0.4 mg Take 2 capsules by mouth once daily. Yes mupirocin (BACTROBAN) 2 % ointment Apply 0.5 inch with cotton swab (Q-tip) to each nostril in the morning and evening for 5 days prior to and including day of surgery. No medication comments found. ALLERGIES No Known Allergies Objective PHYSICAL EXAM: General: alert and oriented (x3), healthy appearance and obese. Pertinent negatives noted - not distressed. Skin: normal color, no rash or lesions. HEENT: EOM intact and pupils equal round. Pertinent negatives noted - no carotid bruit. Cardiovascular: regular rate and rhythm, normal S1 and S2, no rub, murmurs, or gallop. Respiratory: normal breath sounds, no wheezes or crackles. No chest wall deformity or tenderness. Abdomen: soft. Pertinent negatives noted - not tender. Extremities: no deformity, no edema or tenderness, no joint swelling or clubbing. Neurological: normal cognition and motor skills. Gait normal. No weakness or sensory deficit. PAIN ASSESSMENT: VITALS: BP 122/62 Pulse 78 Temp (Src) 98.8 (Temporal) Resp 14 Ht 5' 8 (1.73m) Wt 242 lb 6.4 oz (110.0kg) SpO2 94% BMI 36.87 kg/(m^2). Diagnostic tests reviewed for today's visit: Lab Value Units Date High Low HB 15.4 g/dL 12/01/2024 17.0 13.0 HCT 46.0 % 12/01/2024 51.0 39.0 WBC 6.98 k/uL 12/01/2024 11.00 3.70 PLT 141 k/uL 12/01/2024 400 150 NA 137 mmol/L 12/01/2024 144 136 K 4.4 mmol/L 12/01/2024 5.1 3.7 GLUC 123 mg/dL 12/01/2024 99 74 BUN 18 mg/dL 12/01/2024 24 9 CREAT 1.52 mg/dL 12/01/2024 1.22 0.73 PTSEC No results within date range. INR No results within date range. APTT No results within date range. ALT 34 U/L 12/01/2024 54 10 AST 29 U/L 12/01/2024 40 14 TBILI 1.1 mg/dL 12/01/2024 1.3 0.2 TSH No results within date range. Lab Value Units Date High Low HCGQT No results within date range. UHCG No results within date range. HCG, BODY* No results within date range. Lab Value Units Date High Low ABORHD No results within date range. ABSCREEN No results within date range. Hemoglobin A1C (%) Date Value 12/01/2024 6.8 06/29/2017 7.5 04/10/2017 8.1 10/02/2016 7.6 06/19/2016 9.0 12/21/2015 7.8 HGBA1C (%) Date Value 10/27/2018 9.0 Recent Results (from the past 8760 hours) ECG COMPLETE Collection Time: 12/01/24 3:51 PM Result Value Ventricular Rate 74 Atrial Rate 74 P-R Interval 254 QRS Duration 92 QT Interval 366 QTC Calculation (Bazett) 406 Calculated P [place] 33 Calculated R [place] -27 Calculated T [place] 46 Impression SINUS RHYTHM WITH 1ST DEGREE AV BLOCK OTHERWISE NORMAL ECG Confirmed by GANESH PHILLIPS MD ([id number]) on 12/02/2024 5:14:37 PM No results found for this or any previous visit (from the past 16053 hours). Instructions Given to Patient: Instructions located in the after visit summary. Patient given verbal and written preop instructions and voices comprehension and compliance. SIGNATURE: Kacie Montelongo APRN.CNP PATIENT NAME: Gutierrez De Jesus DATE: December 01, 2024 TIME: 3:39 PM PAGER/CONTACT #: [facility] 12-01-2024 History and physical note Images from the original note were not included. [facility] HISTORY AND PHYSICAL EXAMINATION SERVICE DATE: 12/01/2024 SERVICE TIME: 1:09 PM PRIMARY CARE PHYSICIAN: Yobani Champagne MD Assessment Patient has the following medical conditions which may affect tracee-operative course: Situational depression Assessment: stable on rx per pt Obstructive sleep apnea Assessment: non-compliant with CPAP Former smoker Assessment: 3ppd/30 years, CXR pre-op normal, PFT's pending 12/09/2024, no dx of asthma and/or COPD Essential hypertension Assessment: controlled on rx Last 14 BP Last 14 Encounter BP Readings: Date: BP: 12/01/2024 122/62 08/19/2024 134/80 06/07/2024 110/78 04/15/2022 158/92 03/11/2022 138/86 12/04/2021 142/96 06/04/2021 144/88 06/29/2017 115/74 03/24/2017 128/70 12/10/2016 120/76 09/30/2016 118/94 06/19/2016 108/74 02/21/2016 124/88 01/30/2016 118/80 Hyperlipidemia LDL goal <100 Assessment: c/w statin Elevated liver function tests Assessment: hx Albumin (g/dL) Date Value 12/01/2024 4.6 Bilirubin, Total (mg/dL) Date Value 12/01/2024 1.1 Alkaline Phosphatase (U/L) Date Value 12/01/2024 62 AST (U/L) Date Value 12/01/2024 29 ALT (U/L) Date Value 12/01/2024 34 Protein, Total (g/dL) Date Value 12/01/2024 7.3 Neurogenic bladder Assessment: hx[facility], pt gave vague hx Renal cyst Assessment: small mildly complex bilateral renal cysts per US in [facility] 2006, no follow up imaging noted, records requested from [place] CKD (chronic kidney disease) Assessment: Creatinine Date Value Ref Range Status 12/01/2024 1.52 (H) 0.73 - 1.22 mg/dL Final 06/29/2017 0.99 0.73 - 1.22 mg/dL Final 04/10/2017 1.01 0.73 - 1.22 mg/dL Final 10/02/2016 0.96 0.73 - 1.22 mg/dL Final Type 2 diabetes mellitus with microalbuminuria, without long-term current use of insulin (HCC) Assessment: controlled with weekly injectable and oral agent. Reviewed to hold injectable 7 FULL days prior to surgery, pt verbalized understanding. Hemoglobin A1C (%) Date Value 12/01/2024 6.8 06/29/2017 7.5 HGBA1C (%) Date Value 10/27/2018 9.0 1st degree AV block Assessment: per pre-op EKG, asymptomatic Intention tremor Assessment: controlled on rx GERD (gastroesophageal reflux disease) Assessment: controlled on rx Benign prostatic hyperplasia with lower urinary tract symptoms Assessment: controlled on rx BMI 36.0-36.9,adult Assessment: Body mass index is 36.86 kg/m . History of renal cell cancer Assessment: s/p right partial nephrectomy ANESTHESIA FINDINGS: Intubation History: No history of difficult intubation Significant Anesthesia Considerations: none Airway History: No history of difficult airway Beck Activity Status Index: METS: Climb a flight of stairs or walk up a hill (5.50 METs) DASI Score: 5.5 Patient denies any chest pain or undue shortness of breath with the above physical activity. Clinical Frailty Scale: 3. Well, with treated comorbid disease STOP-Bang Score: Snores loudly Has been observed to stop breathing or choking/gasping during sleep Has or is being treated for high blood pressure BMI greater than 35 kg/m^2 Patient over 50 years old Has a large neck Male patient Denies feeling tired, fatigued, or sleepy during the daytime STOP-Bang Score: 7 [id number] Score: Age: 65-74 Sex: male CHF history: No Hypertension history: Yes Stroke/TIA/thromboembolism history: No Vascular disease history: No Diabetes history: Yes [id number] Score: 3 ARISCAT Score: Age: 51-80 Preoperative SpO2: 91-95% Respiratory infection in the last month: No Preoperative anemia: No Surgical incision: peripheral Duration of surgery: 2-3 hrs Emergency procedure: No ARISCAT Score: 27 I - PHYSICAL EVALUATION AIRWAY Patient intubated: No. Tracheostomy tube not present Mallampati: II. TM distance: >3 FB. Neck ROM: full ROM without neurological symptoms. Mouth opening: adequate. Short neck: no. Thick neck: yes Prado present: yes Lip Bite Test: I Microretrognathia/Micronagthia/Rec essed Chin: No DENTAL Dentures, upper: complete. Dentures, lower: complete. II - ANESTHESIA PLAN Anesthetic Plan: other Beta Kat Monitoring Plan Post Procedure Analgesic Plan Prepared for Surgery: optimally prepared for surgery, pending [see comment]. Labs, EKG, CXR-reviewed, okay to proceed- PFT-pending 12/09/2024 CONSULTS: Patient does not require consults for optimization at this time Planned Anesthetic: other anesthesia choice The Following Tests/Procedures Have Been Initiated: Orders Placed This Encounter XR CHEST 2V FRONTAL/LAT Standing Status: Future Number of Occurrences: 1 Expected Date: 12/01/2024 Expiration Date: 12/31/2025 >CBC + AUTO DIFF Standing Status: Future Number of Occurrences: 1 Expected Date: 12/01/2024 Expiration Date: 03/02/2025 >CMP Standing Status: Future Number of Occurrences: 1 Expected Date: 12/01/2024 Expiration Date: 03/02/2025 >HGB A1c (Today or soon) Standing Status: Future Number of Occurrences: 1 Expected Date: 12/01/2024 Expiration Date: 03/02/2025 ADULT - SPIROMETRY WITH DILATOR IF OBSTRUCTED Standing Status: Future Expected Date: 12/01/2024 Expiration Date: 12/31/2025 Scheduling Instructions: Please call to schedule, cancel, or change an appointment. Adults [phone] Pediatrics [phone] Should this patient be seen in a Pediatric Lab?: No ADULT - LUNG DIFFUSION CAPACITY (DLCO) Standing Status: Future Expiration Date: 12/31/2025 Should this patient be seen in a Pediatric Lab?: No mupirocin (BACTROBAN) 2 % ointment Sig: Apply 0.5 inch with cotton swab (Q-tip) to each nostril in the morning and evening for 5 days prior to and including day of surgery. Dispense: 22 g Refill: 0 ECG COMPLETE Standing Status: Future Expiration Date: 12/01/2025 REASON FOR VISIT: Gutierrez De Jesus is a 64 year old male who is scheduled for Procedure(s): ROBOTIC ASSISTED TOTAL KNEE ARTHROPLASTY (Right) at the request of Dr. Robert Edgar for consultation. My final recommendation will be communicated back to the requesting physician by way of shared medical record or letter. Subjective The patient has the following: COVID-19 Immunization Status Upcoming Covid-19 Vaccine () Next due on 02/16/2025 08/19/2024 Imm Admin: COVID-19 vaccine, age 12+ yr (PFIZER-BIONTECH COMIRNATY) 06/02/2023 Imm Admin: COVID-19 vaccine, age 12+ yr (PFIZER-BIONTECH COMIRNATY) 06/18/2022 Imm Admin: COVID-19 vaccine, age 12+ yr, bivalent (PFIZER-BIONTSpectrawatt) Only the first 3 history entries have been loaded, but more history exists. CHIEF COMPLAINT: Pre-op exam HPI: Gutierrez De Jesus is a 63 year old seen for PAC due to scheduled above surgery because of OA right knee. 11/28/2024, Dr. Robert Edgar Gutierrez De Jesus is a 63 year old patient with the presenting complaint of New and Pain of the Right Knee. 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 The problem began limiting activities 1-3 years ago. Gutierrez reports a current pain level of 4 (Knee-Right). He describes the pain as Throbbing, Pressure, Stabbing, Shooting. The pain is Continuous, and has lasted for 30 Years. Interventions tried include Medication. FALL RISK: Gutierrez is not currently at risk for falls. Patient here today for OA right knee. States this has been hurting since 1987 when he fell off a truck about 13 feet. Does not work outside the home. X-ray completed today. PROMIS Physical Function Score No data to display FUNCTIONAL STATUS: Do moderate work around the house such as vacuuming, sweeping floors, or carrying in groceries (3.50 METs) Do yardwork, such as raking leaves, weeding,or pushing a power mower (4.50 METs) PREVIOUS TREATMENTS: Past anti-inflammatory medications (not necessarily for this reason for visit): naproxen Attempted Weight Loss Medical Treatments: RX NSAIDS for 3 Months or Greater (meloxicam (Mobic) and naproxen (Naprosyn)), Viscosupplementation Left Knee, Viscosupplementation Right Knee Previous Surgery: Knee Arthroscopy REVIEW OF SYSTEMS: General: No weight loss, malaise or fevers. Neurological: No history of TIA's, stroke, HOOP ROLLS OPERATOR tumor, impaired sensorium, hemiplegia, paraplegia or quadraplegia. No neurological symptoms or problems. Respiratory: +former smoker 2-3ppd/30 years Positive for: obstructive sleep apnea and CPAP/BiPAP noncompliant. Negative for: asthma, COPD, current cough, dyspnea, pneumonia within 6 weeks, tobacco use and URI < 2 weeks. Cardiovascular: Positive for: arrhythmia, hyperlipidemia and hypertension Negative for: abdominal aortic aneurysm, AICD/PPM, angina, anticoagulation therapy, atrial fibrillation, CAD, chest pain, CHF, congenital heart defect, DVT/PE, recent AK, murmur/valvular heart disease, PTCA, PVD, open heart surgery and valve surgery. GI: Positive for: GERD Negative for: abdominal pain, dysphagia, hepatitis, irritable bowel syndrome, inflammatory bowel disease, liver disease, nausea, pancreatitis, vomiting and ETOH >2 drinks/day. : Hx mildly complex renal cyst US 2006, no repeating imaging found Positive for: BPH and nephrolithiasis (remote). Negative for: renal failure and urinary tract infection. Endocrine: Positive for: diabetes mellitus. Patient's diabetes mellitus is controlled by oral agents and weekly injectable. Negative for: hypothyroidism. Hematology: No history of bleeding or clotting disorder. Patient is not taking anti-coagulation or platelet medications. No history of hematological symptoms or problems. Oncology: Renal cancer, right Psych: Positive for: depression (on rx). Negative for: Marijuana Use. Musculoskeletal: See HPI. Skin: Negative for lesions, rash and itching. Implanted Devices: No implanted devices. 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 PAST SURGICAL HISTORY Procedure Laterality Date ARTHROSCOPY KNEE DIAGNOSTIC W/WO SYNOVIAL BX SPX 04/03/1989 Arthroscopy, knee right: medial and lateral meniscal repair COLONOSCOPY FLX DX W/COLLJ SPEC WHEN PFRMD 06/17/2013 Colonoscopy CYSTO W/INSERT URETERAL STENT PARTIAL REMOVAL OF KIDNEY Right REPAIR FIRST ABDOMINAL WALL HERNIA Hernia repair, incisional age 5 TONSILLECTOMY PRIMARY/SECONDARY <AGE 10 Tonsillectomy alone FAMILY HISTORY Problem Relation Age of Onset Prostate Cancer Paternal Grandfather Diabetes Paternal Grandmother Diabetes Sister other (CHF [Other]) Father other (lung cancer [Other]) Father other (TB [Other]) Mother Social History Tobacco Use Smoking status: Former Current packs/day: 3.00 Average packs/day: 3.0 packs/day for 30.0 years (90.0 ttl pk-yrs) Types: Cigarettes Smokeless tobacco: Current Types: Snuff Tobacco comments: quit smoking in 1999. does snuff currently. 3 cans a week Vaping Use Vaping status: Never Used Substance Use Topics Alcohol use: No Drug use: No Comment: caffeine Prior to Admission medications as of 12/06/24 1308 Medication Sig Last Dose Taking empagliflozin (JARDIANCE) 25 mg tablet Take 1 tablet by mouth once daily. Yes lisinopril (ZESTRIL) 20 mg tablet Take 1 tablet by mouth once daily. Yes carvedilol (COREG) 25 mg tablet Take 2 tablets by mouth two times a day. Yes ergocalciferol 50,000 unit capsule (VITAMIN D2, DRISDOL) Take 1 capsule by mouth every 2 weeks. Use as directed. Yes famotidine (PEPCID) 20 mg tablet Take 1 tablet by mouth once daily. Yes metFORMIN (GLUCOPHAGE) 1,000 mg tablet Take 1 tablet by mouth two times a day. Yes mirtazapine (REMERON) 15 mg tablet Take 1 tablet by mouth daily at bedtime. Yes rosuvastatin (CRESTOR) 40 mg tablet Take 1 tablet by mouth daily at bedtime. Yes semaglutide (OZEMPIC) 1 mg/dose (4 mg/3 mL) pen Inject 1 mg subcutaneously one time a week. Yes tamsulosin (FLOMAX) 0.4 mg Take 2 capsules by mouth once daily. Yes mupirocin (BACTROBAN) 2 % ointment Apply 0.5 inch with cotton swab (Q-tip) to each nostril in the morning and evening for 5 days prior to and including day of surgery. No medication comments found. ALLERGIES No Known Allergies Objective PHYSICAL EXAM: General: alert and oriented (x3), healthy appearance and obese. Pertinent negatives noted - not distressed. Skin: normal color, no rash or lesions. HEENT: EOM intact and pupils equal round. Pertinent negatives noted - no carotid bruit. Cardiovascular: regular rate and rhythm, normal S1 and S2, no rub, murmurs, or gallop. Respiratory: normal breath sounds, no wheezes or crackles. No chest wall deformity or tenderness. Abdomen: soft. Pertinent negatives noted - not tender. Extremities: no deformity, no edema or tenderness, no joint swelling or clubbing. Neurological: normal cognition and motor skills. Gait normal. No weakness or sensory deficit. PAIN ASSESSMENT: VITALS: BP 122/62 Pulse 78 Temp (Src) 98.8 (Temporal) Resp 14 Ht 5' 8 (1.73m) Wt 242 lb 6.4 oz (110.0kg) SpO2 94% BMI 36.87 kg/(m^2). Diagnostic tests reviewed for today's visit: Lab Value Units Date High Low HB 15.4 g/dL 12/01/2024 17.0 13.0 HCT 46.0 % 12/01/2024 51.0 39.0 WBC 6.98 k/uL 12/01/2024 11.00 3.70 PLT 141 k/uL 12/01/2024 400 150 NA 137 mmol/L 12/01/2024 144 136 K 4.4 mmol/L 12/01/2024 5.1 3.7 GLUC 123 mg/dL 12/01/2024 99 74 BUN 18 mg/dL 12/01/2024 24 9 CREAT 1.52 mg/dL 12/01/2024 1.22 0.73 PTSEC No results within date range. INR No results within date range. APTT No results within date range. ALT 34 U/L 12/01/2024 54 10 AST 29 U/L 12/01/2024 40 14 TBILI 1.1 mg/dL 12/01/2024 1.3 0.2 TSH No results within date range. Lab Value Units Date High Low HCGQT No results within date range. UHCG No results within date range. HCG, BODY* No results within date range. Lab Value Units Date High Low ABORHD No results within date range. ABSCREEN No results within date range. Hemoglobin A1C (%) Date Value 12/01/2024 6.8 06/29/2017 7.5 04/10/2017 8.1 10/02/2016 7.6 06/19/2016 9.0 12/21/2015 7.8 HGBA1C (%) Date Value 10/27/2018 9.0 Recent Results (from the past 8760 hours) ECG COMPLETE Collection Time: 12/01/24 3:51 PM Result Value Ventricular Rate 74 Atrial Rate 74 P-R Interval 254 QRS Duration 92 QT Interval 366 QTC Calculation (Bazett) 406 Calculated P [place] 33 Calculated R [place] -27 Calculated T [place] 46 Impression SINUS RHYTHM WITH 1ST DEGREE AV BLOCK OTHERWISE NORMAL ECG Confirmed by GANESH PHILLIPS MD ([id number]) on 12/02/2024 5:14:37 PM No results found for this or any previous visit (from the past 05343 hours). Instructions Given to Patient: Instructions located in the after visit summary. Patient given verbal and written preop instructions and voices comprehension and compliance. SIGNATURE: Kacie Montelongo APRN.CNP PATIENT NAME: Gutierrez De Jesus DATE: December 01, 2024 TIME: 3:39 PM PAGER/CONTACT #: documented in this encounter [facility] 12-01-2024 Instructions Kacie Montelongo APRN.CNP - 12/01/2024 3:39 PM EDT Images from the original note were not included. [facility] PATIENT PREOPERATIVE INSTRUCTIONS Robert Edgar MD has scheduled you for your procedure at this surgery center: [facility]: [phone] -- [address] [place] [address]. Please read below carefully for your personalized instructions. Dietary Restrictions: - No solid food after midnight. - You may have 12 ounces of clear liquids (water, clear juices such as apple juice or gatorade, carbonated beverages, clear tea, black coffee, jello) until 2 hours before scheduled arrival at facility. No red/purple coloring and no creamer/sugar Medications: Unless instructed differently below, stay on all of your medications until your surgery. If you start any new medications after today's visit, please contact your surgeon. Pre-Surgery Med Instructions Medication Instructions empagliflozin (JARDIANCE) 25 mg tablet Hold 3 days before surgery. Last dose 12/19/2024. lisinopril (ZESTRIL) 20 mg tablet If you normally take this medication in the morning, take the morning of surgery. carvedilol (COREG) 25 mg tablet If you normally take this medication in the morning, take the morning of surgery. ergocalciferol 50,000 unit capsule (VITAMIN D2, DRISDOL) Hold 7 days before surgery. Last dose 12/15/2024. famotidine (PEPCID) 20 mg tablet If you normally take this medication in the morning, take the morning of surgery. metFORMIN (GLUCOPHAGE) 1,000 mg tablet Do not take the day of surgery mirtazapine (REMERON) 15 mg tablet Do not take the day of surgery rosuvastatin (CRESTOR) 40 mg tablet If you normally take this medication in the morning, take the morning of surgery. semaglutide (OZEMPIC) 1 mg/dose (4 mg/3 mL) pen Hold 7 days before surgery. Last dose 12/15/2024. tamsulosin (FLOMAX) 0.4 mg If you normally take this medication in the morning, take the morning of surgery. If you take any medications for erectile dysfunction-Cialis (Tadalafil), Levitra, Staxyn (Vardenafil) Viagra (Sildenenafil please do not take these for 48 hours before surgery. If you start any new medications after today's visit, please contact the surgeon's office. If you are currently using a hgtt-[id number] injectable or oral medication for diabetes or weight loss such as Dulaglutide (Trulicity), Exenatide (Byetta, Bydureon), Liraglutide (Victoza, Saxenda), Semaglutide (Ozempic, Wegovy, Rybelsus), or Tirzepatide (Mounjaro), the medicine should be stopped at least 7 days before surgery. These medicines can cause food to remain in your stomach for a very long time and increase the risks from surgery and anesthesia. Not stopping the medication for a long enough time may result in your surgery being rescheduled. Blood Thinning Medications: - Stop NSAIDS (Ibuprofen, Advil, Aleve, Motrin, Celebrex, Mobic, etc.) 7 days before surgery, as directed by your surgeon. - Stop Aspirin 7 days before surgery, as directed by your surgeon. - Stop ALL herbal and dietary supplements 7 days before surgery. - You may take Tylenol (Acetaminophen) or any of your pain medications that do not contain aspirin or NSAIDS as needed. Important Reminders: - Candy, mints, and tobacco products are NOT permitted the morning of surgery. - Hearing aids, dentures and glasses may be worn the morning of surgery. - NO jewelry, body piercings, makeup, hairpins or contacts are to be worn the day of surgery. If you develop symptoms such as a fever, cold, or flu, or have other changes to your health within TWO DAYS of scheduled surgery or the morning of surgery, please contact the surgery center above. Personal Belongings: -Please have photo ID and insurance cards. -If you do not have a copy of advance directives on file with us, please bring a copy with you on the day of surgery. - Leave ALL valuables and money at home or with family members. - Please bring high-quality footwear, such as sneakers, to the hospital for ambulating post-surgery. For Outpatient Procedures: - YOU MUST HAVE A RESPONSIBLE CANCER GENETIC COUNSELOR TAKE YOU HOME. A INVENTORY CONTROL CLERK OR NATIONAL INSURANCE OFFICER CANNOT BE MADE A RESPONSIBLE CANCER GENETIC COUNSELOR. - We recommend that a responsible person stays with you overnight to take care of you. - You cannot stay in a hotel alone after outpatient surgery. You will not be permitted to have your surgery, if you do not have someone to take care of you. Arrival Time for Surgery: - The Surgery Center or hospital where you are having surgery will call the afternoon before surgery (or Thursday for Thursday surgery) with a scheduled arrival time. - If you have not heard by 4 pm, please contact the surgery center above. Please be aware that emergency situations arise, which may delay or change your surgical time. If this happens, we will notify you as soon as possible and regret any inconvenience. If you already have an Advance Directive, please fax a copy to [phone] or email to for it to be added to your chart. If you do not have an Advance Directive, you can find the appropriate form and more information at [email or web address]. We recommend that you complete the Advance Directive form found on the website and bring it with you the day of your surgery. It can be witnessed and scanned into your chart that day. Kacie Montelongo APRN.CNP documented in this encounter [facility] 12-01-2024 Telephone encounter Note TOTAL JOINT COMPLETE CARE PROGRAM PRE-OPERATIVE TEACHING Service Date: 12/05/2024 Service Time: 11:21 AM Date of : 1960 Gender: male Date of Surgery: 12/23/24 Procedure: Right Total Knee Replacement Complete Care Program was discussed with the patient: Insurance Adviser Identification: Patient identified a career services director to help when discharged to home: Home Environment: Home Layout: double wide trailor, Entry Steps: 2, with rail, Bedroom Location: 1st floor, Bathroom Location: 1st floor, and tub shower. Pt owns cane, shower chair. Access to walker he believes. Discussed with patient importance of attending joint education class and provided date and times of class: YES declined Patient received Joint Education Binder: Yes Patient plans discharge home with [facility]. SIGNATURE: ESTEPHANIA Jacobson PATIENT NAME: Gutierrez De Jesus DATE: December 01, 2024 TIME: 6:57 AM [facility] 11-30-2024 Telephone encounter Note Surgery has been scheduled as requested. [facility] 11-30-2024 Miscellaneous Notes Surgery has been scheduled as requested. Surgical request completed for robotic assisted right TKA at [facility] on 12/23/2024. CT scan scheduled for 12/23/2024. Post op appointments have been scheduled and mailed to the patient. Email sent to [employer] [facility]. documented in this encounter [facility] 11-30-2024 Telephone encounter Note Surgical request completed for robotic assisted right TKA at [facility] on 12/23/2024. CT scan scheduled for 12/23/2024. Post op appointments have been scheduled and mailed to the patient. Email sent to [employer]. [facility] 11-28-2024 Note HNO ID: [id number] Author: ROBERT EDGAR MD Service: ? Author Type: Physician Type: Progress Notes Filed: 11/28/2024 14:04 Note Text: CONSULT ORTHOPAEDIC: KNEE PRIMARY CARE PHYSICIAN: Yobani Champagne MD REFERRING PROVIDER: No referring provider defined for this encounter. ASSESSMENT AND PLAN Impression: Right Knee Severe Degenerative Osteoarthritis, Primary Diagnoses: (M25.561, G89.29) Chronic pain of right knee (primary encounter diagnosis) (M17.11) Primary osteoarthritis of right knee Based upon the evaluation today and after discussions with Gutierrez De Jesus, Gutierrez De Jesus has significant, worsening pain at the knee. This pain is increased with activity and weight bearing, and interferes with activities of daily living. These symptoms have continued despite a number of non-surgical measures, including a trial of oral pain medication and attempted physical therapy/ structured exercise program and/or use of an assistive device/ bracing (for at least 12 weeks unless the patient was unable to tolerate these measures as discussed above). At this point, the patient will not benefit from further PT due to the severity of their condition. The patient's physical examination is consistent with limitations in range of motion, pain with passive range of motion, crepitus, and effusion/ synovitis. These examination findings are corroborated by imaging findings of joint space narrowing, periarticular osteophyte formation, and subchondral sclerosis. The patient has been treated by the practice and all reasonable treatments have failed to control the disease, which causes significant pain and limits activities of daily living. The patient has failed conservative treatment and joint replacement surgery was discussed and agreed upon by both provider and patient. We will proceed with surgical management to improve function and relieve pain refractory to non-surgical measures. Right Primary Total Knee Arthroplasty as evidenced by six months of unsuccessful non-operative treatment as outlined in the HPI below and progressive symptoms. Progressive Symptoms Include: Pain worsened by weight bearing Pain effecting living situation Unable to ambulate 2 blocks without significant pain and dysfunction . Surgery Details Date and Location: At [place] on TBD. Implants: [place] Robotic: Yes Predicted LOS: 2 days (Inpatient candidate) Informed consent obtained in the office today. The risks and benefits of surgery were discussed at length including but not limited to the risks of infection, bleeding, nerve or blood vessel injury, deep venous thrombosis, pulmonary embolism, arthrofibrosis, reflex sympathetic dystrophy, , paralysis, knee or patellar dislocation, extensor mechanism injury, bone fracture, component loosening or failure requiring re-operation or amputation. Informed consent was obtained and the patient was scheduled for surgery. We also discussed fixation strategies including cement and cementless fixation and advantages and disadvantages of each. We discussed the details of the surgery as well as rehabilitation. All questions were answered, and the patient wishes to proceed with surgery.. The patient has been ordered: Office Visit on 11/28/24 empagliflozin (JARDIANCE) [address] Gutierrez Frank De Jesus meets the following criteria for CT: Nayan protocols CONSULTS: Patient does not require consults for optimization at this time. Total Joint Arthroplasty: Risk Calculator Gutierrez De Jesus has a 9.55% chance of NOT returning home at discharge for a Primary total Knee replacement. Gutierrez's estimated Length of Stay is 2 days (Inpatient candidate). Gutierrez's 30 day chance of readmission is 1.93%. Readmission Probability 1.93 % (within 30 days following surgery) Estimated LOS 2 days Discharge Disposition Probability D/C to Home 90.45 % D/C to SNF 9.55 % These calculations are based on the following factors: - 63 years of age - sex is male - BMI of 37 kg/m2 - NarxCare score of 20 - 0 hospitalizations in the last 12 months - no history of heart disease - history of diabetes - no history of COPD - no history of anemia - preoperative ambulation: impaired community distances - 2 step(s) to enter home - bed location is on the first floor - bath location is on the first floor - caregiver is consistent - home is not more than 150 miles away - PROMIS-10 Mental Health T score 50+ - Marital status: Risk Factors for Total Knee Arthroplasty (TKA) Major Risk Factors Obesity Moderate Risk High: BMI > 40 Moderate: BMI 30-40 Normal: BMI < 30 Diabetes High Risk High: A1C > 8 Moderate: A1C 7-8 Normal: A1C < 7 Hx of DVT / PE normal High: dx of DVT / PE Normal: no dx of DVT / PE Smoking normal High: Current smoker Normal: Non smoker Narcotics Use normal High:NarxCare >=300 Moderate: 100-299 Normal: 0-99 Depression normal High: PHQ-9 >14 Moderat (more content not included)... [facility] 11-28-2024 History of Present illness Narrative Images from the original note were not included. CONSULT ORTHOPAEDIC: KNEE PRIMARY CARE PHYSICIAN: Yobani Champagne MD REFERRING PROVIDER: No referring provider defined for this encounter. ASSESSMENT & PLAN Impression: Right Knee Severe Degenerative Osteoarthritis, Primary Diagnoses: (M25.561, G89.29) Chronic pain of right knee (primary encounter diagnosis) (M17.11) Primary osteoarthritis of right knee Based upon the evaluation today and after discussions with Gutierrez De Jesus, Gutierrez De Jesus has significant, worsening pain at the knee. This pain is increased with activity and weight bearing, and interferes with activities of daily living. These symptoms have continued despite a number of non-surgical measures, including a trial of oral pain medication and attempted physical therapy/ structured exercise program and/or use of an assistive device/ bracing (for at least 12 weeks unless the patient was unable to tolerate these measures as discussed above). At this point, the patient will not benefit from further PT due to the severity of their condition. The patient's physical examination is consistent with limitations in range of motion, pain with passive range of motion, crepitus, and effusion/ synovitis. These examination findings are corroborated by imaging findings of joint space narrowing, periarticular osteophyte formation, and subchondral sclerosis. The patient has been treated by the practice and all reasonable treatments have failed to control the disease, which causes significant pain and limits activities of daily living. The patient has failed conservative treatment and joint replacement surgery was discussed and agreed upon by both provider and patient. We will proceed with surgical management to improve function and relieve pain refractory to non-surgical measures. Right Primary Total Knee Arthroplasty as evidenced by six months of unsuccessful non-operative treatment as outlined in the HPI below and progressive symptoms. Progressive Symptoms Include: Pain worsened by weight bearing Pain effecting living situation Unable to ambulate 2 blocks without significant pain and dysfunction . Surgery Details Date and Location: At [place] on TBD. Implants: [place] Robotic: Yes Predicted LOS: 2 days (Inpatient candidate) Informed consent obtained in the office today. The risks and benefits of surgery were discussed at length including but not limited to the risks of infection, bleeding, nerve or blood vessel injury, deep venous thrombosis, pulmonary embolism, arthrofibrosis, reflex sympathetic dystrophy, , paralysis, knee or patellar dislocation, extensor mechanism injury, bone fracture, component loosening or failure requiring re-operation or amputation. Informed consent was obtained and the patient was scheduled for surgery. We also discussed fixation strategies including cement and cementless fixation and advantages and disadvantages of each. We discussed the details of the surgery as well as rehabilitation. All questions were answered, and the patient wishes to proceed with surgery.. The patient has been ordered: Office Visit on 11/28/24 empagliflozin (JARDIANCE) [address] Gutierrez De Jesus meets the following criteria for CT: Nayan protocols CONSULTS: Patient does not require consults for optimization at this time. Total Joint Arthroplasty: Risk Calculator Gutierrez De Jesus has a 9.55% chance of NOT returning home at discharge for a Primary total Knee replacement. Gutierrez's estimated Length of Stay is 2 days (Inpatient candidate). Gutierrez's 30 day chance of readmission is 1.93%. Readmission Probability 1.93 % (within 30 days following surgery) Estimated LOS 2 days Discharge Disposition Probability D/C to Home 90.45 % D/C to SNF 9.55 % These calculations are based on the following factors: - 63 years of age - sex is male - BMI of 37 kg/m2 - NarxCare score of 20 - 0 hospitalizations in the last 12 months - no history of heart disease - history of diabetes - no history of COPD - no history of anemia - preoperative ambulation: impaired community distances - 2 step(s) to enter home - bed location is on the first floor - bath location is on the first floor - caregiver is consistent - home is not more than 150 miles away - PROMIS-10 Mental Health T score 50+ - Marital status: Risk Factors for Total Knee Arthroplasty (TKA) Major Risk Factors Obesity Moderate Risk High: BMI > 40 Moderate: BMI 30-40 Normal: BMI < 30 Diabetes High Risk High: A1C > 8 Moderate: A1C 7-8 Normal: A1C < 7 Hx of DVT / PE normal High: dx of DVT / PE Normal: no dx of DVT / PE Smoking normal High: Current smoker Normal: Non smoker Narcotics Use normal High:NarxCare >=300 Moderate: 100-299 Normal: 0-99 Depression normal High: PHQ-9 >14 Moderate: PHQ-9 5-14 Normal: PHQ-9 < 5 Area Deprivation Index (BART) normal High: BART Score > 75 Moderate: BART 50-75 Normal: BART < 50 Obesity: weight management recommended BMI Readings from Last 3 Encounters: 08/19/24 : 37.07 kg/m 06/07/24 : 36.27 kg/m 04/15/22 : 40.02 kg/m Diabetes: Gutierrez has been diagnosed with Type 2 Diabetes. His last Hemoglobin A1C was 9 - 10/27/2018. Pt is followed by Yobani Champagne for Type 2 Diabetes - last seen on 08/19/2024. Consult to the Endocrinology and Metabolic [place] ([place]) recommended prior to surgery. Area Deprivation Index (BART) 08/18/2024 BART Score National Score 50 Patient Health Questionnaire (PHQ-9) 02/21/2016 03/24/2017 08/18/2024 PHQ-9 PHQ-2 Score 0 0 0 PHQ-9 Score 0 (0-4) minimal depression, (5-9) mild depression, (10-14) moderate depression, (15-19) moderately severe depression, (20-27) severe depression Bone Density Risk Screen Gutierrez De Jesus is low risk for bone loss based on his age and having no previous diagnoses of osteopenia, osteoporosis, Paget's disease of bone, or cancer of bone. Other risk factors are listed below to determine if they pose a significant risk for bone loss, and if so, recommend ordering a bone densitometry and, upon receiving a result, as needed, order a consult to a bone health specialist (Rheumatology, Endocrinology, or Women's Health) for bone assessment. Risk Factors: Use of Proton Pump Inhibitors Additional Risk Factors Obstructive Sleep Apnea (GIULIA) Malnutrition: No Malnutrition Screening Tool (MST) score on file- please complete the MST screening tool (click here to open) and refresh the note. ACTIVE PROBLEM LIST Hyperlipidemia Ldl Goal <100 Essential Hypertension Erectile Dysfunction Morbid Obesity Due to Excess Calories (Hcc) Arthritis of Both Knees Lumbar Degenerative Disc Disease Muscle Contraction Headache Situational Depression Obstructive Sleep Apnea Torrez Splint Type 2 Diabetes Mellitus With Microalbuminuria, Without Long-Term Current Use of Insulin (Hcc) Spinal Stenosis of Lumbar Region With Radiculopathy Neurogenic Bladder Intention Tremor Chronic Nonintractable Headache Elevated Liver Function Tests SUBJECTIVE CHIEF COMPLAINT: Knee Pain HPI: Gutierrez De Jesus is a 63 year old patient with the presenting complaint of New and Pain of the Right Knee. 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 The problem began limiting activities 1-3 years ago. Gutierrez reports a current pain level of 4 (Knee-Right). He describes the pain as Throbbing, Pressure, Stabbing, Shooting. The pain is Continuous, and has lasted for 30 Years. Interventions tried include Medication. FALL RISK: Gutierrez is not currently at risk for falls. Patient here today for OA right knee. States this has been hurting since 1987 when he fell off a truck about 13 feet. Does not work outside the home. X-ray completed today. PROMIS Physical Function Score No data to display FUNCTIONAL STATUS: Do moderate work around the house such as vacuuming, sweeping floors, or carrying in groceries (3.50 METs) Do yardwork, such as raking leaves, weeding,or pushing a power mower (4.50 METs) PREVIOUS TREATMENTS: Past anti-inflammatory medications (not necessarily for this reason for visit): naproxen Attempted Weight Loss Medical Treatments: RX NSAIDS for 3 Months or Greater (meloxicam (Mobic) and naproxen (Naprosyn)), Viscosupplementation Left Knee, Viscosupplementation Right Knee Previous Surgery: Knee Arthroscopy REVIEW OF SYSTEMS: PAIN ASSESSMENT: See HPI. MUSCULOSKELETAL: See HPI. 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 PAST SURGICAL HISTORY Procedure Laterality Date ARTHROSCOPY KNEE DIAGNOSTIC W/WO SYNOVIAL BX SPX 04/03/1989 Arthroscopy, knee right: medial and lateral meniscal repair COLONOSCOPY FLX DX W/COLLJ SPEC WHEN PFRMD 06/17/2013 Colonoscopy CYSTO W/INSERT URETERAL STENT PARTIAL REMOVAL OF KIDNEY Right REPAIR FIRST ABDOMINAL WALL HERNIA Hernia repair, incisional age 5 TONSILLECTOMY PRIMARY/SECONDARY <AGE 10 Tonsillectomy alone FAMILY HISTORY Problem Relation Age of Onset Prostate Cancer Paternal Grandfather Diabetes Paternal Grandmother Diabetes Sister other (CHF [Other]) Father other (lung cancer [Other]) Father other (TB [Other]) Mother Social History Tobacco Use Smoking status: Former Current packs/day: 3.00 Average packs/day: 3.0 packs/day for 30.0 years (90.0 ttl pk-yrs) Types: Cigarettes Smokeless tobacco: Current Types: Snuff Tobacco comments: quit smoking in 1999. does snuff currently. 3 cans a week Vaping Use Vaping status: Never Used Substance Use Topics Alcohol use: No Drug use: No Comment: caffeine ALLERGIES: Patient has no known allergies. MEDICATIONS: empagliflozin (JARDIANCE) 25 mg tablet Take 1 tablet by mouth once daily. lisinopril (ZESTRIL) 20 mg tablet Take 1 tablet by mouth once daily. carvedilol (COREG) 25 mg tablet Take 2 tablets by mouth two times a day. ergocalciferol 50,000 unit capsule (VITAMIN D2, DRISDOL) Take 1 capsule by mouth every 2 weeks. Use as directed. famotidine (PEPCID) 20 mg tablet Take 1 tablet by mouth once daily. metFORMIN (GLUCOPHAGE) 1,000 mg tablet Take 1 tablet by mouth two times a day. mirtazapine (REMERON) 15 mg tablet Take 1 tablet by mouth daily at bedtime. rosuvastatin (CRESTOR) 40 mg tablet Take 1 tablet by mouth daily at bedtime. semaglutide (OZEMPIC) 1 mg/dose (4 mg/3 mL) pen Inject 1 mg subcutaneously one time a week. tamsulosin (FLOMAX) 0.4 mg Take 2 capsules by mouth once daily. OBJECTIVE PHYSICAL EXAM: There were no vitals taken for this visit. All other systems deferred. GENERAL: Appears healthy, well-nourished, no deformities. HABITUS: Obese GAIT: Antalgic to the rightand left KNEE EXAM: Left: Alignment: Varus deformity, Partially Correctable Range of motion is 0 degrees in extension and 120 degrees of flexion. Extension La degrees Pain with ROM: No Effusion: Slight Tender to the palpation of Medial femoral condyle and Medial joint line Pain with patellar compression: No Stability: Anterior/Posterior stable and Varus/Valgus stable Hip Exam: flexion to 100+ degrees, full extension, internal/external rotation adequate, and no pain with log roll Neurovascular Status: Sensation Intact, Moves foot and ankle up & down, and 2+ dorsalis pedis Right: Alignment: Varus deformity, Partially Correctable Range of motion is 0 degrees in extension and 120 degrees of flexion. Extension La degrees Pain with ROM: No Effusion: Slight Tender to the palpation of Medial femoral condyle and Medial joint line Pain with patellar compression: No Stability: Anterior/Posterior stable and Varus/Valgus stable Hip Exam: flexion to 100+ degrees, full extension, internal/external rotation adequate, and no pain with log roll Neurovascular Status: Sensation Intact, Moves foot and ankle up & down, and 2+ dorsalis pedis DATA: Most recent knee imaging was completed on 11/28/2024 (XR KNEE AP/LAT/TUNNEL SOPHIE) . Attached is imaging for the order. Diagnostic tests reviewed for today's visit: Most recent labs Right knee X-Ray: Medial joint space noted to have severe degenerative changes and Lateral joint space noted to have moderate degenerative changes Left knee X-Ray: Medial joint space noted to have severe degenerative changes and Lateral joint space noted to have moderate degenerative changes The following conditions were addressed during the office visit today: Obesity - Weight management strategies were discussed including diet and exercise. A Consult to Weight Management will be completed to follow up on the plan of care. Diabetes - HgbA1C optimization - we discussed the importance of good glucose control for overall health and Total Joint Arthroplasty. Tobacco cessation. We reviewed for 5 minutes about increased risk factors for TJA infection. SIGNATURE: Robert Edgar MD PATIENT NAME: Gutierrez De Jesus DATE: November 28, 2024 TIME: 10:08 AM documented in this encounter [facility] 11-28-2024 History of Present illness Narrative Radiology Service Progress Note PATIENT NAME: Gutierrez De Jesus DATE OF SERVICE: November 28, 2024 TIME: 3:08 PM PATIENT IDENTITY VERIFICATION COMPLETED USING TWO (2) IDENTIFIERS: Name and Date of confirmed by patient verbally. FALL SCREENING: Has the patient had 2 falls in the last year or 1 fall with injury or currently using an Ambulatory Assistive Device (Walker, Cane, Wheelchair, Crutches, etc.)? No PATIENT GENDER DATA: Assigned male at PATIENT RELEVANT IMPLANT DATA REVIEWED: Not Applicable PATIENT PRESENTS WITH AN IMPLANTABLE OR ATTACHED FOREST NURSERY SUPERVISOR: No RADIOLOGY DEPARTMENT: General X-ray: Exam(s) Completed: Lower Extremity X-Ray(s): Knee, AP / Lat / Tunne / Merchant Right and Wt. Bearing PERIPHERAL IV DATA: Not applicable SIGNED BY: CAM Horton) November 28, 2024 3:08 PM documented in this encounter [facility] 11-28-2024 Note HNO ID: [id number] Author: RACHANA SERVIN RT (R) Service: ? Author Type: Technologist Type: Progress Notes Filed: 11/28/2024 15:09 Note Text: Radiology Service Progress Note PATIENT NAME: Gutierrez De Jesus DATE OF SERVICE: November 28, 2024 TIME: 3:08 PM PATIENT IDENTITY VERIFICATION COMPLETED USING TWO (2) IDENTIFIERS: Name and Date of confirmed by patient verbally. FALL SCREENING: Has the patient had 2 falls in the last year or 1 fall with injury or currently using an Ambulatory Assistive Device (Walker, Cane, Wheelchair, Crutches, etc.)? No PATIENT GENDER DATA: Assigned male at PATIENT RELEVANT IMPLANT DATA REVIEWED: Not Applicable PATIENT PRESENTS WITH AN IMPLANTABLE OR ATTACHED FOREST NURSERY SUPERVISOR: No RADIOLOGY DEPARTMENT: General X-ray: Exam(s) Completed: Lower Extremity X-Ray(s): Knee, AP / Lat / Tunne / Merchant Right and Wt. Bearing PERIPHERAL IV DATA: Not applicable SIGNED BY: RT Sol(R) November 28, 2024 3:08 PM [facility] 09-13-2024 Telephone encounter Note Attempted to call all contacts on patients chart and leave voicemail's unable too sent a my chart in order for patient to be seen by one our providers. [facility] 09-13-2024 Miscellaneous Notes Attempted to call all contacts on patients chart and leave voicemail's unable too sent a my chart in order for patient to be seen by one our providers. Attempted to lvm inbox was full will send a mychart and follow up with another call. Received a request from the [place] for patient to schedule with one of the providers for an appointment for OA of the right knee. First available. No one specific provider. Referral # [id number] Let me know when he schedules. The cover sheet needs to be faxed back with the appointment day/time and physician so the information can be updated. Thank you. Marisa Kat documented in this encounter [facility] 09-12-2024 Telephone encounter Note Attempted to lvm inbox was full will send a mychart and follow up with another call. [facility] 09-09-2024 Telephone encounter Note Received a request from the [place] for patient to schedule with one of the providers for an appointment for OA of the right knee. First available. No one specific provider. Referral # [id number] Let me know when he schedules. The cover sheet needs to be faxed back with the appointment day/time and physician so the information can be updated. Thank you. Marisasheila Kat [facility] 08-25-2024 Telephone encounter Note Sent fax to [place] medical records at # [phone] to send last 6 month of office visit notes and labs to providers office. [facility] 08-25-2024 Miscellaneous Notes Sent fax to [place] medical records at # [phone] to send last 6 month of office visit notes and labs to providers office. I need last six months of office notes and labs. Natasha from [place] [facility] called and reports she received a fax from providers office. She states she doesn't know what provider wants faxed. She states it just says medical records. She said if provider is wanting medical records the fax # for medical records is [phone]. She said radiology can put images on a disc and to request that you would send to fax # [phone]. She states they can push images since we a [facility], but we would have to call the file room and have them uploaded.Please refax what information you need and be more specific for them. I didn't see where the [facility] was [facility] by providers office and what they needed. documented in this encounter [facility] 08-24-2024 Telephone encounter Note I need last six months of office notes and labs. [facility] 08-24-2024 Telephone encounter Note Patient's calls with list [facility] that [facility]. asking if provider can send these into [facility]. reports that they are going on cruise and patient is going to need medications. Only difference in medications from current medications is that reports that patient is on carvedilol 25 mg 2 tablets BID. The patient has been identified by name and date of : Yes Caregiver verified no other encounters exist for this prescription request: Yes Caregiver confirmed with patient/requestor that no other refills are due, in the near future, with this provider at this time: Yes The last office visit in the department: 08/19/2024 Does the patient have a future office visit with this provider/department: Yes 02/17/2025 Requested Prescriptions Pending Prescriptions Disp Refills lisinopril (ZESTRIL) 20 mg tablet 30 tablet 5 Sig: Take 1 tablet by mouth once daily. carvedilol (COREG) 25 mg tablet 360 tablet 3 Sig: Take 2 tablets by mouth two times a day. ergocalciferol 50,000 unit capsule (VITAMIN D2, DRISDOL) 6 capsule 3 Sig: Take 1 capsule by mouth every 2 weeks. Use as directed. famotidine (PEPCID) 20 mg tablet 90 tablet 3 Sig: Take 1 tablet by mouth once daily. metFORMIN (GLUCOPHAGE) 1,000 mg tablet 180 tablet 3 Sig: Take 1 tablet by mouth two times a day. mirtazapine (REMERON) 15 mg tablet 90 tablet 3 Sig: Take 1 tablet by mouth daily at bedtime. rosuvastatin (CRESTOR) 40 mg tablet 90 tablet 3 Sig: Take 1 tablet by mouth daily at bedtime. semaglutide (OZEMPIC) 1 mg/dose (4 mg/3 mL) pen 9 mL 3 Sig: Inject 1 mg subcutaneously one time a week. tamsulosin (FLOMAX) 0.4 mg 180 capsule 3 Sig: Take 2 capsules by mouth once daily. Valerie Trevino RN August 24, 2024 12:20 PM [facility] 08-24-2024 Miscellaneous Notes Patient's calls with list of medications that [place] has ordered for patient. asking if provider can send these into [facility]. reports that they are going on cruise and patient is going to need medications. Only difference in medications from current medications is that reports that patient is on carvedilol 25 mg 2 tablets BID. The patient has been identified by name and date of : Yes Caregiver verified no other encounters exist for this prescription request: Yes Caregiver confirmed with patient/requestor that no other refills are due, in the near future, with this provider at this time: Yes The last office visit in the department: 08/19/2024 Does the patient have a future office visit with this provider/department: Yes 02/17/2025 Requested Prescriptions Pending Prescriptions Disp Refills lisinopril (ZESTRIL) 20 mg tablet 30 tablet 5 Sig: Take 1 tablet by mouth once daily. carvedilol (COREG) 25 mg tablet 360 tablet 3 Sig: Take 2 tablets by mouth two times a day. ergocalciferol 50,000 unit capsule (VITAMIN D2, DRISDOL) 6 capsule 3 Sig: Take 1 capsule by mouth every 2 weeks. Use as directed. famotidine (PEPCID) 20 mg tablet 90 tablet 3 Sig: Take 1 tablet by mouth once daily. metFORMIN (GLUCOPHAGE) 1,000 mg tablet 180 tablet 3 Sig: Take 1 tablet by mouth two times a day. mirtazapine (REMERON) 15 mg tablet 90 tablet 3 Sig: Take 1 tablet by mouth daily at bedtime. rosuvastatin (CRESTOR) 40 mg tablet 90 tablet 3 Sig: Take 1 tablet by mouth daily at bedtime. semaglutide (OZEMPIC) 1 mg/dose (4 mg/3 mL) pen 9 mL 3 Sig: Inject 1 mg subcutaneously one time a week. tamsulosin (FLOMAX) 0.4 mg 180 capsule 3 Sig: Take 2 capsules by mouth once daily. Valerie Trevino RN August 24, 2024 12:20 PM documented in this encounter [facility] 08-24-2024 Telephone encounter Note Natasha from [place] [facility] called and reports she received a fax from providers office. She states she doesn't know what provider wants faxed. She states it just says medical records. She said if provider is wanting medical records the fax # for medical records is [phone]. She said radiology can put images on a disc and to request that you would send to fax # [phone]. She states they can push images since we a [facility], but we would have to call the file room and have them uploaded.Please refax what information you need and be more specific for them. I didn't see where the [facility] was fax[facility] by providers office and what they needed. [facility] 08-23-2024 Telephone encounter Note Meds updated [facility] 08-23-2024 Miscellaneous Notes Meds updated Metformin 1000MG one tablet twice a day Carvedol. 25MG. two tablets twice a day Ozempic. 1 unit a week Lisinopril. 20 MG one a day Rosuvastatin CA. 40 MG one a day Tamsulosin. 0.4mg 2 capsules a day bedtime Ergocalcif. 1250 mcg one capsule every 2 weeks Mirtazapine 15 MG one tablet at bedtime Famotidine 20 MG one tablet a day documented in this encounter [facility] 08-22-2024 Telephone encounter Note Metformin 1000MG one tablet twice a day Carvedol. 25MG. two tablets twice a day Ozempic. 1 unit a week Lisinopril. 20 MG one a day Rosuvastatin CA. 40 MG one a day Tamsulosin. 0.4mg 2 capsules a day bedtime Ergocalcif. 1250 mcg one capsule every 2 weeks Mirtazapine 15 MG one tablet at bedtime Famotidine 20 MG one tablet a day [facility] 08-19-2024 Instructions Yobani Champagne MD - 08/19/2024 8:11 AM EST Call in list of current meds to make sure we have everything. documented in this encounter [facility] 08-19-2024 History of Present illness Narrative Patient presents with: Establish Care: [facility] [place], last seen eye doctor in February 2024 HPI: Patient presents today for office visit to establish care. Has not been seen at [facility] since 2016, Previous patient of Dr. Browning. [facility] the [facility]. DM: Is unsure of current meds. Will call with them. Checking sugars - on and off. Have overall been ok. Hypoglycemic spells:none. Vision changes:none Last eye exam: January Foot lesions, numbness or pain: none Unexpected weight loss:none No polyuria or polydipsia. Just [facility] by [facility]. Just recently had labs done. HTN: Monitors BP: does not Chest pain or shortness of breath:no Headaches or dizziness:no Palpitations or syncope:no Edema:none HLD: Currently taking Atorvastatin 40 mg daily. -he thinks he takes it No myalgias Will get copy of labs. GIULIA: not treating. [facility] working with it. MEDICATIONS: Current Outpatient Medications Medication Sig empagliflozin (JARDIANCE) 10 mg tablet Take 10 mg by mouth daily with breakfast. metFORMIN (GLUCOPHAGE) 1,000 mg tablet Take 1 tablet by mouth twice daily. glimepiride (AMARYL) 4 mg tablet Take 1 tablet by mouth daily with breakfast. therapeutic multivitamin (THERA VITAMIN) tablet Take 1 tablet by mouth once daily. atorvastatin (LIPITOR) 40 mg tablet Take 1 tablet by mouth daily at bedtime. For cholesterol. FISH OIL CAP Take one(1) tablet daily. lisinopril (ZESTRIL, PRINIVIL) 40 mg tablet Take 1 tablet by mouth once daily. lancets (UNILET LANCETS) 30 gauge misc Use as directed to test blood sugars 2-3 times daily Lancets lancets Use as instructed to test blood sugar 2-3 x daily blood sugar diagnostic (FREESTYLE LITE STRIPS) test strip Use as instructed to test blood sugar 2-3 x daily No current facility-administered medications for this visit. 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 PAST SURGICAL HISTORY Procedure Laterality Date ARTHROSCOPY KNEE DIAGNOSTIC W/WO SYNOVIAL BX SPX Arthroscopy, knee right: medial and lateral meniscal repair COLONOSCOPY FLX DX W/COLLJ SPEC WHEN PFRMD 06/17/2013 Colonoscopy CYSTO W/INSERT URETERAL STENT REPAIR FIRST ABDOMINAL WALL HERNIA Hernia repair, incisional age 5 TONSILLECTOMY PRIMARY/SECONDARY <AGE 10 Tonsillectomy alone FAMILY HISTORY Problem Relation Age of Onset Prostate Cancer Paternal Grandfather Diabetes Paternal Grandmother Diabetes Sister other (CHF [Other]) Father other (lung cancer [Other]) Father other (TB [Other]) Mother Social History Tobacco Use Smoking status: Former Current packs/day: 3.00 Average packs/day: 3.0 packs/day for 30.0 years (90.0 ttl pk-yrs) Types: Cigarettes Smokeless tobacco: Current Types: Snuff Tobacco comments: quit smoking in 1999. does snuff currently. 3 cans a week Substance Use Topics Alcohol use: No Drug use: No Comment: caffeine Reviewed current medications, allergies, past medical history, surgical history, family history and social history today. REVIEW OF SYSTEMS No gi or gu issues. All other reviewed and negative other than HPI. HEALTH MAINTENANCE: Reviewed health maintenance issues today and recommended the following in detail. Abdominal Aortic Aneurysm Screening -thinks was done via [place] Annual PCP Team Chronic Disease Visit Never done Anxiety Screening Never done Prostate Cancer Screening -[facility] Dilated Retinal Exam due on 10/22/2017 Diabetic Foot Exam -per [facility] in Sept Colorectal Cancer Screening -will be getting through the [facility] RSV Vaccine(1 - Risk 60-74 years 1-dose series) Never done Influenza Vaccine(1) due on 04/03/2024 Covid-19 Vaccine(2023- season) due on 04/03/2024 Advance Directive Discussion Never done Just had labs done per [facility] VITALS: BP 134/80 (BP Site: Left Arm, BP Position: Sitting, BP Cuff Size: Large Adult) Pulse 105 Temp 37.2 C (98.9 F) (Temporal) Resp 16 Ht 172.7 cm (5' 8) Wt 110.6 kg (243 lb 13.3 oz) SpO2 94% BMI 37.07 kg/m Last 4 Encounter Wt Readings: Date: Wt: 06/07/2024 108.2 kg (238 lb 8.6 oz) 04/15/2022 119.4 kg (263 lb 3.2 oz) 03/11/2022 118.4 kg (261 lb) 12/04/2021 119.1 kg (262 lb 9.6 oz) PHYSICAL EXAMINATION: General appearance: Well appearing, alert, in no acute distress, well-hydrated, well nourished. Skin: Skin color, texture, turgor normal, no suspicious rashes or lesions Head: Normocephalic, no masses, lesions, tenderness or abnormalities Lungs: Lungs clear to auscultation. No wheezing, rhonchi, rales Heart: RRR without murmur, gallop, or rubs. No ectopy Abdomen: Normal abdominal exam, Abdomen soft, non-tender. Bowel sounds normal. No masses, organomegaly Extremities: No deformities, edema, skin discoloration, clubbing or cyanosis. Good capillary refill. Musculoskeletal: No joint swelling, deformity, or tenderness Peripheral pulses: Normal Neuro: Negative. ASSESSMENT/PLAN: 1. Chronic nonintractable headache, unspecified headache type - ICD9: 784.0, ICD10: R51.9, G89.29 (primary diagnosis) - continue to follow up. 2. Type 2 diabetes mellitus with microalbuminuria, without long-term current use of insulin (HCC) - ICD9: 250.40, 791.0, ICD10: E11.29, R80.9 - Controlled - Continue current medications - labs per [place] - ALBUMIN/CREATININE RATIO, URINE - HEMOGLOBIN A1C - LIPID PANEL BASIC 3. Encounter for screening examination for other mental health and behavioral disorders - ICD9: V79.8, ICD10: Z13.39 - ANXIETY SCREENING 4. Hyperlipidemia LDL goal <100 - ICD9: 272.4, ICD10: E78.5 - Controlled - Continue current medications 5. Essential hypertension - ICD9: 401.9, ICD10: I10 - Controlled - Continue current medications 6. Obstructive sleep apnea - ICD9: 327.23, ICD10: G47.33 - per [facility] 7. Neurogenic bladder - ICD9: 596.54, ICD10: N31.9 - stable. 8. Degeneration of intervertebral disc of lumbar region, unspecified whether pain present - ICD9: 722.52, ICD10: M51.369 - stable. 9. Morbid obesity due to excess calories (HCC) - ICD9: 278.01, ICD10: E66.01 - watch diet. 10. Need for vaccination - ICD9: V05.9, ICD10: Z23 - INFLUENZA VACCINE, PRSV FREE, AGE 65+ YR, HIGH DOSE, TRIVALENT (FLUZONE HIGH-DOSE) - motify COVID-19 VACCINE AGE 12+ YR (COMIRNATY) Yobani Champagne MD documented in this encounter [facility] 08-19-2024 Note HNO ID: [id number] Author: YOBANI CHAMPAGNE MD Service: ? Author Type: Physician Type: Progress Notes Filed: 08/19/2024 15:05 Note Text: Patient presents with: Establish Care: [place] [facility] [place], last seen eye doctor in February 2024 HPI: Patient presents today for office visit to establish care. Has not been seen at [facility] since 2017, Previous patient of Dr. Browning. Sees the [place]. DM: Is unsure of current meds. Will call with them. Checking sugars - on and off. Have overall been ok. Hypoglycemic spells:none. Vision changes:none Last eye exam: January Foot lesions, numbness or pain: none Unexpected weight loss:none No polyuria or polydipsia. Just [facility]. Just recently had labs done. HTN: Monitors BP: does not Chest pain or shortness of breath:no Headaches or dizziness:no Palpitations or syncope:no Edema:none HLD: Currently taking Atorvastatin 40 mg daily. -he thinks he takes it No myalgias Will get copy of labs. GIULIA: not treating. [facility] working with [facility]. MEDICATIONS: Current Outpatient Medications Medication Sig empagliflozin (JARDIANCE) 10 mg tablet Take 10 mg by mouth daily with breakfast. metFORMIN (GLUCOPHAGE) 1,000 mg tablet Take 1 tablet by mouth twice daily. glimepiride (AMARYL) 4 mg tablet Take 1 tablet by mouth daily with breakfast. therapeutic multivitamin (THERA VITAMIN) tablet Take 1 tablet by mouth once daily. atorvastatin (LIPITOR) 40 mg tablet Take 1 tablet by mouth daily at bedtime. For cholesterol. FISH OIL CAP Take one(1) tablet daily. lisinopril (ZESTRIL, PRINIVIL) 40 mg tablet Take 1 tablet by mouth once daily. lancets (UNILET LANCETS) 30 gauge misc Use as directed to test blood sugars 2-3 times daily Lancets lancets Use as instructed to test blood sugar 2-3 x daily blood sugar diagnostic (FREESTYLE LITE STRIPS) test strip Use as instructed to test blood sugar 2-3 x daily No current facility-administered medications for this visit. 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 PAST SURGICAL HISTORY Procedure Laterality Date ARTHROSCOPY KNEE DIAGNOSTIC W/WO SYNOVIAL BX SPX Arthroscopy, knee right: medial and lateral meniscal repair COLONOSCOPY FLX DX W/COLLJ SPEC WHEN PFRMD 06/17/2013 Colonoscopy CYSTO W/INSERT URETERAL STENT REPAIR FIRST ABDOMINAL WALL HERNIA Hernia repair, incisional age 5 TONSILLECTOMY PRIMARY/SECONDARY Tonsillectomy alone FAMILY HISTORY Problem Relation Age of Onset Prostate Cancer Paternal Grandfather Diabetes Paternal Grandmother Diabetes Sister other (CHF [Other]) Father other (lung cancer [Other]) Father other (TB [Other]) Mother Social History Tobacco Use Smoking status: Former Current packs/day: 3.00 Average packs/day: 3.0 packs/day for 30.0 years (90.0 ttl pk-yrs) Types: Cigarettes Smokeless tobacco: Current Types: Snuff Tobacco comments: quit smoking in 1999. does snuff currently. 3 cans a week Substance Use Topics Alcohol use: No Drug use: No Comment: caffeine Reviewed current medications, allergies, past medical history, surgical history, family history and social history today. REVIEW OF SYSTEMS No gi or gu issues. All other reviewed and negative other than HPI. HEALTH MAINTENANCE: Reviewed health maintenance issues today and recommended the following in detail. Abdominal Aortic Aneurysm Screening -thinks was done via [place] Annual PCP Team Chronic Disease Visit Never done Anxiety Screening Never done Prostate Cancer Screening -per [facility] Dilated Retinal Exam due on 10/22/2017 Diabetic Foot Exam -per [place] in Apr Colorectal Cancer Screening -[facility] RSV Vaccine(1 - Risk 60-74 years 1-dose series) Never done Influenza Vaccine(1) due on 04/03/2024 Covid-19 Vaccine(2023- season) due on 04/03/2024 Advance Directive Discussion Never done [facility] VITALS: BP 134/80 (BP Site: Left Arm, BP Position: Sitting, BP Cuff Size: Large Adult) Pulse 105 Temp 37.2 ?C (98.9 ?F) (Temporal) Resp 16 Ht 172.7 cm (5' 8) Wt 110.6 kg (243 lb 13.3 oz) SpO2 94% BMI 37.07 kg/m? Last 4 Encounter Wt Readings: Date: Wt: 06/07/2024 108.2 kg (238 lb 8.6 oz) 04/15/2022 119.4 kg (263 lb 3.2 oz) 03/11/2022 118.4 kg (261 lb) 12/04/2021 119.1 kg (262 lb 9.6 oz) PHYSICAL EXAMINATION: General (more content not included)... [facility] 06-09-2024 Telephone encounter Note Patient contacted and scheduled with Dr. Champagne, Mailed appointment reminder [facility] Work Phone: 06-09-2024 Miscellaneous Notes Patient contacted and scheduled with Dr. Champagne, Mailed appointment reminder Will need scheduled for a [address] Champagne only. Pt 's calls asking if Dr. Champagne will take him as a pt. This nurse explains he is not taking new pts. She says just ask him I am sure he will our whole family sees him. Please advise. documented in this encounter [facility] 06-09-2024 Telephone encounter Note Will need scheduled for a [address] Champagne only. [facility] 06-07-2024 Note HNO ID: [id number] Author: MARCELINO SANTA APRN.OFFICE RECEPTIONIST Service: ? Author Type: Nurse Practitioner Type: Progress Notes Filed: 06/07/2024 10:01 Note Text: Subjective HPI Nontoxic-appearing male presents urgent care chief complaint possible sinus affection. Duration of symptom 1 week. Associated symptoms sinus pressure headache. Does have cough. Believes it is related to postnasal drip. OTC medications none recently. Did try sinus rinses helped a little. Denies any fever. No history of sinus surgery. History of sinus infections. Past medical history prescription medications allergies reviewed.. 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 MEDICATIONS insulin lispro (HUMALOG U-100 INSULIN SUBCUTANEOUS) Inject subcutaneously. empagliflozin (JARDIANCE) 10 mg tablet Take 10 mg by mouth daily with breakfast. metoprolol tartrate, short acting, (LOPRESSOR) 25 mg tablet Take 2 tablets by mouth twice daily. lisinopril (ZESTRIL, PRINIVIL) 40 mg tablet Take 1 tablet by mouth once daily. metFORMIN (GLUCOPHAGE) 1,000 mg tablet Take 1 tablet by mouth twice daily. glimepiride (AMARYL) 4 mg tablet Take 1 tablet by mouth daily with breakfast. lancets (UNILET LANCETS) 30 gauge misc Use as directed to test blood sugars 2-3 times daily therapeutic multivitamin (THERA VITAMIN) tablet Take 1 tablet by mouth once daily. atorvastatin (LIPITOR) 40 mg tablet Take 1 tablet by mouth daily at bedtime. For cholesterol. omeprazole (PRILOSEC) 20 mg capsule Take 1 capsule by mouth daily before breakfast. 1/2 hr before meal. Lancets lancets Use as instructed to test blood sugar 2-3 x daily blood sugar diagnostic (FREESTYLE LITE STRIPS) test strip Use as instructed to test blood sugar 2-3 x daily ASPIRIN 81 MG TAB Take one(1) tablet daily. FISH OIL CAP Take one(1) tablet daily. Hydrochlorothiazide 12.5 mg capsule Take 1 capsule by mouth once daily. (Patient not taking: Reported on 06/04/2021 ) alogliptin (NESINA) 25 mg tab Take 25 mg by mouth once daily. (Patient not taking: Reported on 06/04/2021 ) FLUoxetine HCl (PROZAC) 40 mg capsule Take 1 capsule by mouth once daily. (Patient not taking: Reported on 06/04/2021 ) amLODIPine (NORVASC) 5 mg tablet Take 1 tablet by mouth once daily. (Patient not taking: Reported on 06/04/2021 ) Blood-Glucose Meter (FREESTYLE LITE METER) monitoring kit 1 Each as needed. (Patient not taking: Reported on 04/15/2022) naproxen (NAPROSYN) 500 mg tablet Take 1 tablet by mouth twice daily as needed. (Patient not taking: Reported on 06/04/2021 ) FAMILY HISTORY Problem Relation Age of Onset Prostate Cancer Paternal Grandfather Diabetes Paternal Grandmother Diabetes Sister other (CHF [Other]) Father other (lung cancer [Other]) Father other (TB [Other]) Mother Social History Tobacco Use Smoking status: Former Current packs/day: 3.00 Average packs/day: 3.0 packs/day for 30.0 years (90.0 ttl pk-yrs) Types: Cigarettes Smokeless tobacco: Current Types: Snuff Tobacco comments: quit smoking in 1999. does snuff currently. 3 cans a week Substance Use Topics Alcohol use: No Drug use: No Comment: caffeine BP 110/78 Pulse 84 Temp 36.4 ?C (97.6 ?F) (Tympanic) Resp 16 Wt 108.2 kg (238 lb 8.6 oz) SpO2 97% BMI 36.27 kg/m? Review of Systems Constitutional: Negative for chills, fever and malaise/fatigue. HENT: Positive for congestion and sinus pain. Negative for ear discharge, ear pain and sore throat. Eyes: Negative for blurred vision, pain, discharge and redness. Respiratory: Positive for cough. Negative for hemoptysis, sputum production, shortness of breath, wheezing and stridor. Cardiovascular: Negative for chest pain. Gastrointestinal: Negative for abdominal pain, diarrhea, nausea and vomiting. Musculoskeletal: Negative for myalgias. Skin: Negative for itching and rash. Neurological (more content not included)... [facility] 06-07-2024 History of Present illness Narrative Subjective HPI Nontoxic-appearing male presents urgent care chief complaint possible sinus affection. Duration of symptom 1 week. Associated symptoms sinus pressure headache. Does have cough. Believes it is related to postnasal drip. OTC medications none recently. Did try sinus rinses helped a little. Denies any fever. No history of sinus surgery. History of sinus infections. Past medical history prescription medications allergies reviewed.. 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 MEDICATIONS insulin lispro (HUMALOG U-100 INSULIN SUBCUTANEOUS) Inject subcutaneously. empagliflozin (JARDIANCE) 10 mg tablet Take 10 mg by mouth daily with breakfast. metoprolol tartrate, short acting, (LOPRESSOR) 25 mg tablet Take 2 tablets by mouth twice daily. lisinopril (ZESTRIL, PRINIVIL) 40 mg tablet Take 1 tablet by mouth once daily. metFORMIN (GLUCOPHAGE) 1,000 mg tablet Take 1 tablet by mouth twice daily. glimepiride (AMARYL) 4 mg tablet Take 1 tablet by mouth daily with breakfast. lancets (UNILET LANCETS) 30 gauge [facility] Use as directed to test blood sugars 2-3 times daily therapeutic multivitamin (THERA VITAMIN) tablet Take 1 tablet by mouth once daily. atorvastatin (LIPITOR) 40 mg tablet Take 1 tablet by mouth daily at bedtime. For cholesterol. omeprazole (PRILOSEC) 20 mg capsule Take 1 capsule by mouth daily before breakfast. 1/2 hr before meal. Lancets lancets Use as instructed to test blood sugar 2-3 x daily blood sugar diagnostic (FREESTYLE LITE STRIPS) test strip Use as instructed to test blood sugar 2-3 x daily ASPIRIN 81 MG TAB Take one(1) tablet daily. FISH OIL CAP Take one(1) tablet daily. Hydrochlorothiazide 12.5 mg capsule Take 1 capsule by mouth once daily. (Patient not taking: Reported on 06/04/2021 ) alogliptin (NESINA) 25 mg tab Take 25 mg by mouth once daily. (Patient not taking: Reported on 06/04/2021 ) FLUoxetine HCl (PROZAC) 40 mg capsule Take 1 capsule by mouth once daily. (Patient not taking: Reported on 06/04/2021 ) amLODIPine (NORVASC) 5 mg tablet Take 1 tablet by mouth once daily. (Patient not taking: Reported on 06/04/2021 ) Blood-Glucose Meter (FREESTYLE LITE METER) monitoring kit 1 Each as needed. (Patient not taking: Reported on 04/15/2022) naproxen (NAPROSYN) 500 mg tablet Take 1 tablet by mouth twice daily as needed. (Patient not taking: Reported on 06/04/2021 ) FAMILY HISTORY Problem Relation Age of Onset Prostate Cancer Paternal Grandfather Diabetes Paternal Grandmother Diabetes Sister other (CHF [Other]) Father other (lung cancer [Other]) Father other (TB [Other]) Mother Social History Tobacco Use Smoking status: Former Current packs/day: 3.00 Average packs/day: 3.0 packs/day for 30.0 years (90.0 ttl pk-yrs) Types: Cigarettes Smokeless tobacco: Current Types: Snuff Tobacco comments: quit smoking in 1999. does snuff currently. 3 cans a week Substance Use Topics Alcohol use: No Drug use: No Comment: caffeine BP 110/78 Pulse 84 Temp 36.4 C (97.6 F) (Tympanic) Resp 16 Wt 108.2 kg (238 lb 8.6 oz) SpO2 97% BMI 36.27 kg/m Review of Systems Constitutional: Negative for chills, fever and malaise/fatigue. HENT: Positive for congestion and sinus pain. Negative for ear discharge, ear pain and sore throat. Eyes: Negative for blurred vision, pain, discharge and redness. Respiratory: Positive for cough. Negative for hemoptysis, sputum production, shortness of breath, wheezing and stridor. Cardiovascular: Negative for chest pain. Gastrointestinal: Negative for abdominal pain, diarrhea, nausea and vomiting. Musculoskeletal: Negative for myalgias. Skin: Negative for itching and rash. Neurological: Positive for headaches. Negative for dizziness. Objective Physical Exam Constitutional: General: He is not in acute distress. Appearance: He is not diaphoretic. HENT: Head: Normocephalic. Jaw: No trismus, tenderness, swelling or pain on movement. Nose: Congestion present. Right Sinus: Frontal sinus tenderness present. Left Sinus: Frontal sinus tenderness present. Mouth/Throat: Mouth: Mucous membranes are moist. Pharynx: Oropharynx is clear. Uvula midline. No pharyngeal swelling, oropharyngeal exudate, posterior oropharyngeal erythema or uvula swelling. Eyes: Conjunctiva/sclera: Conjunctivae normal. Pupils: Pupils are equal, round, and reactive to light. Cardiovascular: Rate and Rhythm: Normal rate and regular rhythm. Heart sounds: Normal heart sounds. Pulmonary: Effort: Pulmonary effort is normal. No tachypnea, accessory muscle usage or respiratory distress. Breath sounds: Normal breath sounds. No stridor. No wheezing, rhonchi or rales. Abdominal: General: There is no distension. Palpations: Abdomen is soft. Tenderness: There is no abdominal tenderness. There is no guarding or rebound. Musculoskeletal: Cervical back: Normal range of motion and neck supple. No edema, erythema, rigidity or tenderness. No pain with movement. Normal range of motion. Lymphadenopathy: Cervical: No cervical adenopathy. Skin: General: Skin is warm and dry. Neurological: Mental Status: He is alert and oriented to person, place, and time. ASSESSMENT/PLAN: 1. Sinusitis, unspecified chronicity, unspecified location - ICD9: 473.9, ICD10: J32.9 Diagnosed with sinus affection. Viral versus bacterial. Will try Flonase for 48 hours symptoms do not improve will use antibiotic. Patient was educated on supportive therapies. Patient will follow up with primary care provider as needed. Patient was instructed to immediately proceed to emergency room for any new, worsening, or symptoms lasting longer than anticipated. The patient's clinical presentation is otherwise unremarkable at this time. Based on exam and clinical finding, the patient is stable for discharge. Plan of care was discussed with patient. Patient verbalizes understanding and agrees to plan of care. This note was generated using Smartsheet software. It may contain errors in wording, punctuation, or spelling. Marcelino Santa APRN.OFFICE RECEPTIONIST documented in this encounter [facility] 06-06-2024 Telephone encounter Note Pt 's calls asking if Dr. Champagne will take him as a pt. This nurse explains he is not taking new pts. She says just ask him I am sure he will our whole family sees him. Please advise. [facility] 04-15-2022 History of Present illness Narrative CC: Patient presents with: Cough: Nasal congestion, Go, diarrhea x 3 days. HPI: Gutierrez De Jesus is a 61 year old male who presents to the office with complaint of head congestion and cough, nonproductive for a few days. Symptoms are worsening Associated symptoms includes fatigue and diarrhea. Denies fever, dyspnea, and fatigue. Treatments tried include nothing so far. with no relief of symptoms. Sick contacts: unknown. History of asthma, frequent episodes of bronchitis, chronic bronchitis, bronchiectasis or COPD: No Smoker: No Seasonal/environmental allergies: No The ROS is otherwise negative. The patient's pmh, medications, allergies, and past visits are reviewed. PHYSICAL EXAM: BP 158/92 Pulse 99 Temp 36.6 C (97.8 F) Resp 18 Wt 119.4 kg (263 lb 3.2 oz) SpO2 97% BMI 40.02 kg/m General appearance: alert, cooperative, pleasant, in no acute distress Head: Normocephalic Eyes: EOM's intact, conjunctiva pink and moist, no icterus, sclera white, non-injected Oropharynx:moist without lesions, No erythema, exudates or tonsillar hypertrophy. Heart: Negative. RRR without obvious murmur, gallop, or rubs. No ectopy. 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 MEDICATIONS insulin lispro (HUMALOG U-100 INSULIN SUBCUTANEOUS) Inject subcutaneously. empagliflozin (JARDIANCE) 10 mg tablet Take 10 mg by mouth daily with breakfast. metoprolol tartrate, short acting, (LOPRESSOR) 25 mg tablet Take 2 tablets by mouth twice daily. lisinopril (ZESTRIL, PRINIVIL) 40 mg tablet Take 1 tablet by mouth once daily. metFORMIN (GLUCOPHAGE) 1,000 mg tablet Take 1 tablet by mouth twice daily. glimepiride (AMARYL) 4 mg tablet Take 1 tablet by mouth daily with breakfast. lancets (UNILET LANCETS) 30 gauge misc Use as directed to test blood sugars 2-3 times daily therapeutic multivitamin (THERA VITAMIN) tablet Take 1 tablet by mouth once daily. atorvastatin (LIPITOR) 40 mg tablet Take 1 tablet by mouth daily at bedtime. For cholesterol. omeprazole (PRILOSEC) 20 mg capsule Take 1 capsule by mouth daily before breakfast. 1/2 hr before meal. Lancets lancets Use as instructed to test blood sugar 2-3 x daily blood sugar diagnostic (FREESTYLE LITE STRIPS) test strip Use as instructed to test blood sugar 2-3 x daily ASPIRIN 81 MG TAB Take one(1) tablet daily. FISH OIL CAP Take one(1) tablet daily. Hydrochlorothiazide 12.5 mg capsule Take 1 capsule by mouth once daily. (Patient not taking: Reported on 06/04/2021 ) alogliptin (NESINA) 25 mg tab Take 25 mg by mouth once daily. (Patient not taking: Reported on 06/04/2021 ) FLUoxetine HCl (PROZAC) 40 mg capsule Take 1 capsule by mouth once daily. (Patient not taking: Reported on 06/04/2021 ) amLODIPine (NORVASC) 5 mg tablet Take 1 tablet by mouth once daily. (Patient not taking: Reported on 06/04/2021 ) Blood-Glucose Meter (FREESTYLE LITE METER) monitoring kit 1 Each as needed. (Patient not taking: Reported on 04/15/2022) naproxen (NAPROSYN) 500 mg tablet Take 1 tablet by mouth twice daily as needed. (Patient not taking: Reported on 06/04/2021 ) FAMILY HISTORY Problem Relation Age of Onset Prostate Cancer Paternal Grandfather Diabetes Paternal Grandmother Diabetes Sister other (CHF [Other]) Father other (lung cancer [Other]) Father other (TB [Other]) Mother Social History Tobacco Use Smoking status: Former Packs/day: 3.00 Years: 30.00 Pack years: 90.00 Types: Cigarettes Smokeless tobacco: Current Types: Snuff Tobacco comments: quit smoking in 1999. does snuff currently. 3 cans a week Substance Use Topics Alcohol use: No Drug use: No Comment: caffeine ASSESSMENT/PLAN: 1. At increased risk of exposure to COVID-19 virus - ICD9: V15.89, ICD10: Z91.89 (primary diagnosis) - COVID WITH FLUA+B, ROUTINE 2. Acute upper respiratory infection, unspecified - ICD9: 465.9, ICD10: J06.9 - COVID WITH FLUA+B, ROUTINE Prescription instructions reviewed with patient as applicable. Potential red flag symptoms discussed with the patient. Reviewed appropriate action plan to take if red flag symptoms occur. Patient agreeable to treatment plan. Nichole Schumacher APRN.KUMAR documented in this encounter [facility] 03-11-2022 History of Present illness Narrative Subjective HPI HPI Gutierrez De Jesus is a 61 year old male who presents today for CC of diarrhea, loss of voice, cough. This started 2 days ago. Has tried nothing for relief. Symptoms are worsened by nothing. Risk factors recent covid exposure. Denies cp/sob, nausea/vomiting, ear pain, st, fever, blood in urine. Diabetic. Patient of [facility]. .Patient presents with: Headache: Pt reported pain intermittent 8, x2 days diarrhea, loss of voice PAST MEDICAL HISTORY Diagnosis Date Closed fracture of unspecified part of tibia Diverticulitis of colon (without mention of hemorrhage)(562.11) Mixed hyperlipidemia Morbid obesity (HCC) 08/18/2013 Neurogenic bladder 12/10/2016 Obesity, unspecified Obstructive sleep apnea 06/19/2016 Other combinations of endocrine dysfunction Proteinuria Spinal stenosis of lumbar region with radiculopathy 12/10/2016 Type II or unspecified type diabetes mellitus without mention of complication, not stated as uncontrolled 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 MEDICATIONS insulin lispro (HUMALOG U-100 INSULIN SUBCUTANEOUS) Inject subcutaneously. empagliflozin (JARDIANCE) 10 mg tablet Take 10 mg by mouth daily with breakfast. metoprolol tartrate, short acting, (LOPRESSOR) 25 mg tablet Take 2 tablets by mouth twice daily. lisinopril (ZESTRIL, PRINIVIL) 40 mg tablet Take 1 tablet by mouth once daily. metFORMIN (GLUCOPHAGE) 1,000 mg tablet Take 1 tablet by mouth twice daily. glimepiride (AMARYL) 4 mg tablet Take 1 tablet by mouth daily with breakfast. lancets (UNILET LANCETS) 30 gauge misc Use as directed to test blood sugars 2-3 times daily atorvastatin (LIPITOR) 40 mg tablet Take 1 tablet by mouth daily at bedtime. For cholesterol. omeprazole (PRILOSEC) 20 mg capsule Take 1 capsule by mouth daily before breakfast. 1/2 hr before meal. Lancets lancets Use as instructed to test blood sugar 2-3 x daily blood sugar diagnostic (FREESTYLE LITE STRIPS) test strip Use as instructed to test blood sugar 2-3 x daily Blood-Glucose Meter (FREESTYLE LITE METER) monitoring kit 1 Each as needed. ASPIRIN 81 MG TAB Take one(1) tablet daily. FISH OIL CAP Take one(1) tablet daily. Hydrochlorothiazide 12.5 mg capsule Take 1 capsule by mouth once daily. (Patient not taking: Reported on 06/04/2021 ) alogliptin (NESINA) 25 mg tab Take 25 mg by mouth once daily. (Patient not taking: Reported on 06/04/2021 ) therapeutic multivitamin (THERA VITAMIN) tablet Take 1 tablet by mouth once daily. FLUoxetine HCl (PROZAC) 40 mg capsule Take 1 capsule by mouth once daily. (Patient not taking: Reported on 06/04/2021 ) amLODIPine (NORVASC) 5 mg tablet Take 1 tablet by mouth once daily. (Patient not taking: Reported on 06/04/2021 ) naproxen (NAPROSYN) 500 mg tablet Take 1 tablet by mouth twice daily as needed. (Patient not taking: Reported on 06/04/2021 ) FAMILY HISTORY Problem Relation Age of Onset Prostate Cancer Paternal Grandfather Diabetes Paternal Grandmother Diabetes Sister other (CHF [Other]) Father other (lung cancer [Other]) Father other (TB [Other]) Mother Social History Tobacco Use Smoking status: Former Packs/day: 3.00 Years: 30.00 Pack years: 90.00 Types: Cigarettes Smokeless tobacco: Current Types: Snuff Tobacco comments: quit smoking in 1999. does snuff currently. 3 cans a week Substance Use Topics Alcohol use: No Drug use: No Comment: caffeine ROS Objective Blood pressure 138/86, pulse 99, temperature 37.1 C (98.8 F), resp. rate 18, weight 118.4 kg (261 lb), SpO2 97 %. Physical Exam Constitutional: General: He is not in acute distress. Appearance: He is not toxic-appearing or diaphoretic. HENT: Head: Normocephalic and atraumatic. Cardiovascular: Rate and Rhythm: Normal rate and regular rhythm. Heart sounds: Normal heart sounds, S1 normal and S2 normal. Pulmonary: Effort: Pulmonary effort is normal. Breath sounds: Normal breath sounds. Abdominal: General: Bowel sounds are normal. Palpations: Abdomen is soft. Tenderness: There is no abdominal tenderness. Lymphadenopathy: Cervical: No cervical adenopathy. Right cervical: No superficial cervical adenopathy. Left cervical: No superficial cervical adenopathy. Neurological: Mental Status: He is alert and oriented to person, place, and time. Gait: Gait is intact. ASSESSMENT/PLAN: 1. Suspected COVID-19 virus infection - ICD9: V01.79, ICD10: Z20.822 Discussed quarantine, social distancing otc medications discussed Push fluids -If you experience chest pain/shortness of breath go to ER - 2019 CORONAVIRUS Agrees to plan Bi Lucas APRN.KUMAR documented in this encounter [facility] 03-11-2022 Instructions Bi Lucas APRN.KUMAR - 03/11/2022 6:50 PM EDT How to Manage Common Symptoms Associated with COVID for Adults Fever- Fever is a temperature over 100.4 F and can occur when the body is fighting an infection. To help treat a fever: Drink plenty of fluids and stay well hydrated. Eat small amounts of easy to digest food. Rest. Your body needs rest to recover, but getting up and moving around the house frequently is a good idea. You should try to continue doing your normal daily activities (bathing, toileting, grooming, cooking), though you will probably feel tired, and need to rest often. Avoid any heavy activity or exercise, as this will increase your body temperature. Dress in light clothing and stay covered in a light sheet. Keep the room temperature cool. Take a slightly warm (not cold or cool) bath, or apply damp washcloths to the forehead and wrists. Cough- Cough is a common symptom associated with COVID and can be bothersome. To help treat a cough: Stay well hydrated. Try warm water or tea with lemon and/or honey to help soothe the cough. Use a humidifier to add moisture to the air. Try a product with menthol, like a cough drop or a rub for your chest such as Vicks, which can help reduce cough. Try cough drops. Avoid smoking and other strong odors or perfumes. Try breathing exercises to keep your lungs open and clear. Take a big deep breath through your nose and hold for 5 seconds before slowly releasing. Repeat frequently, while you are awake. Congestion- Runny nose or nasal congestion can occur with COVID. Treatment can help relieve symptoms: Try OTC nasal saline spray, or nasal saline rinse to relieve mucus congestion. Nasal strips can help keep nasal passages open, to increase airflow. Elevating your head with an extra pillow in bed can help reduce congestion. Using a humidifier can increase moisture in the air, and make breathing easier. Sore Throat- Another common symptom with COVID, can be managed at home by: Stay well hydrated. Gargle with salt water - mix teaspoon salt with 1 cup of warm water and gargle. This helps to loosen mucus in the back of the throat and may reduce discomfort. Try ice chips, popsicles or lozenges to soothe the throat. Nausea/Vomiting/Diarrhea- These are common symptoms, and staying hydrated is most important. If you are nauseous or vomiting, start with small sips of water every 10-15 minutes and increase as tolerated. You can try sucking an ice cube too. If tolerating, you can try pedialyte or Gatorade, or flat sprite or thalia-devendra. Start slowly and increase as you are able to. Instead of meals, try smaller, more frequent snacks. Try eating bland foods like crackers, toast, rice, and applesauce. Avoid spicy, greasy or fried foods and dairy containing foods. Even if you aren't feeling hungry due to lack of smell or taste, it is important to try to take in some food when you are able. After drinking and eating, rest in an upright position for up to two hours as needed to help decrease nauseous feelings. Try closing your eyes, avoid moving and watching TV. Avoid strong odors that can make you feel more nauseated. When to seek emergency medical attention Look for emergency warning signs for COVID-19. If having any of these symptoms, seek emergency medical care immediately: Trouble breathing Persistent pain or pressure in the chest New confusion Inability to wake or stay awake Bluish lips or face *This list is not all possible symptoms. Please call your medical provider for any other symptoms that are severe or concerning to you. documented in this encounter [facility] 01-15-2009 History of Past i llness Narrative Problem Noted Date Resolved Date Cellulitis and abscess of toe, unspecified 01/1510/23/2015 Ingrowing nail 01/15/2009 10/23/2015 Diverticulitis of colon (wit hout mention of hemorrhage)(562.11) 03/13/2008 10/23/2015 documented as of this encounter (statuses as of 03/11/2022) [facility] History of Past illness Narrative* Problem Noted Date Resolved Date Cellulitis and abscess of toe, unspecified 01/1510/23/2015 Ingrowing nail 01/15/2009 10/23/2015 Diverticulitis of colon (wit hout mention of hemorrhage)(562.11) 03/13/2008 10/23/2015 documented as of this encounter (statuses as of 04/15/2022) [facility] note* Diagnosis Suspected COVID-19 virus infection- Primary documented in this encounter [facility] note* Diagnosis At increased risk of exposure to COVID-19 virus- Primary Acute upper respiratory infection, unspecified documented in this encounter [facility] noteNo assessment information availableWCleveland Clinic [facility] Work Phone: Evaluation note* Diagnosis Sinusitis, unspecified chronicity, unspecified location- Primary documented in this encounter [facility] note* Diagnosis Chronic nonintractable headache, unspecified headache type- Primary Type 2 diabetes mellitus with microalbuminuria, without long-term current use of insulin ([facility]) Encounter for screening examination for other mental health and behavioral disorders Hyperlipidemia LDL goal <100 Other and unspecified hyperlipidemia Essential hypertension Unspecified essential hypertension Obstructive sleep apnea Obstructive sleep apnea (adult) (pediatric) Neurogenic bladder Neurogenic bladder, NOS Degeneration of intervertebral disc of lumbar region, unspecified whether pain present Morbid obesity due to excess calories (HCC) Need for vaccination Need for prophylactic vaccination and inoculation against unspecified single disease [facility]* Diagnosis Right knee pain, unspecified chronicity- Primary [facility] Diagnosis Chronic pain of right knee- Primary Primary osteoarthritis of right knee Primary localized osteoarthrosis, lower leg Encounter for tobacco use cessation counseling [facility]* Diagnosis Right knee pain, unspecified chronicity [facility] Diagnosis Primary osteoarthritis of right knee- Primary Primary localized osteoarthrosis, lower leg Primary osteoarthritis of right knee Primary localized osteoarthrosis, lower leg [facility] Diagnosis Pre-operative examination Preoperative examination, unspecified Primary osteoarthritis of right knee Primary localized osteoarthrosis, lower leg [facility] Diagnosis Pre-operative examination- Primary Preoperative examination, unspecified Situational depression Adjustment disorder with depressed mood Obstructive sleep apnea Obstructive sleep apnea (adult) (pediatric) Former smoker Personal history of tobacco use, presenting hazards to health Essential hypertension Unspecified essential hypertension Hyperlipidemia LDL goal <100 Other and unspecified hyperlipidemia Elevated liver function tests Other abnormal blood chemistry Neurogenic bladder Neurogenic bladder, NOS Renal cyst Unspecified congenital cystic kidney disease Chronic kidney disease, unspecified CKD stage Type 2 diabetes mellitus with microalbuminuria, without long-term current use of insulin (HCC) 1st degree AV block First degree atrioventricular block Intention tremor Essential and other specified forms of tremor Gastroesophageal reflux disease, unspecified whether esophagitis present Benign prostatic hyperplasia with lower urinary tract symptoms, symptom details unspecified BMI 36.0-36.9,adult Body Mass Index 36.0-36.9, adult History of renal cell cancer Pre-operative examination Preoperative examination, unspecified Primary osteoarthritis of right knee Primary localized osteoarthrosis, lower leg * Assessment & Plan Note - Kacie Montelongo APRN.CNP - 12/06/2024 1:09 PM EDT Associated Problem(s): History of renal cell cancer Assessment: s/p right partial nephrectomy * Assessment & Plan Note - Kacie Montelongo APRN.CNP - 12/06/2024 1:04 PM EDT Associated Problem(s): BMI 36.0-36.9,adult Assessment: Body mass index is 36.86 kg/m . * Assessment & Plan Note - Kacie Montelongo APRN.CNP - 12/06/2024 1:04 PM EDT Associated Problem(s): Benign prostatic hyperplasia with lower urinary tract symptoms Assessment: controlled on rx * Assessment & Plan Note - Kacie Montelongo APRN.CNP - 12/06/2024 1:03 PM EDT Associated Problem(s): GERD (gastroesophageal reflux disease) Assessment: controlled on rx * Assessment & Plan Note - Kacie Montelongo APRN.CNP - 12/06/2024 1:03 PM EDT Associated Problem(s): Intention tremor Assessment: controlled on rx * Assessment & Plan Note - Kacie Montelongo APRN.CNP - 12/06/2024 1:03 PM EDT Associated Problem(s): 1st degree AV block Assessment: per pre-op EKG, asymptomatic * Assessment & Plan Note - Kacie Montelongo APRN.CNP - 12/06/2024 1:00 PM EDT Associated Problem(s): Type 2 diabetes mellitus with microalbuminuria, without long-term current use of insulin (HCC) Assessment: controlled with weekly injectable and oral agent. Reviewed to hold injectable 7 FULL days prior to surgery, pt verbalized understanding. Hemoglobin A1C (%) Date Value 12/01/2024 6.8 06/29/2017 7.5 HGBA1C (%) Date Value 10/27/2018 9.0 * Assessment & Plan Note - Kacie Montelongo APRN.CNP - 12/06/2024 1:00 PM EDT Associated Problem(s): CKD (chronic kidney disease) Assessment: Creatinine Date Value Ref Range Status 12/01/2024 1.52 (H) 0.73 - 1.22 mg/dL Final 06/29/2017 0.99 0.73 - 1.22 mg/dL Final 04/10/2017 1.01 0.73 - 1.22 mg/dL Final 10/02/2016 0.96 0.73 - 1.22 mg/dL Final * Assessment & Plan Note - Kacie Montelongo APRN.CNP - 12/06/2024 12:59 PM EDT Associated Problem(s): Renal cyst Assessment: small mildly complex bilateral renal cysts per US in [facility] 2006, no follow up imaging noted, [facility] * Assessment & Plan Note - Kacie Montelongo APRN.CNP - 12/06/2024 12:58 PM EDT Associated Problem(s): Neurogenic bladder Assessment: hx, [facility], records [facility], pt gave vague hx * Assessment & Plan Note - Kacie Montelongo APRN.CNP - 12/06/2024 12:56 PM EDT Associated Problem(s): Elevated liver function tests Assessment: hx Albumin (g/dL) Date Value 12/01/2024 4.6 Bilirubin, Total (mg/dL) Date Value 12/01/2024 1.1 Alkaline Phosphatase (U/L) Date Value 12/01/2024 62 AST (U/L) Date Value 12/01/2024 29 ALT (U/L) Date Value 12/01/2024 34 Protein, Total (g/dL) Date Value 12/01/2024 7.3 * Assessment & Plan Note - Kacie Montelongo APRN.CNP - 12/06/2024 12:55 PM EDT Associated Problem(s): Hyperlipidemia LDL goal <100 Assessment: c/w statin * Assessment & Plan Note - Kacie Montelongo APRN.CNP - 12/06/2024 12:55 PM EDT Associated Problem(s): Essential hypertension Assessment: controlled on rx Last 14 BP Last 14 Encounter BP Readings: Date: BP: 12/01/2024 122/62 08/19/2024 134/80 06/07/2024 110/78 04/15/2022 158/92 03/11/2022 138/86 12/04/2021 142/96 06/04/2021 144/88 06/29/2017 115/74 03/24/2017 128/70 12/10/2016 120/76 09/30/2016 118/94 06/19/2016 108/74 02/21/2016 124/88 01/30/2016 118/80 * Assessment & Plan Note - Kacie Montelongo APRN.CNP - 12/06/2024 12:54 PM EDT Associated Problem(s): Former smoker Assessment: 3ppd/30 years, CXR pre-op normal, PFT's pending 12/09/2024, no dx of asthma and/or COPD * Assessment & Plan Note - Kacie Montelongo APRN.CNP - 12/06/2024 12:53 PM EDT Associated Problem(s): Obstructive sleep apnea Assessment: non-compliant with CPAP * Assessment & Plan Note - Kacie Montelongo APRN.CNP - 12/06/2024 12:53 PM EDT Associated Problem(s): Situational depression Assessment: stable on rx per pt documented in this encounter [facility] note* Diagnosis Pre-operative examination- Primary Preoperative examination, unspecified Situational depression Adjustment disorder with depressed mood Obstructive sleep apnea Obstructive sleep apnea (adult) (pediatric) Former smoker Personal history of tobacco use, presenting hazards to health Essential hypertension Unspecified essential hypertension Hyperlipidemia LDL goal <100 Other and unspecified hyperlipidemia Elevated liver function tests Other abnormal blood chemistry Neurogenic bladder Neurogenic bladder, NOS Renal cyst Unspecified congenital cystic kidney disease Chronic kidney disease, unspecified CKD stage Type 2 diabetes mellitus with microalbuminuria, without long-term current use of insulin (HCC) 1st degree AV block First degree atrioventricular block Intention tremor Essential and other specified forms of tremor Gastroesophageal reflux disease, unspecified whether esophagitis present Benign prostatic hyperplasia with lower urinary tract symptoms, symptom details unspecified BMI 36.0-36.9,adult Body Mass Index 36.0-36.9, adult History of renal cell cancer Pre-operative examination Preoperative examination, unspecified Primary osteoarthritis of right knee Primary localized osteoarthrosis, lower leg documented in this encounter [facility] note* Diagnosis Pre-operative examination- Primary Preoperative examination, unspecified Situational depression Adjustment disorder with depressed mood Obstructive sleep apnea Obstructive sleep apnea (adult) (pediatric) Former smoker Personal history of tobacco use, presenting hazards to health Essential hypertension Unspecified essential hypertension Hyperlipidemia LDL goal <100 Other and unspecified hyperlipidemia Elevated liver function tests Other abnormal blood chemistry Neurogenic bladder Neurogenic bladder, NOS Renal cyst Unspecified congenital cystic kidney disease Chronic kidney disease, unspecified CKD stage Type 2 diabetes mellitus with microalbuminuria, without long-term current use of insulin (HCC) 1st degree AV block First degree atrioventricular block Intention tremor Essential and other specified forms of tremor Gastroesophageal reflux disease, unspecified whether esophagitis present Benign prostatic hyperplasia with lower urinary tract symptoms, symptom details unspecified BMI 36.0-36.9,adult Body Mass Index 36.0-36.9, adult History of renal cell cancer Pre-operative examination Preoperative examination, unspecified Primary osteoarthritis of right knee Primary localized osteoarthrosis, lower leg [facility]* Diagnosis Pre-operative examination- Primary Preoperative examination, unspecified Situational depression Adjustment disorder with depressed mood Obstructive sleep apnea Obstructive sleep apnea (adult) (pediatric) Former smoker Personal history of tobacco use, presenting hazards to health Essential hypertension Unspecified essential hypertension Hyperlipidemia LDL goal <100 Other and unspecified hyperlipidemia Elevated liver function tests Other abnormal blood chemistry Neurogenic bladder Neurogenic bladder, NOS Renal cyst Unspecified congenital cystic kidney disease Chronic kidney disease, unspecified CKD stage Type 2 diabetes mellitus with microalbuminuria, without long-term current use of insulin (HCC) 1st degree AV block First degree atrioventricular block Intention tremor Essential and other specified forms of tremor Gastroesophageal reflux disease, unspecified whether esophagitis present Benign prostatic hyperplasia with lower urinary tract symptoms, symptom details unspecified BMI 36.0-36.9,adult Body Mass Index 36.0-36.9, adult History of renal cell cancer Chronic pain of right knee Primary osteoarthritis of right knee Primary localized osteoarthrosis, lower leg Primary osteoarthritis of right knee Primary localized osteoarthrosis, lower leg [facility]* Diagnosis Pre-operative examination- Primary Preoperative examination, unspecified Situational depression Adjustment disorder with depressed mood Obstructive sleep apnea Obstructive sleep apnea (adult) (pediatric) Former smoker Personal history of tobacco use, presenting hazards to health Essential hypertension Unspecified essential hypertension Hyperlipidemia LDL goal <100 Other and unspecified hyperlipidemia Elevated liver function tests Other abnormal blood chemistry Neurogenic bladder Neurogenic bladder, NOS Renal cyst Unspecified congenital cystic kidney disease Chronic kidney disease, unspecified CKD stage Type 2 diabetes mellitus with microalbuminuria, without long-term current use of insulin (HCC) 1st degree AV block First degree atrioventricular block Intention tremor Essential and other specified forms of tremor Gastroesophageal reflux disease, unspecified whether esophagitis present Benign prostatic hyperplasia with lower urinary tract symptoms, symptom details unspecified BMI 36.0-36.9,adult Body Mass Index 36.0-36.9, adult History of renal cell cancer Primary osteoarthritis of right knee- Primary Primary localized osteoarthrosis, lower leg Status post total right knee replacement [facility]* Diagnosis Pre-operative examination- Primary Preoperative examination, unspecified Situational depression Adjustment disorder with depressed mood Obstructive sleep apnea Obstructive sleep apnea (adult) (pediatric) Former smoker Personal history of tobacco use, presenting hazards to health Essential hypertension Unspecified essential hypertension Hyperlipidemia LDL goal <100 Other and unspecified hyperlipidemia Elevated liver function tests Other abnormal blood chemistry Neurogenic bladder Neurogenic bladder, NOS Renal cyst Unspecified congenital cystic kidney disease Chronic kidney disease, unspecified CKD stage Type 2 diabetes mellitus with microalbuminuria, without long-term current use of insulin (HCC) 1st degree AV block First degree atrioventricular block Intention tremor Essential and other specified forms of tremor Gastroesophageal reflux disease, unspecified whether esophagitis present Benign prostatic hyperplasia with lower urinary tract symptoms, symptom details unspecified BMI 36.0-36.9,adult Body Mass Index 36.0-36.9, adult History of renal cell cancer Primary osteoarthritis of right knee- Primary Primary localized osteoarthrosis, lower leg [facility] Diagnosis Pre-operative examination- Primary Preoperative examination, unspecified Situational depression Adjustment disorder with depressed mood Obstructive sleep apnea Obstructive sleep apnea (adult) (pediatric) Former smoker Personal history of tobacco use, presenting hazards to health Essential hypertension Unspecified essential hypertension Hyperlipidemia LDL goal <100 Other and unspecified hyperlipidemia Elevated liver function tests Other abnormal blood chemistry Neurogenic bladder Neurogenic bladder, NOS Renal cyst Unspecified congenital cystic kidney disease Chronic kidney disease, unspecified CKD stage Type 2 diabetes mellitus with microalbuminuria, without long-term current use of insulin (HCC) 1st degree AV block First degree atrioventricular block Intention tremor Essential and other specified forms of tremor Gastroesophageal reflux disease, unspecified whether esophagitis present Benign prostatic hyperplasia with lower urinary tract symptoms, symptom details unspecified BMI 36.0-36.9,adult Body Mass Index 36.0-36.9, adult History of renal cell cancer Primary osteoarthritis of right knee Primary localized osteoarthrosis, lower leg Status post total right knee replacement [facility] Additional Instructions You have signed out AGAINST MEDICAL ADVICE. Your lipase is elevated above 7000 indicating that you have acute pancreatitis. Should you change your mind, return to the emergency department for admission. Return with increasing pain, nausea, vomiting, new or worsening symptoms. Start a clear liquid diet.[facility] Work Phone: Reason for visit Narrative* Diagnostic Procedure Only (Routine) - Closed Specialty Diagnoses / Procedures Referred By Contac t Referred To Contact XR IMAGING Diagnoses Right knee pain, unspecified chronicity Procedures XR KNEE GENERAL 4V AP BOTH/PA BOTH/LAT/MERC RIGHT RADIOLOGIC EXAM KNEE COMPLETE 4/MORE VIEWS Robert Edgar MD [address] [place] [address] Phone: tel: fax: [place] [phone] Referral ID Status Reason Start Date Expiration Date V isits Requested Visits Authorized [id number] Closed Auto-Generate d Referral 11/10/2024 12/10/2025 1 1 [facility] for visit Narrative* MRI/CT (Routine) - Closed Specialty Diagnoses / Procedures Referred By Contjesus t Referred To Contact CT IMAGING Diagnoses Chronic pain of right knee Primary osteoarthritis of right knee Procedures CT KNEE WO IVCON RIGHT CT LOWER EXTREMITY W/O CONTRAST MATERIAL Robert Edgar MD [address] [place] [address] Phone: tel: fax: [place] [phone] Referral ID Status Reason Start Date Expiration Date V isits Requested Visits Authorized [id number] Closed Auto-Generate d Referral 12/07/2024 08/02/2025 1 1 [facility] for visit Narrative* Diagnostic Procedure Only (Routine) - Closed Specialty Diagnoses / Procedures Referred By Sonu loredo Referred To Contact XR IMAGING Diagnoses Primary osteoarthritis of right knee Status post total right knee replacement Procedures XR KNEE POST OP 3V AP/LAT/MERCHANT RIGHT RADIOLOGIC EXAMINATION KNEE 3 VIEWS Robert Edgar MD [address] [place] [address] Phone: tel: fax: [place] [phone] Referral ID Status Reason Start Date Expiration Date V isits Requested Visits Authorized [id number] Closed Auto-Generate d Referral 12/27/2024 01/26/2026 1 1 [facility] Concerns Infection Onset Date Last Indicated Resolved Time COVID-19 Rule-Out 04/15/2022 04/15/2022 Chief Complaint and Reason for Visit Chief Complaint abd pain Family History No Family History Records Found Relationship Condition Age at Onset Recorded Date/T mirna Unknown Family History?Heart Disease, - Unknown September 09, 2017 1:20am Family History?Heart Disease, No pertinent history Unknown September 09, 2017 1:20am Advance Directives No Advanced Directives Records Found Advance Directive Response Recorded Date/ Time Advance Directives No December 10 5 6:57pm Living Will No September 23 023 8:04pm Power of Stock And Station Agent No September 23, 2022 8:04pm Summary Purpose Additional Source Comments Source Comments (unrecognize d section and content) In the event this informatio n is protected by the [facility] Confidentiality of Alcohol and Drug Abuse Patient Records regulations: The Federal rules restrict any use of the information to criminally investigate or prosecute any alcohol or drug abuse patient.[facility] the event this information is protected by the Federal Confidentiality of Alcohol and Drug Abuse Patient Records regulations: The Federal rules restrict any use of the information to criminally investigate or prosecute any alcohol or drug abuse patient.[facility] WestIn the event this information is protected by the Federal Confidentiality of Alcohol and Drug Abuse Patient Records regulations: The Federal rules restrict any use of the information to criminally investigate or prosecute any alcohol or drug abuse patient.[facility] WestIn the event this information is protected by the Federal Confidentiality of Alcohol and Drug Abuse Patient Records regulations: The Federal rules restrict any use of the information to criminally investigate or prosecute any alcohol or drug abuse patient.[facility] WestIn the event this information is protected by the Federal Confidentiality of Alcohol and Drug Abuse Patient Records regulations: The Federal rules restrict any use of the information to criminally investigate or prosecute any alcohol or drug abuse patient.[facility] WestIn the event this information is protected by the Federal Confidentiality of Alcohol and Drug Abuse Patient Records regulations: The Federal rules restrict any use of the information to criminally investigate or prosecute any alcohol or drug abuse patient.[facility] WestIn the event this information is protected by the Federal Confidentiality of Alcohol and Drug Abuse Patient Records regulations: The Federal rules restrict any use of the information to criminally investigate or prosecute any alcohol or drug abuse patient.[facility] WestIn the event this information is protected by the Federal Confidentiality of Alcohol and Drug Abuse Patient Records regulations: The Federal rules restrict any use of the information to criminally investigate or prosecute any alcohol or drug abuse patient.[facility] WestIn the event this information is protected by the Federal Confidentiality of Alcohol and Drug Abuse Patient Records regulations: The Federal rules restrict any use of the information to criminally investigate or prosecute any alcohol or drug abuse patient.[facility]In the event this information is protected by the Federal Confidentiality of Alcohol and Drug Abuse Patient Records regulations: The Federal rules restrict any use of the information to criminally investigate or prosecute any alcohol or drug abuse patient.[facility]In the event this information is protected by the Federal Confidentiality of Alcohol and Drug Abuse Patient Records regulations: The Federal rules restrict any use of the information to criminally investigate or prosecute any alcohol or drug abuse patient.[facility] WestIn the event this information is protected by the Federal Confidentiality of Alcohol and Drug Abuse Patient Records regulations: The Federal rules restrict any use of the information to criminally investigate or prosecute any alcohol or drug abuse patient.[facility]In the event this information is protected by the Federal Confidentiality of Alcohol and Drug Abuse Patient Records regulations: The Federal rules restrict any use of the information to criminally investigate or prosecute any alcohol or drug abuse patient.[facility]In the event this information is protected by the Federal Confidentiality of Alcohol and Drug Abuse Patient Records regulations: The Federal rules restrict any use of the information to criminally investigate or prosecute any alcohol or drug abuse patient.[facility]In the event this information is protected by the Federal Confidentiality of Alcohol and Drug Abuse Patient Records regulations: The Federal rules restrict any use of the information to criminally investigate or prosecute any alcohol or drug abuse patient.[facility]In the event this information is protected by the Federal Confidentiality of Alcohol and Drug Abuse Patient Records regulations: The Federal rules restrict any use of the information to criminally investigate or prosecute any alcohol or drug abuse patient.[facility] WestIn the event this information is protected by the Federal Confidentiality of Alcohol and Drug Abuse Patient Records regulations: The Federal rules restrict any use of the information to criminally investigate or prosecute any alcohol or drug abuse patient.[facility]In the event this information is protected by the Federal Confidentiality of Alcohol and Drug Abuse Patient Records regulations: The Federal rules restrict any use of the information to criminally investigate or prosecute any alcohol or drug abuse patient.[facility]In the event this information is protected by the Federal Confidentiality of Alcohol and Drug Abuse Patient Records regulations: The Federal rules restrict any use of the information to criminally investigate or prosecute any alcohol or drug abuse patient.[facility]In the event this information is protected by the Federal Confidentiality of Alcohol and Drug Abuse Patient Records regulations: The Federal rules restrict any use of the information to criminally investigate or prosecute any alcohol or drug abuse patient.[facility]In the event this information is protected by the Federal Confidentiality of Alcohol and Drug Abuse Patient Records regulations: The Federal rules restrict any use of the information to criminally investigate or prosecute any alcohol or drug abuse patient.[facility]In the event this information is protected by the Federal Confidentiality of Alcohol and Drug Abuse Patient Records regulations: The Federal rules restrict any use of the information to criminally investigate or prosecute any alcohol or drug abuse patient.[facility]In the event this information is protected by the Federal Confidentiality of Alcohol and Drug Abuse Patient Records regulations: The Federal rules restrict any use of the information to criminally investigate or prosecute any alcohol or drug abuse patient.[facility] Reason for Visit (unrecogniz ed section and content) Reason Comments Headache Pt reported pain int ermittent 8, x2 days diarrhea, loss of voice Reason Comments Cough Nasal congestion, Go , diarrhea x 3 days. Reason Comments Sinus Problem Sinus, GO and cough x 1 week Reason Comments Establish Care sees [place] in [place], ast seen eye doctor in February 2024 Reason Onset Date Comments Refill Request 08/24/2024 Reason Comments Fax Requesting Medical Records Reason Comments Appointment Reason Comments New Pain Reason Comments Schedule Surgery Reason Comments Patient Question Reason Comments Pre-Op Teaching Reason Comments Consult surgery at [place] on 12/23/24 Reason Comments Spirometry Specialty Diagnoses / Procedures [facility] Diagnoses Pre-operative examination Procedures LUNG DIFFUSION CAPACITY (DLCO) DIFFUSING CAPACITY Kacie Montelongo, DRUM WORKER.OFFICE RECEPTIONIST [address] [place] [address] Phone: tel: fax: [facility] [address] [place] [address] Referral ID Status Reason Start Date Expiration Date V isits Requested Visits Authorized [id number] Closed Auto-Generate d Referral 12/02/2024 08/02/2025 1 1 Specialty Diagnoses / Procedures [facility] Diagnoses Pre-operative examination Procedures SPIROMETRY WITH DILATOR IF OBSTRUCTED BRNCDILAT RSPSE SPMTRY PRE&POST-BRNCDILAT ADMN Kacie Montelongo, DRUM WORKER.OFFICE RECEPTIONIST [address] [place] [address] Phone: tel: fax: [facility] [address] [place] [address] Referral ID Status Reason Start Date Expiration Date V isits Requested Visits Authorized [id number] Closed Auto-Generate d Referral 12/02/2024 08/02/2025 1 1 Reason Comments Order for PT at [facility] Care Teams (unrecognized sec tion and content) Team Status: Active Member Role Status Dates [facility] Family Provider Active PATTI LARA Primary Care Provider Active Team Status: Inactive Member Role Status Dates Von Turcios MD Emergency Provider Active PATTI LARA Primary Care Provider Active Milking Machine Mechanic Relationship Specialty Start Date End Date Yobani Champagne MD [address] [place] [address] PCP - General Family Medicine 06/07/24 Milking Machine Mechanic Relationship Specialty Start Date End Date Yobani Champagne MD [address] [place] [address] PCP - General Family Medicine 06/07/24 Milking Machine Mechanic Relationship Specialty Start Date End Date Yobani Champagne MD [address] [place] [address] PCP - General Family Medicine 06/07/24 Katlyn Grey APRN.OFFICE RECEPTIONIST [address] [place] [address] Insurance Adviser Family Medicine 07/11/24 Loly Michelle APRN.OFFICE RECEPTIONIST [address] [place] [address] Insurance Adviser Family Medicine 07/11/24 Milking Machine Mechanic Relationship Specialty Start Date End Date Yobani Champagne MD [address] [place] [address] PCP - General Family Medicine 06/07/24 Katlyn Grey APRN.OFFICE RECEPTIONIST [address] [place] [address] Insurance Adviser Family Medicine 07/11/24 Loly Michelle APRN.OFFICE RECEPTIONIST [address] [place], [place] 310414 [phone] Insurance Adviser Family Medicine 07/11/24 Milking Machine Mechanic Relationship Specialty Start Date End Date Yobani Champagne MD [address] [facility] [place] [id number] PCP - General Family Medicine 06/07/24 Katlyn Grey APRN.OFFICE RECEPTIONIST [address] [facility] [place] [address] Insurance Adviser Family Medicine 07/11/24 Loly Michelle APRN.OFFICE RECEPTIONIST [address] [facility] [place] [address] Insurance Adviser Family Medicine 07/11/24 Milking Machine Mechanic Relationship Specialty Start Date End Date Yobani Champagne MD [address] [place] [address] PCP - General Family Medicine 06/07/24 Katlyn Grey APRN.OFFICE RECEPTIONIST [address] [facility] [place] [address] Insurance Adviser Family Medicine 07/11/24 Loly Michelle DRUM WORKER.OFFICE RECEPTIONIST [address] [place] [address] Insurance Adviser Family Medicine 07/11/24 Milking Machine Mechanic Relationship Specialty Start Date End Date Yobani Champagne MD [address] [place], [place] [address] PCP - General Family Medicine 06/07/24 Katlyn Grey APRN.OFFICE RECEPTIONIST [address] [place], [place] 8[address] [phone] Insurance Adviser Family Medicine 07/11/24 Loly Michelle APRN.OFFICE RECEPTIONIST [address] [place] [address] [facility] 07/11/24 Graham Gamez PA-C [address] [place] [phone] Physician Best Worker 09/22/24 Milking Machine Mechanic Relationship Specialty Start Date End Date Yobani Champagne MD [address] [place] [address] PCP - General Family Medicine 06/07/24 Katlyn Grey APRN.OFFICE RECEPTIONIST [address] [place] [address] [facility] 07/11/24 Loly Michelle APRN.OFFICE RECEPTIONIST [address] [place] [address] [facility] 07/11/24 Graham Gamez PA-C [address] [place] [address] Physician Best Worker 09/22/24 Milking Machine Mechanic Relationship Specialty Start Date End Date Yobani Champagne MD [address] [place] [address] PCP - General Family Medicine 06/07/24 Katlyn Grey APRN.OFFICE RECEPTIONIST [address] [place] [address] [facility] 07/[facility]/24 Loly Michelle APRN.OFFICE RECEPTIONIST [address] [place] [address] Insurance Adviser Family Medicine 07/11/24 Graham Gamez PA-C [phone] [place] [phone] Physician Best Worker 09/22/24 Milking Machine Mechanic Relationship Specialty Start Date End Date Yobani Champagne MD [address] [place] [address] PCP - General Family Medicine 06/07/24 Katlyn Grey, DRUM WORKER.OFFICE RECEPTIONIST [address] [place] [address] Insurance Adviser Family Medicine 07/11/24 Loly Michelle DRUM WORKER.OFFICE RECEPTIONIST [address] [place] [address] Insurance Adviser Family Medicine 07/11/24 Graham Gamez PA-C [phone] [place] [phone] Physician Best Worker 09/22/24 Milking Machine Mechanic Relationship Specialty Start Date End Date Yobani Champagne MD [address] [place] [address] PCP - General Family Medicine 06/07/24 Katlyn Grey, DRUM WORKER.OFFICE RECEPTIONIST [address] [place] [address] Insurance Adviser Family Medicine 07/11/24 Loly Michelle DRUM WORKER.OFFICE RECEPTIONIST [address] [place] [address] Insurance Adviser Family Medicine 07/11/24 Graham Gamez PA-C [address] [place] [address] Physician Best Worker 09/22/24 Law Garcia, PSS [facility] [address] [place] [address] Specialty Clinical Provider Trainer Orthopedics 11/30/24 01/30/25 Milking Machine Mechanic Relationship Specialty Start Date End Date Yobani Champagne MD [address] [place] [address] PCP - General Family Medicine 06/07/24 Katlyn Grey APRN.OFFICE RECEPTIONIST [address] [place] [address] Insurance Adviser Family Medicine 07/11/24 Loly Michelle APRN.OFFICE RECEPTIONIST [address] [place] [address] Insurance Adviser Family Medicine 07/11/24 Graham Gamez PA-C [phone] [place] [address] Physician Best Worker 09/22/24 Law Garcia, [facility] [address] [place] [address] Specialty Clinical Provider Trainer Orthopedics 11/30/24 01/30/25 Milking Machine Mechanic Relationship Specialty Start Date End Date Yobani Champagne MD [address] [place] [address] PCP - General Family Medicine 06/07/24 Katlyn Grey APRN.OFFICE RECEPTIONIST [address] [place] [address] Insurance Adviser Family Medicine 07/11/24 Loly Michelle APRN.OFFICE RECEPTIONIST [address] [place] [address] Insurance Adviser Family Medicine 07/11/24 Graham Gamez PA-C [address] [place] [phone] Physician Best Worker 09/22/24 Law Garcia, PSS [facility] [address] [place] [address] Specialty Clinical Provider Trainer Orthopedics 11/30/24 01/30/25 Milking Machine Mechanic Relationship Specialty Start Date End Date Yobani Champagne MD [address] [place] [address] PCP - General Family Medicine 06/07/24 Katlyn Grey APRN.OFFICE RECEPTIONIST [facility] [place] [address] Insurance Adviser [facility] 07/11/24 Loly Michelle APRN.OFFICE RECEPTIONIST [facility] [place] [address] Insurance Adviser [facility] 07/11/24 Graham Gamez PA-C [address] [place] [address] Physician Best Worker 09/22/24 Law Garcia, PSS [facility] [address] [place] [address] Specialty Clinical Provider Trainer Orthopedics 11/30/24 01/30/25 Milking Machine Mechanic Relationship Specialty Start Date End Date Yobani Champagne MD [address] [place] [address] PCP - General Family Medicine 06/07/24 Katlyn Grey APRN.OFFICE RECEPTIONIST [address] [place] [address] [facility] 07/11/24 Loly Michelle APRN.OFFICE RECEPTIONIST [address] [place] [address] [facility] 07/11/24 Graham Gamez PA-C [address] [place] [address] Physician Best Worker 09/22/24 Law Garcia, PSS [facility] [address] [place] [address] Specialty Clinical Provider Trainer Orthopedics 11/30/24 01/30/25 Milking Machine Mechanic Relationship Specialty Start Date End Date Yobani Champagne MD [address] [place] [address] PCP - General Family Medicine 06/07/24 Katlyn Grey APRN.OFFICE RECEPTIONIST [address] [place] [address] [facility] 07/11/24 Loly Michelle DRUM WORKER.OFFICE RECEPTIONIST [address] [place] [address] [facility] 07/11/24 Graham Gamez PA-C [address] [place] [address] Physician Best Worker 09/22/24 Law Garcia, PSS [facility] [address] [place] [address] Specialty Clinical Provider Trainer Orthopedics 11/30/24 01/30/25 Milking Machine Mechanic Relationship Specialty Start Date End Date Yobani Champagne MD [address] [place] [address] PCP - General Family Medicine 06/07/24 Katlyn Grey APRN.OFFICE RECEPTIONIST [address] [place] [address] Insurance Adviser [facility] 07/11/24 Loly Michelle APRN.OFFICE RECEPTIONIST [address] [place] [address] Insurance Adviser [facility] 07/11/24 Graham Gamez PA-C [address] [place] [address] Physician Best Worker 09/22/24 Law Garcia, PSS [facility] [address] [place] [address] Specialty Clinical Provider Trainer Orthopedics 11/30/24 01/30/25 Milking Machine Mechanic Relationship Specialty Start Date End Date Yobani Champagne MD [address] [place] [address] PCP - General Family Medicine 06/07/24 Katlyn Grey, ROCIO.OFFICE RECEPTIONIST [address] [place] [address] Insurance Adviser [facility] 07/11/24 Loly Michelle APRN.OFFICE RECEPTIONIST [address] [place] [address] Insurance Adviser [facility] 07/11/24 Graham Gamez PA-C [address] [place] [address] Physician Best Worker 09/22/24 Law Garcia, PSS [facility] [address] [place] [address] Specialty Clinical Provider Trainer Orthopedics 11/30/24 01/30/25 Milking Machine Mechanic Relationship Specialty Start Date End Date Yobani Champagne MD [address] [place] [address] PCP - General Family Medicine 06/07/24 Katlyn Grey, ROCIO.OFFICE RECEPTIONIST [address] [place], [place] [address] Insurance Adviser [facility] 07/11/24 Loly Michelle DRUM WORKER.OFFICE RECEPTIONIST [address] [place], [place] [address] [facility] 07/11/24 Graham Gamez PA-C [address] [place] [address] Physician Best Worker 09/22/24 [facility] [address] [place] [address] Specialty Clinical Provider Trainer Orthopedics 11/30/24 01/30/25 Goals (unrecognized section and content) Goals may be documented in a n alternate section (unrecognized sect ion and content) No Status Records FoundNo Status Records FoundNo Status Records Found INFORMATION SOURCE (unrecogn ized section and content) DATE CREATED AUTHOR 01/04/2025 [facility] DATE CREATED AUTHOR AUTHOR'S ORGANIZ ATION 01/05/2025 [facility] DATE CREATED AUTHOR AUTHOR'S ORGANIZ ATION 01/10/2025 [facility] FOR RECORDS PERTAINING TO PATIENTS WHO ARE OR HAVE BEEN ENROLLED IN A CHEMICAL DEPENDENCY/SUBSTANCEABUSE PROGRAM, SOME INFORMATION MAY BE OMITTED. This clinical summary was aggregated from multiple sources. Caution should be exercised in using it in the provision of clinical care. This summary normalizes information from multiple sources, and as a consequence, information in this document may materially change the coding, format and clinical context of patient data. In addition, data may be omitted in some cases. CLINICAL DECISIONS SHOULD BE BASED ON THE PRIMARY CLINICAL RECORDS. [facility] [employer] [facility]. provides no warranty or guarantee of the accuracy or completeness of information in this document.
[2025-01-12 03:04] VITALS: BP 133/79; PULSE 85; RESP 16; TEMP 36.9; O2SAT 96
== END 2025-01-12 03:05 | disposition home or self-care (01) ==
PROVIDERS: Emergency Provider Emergency Medicine; Visit Provider Emergency Medicine
DX: R04.0 Epistaxis (principal)
CPT/HCPCS: 30901; 99282

== ENCOUNTER 2025-01-16 18:00 | Outpatient (RCR) | payer OTHER, SELFPAY ==
--- NOTE | 2025-01-02 15:58 | HP.PTEVAL_ITS ---
Patient's Visit Information Visit Information Visit Information: GUTIERREZ WILKINSON is a 64 year old M referred to Physical Therapy by Dr. Robert Carlos MD with a diagnosis of Right TKR. Date of Evaluation: 01/02/25 Physical Therapist: Daisy Beard DPT Visit Plan Frequency: 2x /Week Duration: 4 Weeks Plan: Right TKR- 12/23/2024- Focus on ROM, edema control, functional mobility HEP Given IE: step stretch, bolster extn stretch, quad set, TKE, SLR Subjective Subjective: Right TKR december [address] Carlos. He stayed overnight- single story with - with 2 stairs to enter- no problems getting in/out. Fully I prior to surgery including driving. He is retired- he wants to be able to drive- likes to fish with his grandchildren. Worst: 8/10 Agg: too much walking, something running into it. Eases: ice, elevation. He reports that its pretty swollen. Best: 0/10. The pain is in the quad around the tourniquet and then down in the calf. He describes the pain as dull an achy. He has N/T in the side of the knee but none in the toes. He saw the MD- who took x-rays and was happy with everything. Has been doing some exercises with it. He did not use an AD prior to surgery. He is using Tylenol currently as his pain medication. Sleep: not real good- achy- in the bed. PMHx/Meds: see chart. Goals: get back to all of his normal activities. Objective Objective: Posture: forward head, rounded shoulders Gait: antalgic- FWW- decreased stance on the right LE with poor heel/toe pattern HR/TR: able with UE A SLS: weight shift with no pain- SLS with UE A increased pain Palpation: tender along medial and lateral joint line Observation: bruising along posterior thigh Strength: Core: fair minus, Hip: 4/5 throughout, Knee: Extn: 11 Flexion: 12, Ankle: 5/5 Girth: 6 below:36 cm 6 above: 57 cm Patella: 46 cm ROM: 10 degrees from neutral extn and 85 degrees of flexion without overpressure Balance/Special Test Scores Lower Extremity Functional Score: 14 Goals Goal 1:: Patient will be I with HEP and progression Goal Time Frame: 4-6 Weeks Goal 2:: Patient will ambulate >150 feet with normalized gait pattern and no AD Goal Time Frame: 4-6 Weeks Goal 3:: Patient will asc/desc 8 stairs recip with 1 HR Goal Time Frame: 4-6 Weeks Goal 4:: Patient will perform sit to stands with out UE A Goal Time Frame: 4-6 Weeks Goal 5:: Patient will demo 0-115 degrees of ROM in the right knee Goal Time Frame: 4-6 Weeks Goal 6:: Patient will report 80% improvement Goal Time Frame: 4-6 Weeks Rehabilitation Potential Physical Therapy Diagnosis: Patient presents with hypomobility- he has decreased LE and core strength/stabilization, ROM, flex, proprioception and muscular endurance leading to abnormal gait and decreased ability to perform ADL's Rehabilitation Potential: Good Anticipated Interventions Therapeutic Exercise to Include: Strength training, Power training, Endurance training, Balance training, Coordination, Agility training, Body mechanics, Postural training, Flexibilty training, Gait and locomotor training, Neuromotor development, Passive ROM, Active ROM and Dynamic Lumbar Stabilization For the Purpose of:: To improve muscle performance and motor function and To improve performance and independence with ADL's Manual Therapy Techniques to Include: Mobilization and Soft tissue mobilization For the Purpose of:: To increase ROM TENS: Yes Cryotherapy (ice pack, ice massage): Yes Thermo therapy (hot pack): Yes Ultrasound (thermal/non thermal): No (TKR) For the Purpose of:: To decrease pain and To decrease swelling/inflammation Text: Thank you for the opportunity to evaluate your patient. For Medicare and Medicare HMO plans, please review the plan of care and approve it. It will need to be FAXED BACK to us at [phone] for Medicare purposes. For Medicare only, by signing this I certify the plan of care. Please let me know if there are questions or concerns regarding this plan of care. Physician Signature: Date:
--- NOTE | 2025-03-08 07:08 | HP.PT.NRP ---
Patient Information Patient Information: GUTIERREZ WILKINSON was seen in my office for initial evaluation on 01/02/25. The following Plan of Care was established for this patient: POC Established Initial Frequency: 2x /Week Initial Duration: 4 Weeks Anticipated Interventions Therapeutic Exercise to Include: Strength training, Power training, Endurance training, Balance training, Coordination, Agility training, Body mechanics, Postural training, Flexibilty training, Gait and locomotor training, Neuromotor development, Passive ROM, Active ROM and Dynamic Lumbar Stabilization For the Purpose of:: To improve muscle performance and motor function and To improve performance and independence with ADL's Manual Therapy Techniques to Include: Mobilization and Soft tissue mobilization For the Purpose of:: To increase ROM TENS: Yes Cryotherapy (ice pack, ice massage): Yes Thermo therapy (hot pack): Yes Ultrasound (thermal/non thermal): No (TKR) For the Purpose of:: To decrease pain and To decrease swelling/inflammation Last Seen Last Seen: This patient was last seen in our office . Pertinent comments regarding their Physical therapy will appear below: Pt had follow up with his surgeon on 02/06 and has not attended therapy since- appropriate to be d/c at this time from PT and continue HEP At this point I will be discontinuing this patient from physical therapy. I would be happy to see this patient again in the future if found appropriate by the physician. Thank you! Daisy Beard, ALPAT Balance/Gait/Functional tests Balance/Special Test Scores Lower Extremity Functional Score: 14
== END 2025-01-16 19:00 | disposition home or self-care (01) ==
LOC: PT 18:00
PROVIDERS: Referring Provider Orthopaedic Surgery; Visit Provider Orthopaedic Surgery
DX: M17.11 Unilateral primary osteoarthritis, right knee (principal); Z96.651 Presence of right artificial knee joint
CPT/HCPCS: 97016; 97110; 97162

== ENCOUNTER 2025-07-19 12:53 | Emergency (ER) | payer OTHER, SELFPAY ==
[2025-07-19] VITALS (7 sets, daily range): BP systolic 87–136; BP diastolic 56–81; PULSE 79–87; RESP 15–20; TEMP 36.4–36.9; O2SAT 95–97; BMI 37.4
--- NOTE | 2025-07-19 13:52 | EKG12_ITS ---
Test Reason : SYNC Blood Pressure : */* mmHG Vent. Rate : 85 BPM Atrial Rate : 85 BPM P-R Int : 238 ms QRS Dur : 88 ms QT Int : 364 ms P-R-T Axes : 24 -36 21 degrees QTcB Int : 433 ms Sinus rhythm with 1st degree A-V block Possible Left atrial enlargement Left axis deviation Abnormal ECG Confirmed by Hussein Le ([id number]), photographic editor AYLIN CARBAJAL ([id number]) on 07/21/2025 10:25:03 AM Referred By: Confirmed By: Hussein Le
[2025-07-19 14:54] LABS: Troponin T High Sensitivity 15 ng/L (<=22)
[2025-07-19 14:56] LABS: Anion Gap 17 (5-15); BUN 24 mg/dL (4-19); BUN/Creat Ratio 16.5 RATIO (10-20); Calcium,Total 10.0 mg/dL (7.6-11.0); Carbon Dioxide 20.4 mmol/L (21.0-32.0); Chloride 98 mmol/L (98-108); Estimated Creatinine Clearance 60.76 ml/min (50-250); Glucose 206 mg/dL (70-99); Hematocrit 46.7 % (40-54); Hemoglobin 15.8 g/dL (13.0-16.5); Immature Granulocytes Count 0.010 X10^3/uL (0.0-0.0); Mean Corp Hgb Conc 33.8 g/dL (32-36); Mean Corpuscular Volume 86.6 fL (80-94); Mean Platelet Vol. 9.6 fl (6.2-12.0); NRBC Flagged by Analyzer 0 % (0-5); Platelet Count 179 K/mm3 (150-450); Potassium 3.9 mmol/L (3.3-5.1); RBC Distribution Width CV 15.4 % (11.6-14.6); RBC Distribution Width SD 48.4 fl (35.1-43.9); Red Blood Count 5.39 M/mm3 (4.6-6.2); White Blood Count 6.9 K/mm3 (4.4-11.0)
[2025-07-19] MEDS: 0.9% Normal Saline (1000mL) 1,000 ML 1000 ML IV ×2 (14:56→16:11)
--- NOTE | 2025-07-19 15:07 | CT_ITS ---
PROCEDURE: BRAIN/HEAD WITHOUT CONTRAST 07/19/2025 REASON FOR EXAM: SYNCOPE TECHNIQUE: Procedure Code: CTBR Modality: CT Procedure: BRAIN/HEAD WITHOUT CONTRAST Coronal and Sagittal reconstruction series were generated. One or more dose reduction techniques were used (e.g., Automated exposure control, adjustment of the mA and/or kV according to patient size, use of iterative reconstruction technique. RADIATION DOSE SUMMARY: CTDlvol: 44.99 mGy DLP: 829.85 mGycm COMPARISON: None FINDINGS: Cerebrum: Unremarkable. Cerebellum/brainstem: Unremarkable. Note slight limitation due to beam hardening artifact. Ventricles/extra-axial spaces: Unremarkable. Paranasal sinuses/mastoid air cells: Unremarkable. Scalp/calvarium: Unremarkable. Other: Intracranial atherosclerosis. S shaped nasal septal deviation.. CT/Brain/Head without Contrast IMPRESSION: 1. No visible acute intracranial findings. If there is persistent concern, cons ider MRI. 2. Additional description as above. Reading Location: [id number]
--- NOTE | 2025-07-19 15:15 | RAD_ITS ---
PROCEDURE: CHEST PA AND LATERAL 07/19/2025 REASON FOR EXAM: SYNCOPE TECHNIQUE: Procedure Code: RADCXR Modality: DX Procedure: CHEST PA AND LATERAL COMPARISON: September 23, 2022. FINDINGS: Hardware: EKG electrodes are seen. Heart: The heart size is normal. Mediastinum: The mediastinal contour is unremarkable. Lungs: The lungs are clear. Bones: The bones are unremarkable. RAD/Chest PA and Lateral IMPRESSION: NO ACUTE FINDINGS. Reading Location: [id number]
[2025-07-19 16:16] LABS: Mucous, Urine 0 SEEN /hpf (<or=2+); Red Blood Cells-Urine 0 SEEN /hpf (0-5); Squamous Epithelial Cells - UA 0 SEEN /hpf (0-5)
[2025-07-19 16:17] LABS: Color, Urine Yellow (Yellow); Glucose, Dipstick 1000 mg/dl (Normal); Ketone-Dipstick Negative (Negative); Leukocyte Esterase-Dipstick Negative /ul (Negative); Nitrite-Dipstick Negative (Negative); Occult Blood-Urine 10 /ul (Negative); Protein-Dipstick 500 mg/dl (Negative); Specific Gravity, Urine 1.015 (1.002-1.030); Urine Bilirubin Dipstick Negative (Negative)
--- NOTE | 2025-07-19 16:30 | EX.ED.DYSGE1 ---
HPI History of Present Illness Chief Complaint: Syncope Informant: patient Onset/Context/Timing Onset: Today Context: Sudden Onset Timing: Continuous Quality: Dizzy, sweaty Location: Generalized Worsened by: Nothing Relieved by: Nothing Narrative Narrative: Patient presents with complaint of episode that occurred today. Patient states that he was standing in a line when he became dizzy and sweaty. Patient states he passed out. Patient states he woke up around. Patient states there were several people around him when he woke up. Patient does not was out that long. Patient denies any chest pain or shortness of breath. Patient denies any palpitations. Patient states that someone there gave him a piece of hard candy since he has a history of diabetes. EMS checked patient's blood sugar and was 194. Patient states he feels better at the present time. PFSH PFS Medical History Diabetes History of kidney cancer Former smoker Home Medications ?Medication ?Instructions ?Recorded ?Last Taken ?Type lisinopril 40 mg tablet 40 mg PO DAILY 12/10/14 09/08/17 History metformin 1,000 mg tablet 500 mg PO BIDCM 12/10/14 09/08/17 History aspirin 81 mg chewable tablet 81 mg PO DAILY@0800 06/09/16 09/08/17 History atenolol 50 mg tablet 25 mg PO DAILY 06/09/16 09/08/17 History atorvastatin 40 mg tablet 40 mg PO QHS 06/09/16 09/08/17 History fluoxetine 20 mg capsule 40 mg PO DAILY 06/09/16 09/08/17 History multivitamin (Daily Multiple 1 ea PO DAILY 06/09/16 09/08/17 History tablet) glimepiride 4 mg tablet 4 mg PO DAILY 09/08/17 09/08/17 History Allergy/AdvReac Type Severity Reaction Status Date / Time No Known Allergies Allergy Verified 07/19/25 12:55 Surgical History History of cholecystectomy History of nephrectomy Hx of arthroscopic knee surgery Social History Smoking Status: Former smoker ROS ROS ED Constitutional Constitutional ED: Reports sweats; Denies chills or fever(s) Eyes Eyes: Denies blurry vision or change in vision ENT ENT ED: Denies rhinorrhea or sore throat Cardiovascular Cardiovascular: Denies chest pain or palpitations Respiratory/Chest Respiratory/Chest: Denies cough or dyspnea Gastrointestinal Gastrointestinal: Denies nausea or vomiting Genitourinary Genitourinary ED: Denies dysuria or hematuria Musculoskeletal Musculoskeletal: Denies back pain or neck pain Integumentary Denies abscess or rash Neurologic Neurologic: Denies headache(s) or weakness Allergic/Immunologic Allergic/Immunologic ED: Denies mouth swelling or urticaria EXAM Physical Exam Const Vital Signs: 07/19/25 12:55 07/19/25 12:56 07/19/25 14:00 Temperature 97.5 F L 97.9 F Temperature Source Oral Oral Pulse Rate 83 84 Pulse Rate [Lying] Pulse Rate [Sitting (for 1 minute prior to obtaining)] Pulse Rate [Standing (for 1 minute prior to obtaining)] Respiratory Rate 17 20 H Respiratory Effort Normal Respiratory Pattern Normal Blood Pressure 112/77 87/64 L Blood Pressure [Lying] Blood Pressure [Sitting (for 1 minute prior to obtaining)] Blood Pressure [Standing (for 1 minute prior to obtaining)] Blood Pressure Mean 88 71 Blood Pressure Mean [Lying] Blood Pressure Mean [Sitting (for 1 minute prior to obtaining)] Blood Pressure Mean [Standing (for 1 minute prior to obtaining)] Pulse Ox 97 95 Oxygen Delivery Method Room Air Room Air 07/19/25 14:06 07/19/25 15:00 07/19/25 16:00 Temperature 98.4 F 98.2 F Temperature Source Oral Oral Pulse Rate 87 84 Pulse Rate [Lying] 79 Pulse Rate [Sitting (for 1 minute prior to obtaining)] 87 Pulse Rate [Standing (for 1 minute prior to obtaining)] 86 Respiratory Rate 15 16 Respiratory Effort Respiratory Pattern Blood Pressure 87/65 L 136/80 H Blood Pressure [Lying] 88/56 L Blood Pressure [Sitting (for 1 minute prior to obtaining)] 87/68 L Blood Pressure [Standing (for 1 minute prior to obtaining)] 87/65 L Blood Pressure Mean 72 98 Blood Pressure Mean [Lying] 66 Blood Pressure Mean [Sitting (for 1 minute prior to obtaining)] 74 Blood Pressure Mean [Standing (for 1 minute prior to obtaining)] 72 Pulse Ox 95 95 Oxygen Delivery Method Room Air 07/19/25 17:00 Temperature 98.2 F Temperature Source Oral Pulse Rate 84 Pulse Rate [Lying] Pulse Rate [Sitting (for 1 minute prior to obtaining)] Pulse Rate [Standing (for 1 minute prior to obtaining)] Respiratory Rate 16 Respiratory Effort Respiratory Pattern Blood Pressure 120/81 H Blood Pressure [Lying] Blood Pressure [Sitting (for 1 minute prior to obtaining)] Blood Pressure [Standing (for 1 minute prior to obtaining)] Blood Pressure Mean 94 Blood Pressure Mean [Lying] Blood Pressure Mean [Sitting (for 1 minute prior to obtaining)] Blood Pressure Mean [Standing (for 1 minute prior to obtaining)] Pulse Ox 95 Oxygen Delivery Method Positive well nourished and well developed General Appearance ED: well developed and NAD HEENT Reports moist mucous membranes Neck supple and no JVD Chest Wall palpation of chest normal Resp normal respiratory effort and clear to auscultation bilaterally Cardio regular rate and regular rhythm GI non-tender and non-distended Palpation: soft Extremity normal to inspection General Extremety ED: Negative for edema or tenderness General Extremity: Negative for edema Neuro oriented x3, CN's II-XII intact bilaterally and no sensory deficits noted Sensorium / Orientation: alert Motor Exam: strength 5/5 throughout Psych mental status grossly normal MDM MDM MDM Narrative Medical decision making narrative: Differential diagnosis includes cardiac dysrhythmia, cardiac ischemia, intracranial bleeding, stroke, electrolyte abnormality, dehydration, hypoglycemic episode, and vasovagal syncope. EKG will be obtained to assess for cardiac dysrhythmia and cardiac ischemia. CT scan of the brain will be obtained to assess for intracranial bleeding and stroke. Chest x-ray will be obtained to assess for pneumonia and bronchitis. CBC will be obtained to assess for leukocytosis and anemia. Basic metabolic profile will be obtained to assess for electrolyte abnormality and renal function. High-sensitivity troponin will be obtained to assess for cardiac ischemia. 2-hour repeat high-sensitivity troponin will be obtained to assess for ongoing cardiac ischemia. Urinalysis will be obtained to assess for urinary tract infection and hematuria. History & Record Review Additional record(s) reviewed:: Prior ED visit and Prior labs Lab Data Attestation: I reviewed the patient's lab results. Lab results narrative: CBC was reviewed and was within normal limits. Basic metabolic profile was reviewed. BUN was slightly elevated at 24. Creatinine was slightly elevated at 1.45. These are consistent with previous results. Glucose was mildly elevated at 206. Initial high-sensitivity troponin was reviewed and was 15. Urinalysis was reviewed. There is no evidence of urinary tract infection or hematuria. 2-hour repeat high-sensitivity troponin was reviewed and was normal at 10. Labs: Laboratory Results - last 24 hr 07/19/25 07/19/25 07/19/25 13:05 16:10 16:12 WBC 6.9 RBC 5.39 Hgb 15.8 Hct 46.7 MCV 86.6 MCH 29.3 MCHC 33.8 RDW Std Deviation 48.4 H RDW Coeff of [place] 15.4 H Plt Count 179 MPV 9.6 Immature Gran % (Auto) 0.100 Neut % (Auto) 61.0 Lymph % (Auto) 26.0 [place] % (Auto) 8.8 Eos % (Auto) 3.5 Baso % (Auto) 0.6 Absolute Neuts (auto) 4.2 Absolute Lymphs (auto) 1.80 Nucleated RBC % 0 Sodium 136 Potassium 3.9 Chloride 98 Carbon Dioxide 20.4 L Anion Gap 17 H BUN 24 H Creatinine 1.45 H Estim Creat Clear Calc 60.76 Est GFR (MDRD) Non-Af 53 L BUN/Creatinine Ratio 16.5 Glucose 206 H Calcium 10.0 Troponin T High Sens 15 Troponin T Hi Sens 2 Hr 10 Urine Color Yellow Urine Clarity Clear Urine pH 6.0 Ur Specific [place] 1.015 Urine Protein 500 H Urine Glucose (UA) 1000 H Urine Ketones Negative Urine Occult Blood 10 H Urine Nitrite Negative Urine Bilirubin Negative Urine Urobilinogen Normal Ur Leukocyte Esterase Negative Urine RBC 0 SEEN Urine WBC 0 SEEN Ur Squamous Epith Cells 0 SEEN Urine Bacteria 0 SEEN Urine Mucus 0 SEEN Radiography Chest X-Ray - ED: 2 View, Read by ED Physician, Read by Radiologist and No Acute Disease Diagnostic Testing: Clinical Impression(s) from Imaging Studies Brain CT 07/19/25 15:07 IMPRESSION: 1. No visible acute intracranial findings. If there is persistent concern, consider MRI. 2. Additional description as above. Reading Location: [id number] Chest X-Ray 07/19/25 15:15 IMPRESSION: NO ACUTE FINDINGS. Reading Location: [id number] CT scan of the brain was obtained. There is no acute intracranial abnormality. This was interpreted by the radiologist. I also independently reviewed the images and did not see any evidence of fracture or intracranial bleeding. PA and lateral chest x-ray was obtained. There are 2 views. On my independent interpretation, lung hudson are clear. There is normal cardiac silhouette. Bony thorax is normal. There is no acute process noted. Radiologist also interpreted the x-ray and agrees. EKG Initial EKG: Interpretation: Sinus Rhythm (85) and AV Block (First-degree) Comments: EKG was obtained. On my independent interpretation, it shows a sinus rhythm with a first-degree AV block with a rate of 85. VA interval was prolonged at 238 ms. QRS interval was normal at 88 ms. QTc interval was normal at 433 ms. There is left axis deviation at -36. There are no acute ST or T wave changes. Prior EKG tracings: available for review Prior: Unchanged (06/18/2019) Treatment and Re-Evaluation :: Patient was given IV fluids. Orthostatic vital signs were obtained and were within normal limits. Patient was feeling better on reevaluation. Patient was given diet tray. Patient was advised of his findings. Patient is low risk according to [employer] syncope criteria. Patient was instructed to follow-up with his primary care physician in 5 to 7 days. Patient understood and was agreeable with the plan. All questions were answered. Discharge Plan Triage Chief Complaint: Syncope ED Provider: Alvin Aguero Dx/Rx/DC Orders Clinical Impression: Syncope and collapse, Diabetes mellitus type II Instructions: ED Fainting, Uncertain Cause Prescriptions: No Action metformin 1,000 MG tablet 500 mg PO BIDCM lisinopril 40 MG tablet 40 mg PO DAILY multivitamin [Daily Multiple] 1 EACH tablet 1 ea PO DAILY atorvastatin 40 MG tablet 40 mg PO QHS aspirin 81 MG tablet,chewable 81 mg PO DAILY@0800 fluoxetine 20 MG capsule 40 mg PO DAILY atenolol 50 MG tablet 25 mg PO DAILY glimepiride 4 MG tablet 4 mg PO DAILY Patient Comments: Take 1 tablet by mouth daily with breakfast. [facility] Care Provider[facility] [facility] [Primary Care Provider, None] - 5-7 Days Print Language: Kazakh Disposition Disposition: Home, Self Care
[2025-07-19 17:07] LABS: Troponin T High Sens 2 HR 10 ng/L (<=22)
== END 2025-07-19 17:30 | disposition home or self-care (01) ==
PROVIDERS: Emergency Provider Emergency Medicine; Visit Provider Emergency Medicine
DX: R55 Syncope and collapse (principal); E11.9 Type 2 diabetes mellitus without complications; Z87.891 Personal history of nicotine dependence
CPT/HCPCS: 70450; 71046; 80048; 81001; 84484; 85025; 93005; 96360; 96361; 99285; A4216